=== PATIENT | female | born 1935 | race Caucasian/White ===

== ENCOUNTER 2017-11-24 12:51 | Inpatient (IN) | payer OTHER ==
[2017-11-24 13:08] VITALS: BMI 19.9
--- NOTE | 2017-11-24 13:13 | PDOC ---
History of Present Illness <Marita Villela - Last Filed: 11/24/17 15:45> <Madelin Baumann - Last Filed: 11/24/17 16:00> - General History Source: Patient Exam Limitations: No Limitations <Ana Johnson - Last Filed: 11/24/17 16:14> - General Chief Complaint: Chest Pain Stated Complaint: CHEST PAIN Time Seen by Provider: 11/24/17 13:12 - History of Present Illness Initial Comments: Ms Rodrigez 82-year-old female, with a past medical history of HTN, HLD, and hypothyroidism, arthritis, who presents to the ED with left-sided chest tightness and heaviness that began last night. The patient denies any fevers, chills, cough, nausea, vomiting, diarrhea, or abdominal pain. Denies any shortness of breath or palpitations. Denies any dizziness, syncope, or weakness. Social History: Former smoker. Surgical History: Cholecystectomy. Teletypesetter Monitor: Dr. Barrett PMD: Dr Aparicio (Ana Johnson) Past History <Richard Villelaina - Last Filed: 11/24/17 15:45> <Madelin Baumann - Last Filed: 11/24/17 16:00> - Past Medical History Anemia: No Asthma: No Cancer: No Cardiac Disorders: No CVA: No COPD: No CHF: No DVT: No Dementia: No Diabetes: No GI Disorders: No Disorders: No HTN: Yes Hypercholesterolemia: Yes Liver Disease: No Seizures: No Thyroid Disease: Yes - Surgical History Abdominal Surgery: No Appendectomy: No Cardiac Surgery: No Cholecystectomy: Yes Lung Surgery: No Neurologic Surgery: No Orthopedic Surgery: No - Immunization History Immunization Up to Date: Yes - Suicide/Smoking/Psychosocial Hx Smoking Status: No Smoking History: Former smoker Have you smoked in the past 12 months: No Number of Cigarettes Smoked Daily: 2 If you are a former smoker, when did you quit?: 2017 Information on smoking cessation initiated: No 'Breaking Loose' booklet given: 06/13/13 Hx Alcohol Use: No Drug/Substance Use Hx: No Substance Use Type: None Hx Substance Use Treatment: No <Ana Johnson - Last Filed: 11/24/17 16:14> - Past Medical History Allergies/Adverse Reactions: Allergies Allergy/AdvReac Type Severity Reaction Status Date / Time No Allergy Information Allergy Verified 11/24/17 12:59 Available Home Medications: Ambulatory Orders Levothyroxine [Synthroid -] 100 mcg PO DAILY 08/18/11 Amlodipine Besylate [Norvasc -] 5 mg PO DAILY #0 06/15/13 Aspirin Coated [Ecotrin -] 81 mg PO DAILY #0 NS 06/15/13 Atorvastatin Ca [Lipitor] 20 mg PO HS 11/24/17 Losartan Potassium 50 mg PO DAILY 11/24/17 Cardiac Specific PMH - Complaint Specific PMHX Pacemaker: No <Ana Johnson - Last Filed: 11/24/17 16:14> Review of Systems <Marita Villela - Last Filed: 11/24/17 15:45> <Madelin Baumann - Last Filed: 11/24/17 16:00> - Review of Systems Able to Perform ROS?: Yes <Ana Johnson - Last Filed: 11/24/17 16:14> - Review of Systems Comments:: 11/24/17 14:37 GENERAL/CONSTITUTIONAL: No fever or chills. No weakness. no sweats. HEAD, EYES, EARS, NOSE AND THROAT: No congestion. CARDIOVASCULAR: (+)Left-sided chest tightness/heaviness. No palpitations, syncope or edema. RESPIRATORY: +SOB, no cough, wheezing, or hemoptysis. GASTROINTESTINAL No nausea/vomiting. No diarrhea or constipation. No bloody stools. GENITOURINARY: No hematuria, dysuria, frequency, urgency or other changes. MUSCULOSKELETAL: No joint or muscle swelling or pain. No neck or back pain. SKIN: No rash or changes in skin color or lesions. NEUROLOGIC: No headache, vertigo, loss of consciousness, or change in strength/ sensation. HEMATOLOGIC/LYMPHATIC: No anemia, easy bruising/bleeding, or history of blood clots. ALLERGIC/IMMUNOLOGIC: No allergies All other systems reviewed and negative, or as documented in HPI. (Ana Johnson) *Physical Exam <Marita Villela - Last Filed: 11/24/17 15:45> <Madelin Baumann - Last Filed: 11/24/17 16:00> <Ana Johnson - Last Filed: 11/24/17 16:14> - Vital Signs Last Vital Signs Temp Pulse Resp BP Pulse Ox 98.1 F 68 99 H 119/64 99 11/24/17 13:18 11/24/17 16:10 11/24/17 16:10 11/24/17 16:10 11/24/17 16:10 - Physical Exam Comments: 11/24/17 13:56 General: Well appearing, awake and alert, NAD. HEENT: NCAT, PERRL, EOMI, clear conjunctiva, anicteric, moist mucus membranes, clear oropharynx, no oral lesions.. Neck: neck supple, FROM, no JVD. Resp: CTAB, normal and even respirations, no respiratory distress CVS: irregular rhythm, no murmurs, 2+ peripheral pulses throughout, no peripheral edema Abdomen: soft, NTND, no peritoneal signs. Back: nontender, normal inspection and ROM MSK: no edema, VINCENT x4, ROM intact. No clubbing or cyanosis. normal bulk and tone. Neuro: alert, oriented appropriately; no focal neurologic deficits. Skin: warm and well perfused, cap refill <2 sec, normal color 11/24/17 13:56 (Ana Johnson) ED Treatment Course - LABORATORY CBC & Chemistry Diagram: 11/24/17 13:40 11/24/17 13:40 - Additional Consults Time Called: 15:46 Consult/PCP: Byron (Daniela) - Paged overhead (as per service is in house) <Marita Villela - Last Filed: 11/24/17 15:45> - LABORATORY CBC & Chemistry Diagram: 11/24/17 13:40 11/24/17 13:40 <Madelin Baumann - Last Filed: 11/24/17 16:00> - LABORATORY CBC & Chemistry Diagram: 11/24/17 13:40 11/24/17 13:40 <Ana Johnson - Last Filed: 11/24/17 16:14> - ADDITIONAL ORDERS Additional order review: Laboratory Results 11/24/17 11/24/17 11/24/17 13:40 13:40 13:40 PT with INR 10.50 INR 0.93 Sodium 136 Potassium 4.2 Chloride 103 Carbon Dioxide 27 Anion Gap 6 L BUN 14 Creatinine 0.7 Creat Clearance w eGFR > 60 Random Glucose 80 Calcium 10.0 Magnesium 2.1 Total Bilirubin 1.4 H AST 27 ALT 21 Alkaline Phosphatase 98 Troponin I 0.04 Total Protein 7.1 Albumin 4.0 TSH 1.83 11/24/17 13:40 RBC 4.75 MCV 86.3 MCHC 33.7 RDW 14.6 D MPV 7.3 L D Neutrophils % 81.7 Lymphocytes % 11.7 D Monocytes % 5.8 Eosinophils % 0.2 Basophils % 0.6 - RADIOLOGY Radiology Studies Ordered: Category Date Time Status CHEST X-RAY PORTABLE* [RAD] Stat Radiology 11/24/17 13:51 Taken Medical Decision Making <Marita Villela - Last Filed: 11/24/17 15:45> <Madelin Baumann - Last Filed: 11/24/17 16:00> <Ana Johnson - Last Filed: 11/24/17 16:14> - Medical Decision Making 11/24/17 14:41 Dr. Lamont Agarwal is covering for Dr. Aparicio. Message left on cell phone. 11/24/17 14:45 Dr. Matthews who is covering for the patient's Teletypesetter Monitor (Dr. Barrett) was paged overhead. Dr. Matthews agreed to come to the ED to see the patient. 11/24/17 16:00 Dr. Matthews was paged over-head for update. (Madelin Baumann) 11/24/17 13:53 Rosa Rodrigez is an 82 YO F w/ history of HTN, HLD, and hypothyroidism, arthritis , who presents to the ED with chest tightness and heaviness since last night. No prodromal sx. No syncope, flores, dizziness, cough, congestion, n/v/d, AP or weakness/paresthesias. denies exertional component, trauma, infection. DDx. arrhythmia, ACS, metabolic/electrolyte derangements, lyme carditis Vital signs reviewed, wnl. Medical Plan: CBC, CMP, TSH, ECG, trops/card panel, CXR, Lyme test Prior notes reviewed, including admissions, discharges. laboratory results and imaging reviewed, basic labs and lytes wnl, notable for neg trop, normal TSH. Stress Lexiscan MIBI 09/2016 ([facility]); small zone of mild ischemia of the mid-distal anterior wall; normal LVEF. CXR with interstitial markings, no edema or infiltrate. EKG with 2nd degree heart block, Mobitz Type 2. changed from prior EKG which had sinus rhythm and diffuse TWI in inferolateral distribution. cards consult with primary event marketing manager Dr Aragon, with new EKG and heart block, warrants pacemaker evaluation given high degree and risk of compensation. Admit to tele for 2nd degree heart block, r/o ACS and chest pain eval.. Discussed results and management plan with pt and family member at bedside, agree with impression and plan . Admit to Dr. Aparicio/Stefano, spoke and s/o to Dr. Agarwal.. 11/24/17 16:13 11/24/17 16:14 (Ana Johnson) *DC/Admit/Observation/Transfer <Marita Villela - Last Filed: 11/24/17 15:45> <Madelin Baumann - Last Filed: 11/24/17 16:00> - Discharge Dispostion Decision to Admit order: Yes <Ana Johnson - Last Filed: 11/24/17 16:14> Diagnosis at time of Disposition: 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, Chest pain - Discharge Dispostion Condition at time of disposition: Fair Decision to Admit order Date/Time: (Ana Johnson) - Attestations Scribe Attestion: 11/24/17 14:31 Documentation prepared by Madelin Baumann, acting as medical care manager for Ana Johnson MD. (Madelin Baumann) Physician Attestion: 11/24/17 13:53 I, Ana Johnson MD, attest that this document has been prepared under my direction and personally reviewed by me in its entirety. I further attest, that it accurately reflects all work, treatment, procedures and medical decision -making performed by me. (Ana Johnson)
[2017-11-24 14:01] LABS: BASO % 0.6 % (0-2.0); EOS % 0.2 % (0-4.5); HEMOGLOBIN 13.8 GM/dL (10.7-15.3); LYMPH % 11.7 % (8-40); MCH 29.1 pg (25.7-33.7); MCHC 33.7 g/dl (32.0-36.0); MEAN CELL VOLUME 86.3 fl (80-96); MEAN PLT VOLUME 7.3 fl (7.5-11.1); MONO % 5.8 % (3.8-10.2); NEUT % 81.7 % (42.8-82.8); PLATELET COUNT 238 K/MM3 (134-434); RBC 4.75 M/mm3 (3.60-5.2); RDW 14.6 % (11.6-15.6); WHITE BLOOD COUNT 7.9 K/mm3 (4.0-10.0)
[2017-11-24 14:14] LABS: INR 0.93 (0.83-1.09); PROTHROMBIN TIME (PATIENT) 10.5 SEC (9.7-13.0)
[2017-11-24 14:25] LABS: ALK PHOS 98 U/L (45-117); ANION GAP 6 MMOL/L (8-16); BILIRUBIN,TOTAL 1.4 mg/dL (0.2-1); BLOOD UREA NITROGEN 14 mg/dL (7-18); CHLORIDE 103 mmol/L (98-107); CO2 27 mmol/L (21-32); CREATININE 0.7 mg/dL (0.55-1.3); GLUCOSE,RANDOM 80 mg/dL (74-106); MAGNESIUM 2.1 mg/dL (1.8-2.4); POTASSIUM 4.2 mmol/L (3.5-5.1); SGOT/AST 27 U/L (15-37); SGPT/ALT 21 U/L (13-61); SODIUM 136 mmol/L (136-145); TOT PROT 7.1 g/dl (6.4-8.2)
--- NOTE | 2017-11-24 14:56 | CON.CARD ---
Consult Consult Specialty:: Cardiology Reason for Consultation:: chest pain - History of Present Illness Chief Complaint: chest pain History of Present Illness: Ms Rodrigez 82-year-old female, with a past medical history of HTN, HLD, and hypothyroidism, arthritis, who presents to the ED with left-sided chest tightness and heaviness that began last night. The patient denies any fevers, chills, cough, nausea, vomiting, diarrhea, or abdominal pain. Denies any shortness of breath or palpitations. Denies any dizziness, syncope, or weakness. Social History: Former smoker. Surgical History: Cholecystectomy. Mixing Pan Tender: Dr. Barrett PMD: Dr Aparicio PM Stress Lexiscan MIBI 09/2016 ([facility]); small zone of mild ischemia of the mid-distal anterior wall; normal LVEF Ongoing medical problems CAD HTN hyperlipidemia hypothyroidism COPD weight loss - Past Medical History Cardio/Vascular: Yes: CAD, HTN, Hyperlipdemia - Alcohol/Substance Use Hx Alcohol Use: No - Smoking History Smoking history: Former smoker Have you smoked in the past 12 months: No Aproximately how many cigarettes per day: 2 If you are a former smoker, when did you quit?: 2017 Home Medications - Allergies Allergies/Adverse Reactions: Allergies Allergy/AdvReac Type Severity Reaction Status Date / Time No Allergy Information Allergy Verified 11/24/17 12:59 Available - Home Medications Home Medications: Ambulatory Orders Levothyroxine [Synthroid -] 100 mcg PO DAILY 08/18/11 Amlodipine Besylate [Norvasc -] 5 mg PO DAILY #0 06/15/13 Aspirin Coated [Ecotrin -] 81 mg PO DAILY #0 NS 06/15/13 Atorvastatin Ca [Lipitor] 20 mg PO HS 11/24/17 Losartan Potassium 50 mg PO DAILY 11/24/17 Review of Systems - Review of Systems Constitutional: reports: No Symptoms Eyes: reports: No Symptoms HENT: reports: No Symptoms Neck: reports: No Symptoms Cardiovascular: reports: Chest Pain Gastrointestinal: reports: No Symptoms Genitourinary: reports: No Symptoms Breasts: reports: No Symptoms Reported Musculoskeletal: reports: No Symptoms Integumentary: reports: No Symptoms Neurological: reports: No Symptoms Endocrine: reports: No Symptoms Hematology/Lymphatic: reports: No Symptoms Psychiatric: reports: No Symptoms Vital Signs: Vital Signs Temperature 98.1 F 11/24/17 13:18 Pulse Rate 60 11/24/17 13:18 Respiratory Rate 18 11/24/17 13:40 Blood Pressure 143/97 11/24/17 13:40 O2 Sat by Pulse Oximetry (%) 99 11/24/17 13:40 Constitutional: Yes: Well Nourished, No Distress, Calm Eyes: Yes: WNL, Conjunctiva Clear, EOM Intact HENT: Yes: WNL, Atraumatic, Normocephalic Neck: Yes: WNL, Supple, Trachea Midline Respiratory: Yes: WNL, Regular, CTA Bilaterally Gastrointestinal: Yes: WNL, Normal Bowel Sounds Renal/: Yes: WNL Cardiovascular: Yes: WNL, Regular Rate and Rhythm Musculoskeletal: Yes: WNL Extremities: Yes: WNL Integumentary: Yes: WNL Neurological: Yes: WNL, Alert, Oriented ...Motor Strength: WNL Psychiatric: Yes: WNL, Alert, Oriented - Other Data Labs, Other Data: CBC, BMP 11/24/17 13:40 11/24/17 13:40 INR, PTT INR 0.93 (0.83-1.09) 11/24/17 13:40 Troponin, BNP 11/24/17 13:40 Troponin I 0.04 Troponin, BNP 11/24/17 13:40 Troponin I 0.04 Laboratory Tests 11/24/17 11/24/17 11/24/17 13:40 13:40 13:40 WBC 7.9 RBC 4.75 Hgb 13.8 Hct 41.0 MCV 86.3 MCH 29.1 MCHC 33.7 RDW 14.6 D Plt Count 238 D MPV 7.3 L D Absolute Neuts (auto) 6.4 Neutrophils % 81.7 Lymphocytes % 11.7 D Monocytes % 5.8 Eosinophils % 0.2 Basophils % 0.6 Nucleated RBC % 0 PT with INR 10.50 INR 0.93 Sodium 136 Potassium 4.2 Chloride 103 Carbon Dioxide 27 Anion Gap 6 L BUN 14 Creatinine 0.7 Creat Clearance w eGFR > 60 Random Glucose 80 Calcium 10.0 Magnesium 2.1 Total Bilirubin 1.4 H AST 27 ALT 21 Alkaline Phosphatase 98 Troponin I 0.04 Total Protein 7.1 Albumin 4.0 TSH 11/24/17 13:40 WBC RBC Hgb Hct MCV MCH MCHC RDW Plt Count MPV Absolute Neuts (auto) Neutrophils % Lymphocytes % Monocytes % Eosinophils % Basophils % Nucleated RBC % PT with INR INR Sodium Potassium Chloride Carbon Dioxide Anion Gap BUN Creatinine Creat Clearance w eGFR Random Glucose Calcium Magnesium Total Bilirubin AST ALT Alkaline Phosphatase Troponin I Total Protein Albumin TSH 1.83 Imaging - Results Chest X-ray: Image Reviewed (no i/e) EKG: Image Reviewed (sr rep abn 2;1 avb) Assessment/Plan Imp angina Stress Lexiscan MIBI 09/2016 ([facility]); small zone of mild ischemia of the mid-distal anterior wall; normal LVEF CAD HTN hyperlipidemia hypothyroidism COPD weight loss 2;1 block on the ekg Plan r/o mi telemetry as echo may need c. cath vs mibi stress test depending on patient course.
--- NOTE | 2017-11-24 16:07 | ECHO ---
Name: VERENICE VYAS Exam:Adult Echocardiogram Study Date: 11/24/2017 02:59 PM Age: 82 yrs Height: 60 in Weight: 102 lb BSA: 1.4 m2 MMode/2D Measurements & Calculations IVSd: 1.1 cm Ao root diam: 3.4 cm LVIDd: 4.5 cm LA dimension: 2.8 cm LVIDs: 2.9 cm ACS: 1.9 cm LVPWd: 0.97 cm IVSs: 1.3 cm LVPWs: 1.1 cm EDV(Teich): 91.5 ml ESV(Teich): 33.4 ml Doppler Measurements & Calculations MV E max gerber: 37.0 cm/sec Ao V2 max: 137.1 cm/sec MV A max gerber: 73.8 cm/sec Ao max P.5 mmHg MV E/A: 0.50 Ao V2 mean: 98.2 cm/sec Ao mean P.2 mmHg Ao V2 VTI: 27.7 cm TR max gerber: 206.6 cm/sec PI end-d gerber: 73.3 cm/sec TR max P.2 mmHg Med Peak E' Gerber: 5.2 cm/sec Med E/e': 7.2 Lat Peak E' Gerber: 4.3 cm/sec Lat E/e': 8.7 Procedure A two-dimensional transthoracic echocardiogram with color flow and Doppler was performed. Left Ventricle The left ventricular size, thickness and function are normal. The left ventricular ejection fraction is normal. E/A reversal consistent with but not diagnostic of poor LV compliance. The left ventricular w all motion is normal. Right Ventricle The right ventricle is normal in size and function. Atria Normal left and right atrial size and function. Mitral Valve There is mild mitral valve thickening. There is no mitral valve stenosis. There is trace mitral regur gitation. Tricuspid Valve There is trivial tricuspid valve thickening. There is no tricuspid stenosis. There is Trace to mild t ricuspid regurgitation. Right ventricular systolic pressure is normal. Aortic Valve The aortic valve is trileaflet. There is trivial aortic valve thickening. There is mild aortic sclero sis.;. No hemodynamically significant valvular aortic stenosis. No aortic regurgitation is present. Pulmonic Valve The pulmonic valve is not well visualized. There is no pulmonic valvular stenosis. Mild pulmonic valv ular regurgitation. Great Vessels The aortic root is normal size. Pericardium/Pleura There is no pericardial effusion. Interpretation Summary The left ventricular size, thickness and function are normal The left ventricular ejection fraction is normal. The left ventricular wall motion is normal. Mild pulmonic valvular regurgitation. E/A reversal consistent with but not diagnostic of poor LV compliance There is trace mitral regurgitation. There is Trace to mild tricuspid regurgitation. Right ventricular systolic pressure is normal. MD Fabian Matthews 11/24/2017 04:06 PM
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
[2017-11-24] MEDS: ATORVASTATIN CA 20 MG TABLET (FP) PO SCH (21:49)
[2017-11-25] MEDS ORDERED: LEVOTHYROXINE NA 100 MCG TABLET (FP) PO SCH (07:00)
--- NOTE | 2017-11-25 07:39 | PN ---
Progress Note, Physician Chief Complaint: Pt A&Ox3; had chest tightness and SOB again this morning while washing in the bathroom. History of Present Illness: Ms Rodrigez 82-year-old female, with a past medical history of HTN, HLD (on statin) , and hypothyroidism, arthritis (principally of the left knee), who presents to the ED with left-sided chest tightness and heaviness, along with difficulty catching her breath, that began last night after she had been cleaning the house all day. The patient denies any fevers, chills, cough, nausea, vomiting, diarrhea, or abdominal pain. Denies palpitations. Denies any dizziness, syncope , or weakness. Social History: Former smoker. Surgical History: Cholecystectomy. 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 No hx [place] Stress Lexiscan MIBI 09/2016 ([facility]); small zone of mild ischemia of the mid-distal anterior wall; normal LVEF - Current Medication List Current Medications: Active Medications Amlodipine Besylate (Norvasc -) 5 mg PO DAILY [facility] Aspirin (Ecotrin -) 81 mg PO DAILY [facility] Atorvastatin Calcium (Lipitor -) 20 mg PO HS [facility] Last Admin: 11/24/17 21:49 Dose: 20 mg Levothyroxine Sodium (Synthroid -) 100 mcg PO AM [facility] Last Admin: 11/25/17 06:04 Dose: 100 mcg Losartan Potassium (Cozaar -) 50 mg PO DAILY [facility] - Objective Vital Signs: Vital Signs Temperature 97.7 F 11/25/17 05:30 Pulse Rate 55 L 11/25/17 05:30 Respiratory Rate 16 11/25/17 05:30 Blood Pressure 118/71 11/25/17 05:30 O2 Sat by Pulse Oximetry (%) 98 11/24/17 20:59 Constitutional: Yes: Calm Eyes: Yes: WNL HENT: Yes: WNL Neck: Yes: WNL Cardiovascular: Yes: S1, S2, S4 Respiratory: Yes: Regular Labs: CBC, BMP 11/24/17 13:40 INR, PTT INR 0.93 (0.83-1.09) 11/24/17 13:40 Problem List - Problems (1) Hypothyroid Assessment/Plan: normal TSH yesterday; ?elevated today; lab informed, and will run them again. Code(s): E03.9 - HYPOTHYROIDISM, UNSPECIFIED (2) HTN (hypertension) Assessment/Plan: on amlodipine and losartan. Code(s): I10 - ESSENTIAL (PRIMARY) HYPERTENSION (3) Hyperlipemia Assessment/Plan: on statin; f/u lipid panell. Code(s): E78.5 - HYPERLIPIDEMIA, UNSPECIFIED (4) Chronic diastolic (congestive) heart failure Code(s): I50.32 - CHRONIC DIASTOLIC (CONGESTIVE) HEART FAILURE (5) Chest tightness or pressure Assessment/Plan: Pt had mild chest tightness and SOB again this morning when washing up. TNI 0.04 x 2. EKG: NSR; sinus arrhythmia; occasional PVCs; LAD; RBBB; LVH; ? old septal infarct (Marked T wave inversons noted on 2013 EKG no longer present). Telemetry: NSR; rare sinus pause, <2 seconds Stress MIBI Lexiscan 2017: small zone of mild anterior ischemia. Pt agrees to be transferred to [facility] for coronary angiogram. Code(s): R07.89 - OTHER CHEST PAIN (6) Has smoked cigarettes within prior year Code(s): Z87.891 - PERSONAL HISTORY OF NICOTINE DEPENDENCE
[2017-11-25 08:22] LABS: ALBUMIN 3.7 g/dl (3.4-5.0); ALK PHOS 95 U/L (45-117); ANION GAP 11 MMOL/L (8-16); BILIRUBIN,TOTAL 1.2 mg/dL (0.2-1); BLOOD UREA NITROGEN 12 mg/dL (7-18); CALCIUM 10.3 mg/dL (8.5-10.1); CHLORIDE 105 mmol/L (98-107); CO2 26 mmol/L (21-32); CREATININE 0.7 mg/dL (0.55-1.3); GLUCOSE,RANDOM 79 mg/dL (74-106); POTASSIUM 4.3 mmol/L (3.5-5.1); SGOT/AST 23 U/L (15-37); SGPT/ALT 21 U/L (13-61); SODIUM 141 mmol/L (136-145); TOT PROT 6.9 g/dl (6.4-8.2)
--- NOTE | 2017-11-25 09:04 | PN ---
Progress Note, Physician Chief Complaint: had an episodes of chest pressure this am , monitor NSR now no 2:1 block - Current Medication List Current Medications: Active Medications Amlodipine Besylate (Norvasc -) 5 mg PO DAILY [facility] Aspirin (Ecotrin -) 81 mg PO DAILY [facility] Atorvastatin Calcium (Lipitor -) 20 mg PO HS [facility] Last Admin: 11/24/17 21:49 Dose: 20 mg Levothyroxine Sodium (Synthroid -) 100 mcg PO AM [facility] Last Admin: 11/25/17 06:04 Dose: 100 mcg Losartan Potassium (Cozaar -) 50 mg PO DAILY [facility] - Objective Vital Signs: Vital Signs Temperature 97.7 F 11/25/17 05:30 Pulse Rate 55 L 11/25/17 05:30 Respiratory Rate 16 11/25/17 05:30 Blood Pressure 118/71 11/25/17 05:30 O2 Sat by Pulse Oximetry (%) 98 11/24/17 20:59 Constitutional: Well Nourished, No Distress, Calm HEENT: Yes: Atraumatic Yes: Trachea Midline. No: Decreased ROM, Lymphadenopathy,Conjunctiva Clear, EOM Intact Cardiovascular: Yes: Regular Rate and Rhythm, S1, S2. No: Murmur, Rub Respiratory: Yes: Regular, CTA Bilaterally Gastrointestinal: Yes: Normal Bowel Sounds, Soft Musculoskeletal: Yes: Joint Stiffness (Left Knee). No: Back Pain Extremities: No: Calf Tenderness, no Edema:Peripheral Pulses: Right Dorsalis Pedis: 1+, Left Femoral: 1+ Neurological: Yes: Alert, Oriente, Motor Strength: WNL, LUE, LLE, RUE, RLE Labs: CBC, BMP 11/24/17 13:40 11/25/17 05:30 INR, PTT INR 0.93 (0.83-1.09) 11/24/17 13:40 Problem List - Problems (1) Chest pain Assessment/Plan: R/O ACS Multiple CAd risk factors , telemonitor , ECHO performed in ED ASA, Statin no B blockers serial CE and NST/Cath as per cardiology input. Code(s): R07.9 - CHEST PAIN, UNSPECIFIED (2) 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 Assessment/Plan: 2:1 HB with Narrow QRS now resolved on Monitor F/U EKG R/O AC no hemodynamic instability Code(s): I44.1 - ATRIOVENTRICULAR BLOCK, SECOND DEGREE (3) HTN (hypertension) Assessment/Plan: Well controlled cont home meds Code(s): I10 - ESSENTIAL (PRIMARY) HYPERTENSION (4) Hypothyroid Assessment/Plan: TSH at target cont current dose of Levothyroxne Code(s): E03.9 - HYPOTHYROIDISM, UNSPECIFIED (5) Hyperlipemia Assessment/Plan: Cont Statin F/U HBA!C and Lipid Panel Code(s): E78.5 - HYPERLIPIDEMIA, UNSPECIFIED
--- NOTE | 2017-11-25 09:35 | EKG ---
Test Reason : Blood Pressure : / mmHG Vent. Rate : 068 BPM Atrial Rate : 068 BPM P-R Int : 182 ms QRS Dur : 132 ms QT Int : 430 ms P-R-T Axes : 068 -41 087 degrees QTc Int : 457 ms NORMAL SINUS RHYTHM BIATRIAL ENLARGEMENT LEFT AXIS DEVIATION RIGHT BUNDLE BRANCH BLOCK LEFT VENTRICULAR HYPERTROPHY WITH REPOLARIZATION ABNORMALITY CANNOT RULE OUT SEPTAL INFARCT (CITED ON OR BEFORE 18-AUG-2011) ABNORMAL ECG WHEN COMPARED WITH ECG OF 24-NOV-2017 12:57, PREMATURE VENTRICULAR COMPLEXES ARE NO LONGER PRESENT QUESTIONABLE CHANGE IN INITIAL FORCES OF SEPTAL LEADS Confirmed by CHRIS MUHAMMAD MD ([id number]) on 11/25/2017 9:35:24 AM Referred By: Confirmed By:CHRIS MUHAMMAD MD
[2017-11-25] MEDS ORDERED: amLODIPine BESYLATE 5 MG TABLET (FP) PO SCH (10:00)
[2017-11-25] MEDS ORDERED: LOSARTAN POTASSIUM 50 MG TABLET (FP) PO SCH (10:00)
[2017-11-25] MEDS ORDERED: ASPIRIN COATED 81 MG TABLET.EC PO SCH (10:00)
[2017-11-25 10:32] LABS: CHOLESTEROL 182 mg/dL (50-200); HDL CHOLESTEROL 70 mg/dL (40-60); N-TERMINAL BNP 678.3 pg/ml (5-450); TRIGLYCERIDES 113 mg/dL (0-150)
[2017-11-25] MEDS ORDERED: CLOPIDOGREL BISULFATE 300 MG TABLET PO ONE (10:43)
[2017-11-25 19:43] VITALS: BP 130/55; PULSE 68; TEMP 98.4
[2017-11-25] MEDS: ATORVASTATIN CA 20 MG TABLET (FP) PO SCH (21:00)
--- NOTE | 2017-11-26 11:27 | EKG ---
Test Reason : Blood Pressure : / mmHG Vent. Rate : 062 BPM Atrial Rate : 062 BPM P-R Int : 174 ms QRS Dur : 132 ms QT Int : 476 ms P-R-T Axes : 069 -38 036 degrees QTc Int : 483 ms POOR DATA QUALITY, INTERPRETATION MAY BE ADVERSELY AFFECTED SINUS RHYTHM WITH MARKED SINUS ARRHYTHMIA WITH OCCASIONAL PREMATURE VENTRICULAR COMPLEXES BIATRIAL ENLARGEMENT LEFT AXIS DEVIATION RIGHT BUNDLE BRANCH BLOCK LEFT VENTRICULAR HYPERTROPHY CANNOT RULE OUT SEPTAL INFARCT (CITED ON OR BEFORE 18-AUG-2011) ABNORMAL ECG WHEN COMPARED WITH ECG OF 13-JUN-2013 08:47, PREMATURE VENTRICULAR COMPLEXES ARE NOW PRESENT RIGHT BUNDLE BRANCH BLOCK IS NOW PRESENT QUESTIONABLE CHANGE IN INITIAL FORCES OF SEPTAL LEADS Confirmed by GAETANO CASEY, MARRY ([id number]) on 11/26/2017 11:27:08 AM Referred By: Confirmed By:MARRY SALTER MD
== END 2017-11-25 21:00 | disposition short-term general hospital (02) | DRG 303 ==
LOC: JER 12:51 → JERBED 14:35 → J4W 20:50
PROVIDERS: ADMIT Internal Medicine; ATTEND Internal Medicine
DX: I25.10 Atherosclerotic heart disease of native coronary artery without angina pectoris (principal); I50.32 Chronic diastolic (congestive) heart failure; Z68.1 Body mass index [BMI] 19.9 or less, adult; I44.1 Atrioventricular block, second degree; R07.9 Chest pain, unspecified; E03.9 Hypothyroidism, unspecified; E78.5 Hyperlipidemia, unspecified; I11.0 Hypertensive heart disease with heart failure; Z87.891 Personal history of nicotine dependence; J44.9 Chronic obstructive pulmonary disease, unspecified; R63.4 Abnormal weight loss
CPT/HCPCS: 36415; 71045-TC-FY; 80053; 80061; 83036; 83721; 83735; 83880; 84443; 84484; 85025; 85610; 86618; 93005; 93010; 93306-TC; 99285-25

== ENCOUNTER 2019-01-21 16:40 | Inpatient (IN) | payer OTHER ==
--- NOTE | 2019-01-21 17:34 | PDOC ---
History of Present Illness - General Chief Complaint: Lightheaded Stated Complaint: DIZZY Time Seen by Provider: 01/21/19 17:33 History Source: Patient Exam Limitations: No Limitations - History of Present Illness Initial Comments: Pt is an 84 yo F, with PMH of HTN, HLD, and hypothyroidism, who is presenting from home via car for complaints of difficulty walking over the past 3-4 days. Pt states when she walks, she feels "like she is about to fall over". This is not associated with position changes or vertigo, and it does not localize to either side. Pt denies falling or hitting her head. Pt states she has never felt this way before. She endorses poor appetite, and her sister notes "she eats only crackers". Pt denies any fevers/chills, headache, vision changes, cough, congestion, syncope, chest pain, palpitations, SOB, nausea/vomiting, abdominal pain, urinary symptoms, diarrhea/constipation, or leg swelling. Allergies: NKDA PCP: Dr. Chris Aparicio Cards: Dr. Barrett Social: Pt denies any cigarette, alcohol, or drug use. Pt denies any recent travel or sick contacts. Surgical: previous cardiac cath, no stents placed Family: no relevant history. 01/21/19 19:21 Past History - Travel Traveled outside of the country in the last 30 days: No Close contact w/someone who was outside of country & ill: No - Past Medical History Allergies/Adverse Reactions: Allergies Allergy/AdvReac Type Severity Reaction Status Date / Time No Allergy Information Allergy Verified 01/21/19 16:51 Available Home Medications: Ambulatory Orders Levothyroxine [Synthroid -] 100 mcg PO DAILY 08/18/11 Amlodipine Besylate [Norvasc -] 5 mg PO DAILY #0 06/15/13 Aspirin Coated [Ecotrin -] 81 mg PO DAILY #0 NS 06/15/13 Atorvastatin Ca [Lipitor] 20 mg PO HS 11/24/17 Losartan Potassium 50 mg PO DAILY 11/24/17 Anemia: No Asthma: No Cancer: No Cardiac Disorders: Yes CVA: No COPD: No CHF: No DVT: No Dementia: No Diabetes: No GI Disorders: No Disorders: No HTN: Yes Hypercholesterolemia: Yes Liver Disease: No Seizures: No Thyroid Disease: Yes - Surgical History Abdominal Surgery: No Appendectomy: No Cardiac Surgery: Yes Cholecystectomy: Yes Lung Surgery: No Neurologic Surgery: No Orthopedic Surgery: No - Immunization History Immunization Up to Date: Yes - Psycho Social/Smoking Cessation Hx Smoking Status: No Smoking History: Never smoked Have you smoked in the past 12 months: No Number of Cigarettes Smoked Daily: 2 If you are a former smoker, when did you quit?: 2017 'Breaking Loose' booklet given: 06/13/13 Hx Alcohol Use: No Drug/Substance Use Hx: No Substance Use Type: None Hx Substance Use Treatment: No Cardiac Specific PMH - Complaint Specific PMHX Abdominal Aortic Aneurysm: No Angina: No Cardiac Arrhythmia: No Cardiac Stent: No GERD: No Myocardial Infarction: No Pacemaker: No Pulmonary Embolus: No Valvular Heart Disease: No Peripheral Vascular Disease: No Review of Systems - Review of Systems Able to Perform ROS?: Yes Is the patient limited Romanian proficient: No Constitutional: Yes: Loss of Appetite, Weight Stable. No: Chills, Diaphoresis, Fever, Malaise, Weakness HEENTM: No: Blurred Vision, Recent change in vision, Nose Congestion, Throat Pain, Throat Swelling, Difficulty Swallowing Respiratory: No: Cough, Orthopnea, Shortness of Breath Cardiac (ROS): No: Chest Pain, Edema, Irregular Heart Rate, Lightheadedness, Palpitations, Syncope, Chest Tightness ABD/GI: No: Constipated, Diarrhea, Nausea, Poor Appetite, Poor Fluid Intake, Vomiting, Abdominal cramping : No: Burning, Dysuria, Frequency, Flank Pain, Hematuria, Pain, Urgency Musculoskeletal: No: Back Pain, Joint Pain, Muscle Pain, Muscle Weakness Integumentary: No: Rash Neurological: Yes: Unsteady Gait, Ataxia. No: Headache, Numbness, Pre-Existing Deficit, Weakness, Dizziness Psychiatric: Yes: Stressors. No: Sleep Pattern Change, Change in Appetite Endocrine: No: Increased Urine, Change in Weight Hematologic/Lymphatic: No: Anemia, Blood Clots, Easy Bleeding, Easy Bruising All Other Systems: Reviewed and Negative *Physical Exam - Vital Signs Last Vital Signs Temp Pulse Resp BP Pulse Ox 97.7 F 74 18 146/71 99 01/21/19 16:49 01/21/19 16:49 01/21/19 16:49 01/21/19 16:49 01/21/19 16:49 - Physical Exam Comments: Vitals stable, pt afebrile. Pt in NAD, thin body habitus. Pt alert and oriented x3. adjuster generally intact, muscular strength and sensation intact. Difficulty with eye tracking to horizontal on the R; Difficulty with [id number] on the R. Heel-waterman and dysdiadochokinesia intact Unsteady shuffling gait, Romberg does not localize, but pt unsteady with closing her eyes No midline spinal tenderness, step-offs, or crepitus. Head normocephalic, atraumatic. Eyes PERRLA, EOMI. Oropharynx without erythema or exudates, no LAD b/l. No nasal congestion. Hearing intact. Clear heart sounds, S1/S2, no JVD, b/l pedal edema, or heart murmur. Clear lung sounds, no respiratory distress, wheezes, crackles, or accessory muscle use. No abdominal or CVA tenderness to palpation, no rebound, no guarding. Abdomen soft, non-distended, and with normoactive bowel sounds. Skin without jaundice or rash. 01/21/19 19:24 ED Treatment Course - LABORATORY CBC & Chemistry Diagram: 01/21/19 18:24 01/21/19 18:24 - ADDITIONAL ORDERS Additional order review: Laboratory Results 01/21/19 01/21/19 18:50 18:24 Creatine Kinase 120 Troponin I 0.03 Urine Color Yellow Urine Appearance Clear Urine pH 7.0 D Ur Specific [place] 1.004 L Urine Protein Negative Urine Glucose (UA) Negative Urine Ketones Negative Urine Blood Negative Urine Nitrite Negative Urine Bilirubin Negative Urine Urobilinogen 0.2 Ur Leukocyte Esterase Negative 01/21/19 18:24 RBC 4.16 MCV 87.3 MCHC 34.4 RDW 14.4 MPV 7.4 L Neutrophils % 79.8 Lymphocytes % 11.5 Monocytes % 7.1 Eosinophils % 0.2 Basophils % 1.4 - RADIOLOGY Radiology Studies Ordered: Category Date Time Status HEAD CT WITHOUT CONTRAST [CT] Stat CT Scan 01/21/19 17:43 Taken CHEST X-RAY PORTABLE* [RAD] Stat Radiology 01/21/19 17:44 Taken - Medications Given in the ED: ED Medications Discontinued Medications Generic Name Dose Route Start Last Admin Trade Name Freq PRN Reason Stop Dose Admin Sodium Chloride 500 mls @ 1,000 mls/hr 01/21/19 18:33 01/21/19 18:41 Normal Saline - IV 01/21/19 19:02 1,000 mls/hr ASDIR STA Administration Medical Decision Making - Medical Decision Making Pt was seen at bedside, also will be seen by attending Dr. Hurst. Pt presenting with difficulty walking due to problems with balance. Will evaluate for electrolyte abnormalities, vitamin deficiencies (B12/folate), ACS, CVA ( posterior stroke), infection. Provided 500 mL IV NS for improvement of hydration. Will continue to reassess pt and monitor for symptomatic improvement. ECG: NSR, LVH with QRS widening (HR 71, Pr 196, QRS 118, QTc 495). TWIs in I, AVL, V4-V6; biphasic T waves V3. New TWIs from prior ECG. Labs pending, signed out to night team (Dr. Gabriel) 01/21/19 19:26 Discharge - Discharge Information Problems reviewed: Yes Clinical Impression/Diagnosis: Ataxia Condition: Stable - Follow up/Referral Referrals: Owen eBtancur MD [Primary Care Provider] - - Patient Discharge Instructions - Post Discharge Activity
--- NOTE | 2019-01-21 18:04 | PDOC ---
Attending Attestation - Resident Resident Name: Shani Nickerson - ED Attending Attestation I have performed the following: I have examined & evaluated the patient, The case was reviewed & discussed with the resident, I agree w/resident's findings & plan, Exceptions are as noted - HPI HPI: 01/21/19 18:36 Ms. Rodrigez is an 84-year-old female with a history of hypothyroidism, hypertension, hyperlipidemia, coronary artery disease. Patient presents emergency department with a complaint of having an unbalanced feeling. She has had the symptoms for the past 2 to 3 days. No headache, no head trauma. No focal weakness or numbness. No changes in his speech. No facial asymmetry that she is noticed. This is atypical for this patient because typically according to her patient and her sister, she is very fast and agile on her feet. PMH: Hypothyroidism, hypertension, hyperlipidemia, CAD PSH: Medication: Levothyroxine, Amlodipine, Aspirin, Atorvastatin, Losartan Allergies: NKDA - Physicial Exam PE: 01/21/19 18:04 GENERAL: The patient is in no acute distress, very thin. ENT: Ears normal, nares patent, oropharynx clear without exudates. Moist mucous membranes. NECK: Normal range of motion, supple LUNGS: Breath sounds equal, clear to auscultation bilaterally. No wheezes, and no crackles. HEART:Regular rate and rhythm, normal S1 and S2 without murmur ABDOMEN: Soft, nontender, normoactive bowel sounds. EXTREMITIES: Normal range of motion, no edema. NEUROLOGICAL: Cranial nerves II through XII grossly intact. Normal speech. No focal neurological deficits. Patient ambulatory with a very ataxic wide-based gait SKIN: Warm, Dry, normal turgor, no rashes or lesions noted. 01/21/19 18:43 - Medical Decision Making 01/21/19 18:44 84-year-old female presents emergency department with 3 days approximately of ataxia difficulty ambulation No headache No focal weakness or Differential diagnosis is broad and include ACS, posterior stroke/TIA, intracranial mass, intracranial bleed We will do: Labs, EKG, CT head This patient will need to be admitted Signed out to Dr. Shultz EKG: Normal sinus rhythm, rate of 71 bpm, normal axis, LVH, no ST elevations or depression Patient has a biphasic T wave in V3, T wave inversion V4 V5 V6, 1 and aVL. EKG done previously reveals right bundle branch block, left axis deviation, no T wave inversions in the lateral precordial leads
[2019-01-21] MEDS ORDERED: SODIUM CHLORIDE 500 ML IV STA (18:33)
[2019-01-21 18:42] LABS: BASO % 1.4 % (0-2.0); EOS % 0.2 % (0-4.5); HEMATOCRIT 36.4 % (32.4-45.2); HEMOGLOBIN 12.5 GM/dL (10.7-15.3); LYMPH % 11.5 % (8-40); MCHC 34.4 g/dl (32.0-36.0); MEAN CELL VOLUME 87.3 fl (80-96); MEAN PLT VOLUME 7.4 fl (7.5-11.1); MONO % 7.1 % (3.8-10.2); NEUT % 79.8 % (42.8-82.8); PLATELET COUNT 211 K/MM3 (134-434); RBC 4.16 M/mm3 (3.60-5.2); RDW 14.4 % (11.6-15.6); WHITE BLOOD COUNT 10.3 K/mm3 (4.0-10.0)
[2019-01-21 18:56] LABS: URINE APPEARANCE CLEAR; URINE BILIRUBIN NEGATIVE (NEGATIVE); URINE COLOR YELLOW; URINE GLUCOSE (UA) NEGATIVE (NEGATIVE); URINE KETONE NEGATIVE (NEGATIVE); URINE LEUK ESTERASE NEGATIVE (NEGATIVE); URINE NITRITE NEGATIVE (NEGATIVE); URINE PROTEIN NEGATIVE (NEGATIVE); URINE UROBILINOGEN 0.2 mg/dL (0.2-1.0)
[2019-01-21] MEDS ORDERED: FOLIC ACID INJECTION - 1 MG, THIAMINE HCL 100 MG, MULTIVIT INJECTION ADULT 10 ML in SOD... IVPB ONE (19:33)
[2019-01-21 20:24] LABS: ALBUMIN 3.3 g/dl (3.4-5.0); BILIRUBIN,TOTAL 0.9 mg/dL (0.2-1); BLOOD UREA NITROGEN 12.5 mg/dL (7-18); CALCIUM 9.6 mg/dL (8.5-10.1); CREATININE 0.8 mg/dL (0.55-1.3); MAGNESIUM 1.8 mg/dL (1.8-2.4); POTASSIUM 3.4 mmol/L (3.5-5.1)
[2019-01-21] MEDS ORDERED: POTASSIUM CHLORIDE TABS 20 MEQ TABLET.ER (FP) PO ONE ×2 (20:50→23:04)
--- NOTE | 2019-01-21 20:55 | PDOC ---
*Physical Exam - Vital Signs Last Vital Signs Temp Pulse Resp BP Pulse Ox 97.7 F 74 18 146/71 99 01/21/19 16:49 01/21/19 16:49 01/21/19 16:49 01/21/19 16:49 01/21/19 16:49 ED Treatment Course - LABORATORY CBC & Chemistry Diagram: 01/21/19 18:24 01/21/19 18:24 - ADDITIONAL ORDERS Additional order review: Laboratory Results 01/21/19 01/21/19 01/21/19 18:50 18:24 18:24 Sodium 137 Potassium 3.4 L Chloride 103 Carbon Dioxide 27 Anion Gap 7 L BUN 12.5 Creatinine 0.8 Est GFR (CKD-EPI)AfAm 77.92 Est GFR (CKD-EPI)NonAf 67.23 Random Glucose 80 Calcium 9.6 Magnesium 1.8 Total Bilirubin 0.9 AST 22 ALT 14 Alkaline Phosphatase 86 Creatine Kinase 120 Troponin I 0.03 Total Protein 6.0 L Albumin 3.3 L Triglycerides 99 Cholesterol 158 Total LDL Cholesterol 71 HDL Cholesterol 65 H Vitamin B12 908 Serum Folate 20 H TSH 0.24 L Urine Color Yellow Urine Appearance Clear Urine pH 7.0 D Ur Specific [place] 1.004 L Urine Protein Negative Urine Glucose (UA) Negative Urine Ketones Negative Urine Blood Negative Urine Nitrite Negative Urine Bilirubin Negative Urine Urobilinogen 0.2 Ur Leukocyte Esterase Negative 01/21/19 18:24 RBC 4.16 MCV 87.3 MCHC 34.4 RDW 14.4 MPV 7.4 L Neutrophils % 79.8 Lymphocytes % 11.5 Monocytes % 7.1 Eosinophils % 0.2 Basophils % 1.4 - Medications Given in the ED: ED Medications Discontinued Medications Generic Name Dose Route Start Last Admin Trade Name Freq PRN Reason Stop Dose Admin Sodium Chloride 500 mls @ 1,000 mls/hr 01/21/19 18:33 01/21/19 18:41 Normal Saline - IV 01/21/19 19:02 1,000 mls/hr ASDIR STA Administration Medical Decision Making - Medical Decision Making Patient signed out to me from day team pending Head CT, chemistry labs, and admission to hospital for rule out stroke vs posterior circulation pathology, new ECG changes, and persistent ataxia. EXAM: HEAD CT WITHOUT CONTRAST HISTORY: Patient being evaluated for possible infarction. Procedure: Contiguous axial tomographic sections were obtained from the base of the skull to the vertex without the use of intravenous contrast. Sagittal and coronal reformatted images are provided. COMPARISON: None. Preliminary findings/impression: 1. No evidence of acute intracranial hemorrhage on this study. 2. Diffuse cerebral atrophy, likely age related. 3. Hypodense white matter foci, consistent with small vessel ischemic disease. 4. Atherosclerotic calcifications. 5. Nasal septal deviation. 6. 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 CMP Sodium 137 mmol/L (136-145) 01/21/19 18:24 Potassium 3.4 mmol/L (3.5-5.1) L 01/21/19 18:24 Chloride 103 mmol/L (98-107) 01/21/19 18:24 Carbon Dioxide 27 mmol/L (21-32) 01/21/19 18:24 Anion Gap 7 MMOL/L (8-16) L 01/21/19 18:24 BUN 12.5 mg/dL (7-18) 01/21/19 18:24 Creatinine 0.8 mg/dL (0.55-1.3) 01/21/19 18:24 Est GFR (CKD-EPI)AfAm 77.92 01/21/19 18:24 Est GFR (CKD-EPI)NonAf 67.23 01/21/19 18:24 Random Glucose 80 mg/dL (74-106) 01/21/19 18:24 Calcium 9.6 mg/dL (8.5-10.1) 01/21/19 18:24 Magnesium 1.8 mg/dL (1.8-2.4) 01/21/19 18:24 Total Bilirubin 0.9 mg/dL (0.2-1) 01/21/19 18:24 AST 22 U/L (15-37) 01/21/19 18:24 ALT 14 U/L (13-61) 01/21/19 18:24 Alkaline Phosphatase 86 U/L (45-117) 01/21/19 18:24 Creatine Kinase 120 U/L (26-192) 01/21/19 18:24 Troponin I 0.03 ng/ml (0.00-0.05) 01/21/19 18:24 Total Protein 6.0 g/dl (6.4-8.2) L 01/21/19 18:24 Albumin 3.3 g/dl (3.4-5.0) L 01/21/19 18:24 Triglycerides 99 mg/dL (0-150) 01/21/19 18:24 Cholesterol 158 mg/dL (50-200) 01/21/19 18:24 Total LDL Cholesterol 71 mg/dL (5-100) 01/21/19 18:24 HDL Cholesterol 65 mg/dL (40-60) H 01/21/19 18:24 Vitamin B12 908 pg/ml (193-986) 01/21/19 18:24 Serum Folate 20 ng/mL (3.1-17.5) H 01/21/19 18:24 TSH 0.24 uIU/ml (0.358-3.74) L 01/21/19 18:24 - Potassium slightly decreased - repleting orally. - Dr. Chris Aparicio paged for admission at 9 pm - Dr. Stefano Miguel paged at 9:15 - We waited an hour for call backs from either doctor but have not heard from them - will admit patient to hospitalist. - EMR says Dr. Betancur is the patient's PCP - Will microblog symphony Discharge - Discharge Information Problems reviewed: Yes Clinical Impression/Diagnosis: Ataxia, Acute electrocardiogram changes, CVA, old, ataxia Condition: Stable - Admission Yes - Follow up/Referral Referrals: Owen Betancur MD [Primary Care Provider] - - Patient Discharge Instructions - Post Discharge Activity
--- NOTE | 2019-01-21 22:13 | PN ---
Teaching Attending Note Name of Resident: Eduardo Salomon ATTENDING PHYSICIAN STATEMENT I saw and evaluated the patient. I reviewed the resident's note and discussed the case with the resident. I agree with the resident's findings and plan as documented. SUBJECTIVE: Patient is an 84 year old woman with a PMH of HTN, HLD, Cardiac cath (no stents placed), Cholecystectomy, Bilateral cataract surgery and Hypothyroidism, who presents with complaints of difficulty walking over the past 3-4 days. Patient states that when she walks, she feels "like she is about to fall over". This is not associated with position changes or vertigo, and it does not localize to either side. Patient denies falling or hitting her head and has never felt this way before. She has poor appetite, and her sister notes "she eats only crackers ". Patient denies any fevers, chills, headache, vision changes, cough, congestion, syncope, chest pain, palpitations, SOB, nausea, vomiting, abdominal pain, urinary symptoms, constipation, or leg swelling. Denies cigarette, alcohol , or illicit drug use. Had two loose bowel movements 5 days ago. Denies any recent travel or sick contacts. FH of CAD and DM. OBJECTIVE: Alertand not orthostatic Vital Signs Period Temp Pulse Resp BP Sys/[place] Pulse Ox Last 24 Hr 97.7 F 74 18 146/71 99 HEENT: No Jaundice, eye redness or discharge, PERRLA, EOMI. Normocephalic, atraumatic. External ears are normal and hearing is grossly intact. No nasal discharge. Neck: Supple, nontender. No palpable adenopathy or thyromegaly. No JVD Chest: Good effort. Clear to auscultation and percussion. Heart: Regular. No S3, rub or murmur Abdomen: Not distended, soft, nontender and no HSM. No rebound or guarding. Normal bowel sounds. Ext: Peripheral pulses intact. No leg edema. Skin: Warm and dry. No petechiae, rash or ecchymosis. Neuro: Alert. Oriented x3. CN 2-12 grossly intact. Sensation grossly intact in all four extremities and DTR are symmetric. Normal gait. Psych: Appropriate mood and affect. Good insight. Current Medications Generic Name Dose Route Start Last Admin Trade Name Freq PRN Reason Stop Dose Admin Folic Acid 1 mg/ Thiamine HCl 1,000 mls @ 125 mls/hr 01/21/19 19:33 100 mg/ Multivitamins/Minerals IVPB 01/22/19 03:32 10 ml/ Sodium Chloride ONCE ONE Home Medications Medication Instructions Recorded Levothyroxine [Synthroid -] 100 mcg PO DAILY 08/18/11 Amlodipine Besylate [Norvasc -] 5 mg PO DAILY #0 06/15/13 Aspirin Coated [Ecotrin -] 81 mg PO DAILY #0 NS 06/15/13 Atorvastatin Ca [Lipitor] 20 mg PO HS 11/24/17 Losartan Potassium 50 mg PO DAILY 11/24/17 Abnormal Lab Results 01/21/19 01/21/19 01/21/19 18:24 18:24 18:50 WBC 10.3 H MPV 7.4 L Absolute Neuts (auto) 8.2 H Potassium 3.4 L Anion Gap 7 L Total Protein 6.0 L Albumin 3.3 L HDL Cholesterol 65 H Serum Folate 20 H TSH 0.24 L Ur Specific [place] 1.004 L ASSESSMENT AND PLAN: 1. Ataxia - Cause unclear. Hypokalemia may be partly responsible. No acute abnormality on head CT. EKG shows NSR, LAE, LVH, prolonged QTc and t wave inversion in I,II,aVl,V3-6. Initial troponin is negative. Will repeat EKG and troponin. Get brain MRI, CT abdomen/pelvis, urine toxicology, ECHO, consult PT and neurology and implement fall precautions. Get free T4 and T3RU. CXR shows cardiomegaly, unfolded aorta, wide mediastinum and pulmonary vascular congestion. Mild leukocytosis may be due to stress - no other evidence of infection. Hypokalemia is unexplained - will check serum Mg+ and give KCL. Consult associate relations specialist for low BMI. Will continue comprehensive care for all of patients comorbid conditions. 2. Hypoalbuminemia - Possibly due to combined effects of malnutrition and inflammation associated with comorbid chronic conditions. Will ensure adequate dietary protein intake and also consult associate relations specialist. 3. Hypertension - Restart suitable outpatient antihypertensive drugs when clinically appropriate. Revise regimen to ensure [id number] excellent BP control and director of group counseling program patient on the injurious effects of uncontrolled hypertension. Nonpharmacologic measures to control hypertension like weight loss , salt restriction and exercise discussed. Importance of adherence to treatment regimen and attainment of normotension emphasized. 4. DVT prophylaxis - Lovenox 40 mg SQ q 24 hours. 5. Advance directives - Full code
--- NOTE | 2019-01-21 22:15 | HP ---
CHIEF COMPLAINT: unsteady gait PCP: Dr. Miguel HISTORY OF PRESENT ILLNESS: 84 F with PMH of HTN, HLD, hypothyroidism who presents today with 3 days of unsteady gait. Patient notes that she 2 episodes of diarrhea approximately 5-6 days ago, and after that point she switched her diet to crackers and tea. 3 days ago she started to feel a loss of balance. She denies any sensation of dizziness, lightheadedness, palpitations, or dyspnea when she tries to walk. She denies any falls or trauma. She believes her gait is unsteady and has never had this occur before. Denies any changes to her vision. She came to the emergency department today because she was going shopping with her sister and did not feel like she could walk outside of the house. ER course was notable for: (1)Head CT was done which showed: no hemorrhage, diffuse atrophy, hypodense white matter foci which are data entry representative of small vessel ischemic disease, atherosclerotic calcifications, nasal septal deviation, and calcified meningioma. (2)EKG was completed which showed new twave inversions in V3, V4 V5, V6, Lead I, Lead II and aVL Recent Travel: none PAST MEDICAL HISTORY: HTN, HLD, hypothyroidism PAST SURGICAL HISTORY: cholecystectomy, angiogram, cataract surgery b/l (unable to identify years) Social History: Smokin-2 packs a week for 10 years. Quit 2 years ago. 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 Allergies No Allergy Information Available Allergy (Verified 01/21/19 16:51) HOME MEDICATIONS: Home Medications Medication Instructions Recorded Levothyroxine [Synthroid -] 100 mcg PO DAILY 08/18/11 Amlodipine Besylate [Norvasc -] 5 mg PO DAILY #0 06/15/13 Aspirin Coated [Ecotrin -] 81 mg PO DAILY #0 NS 06/15/13 Atorvastatin Ca [Lipitor] 20 mg PO HS 11/24/17 Losartan Potassium 50 mg PO DAILY 11/24/17 REVIEW OF SYSTEMS CONSTITUTIONAL: loss of appetite, generalized weakness Absent: fever, chills, diaphoresis, malaise, weight change HEENT: Absent: rhinorrhea, nasal congestion, throat pain, throat swelling, difficulty swallowing, mouth swelling, ear pain, eye pain, visual changes CARDIOVASCULAR: Absent: chest pain, syncope, palpitations, irregular heart rate, lightheadedness , peripheral edema RESPIRATORY: Absent: cough, shortness of breath, dyspnea with exertion, GASTROINTESTINAL:abdominal distension Absent: abdominal pain, nausea, vomiting, diarrhea, constipation, hematochezia GENITOURINARY: Absent: dysuria, frequency, urgency, hesitancy, hematuria, MUSCULOSKELETAL: Absent: myalgia, arthralgia, joint swelling, back pain, neck pain SKIN: Absent: rash, itching, pallor HEMATOLOGIC/IMMUNOLOGIC: Absent: easy bleeding, easy bruising ENDOCRINE: Absent: unexplained weight gain, unexplained weight loss, NEUROLOGIC: unsteady gait Absent: headache, focal weakness or paresthesias, dizziness,, seizure, mental status changes, bladder or bowel incontinence PHYSICAL EXAMINATION Vital Signs - 24 hr 01/21/19 16:49 Temperature 97.7 F Pulse Rate 74 Respiratory 18 Rate Blood Pressure 146/71 O2 Sat by Pulse 99 Oximetry (%) GENERAL: Awake, alert, and fully oriented, in no acute distress. HEAD: Normal with no signs of trauma. EYES: Pupils equal, round and reactive to light, extraocular movements intact, sclera anicteric, conjunctiva clear. No lid lag. EARS, NOSE, THROAT: Ears normal, nares patent, oropharynx clear without exudates. Moist mucous membranes. NECK: Normal range of motion, supple without lymphadenopathy, JVD, or masses. LUNGS: Breath sounds equal, clear to auscultation bilaterally. No wheezes, and no crackles. No accessory muscle use. HEART: Regular rate and rhythm, normal S1 and S2 without murmur, rub or gallop. ABDOMEN: Distended, soft , nontender, normoactive bowel sounds MUSCULOSKELETAL: Normal range of motion at all joints. UPPER EXTREMITIES: 2+ pulses, warm, well-perfused. No cyanosis. No clubbing. No peripheral edema. LOWER EXTREMITIES: 2+ pulses, warm, well-perfused. No calf tenderness. No peripheral edema. NEUROLOGICAL: Cranial nerves II-XII intact. Normal speech. Normal gait. SKIN: Warm, dry, normal turgor, no rashes or lesions noted, normal capillary refill. Laboratory Results - last 24 hr 01/21/19 01/21/19 01/21/19 18:24 18:24 18:24 WBC 10.3 H RBC 4.16 Hgb 12.5 Hct 36.4 MCV 87.3 MCH 30.0 MCHC 34.4 RDW 14.4 Plt Count 211 MPV 7.4 L Absolute Neuts (auto) 8.2 H Neutrophils % 79.8 Lymphocytes % 11.5 Monocytes % 7.1 Eosinophils % 0.2 Basophils % 1.4 Nucleated RBC % 0 Sodium 137 Potassium 3.4 L Chloride 103 Carbon Dioxide 27 Anion Gap 7 L BUN 12.5 Creatinine 0.8 Est GFR (CKD-EPI)AfAm 77.92 Est GFR (CKD-EPI)NonAf 67.23 Random Glucose 80 Calcium 9.6 Magnesium 1.8 Total Bilirubin 0.9 AST 22 ALT 14 Alkaline Phosphatase 86 Creatine Kinase 120 Troponin I 0.03 Total Protein 6.0 L Albumin 3.3 L Triglycerides 99 Cholesterol 158 Total LDL Cholesterol 71 HDL Cholesterol 65 H Vitamin B12 908 Serum Folate 20 H TSH 0.24 L Urine Color Urine Appearance Urine pH Ur Specific [place] Urine Protein Urine Glucose (UA) Urine Ketones Urine Blood Urine Nitrite Urine Bilirubin Urine Urobilinogen Ur Leukocyte Esterase 01/21/19 18:50 WBC RBC Hgb Hct MCV MCH MCHC RDW Plt Count MPV Absolute Neuts (auto) Neutrophils % Lymphocytes % Monocytes % Eosinophils % Basophils % Nucleated RBC % Sodium Potassium Chloride Carbon Dioxide Anion Gap BUN Creatinine Est GFR (CKD-EPI)AfAm Est GFR (CKD-EPI)NonAf Random Glucose Calcium Magnesium Total Bilirubin AST ALT Alkaline Phosphatase Creatine Kinase Troponin I Total Protein Albumin Triglycerides Cholesterol Total LDL Cholesterol HDL Cholesterol Vitamin B12 Serum Folate TSH Urine Color Yellow Urine Appearance Clear Urine pH 7.0 D Ur Specific [place] 1.004 L Urine Protein Negative Urine Glucose (UA) Negative Urine Ketones Negative Urine Blood Negative Urine Nitrite Negative Urine Bilirubin Negative Urine Urobilinogen 0.2 Ur Leukocyte Esterase Negative ASSESSMENT/PLAN: 84 F with PMH of HTN, HLD, hypothyroidism who presents today with 3 days of unsteady gait. 1) Gait disturbance -Head CT did not show any abnormalities. -EKG did show new t-wave inversion in I,II, avl, V3, V4, V5, V6. -Repeat EKG ordered -Initial trop negative. F/U repeat trop -F/U Brain MRI 2)CT abdomen pelvis shows diffuse air and liquid stool distention of the colon -could be due to a large bowel obstruction although a sigmoid colonic spasm with severe ileus or toxic megacolon also considered. -At risk for bowel perforation -General Surgery, Dr. Huff consulted. Will see patient in the morning. -GI consulted. 3) Hypokalemia -Potassium of 3.4 on admission -40 KDur given in the ED -Monitor CMP -KCL 30 mEq given 3)Hypoalbuminemia -Patient BMI is 18.7 plus poor PO intake 4)HTN -Losartan 50 mg PO Daily 5)Low BMI -Commissioner Of Officials consult after resolution of possible large bowel obstruction F: Oral Hydration E: monitor K levels and replete N: NPO for now Dispo: admitted to tele floors. Visit type - Emergency Visit Emergency Visit: Yes ED Registration Date: 01/21/19 Care time: The patient presented to the Emergency Department on the above date and was hospitalized for further evaluation of their emergent condition. - New Patient This patient is new to me today: Yes Date on this admission: 01/21/19 - Critical Care Critical Care patient: No ATTENDING PHYSICIAN STATEMENT I saw and evaluated the patient. I reviewed the resident's note and discussed the case with the resident. I agree with the resident's findings and plan as documented. SUBJECTIVE: OBJECTIVE: ASSESSMENT AND PLAN:
[2019-01-21] MEDS ORDERED: SODIUM CHLORIDE 1,000 ML IV SCH (23:30)
[2019-01-22] MEDS: KCL 10 MEQ IVPB 10 MEQ/100 ML INFUS.BAG IVPB SCH ×7 (00:34→10:30)
[2019-01-22 01:50] LABS: BASO % 0.8 % (0-2.0); EOS % 0.4 % (0-4.5); HEMATOCRIT 35.9 % (32.4-45.2); HEMOGLOBIN 12.3 GM/dL (10.7-15.3); LYMPH % 9.5 % (8-40); MCH 29.9 pg (25.7-33.7); MCHC 34.3 g/dl (32.0-36.0); MONO % 8.4 % (3.8-10.2); NEUT % 80.9 % (42.8-82.8); PLATELET COUNT 196 K/MM3 (134-434); RBC 4.13 M/mm3 (3.60-5.2); RDW 14.5 % (11.6-15.6); WHITE BLOOD COUNT 11.6 K/mm3 (4.0-10.0)
[2019-01-22] MEDS ORDERED: KCL 10 MEQ IVPB 30 MEQ/300 ML INFUS.BAG IVPB ONE (05:50)
[2019-01-22] MEDS ORDERED: PROCHLORPERAZINE MALEATE 5 MG TABLET PO ONE (06:04)
[2019-01-22] MEDS ORDERED: PROCHLORPERAZINE MALEATE 5 MG TABLET ONE (06:11)
[2019-01-22] MEDS ORDERED: LEVOTHYROXINE NA 88 MCG TABLET (FP) PO SCH (07:00)
[2019-01-22] MEDS ORDERED: LEVOTHYROXINE NA 25 MCG TABLET (FP) ONE (07:42)
[2019-01-22 07:49] LABS: BASO % 0.7 % (0-2.0); EOS % 0.1 % (0-4.5); HEMATOCRIT 37.6 % (32.4-45.2); HEMOGLOBIN 12.6 GM/dL (10.7-15.3); LYMPH % 5.7 % (8-40); MCH 29.4 pg (25.7-33.7); MCHC 33.4 g/dl (32.0-36.0); MEAN PLT VOLUME 7.2 fl (7.5-11.1); MONO % 4.6 % (3.8-10.2); NEUT % 88.9 % (42.8-82.8); PLATELET COUNT 207 K/MM3 (134-434); RBC 4.27 M/mm3 (3.60-5.2); RDW 14.8 % (11.6-15.6); WHITE BLOOD COUNT 14.3 K/mm3 (4.0-10.0)
[2019-01-22] MEDS ORDERED: LEVOTHYROXINE NA 100 MCG TABLET (FP) PO SCH (08:03)
[2019-01-22 08:22] LABS: ALBUMIN 3.2 g/dl (3.4-5.0); BILIRUBIN,TOTAL 1.1 mg/dL (0.2-1); BLOOD UREA NITROGEN 9.7 mg/dL (7-18); CREATININE 0.6 mg/dL (0.55-1.3); POTASSIUM 4.1 mmol/L (3.5-5.1); TOT PROT 5.7 g/dl (6.4-8.2)
[2019-01-22] MEDS ORDERED: MORPHINE SULFATE 2 MG/ML VIAL IVPUSH PRN (08:57)
[2019-01-22] MEDS ORDERED: ONDANSETRON 4 MG/2 ML VIAL IVPUSH PRN (08:57)
[2019-01-22] MEDS ORDERED: hydrALAZINE HCL 20 MG/ML VIAL IVPUSH PRN (08:58)
[2019-01-22] MEDS ORDERED: ONDANSETRON 4 MG/2 ML VIAL ONE (09:45)
[2019-01-22] MEDS ORDERED: ASPIRIN COATED 81 MG TABLET.EC PO SCH (10:00)
[2019-01-22] MEDS ORDERED: amLODIPine BESYLATE 5 MG TABLET (FP) PO SCH (10:00)
[2019-01-22] MEDS ORDERED: LOSARTAN POTASSIUM 50 MG TABLET (FP) PO SCH (10:00)
[2019-01-22] MEDS ORDERED: ENOXAPARIN NA (PORCINE) 40 MG/0.4 ML DISP.SYRIN SQ SCH (10:00)
[2019-01-22] MEDS ORDERED: PATIENT'S OWN MEDICATION (NON-FORMULARY) (Losartan Potassium [Losartan Potassium] 50 MG) PO SCH (10:00)
--- NOTE | 2019-01-22 11:33 | CONSULT ---
- Consultation REQUESTING PROVIDER: ED CONSULT REQUEST: We have been asked to surgically evaluate this patient for nausea/vomiting/abdominal pain PCP:Chris Aparicio HISTORY OF PRESENT ILLNESS:KATERINE who is an 84 y/o female who presented with 3 days of unsteady gait. Patient notes that she 2 episodes of diarrhea approximately 5-6 days ago, and after that point she switched her diet to crackers and tea. 3 days ago she started to feel a loss of balance. She denies any sensation of dizziness, lightheadedness, palpitations, or dyspnea when she tries to walk. She denies any falls or trauma. She believes her gait is unsteady and has never had this occur before. She came to the emergency department today because of weakness and not passing any gas or having bowel movements. She has never had a colonoscopy. PMHx: HLD/HTN/hypothyroid PSHx: lap roz Home Medications Medication Instructions Recorded Levothyroxine [Synthroid -] 100 mcg PO DAILY 08/18/11 Amlodipine Besylate [Norvasc -] 5 mg PO DAILY #0 06/15/13 Aspirin Coated [Ecotrin -] 81 mg PO DAILY #0 NS 06/15/13 Atorvastatin Ca [Lipitor] 20 mg PO HS 11/24/17 Losartan Potassium 50 mg PO DAILY 11/24/17 Allergies Allergy/AdvReac Type Severity Reaction Status Date / Time No Known Allergies Allergy Verified 01/21/19 23:38 REVIEW OF SYSTEMS: CONSTITUTIONAL: Present: generalized weakness, malaise, loss of appetite, CARDIOVASCULAR: Absent: chest pain, syncope, palpitations, irregular heart rate, lightheadedness , peripheral edema RESPIRATORY: Absent: cough, shortness of breath, dyspnea with exertion, wheezing, stridor, hemoptysis GASTROINTESTINAL: Present: abdominal pain, abdominal distension, nausea, vomiting, diarrhea, constipation, obstipation GENITOURINARY: Absent: dysuria, frequency, urgency, hesitancy, hematuria, flank pain, genital pain MUSCULOSKELETAL: Absent: myalgia, arthralgia, joint swelling, back pain, neck pain SKIN: Absent: rash, itching, pallor HEMATOLOGIC/IMMUNOLOGIC: Absent: easy bleeding, easy bruising, lymphadenopathy NEUROLOGIC: Absent: headache, focal weakness, paresthesias, dizziness, unsteady gait, seizure, mental status changes, bladder or bowel incontinence PSYCHIATRIC: Absent: anxiety, depression, suicidal or homicidal ideation, hallucinations. PHYSICAL EXAM: GENERAL: Awake, alert, and fully oriented, in no acute distress. HEAD: Normal with no signs of trauma. EYES: Pclera anicteric, conjunctiva clear. NECK: Normal ROM, supple without lymphadenopathy, JVD, or masses. ABDOMEN: Soft, nontender, distended, hyperactive bowel sounds, no guarding, no rebound, no masses. No organomegaly. No hernias MUSCULOSKELETAL: Normal ROM at all joints. No bony deformities or tenderness. No CVA tenderness. UPPER EXTREMITIES: 2+ pulses, warm, well-perfused. No cyanosis. Cap refill <2 seconds. No peripheral edema. LOWER EXTREMITIES: 2+ pulses, warm, well-perfused. No calf tenderness. No peripheral edema. NEUROLOGICAL: Normal speech, gait not observed. PSYCH: Cooperative. Good eye contact. Appropriate mood and affect. SKIN: Warm, dry, normal turgor, no rashes or lesions noted. Vital Signs Temperature 98.6 F 01/22/19 07:36 Pulse Rate 71 01/22/19 07:36 Respiratory Rate 16 01/22/19 07:36 Blood Pressure 157/64 01/22/19 07:36 O2 Sat by Pulse Oximetry (%) 96 01/22/19 07:36 Lab Results WBC 14.3 K/mm3 (4.0-10.0) H 01/22/19 07:35 RBC 4.27 M/mm3 (3.60-5.2) 01/22/19 07:35 Hgb 12.6 GM/dL (10.7-15.3) 01/22/19 07:35 Hct 37.6 % (32.4-45.2) 01/22/19 07:35 MCV 88.0 fl (80-96) 01/22/19 07:35 MCHC 33.4 g/dl (32.0-36.0) 01/22/19 07:35 RDW 14.8 % (11.6-15.6) 01/22/19 07:35 Plt Count 207 K/MM3 (134-434) 01/22/19 07:35 Sodium 140 mmol/L (136-145) 01/22/19 07:35 Potassium 4.1 mmol/L (3.5-5.1) 01/22/19 07:35 Chloride 110 mmol/L (98-107) H 01/22/19 07:35 Carbon Dioxide 24 mmol/L (21-32) 01/22/19 07:35 Anion Gap 6 MMOL/L (8-16) L 01/22/19 07:35 BUN 9.7 mg/dL (7-18) 01/22/19 07:35 Creatinine 0.6 mg/dL (0.55-1.3) 01/22/19 07:35 Random Glucose 73 mg/dL (74-106) L 01/22/19 07:35 Calcium 9.0 mg/dL (8.5-10.1) 01/22/19 07:35 CT scan a/p report reviewed; unable to review images. IMP: r/o LBO PLAN: Advise NPO/IVF/NGT/strict I/O; case d/w Dr. Guillermo Walker; patient refuses attempt at colonoscopy/flex sigmoidoscopy and will have a contrast enema ; will f/u. Davion Huff MD FACS
--- NOTE | 2019-01-22 11:39 | CON.GI ---
Consult Consult Specialty:: Gastroenterology Referred by:: Dr Lamont Agarwal Reason for Consultation:: Abnormal CT of colon - History of Present Illness Chief Complaint: Vomiting, unable to eat, diarrhea and weight loss History of Present Illness: 84F presents with gait instability. She has reports recent abdominal distension , vomiting and inability to eat for the past 5 days. She has not had a formed BM in over a week but is passing diarrheal stools. No melena or bleeding. She has been losing weight for several months. She has never had a colonoscopy and tells me she will continue to refuse. I took care of her in 2011 when she presented with CBD stones. I removed them at [facility] on 08/21/11 and placed a pancreatic stent. Dr Sullivan did an EGD a week later and found that the stent has passed on it's own and found the UGI tract to be otherwise normal. She had a cholecystectomy then. No other surgeries. 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 (left frontal meningioma on current head CT) Cardio/Vascular: Yes: CAD (cardiac cath at [facility] wasnormal), HTN, Hyperlipdemia Hepatobiliary: Yes: Cholelithiasis, Choledocholithiasis ([facility] with sphincterotomy 08/21/11 to extract stones), Other (fatty liver) Reproductive: Yes: Fibroids (on [address] CT) Endocrine: Yes: Hypothyroidism - Past Surgical History Past Surgical History: Yes: Cholecystectomy (laparoscopic) Additional Surgical History: [facility] with sphincterotomy, stone extractions and pancreatic stenting 2011 - Alcohol/Substance Use Hx Alcohol Use: Yes (rare) History of Substance Use: reports: None - Smoking History Smoking history: Former smoker Have you smoked in the past 12 months: No Aproximately how many cigarettes per day: 2 If you are a former smoker, when did you quit?: 2017 - Social History Usual Living Arrangement: Alone (never ) ADL: Independent 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 Place of : Other ([facility] but born in [place]) Home Medications - Allergies Allergies/Adverse Reactions: Allergies Allergy/AdvReac Type Severity Reaction Status Date / Time No Known Allergies Allergy Verified 01/21/19 23:38 - Home Medications Home Medications: Ambulatory Orders Levothyroxine [Synthroid -] 100 mcg PO DAILY 08/18/11 Amlodipine Besylate [Norvasc -] 5 mg PO DAILY #0 06/15/13 Aspirin Coated [Ecotrin -] 81 mg PO DAILY #0 NS 06/15/13 Atorvastatin Ca [Lipitor] 20 mg PO HS 11/24/17 Losartan Potassium 50 mg PO DAILY 11/24/17 Family Medical History Family Hx Congestive Heart Failure: Father ( 89 of CHF) Other Family History: Mother lived into her 80s Review of Systems - Review of Systems Constitutional: reports: Loss of Appetite, Malaise, Unintentional Wgt. Loss, Weakness Eyes: reports: No Symptoms HENT: reports: No Symptoms Neck: reports: No Symptoms Cardiovascular: reports: No Symptoms Respiratory: reports: No Symptoms Gastrointestinal: reports: Diarrhea Genitourinary: reports: No Symptoms Musculoskeletal: reports: No Symptoms Physical Exam-GI Vital Signs: Vital Signs Temperature 98.6 F 01/22/19 07:36 Pulse Rate 71 01/22/19 07:36 Respiratory Rate 16 01/22/19 07:36 Blood Pressure 157/64 01/22/19 07:36 O2 Sat by Pulse Oximetry (%) 96 01/22/19 07:36 CBC,CMP WBC 14.3 K/mm3 (4.0-10.0) H 01/22/19 07:35 RBC 4.27 M/mm3 (3.60-5.2) 01/22/19 07:35 Hgb 12.6 GM/dL (10.7-15.3) 01/22/19 07:35 Hct 37.6 % (32.4-45.2) 01/22/19 07:35 MCV 88.0 fl (80-96) 01/22/19 07:35 MCH 29.4 pg (25.7-33.7) 01/22/19 07:35 MCHC 33.4 g/dl (32.0-36.0) 01/22/19 07:35 RDW 14.8 % (11.6-15.6) 01/22/19 07:35 Plt Count 207 K/MM3 (134-434) 01/22/19 07:35 MPV 7.2 fl (7.5-11.1) L 01/22/19 07:35 Absolute Neuts (auto) 12.7 K/mm3 (1.5-8.0) H 01/22/19 07:35 Neutrophils % 88.9 % (42.8-82.8) H 01/22/19 07:35 Lymphocytes % 5.7 % (8-40) L D 01/22/19 07:35 Monocytes % 4.6 % (3.8-10.2) 01/22/19 07:35 Eosinophils % 0.1 % (0-4.5) 01/22/19 07:35 Basophils % 0.7 % (0-2.0) 01/22/19 07:35 Nucleated RBC % 0 % (0-0) 01/22/19 07:35 Sodium 140 mmol/L (136-145) 01/22/19 07:35 Potassium 4.1 mmol/L (3.5-5.1) 01/22/19 07:35 Chloride 110 mmol/L (98-107) H 01/22/19 07:35 Carbon Dioxide 24 mmol/L (21-32) 01/22/19 07:35 Anion Gap 6 MMOL/L (8-16) L 01/22/19 07:35 BUN 9.7 mg/dL (7-18) 01/22/19 07:35 Creatinine 0.6 mg/dL (0.55-1.3) 01/22/19 07:35 Est GFR (CKD-EPI)AfAm 96.33 01/22/19 07:35 Est GFR (CKD-EPI)NonAf 83.11 01/22/19 07:35 Random Glucose 73 mg/dL (74-106) L 01/22/19 07:35 Calcium 9.0 mg/dL (8.5-10.1) 01/22/19 07:35 Magnesium 1.8 mg/dL (1.8-2.4) 01/22/19 01:39 Total Bilirubin 1.1 mg/dL (0.2-1) H 01/22/19 07:35 AST 22 U/L (15-37) 01/22/19 07:35 ALT 13 U/L (13-61) 01/22/19 07:35 Alkaline Phosphatase 81 U/L (45-117) 01/22/19 07:35 Creatine Kinase 50 U/L (26-192) 01/22/19 03:43 Troponin I 0.03 ng/ml (0.00-0.05) 01/22/19 03:43 Total Protein 5.7 g/dl (6.4-8.2) L 01/22/19 07:35 Albumin 3.2 g/dl (3.4-5.0) L 01/22/19 07:35 Triglycerides 99 mg/dL (0-150) 01/21/19 18:24 Cholesterol 158 mg/dL (50-200) 01/21/19 18:24 Total LDL Cholesterol 71 mg/dL (5-100) 01/21/19 18:24 HDL Cholesterol 65 mg/dL (40-60) H 01/21/19 18:24 Vitamin B12 908 pg/ml (193-986) 01/21/19 18:24 Serum Folate 20 ng/mL (3.1-17.5) H 01/21/19 18:24 TSH 0.24 uIU/ml (0.358-3.74) L 01/21/19 18:24 Current Medications Generic Name Dose Route Start Last Admin Trade Name Freq PRN Reason Stop Dose Admin Enalaprilat 1.25 mg 01/22/19 09:00 Vasotec Injection - IVPB Q6H-IV [facility] Enoxaparin Sodium 40 mg 01/22/19 10:00 Lovenox - SQ DAILY [facility] Hydralazine HCl 10 mg 01/22/19 08:58 Apresoline Injection - IVPUSH Q8H PRN HYPERTENSION Sodium Chloride 1,000 mls @ 50 mls/hr 01/21/19 23:30 01/22/19 01:18 Normal Saline - IV 01/22/19 23:33 50 mls/hr ASDIR [facility] Administration Morphine Sulfate 2 mg 01/22/19 08:57 Morphine Sulfate IVPUSH Q6H PRN PAIN LEVEL 6-10 Ondansetron HCl 4 mg 01/22/19 08:57 Zofran Injection IVPUSH Q6H PRN NAUSEA Pantoprazole Sodium 40 mg 01/22/19 10:00 Protonix Iv IVPUSH DAILY [facility] Constitutional: Yes: Calm, Thin Eyes: Yes: Conjunctiva Clear HENT: Yes: Atraumatic Neck: Yes: Trachea Midline Cardiovascular: Yes: Regular Rate and Rhythm Respiratory: Yes: CTA Bilaterally Gastrointestinal Inspection: Yes: Distention, Scars (healed lap choly incisions) ...Auscultate: Yes: Hyperactive Bowel Sounds (with gushes) ...Palpate: Yes: Other (nonetender) ...Rectal Exam: Yes: Guaiac Negative (palpable rectal polyp, upper rectal mass appears extrinsic ? sagging sigmoid neoplasm or extrinsic fibroids.) Edema: No Neurological: Yes: Alert, Oriented Labs: CBC, BMP 01/22/19 07:35 01/22/19 07:35 Imaging - Results Cat Scan: Other (discussed with Dr Brandt who read me the preliminary [facility] reading: distended colon suggesting obstruction at the level of the sigmoid colon) Problem List - Problems (1) Colon obstruction Code(s): K56.609 - UNSP INTESTNL OBST, UNSP TO PARTIAL VERSUS COMPLETE OBST (2) History of cholecystectomy Code(s): Z90.49 - ACQUIRED ABSENCE OF OTHER SPECIFIED PARTS OF DIGESTIVE TRACT (3) History of endoscopic retrograde cholangiopancreatography Code(s): Z98.890 - OTHER SPECIFIED POSTPROCEDURAL STATES (4) Weight loss Code(s): R63.4 - ABNORMAL WEIGHT LOSS (5) Vomiting Code(s): R11.10 - VOMITING, UNSPECIFIED (6) Altered bowel habits Code(s): R19.4 - CHANGE IN BOWEL HABIT (7) Gait instability Code(s): R26.81 - UNSTEADINESS ON FEET (8) HTN (hypertension) Code(s): I10 - ESSENTIAL (PRIMARY) HYPERTENSION (9) Hyperlipemia Code(s): E78.5 - HYPERLIPIDEMIA, UNSPECIFIED (10) Hypothyroid Code(s): E03.9 - HYPOTHYROIDISM, UNSPECIFIED Assessment/Plan Assessment: - I suspect that Rosa has colon obstruction at the level of the sigmoid colon due to cancer and that she is at risk of cecal perforation. I discussed a diagnostic role for colonoscopy once she is decompressed but she declines. She will allow a gastrograffin enema. CT discussed with Dr Brandt. In the event that she will allow a colonoscopy or flexible sigmoidoscopy or colonoscopy in the coming days I have informed her of the potential for such complication as perforation and hemorrhage. She is in a position to make an informed consent. I have also informed her that she will most likely need a diverting colostomy. - Altered bowel habits to diarrhea, weight loss and vomiting are all explained by the obstruction Plan: -- NG suctioning -- Gastrograffin enema after some decompression -- Will most likely need a diverting colostomy soon. Discussed with Dr Huff -- IV fluids -- CEA -- FUA in AM
[2019-01-22] MEDS ORDERED: DEXTROSE 5%-0.45% SALINE 1,000 ML IV SCH (12:15)
[2019-01-22] MEDS: PANTOPRAZOLE SODIUM 40 MG VIAL IVPUSH SCH (13:14)
[2019-01-22] MEDS: ENALAPRILAT DIHYDRATE 1.25 MG/1 ML VIAL IVPB SCH ×2 (13:15→22:06)
--- NOTE | 2019-01-22 13:40 | EKG ---
Test Reason : Blood Pressure : / mmHG Vent. Rate : 071 BPM Atrial Rate : 071 BPM P-R Int : 196 ms QRS Dur : 118 ms QT Int : 456 ms P-R-T Axes : 060 -26 132 degrees QTc Int : 495 ms NORMAL SINUS RHYTHM POSSIBLE LEFT ATRIAL ENLARGEMENT LEFT VENTRICULAR HYPERTROPHY WITH QRS WIDENING AND REPOLARIZATION ABNORMALITY PROLONGED QT ABNORMAL ECG WHEN COMPARED WITH ECG OF 25-NOV-2017 09:26, RIGHT BUNDLE BRANCH BLOCK IS NO LONGER PRESENT MINIMAL CRITERIA FOR SEPTAL INFARCT ARE NO LONGER PRESENT Confirmed by MD Herbert, Cole ([id number]) on 01/22/2019 1:39:32 PM Referred By: Confirmed By:Cole Godinez MD
--- NOTE | 2019-01-22 14:08 | PN ---
Progress Note, Physician Chief Complaint: C/O abd pain and distention History of Present Illness: 84 yrs old F knwn since previous hospitalization H/O HTN, Hypercholestrerolemia , cholycystectomy in 2018 admitted with chest pain with 2nd degree HB patient was transferred and evaluted at [facility] including Cath that was reported normal, yesterday presented with c/o feeling weak like she will fall but no swaying or any focal motor sensorysigns, patient has H/O wt loss , poor appetite and 5 days H/O constipation and abdominal distention, never had colonoscopy denies any hematochezia, hemetmesis , in the ED evaluated [place] [facility] [place] CT abd and pelvis shows sigmoid colon sever diffuse air and liquid stool distention due to probably large bowel obstruction, from sigmoid lesion with sigmoid spasm with sever ileus or toxic megacolon , patient has high risk of bowel perforation. today am moved bowel c/o nausea and vomiting, evaluated by GI and Surgery. - Current Medication List Current Medications: Active Medications Enalaprilat (Vasotec Injection -) 1.25 mg IVPB Q6H-IV [facility] Last Admin: 01/22/19 13:15 Dose: Not Given Enoxaparin Sodium (Lovenox -) 40 mg SQ DAILY [facility] Last Admin: 01/22/19 13:14 Dose: Not Given Hydralazine HCl (Apresoline Injection -) 10 mg IVPUSH Q8H PRN PRN Reason: HYPERTENSION Dextrose/Sodium Chloride (D5-1/2ns -) 1,000 mls @ 125 mls/hr IV ASDIR [facility] Last Admin: 01/22/19 13:15 Dose: 125 mls/hr Morphine Sulfate (Morphine Sulfate) 2 mg IVPUSH Q6H PRN PRN Reason: PAIN LEVEL 6-10 Last Admin: 01/22/19 12:55 Dose: 2 mg Ondansetron HCl (Zofran Injection) 4 mg IVPUSH Q6H PRN PRN Reason: NAUSEA Pantoprazole Sodium (Protonix Iv) 40 mg IVPUSH DAILY [facility] Last Admin: 01/22/19 13:14 Dose: 40 mg - Objective Vital Signs: Vital Signs Temperature 98.6 F 01/22/19 07:36 Pulse Rate 71 01/22/19 07:36 Respiratory Rate 16 01/22/19 07:36 Blood Pressure 157/64 01/22/19 07:36 O2 Sat by Pulse Oximetry (%) 96 01/22/19 07:36 Elderly F c/o abd pain and distention HEENT:Mm moist, no anemia, PERRLA EOMI NECK: No JVd No Bruit CHEST: CYA B/L CVS: s1S2 R ABD: Distention, but soft and non tender Bs + EXT; No edema feet, 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 Labs: CBC, BMP 01/22/19 07:35 01/22/19 07:35 - ....Imaging Cat Scan: Report Reviewed (AbD and Pelvis: CT abd and pelvis shows sigmoid colon sever diffuse air and liquid stool distention due to probably large bowel obstruction, from sigmoid lesion with sigmoid spasm with sever ileus or toxic megacolon , patient has high risk of bowel perforation.) EKG: Report Reviewed ([facility] nSR no acute Chnages) Problem List - Problems (1) Colon obstruction Assessment/Plan: considering CT finding and GI and Surgery input most likely at Sigmoid colon level t+refused colonoscopy, NPO , NG tube for decompression, Gastrograffin enema, cont PPI, Zofran and pain meds. will F/U GO consult F/U CBC, BMP, Lactic acid add abx if develops worsening pain or signs of peritonitis. 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
[2019-01-22] MEDS: D5-NS + 20 MEQ KCL - 20 MEQ/1,000 ML INFUS.BAG IV SCH (17:03)
[2019-01-22] MEDS ORDERED: PT OWN MED DRAWER 7, Y5N ONE (21:56)
[2019-01-22] MEDS ORDERED: ATORVASTATIN CA 20 MG TABLET (FP) PO SCH (22:00)
[2019-01-23] MEDS: ENALAPRILAT DIHYDRATE 1.25 MG/1 ML VIAL IVPB SCH (04:00)
[2019-01-23] MEDS ORDERED: PT OWN MED DRAWER 7, Y5N ONE (06:34)
[2019-01-23 07:19] LABS: BASO % 0.2 % (0-2.0); HEMATOCRIT 35.5 % (32.4-45.2); HEMOGLOBIN 12.3 GM/dL (10.7-15.3); MCH 29.8 pg (25.7-33.7); MCHC 34.6 g/dl (32.0-36.0); MEAN CELL VOLUME 86.2 fl (80-96); MEAN PLT VOLUME 7.4 fl (7.5-11.1); MONO % 9.4 % (3.8-10.2); NEUT % 85.4 % (42.8-82.8); PLATELET COUNT 237 K/MM3 (134-434); RBC 4.12 M/mm3 (3.60-5.2); RDW 14.6 % (11.6-15.6); WHITE BLOOD COUNT 15.2 K/mm3 (4.0-10.0)
[2019-01-23 07:46] LABS: ALBUMIN 3.1 g/dl (3.4-5.0); BILIRUBIN,TOTAL 0.8 mg/dL (0.2-1); BLOOD UREA NITROGEN 8.3 mg/dL (7-18); CALCIUM 9.3 mg/dL (8.5-10.1); CREATININE 0.6 mg/dL (0.55-1.3); POTASSIUM 4.1 mmol/L (3.5-5.1); TOT PROT 5.6 g/dl (6.4-8.2)
[2019-01-23 08:18] LABS: INR 0.95 (0.83-1.09); PROTHROMBIN TIME (PATIENT) 11.2 SEC (9.7-13.0)
[2019-01-23] MEDS ORDERED: HYDROmorphone HCL CARPU-JECT 2 MG/1 ML DISP.SYRIN IVPUSH SCH (10:00)
--- NOTE | 2019-01-23 10:04 | PN ---
Progress Note, Physician Chief Complaint: C/O abd pain and distention History of Present Illness: 84 yrs old F knwn since previous hospitalization H/O HTN, Hypercholestrerolemia , cholycystectomy in 2018 admitted with chest pain with 2nd degree HB patient was transferred and evaluated at [facility] including Cath that was reported normal, yesterday presented with c/o feeling weak like she will fall but no swaying or any focal motor/ sensory signs, CT abd shows colonic obstruction possible sigmoid colon mass probably large bowel obstruction, from sigmoid lesion with sigmoid spasm with sever ileus or toxic megacolon , patient has high risk of bowel perforation. , evaluated by GI and Surgery. NG tube inserted monitor shows PVCs and 2nd degree HB - Current Medication List Current Medications: Active Medications Enalaprilat (Vasotec Injection -) 1.25 mg IVPB Q6H-IV [facility] Last Admin: 01/23/19 04:00 Dose: 1.25 mg Enoxaparin Sodium (Lovenox -) 40 mg SQ DAILY [facility] Last Admin: 01/22/19 13:14 Dose: Not Given Hydralazine HCl (Apresoline Injection -) 10 mg IVPUSH Q8H PRN PRN Reason: HYPERTENSION Hydromorphone HCl (Dilaudid Injection -) 1 mg IVPUSH Q8H [facility] Dextrose/Sodium Chloride (Dextrose 5%-Normal Saline+20 Meq Kcl -) 20 meq in 1, 000 mls @ 100 mls/hr IV ASDIR [facility] Last Admin: 01/22/19 17:03 Dose: 100 mls/hr Ondansetron HCl (Zofran Injection) 4 mg IVPUSH Q6H PRN PRN Reason: NAUSEA Last Admin: 01/22/19 17:03 Dose: 4 mg Pantoprazole Sodium (Protonix Iv) 40 mg IVPUSH DAILY [facility] Last Admin: 01/22/19 13:14 Dose: 40 mg - Objective Vital Signs: Vital Signs Temperature 98.3 F 01/23/19 09:43 Pulse Rate 61 01/23/19 09:43 Respiratory Rate 20 01/23/19 09:43 Blood Pressure 135/57 L 01/23/19 09:43 O2 Sat by Pulse Oximetry (%) 93 L 01/22/19 21:00 Elderly F c/o abd pain and distention HEENT:NG at place Mm moist, no anemia, PERRLA EOMI NECK: No JVd No Bruit CHEST: CTA B/L CVS: s1S2 R ABD: Distention, but soft and non tender Bs + EXT; No edema feet, 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 Surgery planned to do diversion colostomy Code(s): K56.609 - UNSP INTESTNL OBST, UNSP TO PARTIAL VERSUS COMPLETE OBST (2) Gait instability Assessment/Plan: Can be due to metabolic changes will F/U MRI if needed will call Neurology consult Code(s): R26.81 - UNSTEADINESS ON FEET (3) Hyperlipemia Assessment/Plan: On Statin Problems reviewed: Yes Code(s): E78.5 - HYPERLIPIDEMIA, UNSPECIFIED (4) Hypothyroid Assessment/Plan: TSH suppressed hold Levothyroxine Problems reviewed: Yes Code(s): E03.9 - HYPOTHYROIDISM, UNSPECIFIED Qualifiers: Qualified Code(s): E03.4 - Atrophy of thyroid (acquired) (5) HTN (hypertension) Assessment/Plan: Switch to IV Moeds H/O 2nd degree HB will defer B blockers Cath and ECHO were reported normal 1 yr ago Problems reviewed: Yes Code(s): I10 - ESSENTIAL (PRIMARY) HYPERTENSION (6) 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 Problems reviewed: Yes Code(s): I44.1 - ATRIOVENTRICULAR BLOCK, SECOND DEGREE
--- NOTE | 2019-01-23 10:12 | CON.CARD ---
Consult Consult Specialty:: Cardiology - History of Present Illness History of Present Illness: Patient is an 84 year old woman with a PMH of HTN, HLD, Cardiac cath (no stents placed), Cholecystectomy, Bilateral cataract surgery and Hypothyroidism, who presents with complaints of difficulty walking over the past 3-4 days. Patient states that when she walks, she feels "like she is about to fall over". This is not associated with position changes or vertigo, and it does not localize to either side. Patient denies falling or hitting her head and has never felt this way before. She has poor appetite, and her sister notes "she eats only crackers ". Patient denies any fevers, chills, headache, vision changes, cough, congestion, syncope, chest pain, palpitations, SOB, nausea, vomiting, abdominal pain, urinary symptoms, constipation, or leg swelling. Denies cigarette, alcohol , or illicit drug use. Had two loose bowel movements 5 days ago. Denies any recent travel or sick contacts. FH of CAD and DM. 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: Yes: Other (left frontal meningioma on current head CT) Cardio/Vascular: Yes: [place] [facility] [place] HTN, Hyperlipdemia Hepatobiliary: Yes: Cholelithiasis, Choledocholithiasis (ERCP with sphincterotomy 08/21/11 to extract stones), Other (fatty liver) ...: No Endocrine: Yes: Hypothyroidism - Past Surgical History Past Surgical History: Yes: Cholecystectomy (laparoscopic) Additional Surgical History: ERCP with sphincterotomy, stone extractions and pancreatic stenting 2011 - Alcohol/Substance Use Hx Alcohol Use: Yes (rare) History of Substance Use: reports: None - Smoking History Smoking history: Former smoker Have you smoked in the past 12 months: No Aproximately how many cigarettes per day: 2 If you are a former smoker, when did you quit?: 2017 - Social History Usual Living Arrangement: Alone (never ) ADL: Independent 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 Home Medications - Allergies Allergies/Adverse Reactions: Allergies Allergy/AdvReac Type Severity Reaction Status Date / Time No Known Allergies Allergy Verified 01/21/19 23:38 - Home Medications Home Medications: Ambulatory Orders Levothyroxine [Synthroid -] 100 mcg PO DAILY 08/18/11 Amlodipine Besylate [Norvasc -] 5 mg PO DAILY #0 06/15/13 Aspirin Coated [Ecotrin -] 81 mg PO DAILY #0 NS 06/15/13 Atorvastatin Ca [Lipitor] 20 mg PO HS 11/24/17 Losartan Potassium 50 mg PO DAILY 11/24/17 Review of Systems - Review of Systems Constitutional: reports: No Symptoms Eyes: reports: No Symptoms HENT: reports: No Symptoms Neck: reports: No Symptoms Cardiovascular: reports: No Symptoms Gastrointestinal: reports: No Symptoms Genitourinary: reports: No Symptoms Breasts: reports: No Symptoms Reported Musculoskeletal: reports: No Symptoms Integumentary: reports: No Symptoms Neurological: reports: No Symptoms Endocrine: reports: No Symptoms Hematology/Lymphatic: reports: No Symptoms Psychiatric: reports: No Symptoms Vital Signs: Vital Signs Temperature 98.3 F 01/23/19 09:43 Pulse Rate 61 01/23/19 09:43 Respiratory Rate 20 01/23/19 09:43 Blood Pressure 135/57 L 01/23/19 09:43 O2 Sat by Pulse Oximetry (%) 93 L 01/22/19 21:00 Constitutional: Yes: Well Nourished, No Distress, Calm Eyes: Yes: WNL, Conjunctiva Clear, EOM Intact HENT: Yes: WNL, Atraumatic, Normocephalic Neck: Yes: WNL, Supple, Trachea Midline Respiratory: Yes: WNL, Regular, CTA Bilaterally Gastrointestinal: Yes: WNL, Normal Bowel Sounds Renal/: Yes: WNL Cardiovascular: Yes: WNL, Regular Rate and Rhythm Heart Sounds: Yes: S1, S2 Musculoskeletal: Yes: WNL Extremities: Yes: WNL Integumentary: Yes: WNL Neurological: Yes: WNL, Alert, Oriented ...Motor Strength: WNL Psychiatric: Yes: WNL, Alert, Oriented - Other Data Labs, Other Data: CBC, BMP 01/23/19 06:24 01/23/19 06:24 INR, PTT INR 0.95 (0.83-1.09) 01/23/19 06:24 Laboratory Tests 01/21/19 01/21/19 01/21/19 18:24 18:24 18:24 WBC 10.3 H RBC 4.16 Hgb 12.5 Hct 36.4 MCV 87.3 MCH 30.0 MCHC 34.4 RDW 14.4 Plt Count 211 MPV 7.4 L Absolute Neuts (auto) 8.2 H Neutrophils % 79.8 Lymphocytes % 11.5 Monocytes % 7.1 Eosinophils % 0.2 Basophils % 1.4 Nucleated RBC % 0 PT with INR INR Sodium 137 Potassium 3.4 L Chloride 103 Carbon Dioxide 27 Anion Gap 7 L BUN 12.5 Creatinine 0.8 Est GFR (CKD-EPI)AfAm 77.92 Est GFR (CKD-EPI)NonAf 67.23 Random Glucose 80 Calcium 9.6 Magnesium 1.8 Total Bilirubin 0.9 AST 22 ALT 14 Alkaline Phosphatase 86 Creatine Kinase 120 Troponin I 0.03 C-Reactive Protein Total Protein 6.0 L Albumin 3.3 L Triglycerides 99 Cholesterol 158 Total LDL Cholesterol 71 HDL Cholesterol 65 H Vitamin B12 908 Serum Folate 20 H TSH 0.24 L Urine Color Urine Appearance Urine pH Ur Specific [place] Urine Protein Urine Glucose (UA) Urine Ketones Urine Blood Urine Nitrite Urine Bilirubin Urine Urobilinogen Ur Leukocyte Esterase Blood Type Antibody Screen 01/21/19 01/22/19 01/22/19 18:50 01:39 01:39 WBC 11.6 H RBC 4.13 Hgb 12.3 Hct 35.9 MCV 87.0 MCH 29.9 MCHC 34.3 RDW 14.5 Plt Count 196 MPV 7.0 L Absolute Neuts (auto) 9.4 H Neutrophils % 80.9 Lymphocytes % 9.5 Monocytes % 8.4 Eosinophils % 0.4 D Basophils % 0.8 Nucleated RBC % 0 PT with INR INR Sodium Potassium Chloride Carbon Dioxide Anion Gap BUN Creatinine Est GFR (CKD-EPI)AfAm Est GFR (CKD-EPI)NonAf Random Glucose Calcium Magnesium 1.8 Total Bilirubin AST ALT Alkaline Phosphatase Creatine Kinase Troponin I C-Reactive Protein Total Protein Albumin Triglycerides Cholesterol Total LDL Cholesterol HDL Cholesterol Vitamin B12 Serum Folate TSH Urine Color Yellow Urine Appearance Clear Urine pH 7.0 D Ur Specific [place] 1.004 L Urine Protein Negative Urine Glucose (UA) Negative Urine Ketones Negative Urine Blood Negative Urine Nitrite Negative Urine Bilirubin Negative Urine Urobilinogen 0.2 Ur Leukocyte Esterase Negative Blood Type Antibody Screen 01/22/19 01/22/19 01/22/19 03:43 07:35 07:35 WBC 14.3 H RBC 4.27 Hgb 12.6 Hct 37.6 MCV 88.0 MCH 29.4 MCHC 33.4 RDW 14.8 Plt Count 207 MPV 7.2 L Absolute Neuts (auto) 12.7 H Neutrophils % 88.9 H Lymphocytes % 5.7 L D Monocytes % 4.6 Eosinophils % 0.1 Basophils % 0.7 Nucleated RBC % 0 PT with INR INR Sodium 140 Potassium 4.1 Chloride 110 H Carbon Dioxide 24 Anion Gap 6 L BUN 9.7 Creatinine 0.6 Est GFR (CKD-EPI)AfAm 96.33 Est GFR (CKD-EPI)NonAf 83.11 Random Glucose 73 L Calcium 9.0 Magnesium Total Bilirubin 1.1 H AST 22 ALT 13 Alkaline Phosphatase 81 Creatine Kinase 50 Troponin I 0.03 C-Reactive Protein Total Protein 5.7 L Albumin 3.2 L Triglycerides Cholesterol Total LDL Cholesterol HDL Cholesterol Vitamin B12 Serum Folate TSH Urine Color Urine Appearance Urine pH Ur Specific [place] Urine Protein Urine Glucose (UA) Urine Ketones Urine Blood Urine Nitrite Urine Bilirubin Urine Urobilinogen Ur Leukocyte Esterase Blood Type Antibody Screen 01/23/19 01/23/19 01/23/19 06:24 06:24 06:24 WBC 15.2 H RBC 4.12 Hgb 12.3 Hct 35.5 MCV 86.2 MCH 29.8 MCHC 34.6 RDW 14.6 Plt Count 237 MPV 7.4 L Absolute Neuts (auto) 12.9 H Neutrophils % 85.4 H Lymphocytes % 5.0 L Monocytes % 9.4 D Eosinophils % 0.0 D Basophils % 0.2 Nucleated RBC % 0 PT with INR 11.20 INR 0.95 Sodium 136 Potassium 4.1 Chloride 105 Carbon Dioxide 26 Anion Gap 5 L BUN 8.3 Creatinine 0.6 Est GFR (CKD-EPI)AfAm 96.33 Est GFR (CKD-EPI)NonAf 83.11 Random Glucose 160 H Calcium 9.3 Magnesium Total Bilirubin 0.8 AST 21 ALT 13 Alkaline Phosphatase 77 Creatine Kinase Troponin I C-Reactive Protein 0.8 H Total Protein 5.6 L Albumin 3.1 L Triglycerides Cholesterol Total LDL Cholesterol HDL Cholesterol Vitamin B12 Serum Folate TSH Urine Color Urine Appearance Urine pH Ur Specific [place] Urine Protein Urine Glucose (UA) Urine Ketones Urine Blood Urine Nitrite Urine Bilirubin Urine Urobilinogen Ur Leukocyte Esterase Blood Type Antibody Screen 01/23/19 06:24 WBC RBC Hgb Hct MCV MCH MCHC RDW Plt Count MPV Absolute Neuts (auto) Neutrophils % Lymphocytes % Monocytes % Eosinophils % Basophils % Nucleated RBC % PT with INR INR Sodium Potassium Chloride Carbon Dioxide Anion Gap BUN Creatinine Est GFR (CKD-EPI)AfAm Est GFR (CKD-EPI)NonAf Random Glucose Calcium Magnesium Total Bilirubin AST ALT Alkaline Phosphatase Creatine Kinase Troponin I C-Reactive Protein Total Protein Albumin Triglycerides Cholesterol Total LDL Cholesterol HDL Cholesterol Vitamin B12 Serum Folate TSH Urine Color Urine Appearance Urine pH Ur Specific [place] Urine Protein Urine Glucose (UA) Urine Ketones Urine Blood Urine Nitrite Urine Bilirubin Urine Urobilinogen Ur Leukocyte Esterase Blood Type A POSITIVE Antibody Screen Negative Imaging - Results Chest X-ray: Image Reviewed (no i/e) EKG: Image Reviewed (sr lvh prolonged qt) Problem List - Problems (1) Acute electrocardiogram changes Code(s): R94.31 - ABNORMAL ELECTROCARDIOGRAM [ECG] [EKG] (2) Altered bowel habits Code(s): R19.4 - CHANGE IN BOWEL HABIT (3) Ataxia Code(s): R27.0 - ATAXIA, UNSPECIFIED (4) CVA, old, ataxia Code(s): I69.993 - ATAXIA FOLLOWING UNSPECIFIED CEREBROVASCULAR DISEASE (5) Colon obstruction Code(s): K56.609 - UNSP INTESTNL OBST, UNSP TO PARTIAL VERSUS COMPLETE OBST (6) Gait instability Code(s): R26.81 - UNSTEADINESS ON FEET (7) History of cholecystectomy Code(s): Z90.49 - ACQUIRED ABSENCE OF OTHER SPECIFIED PARTS OF DIGESTIVE TRACT (8) History of endoscopic retrograde cholangiopancreatography Code(s): Z98.890 - OTHER SPECIFIED POSTPROCEDURAL STATES (9) Vomiting Code(s): R11.10 - VOMITING, UNSPECIFIED (10) Weight loss Code(s): R63.4 - ABNORMAL WEIGHT LOSS (11) 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 Code(s): I44.1 - ATRIOVENTRICULAR BLOCK, SECOND DEGREE (12) Chest pain Code(s): R07.9 - CHEST PAIN, UNSPECIFIED (13) Chest tightness or pressure Code(s): R07.89 - OTHER CHEST PAIN (14) Chronic diastolic (congestive) heart failure Code(s): I50.32 - CHRONIC DIASTOLIC (CONGESTIVE) HEART FAILURE (15) HTN (hypertension) Code(s): I10 - ESSENTIAL (PRIMARY) HYPERTENSION (16) Has smoked cigarettes within prior year Code(s): Z87.891 - PERSONAL HISTORY OF NICOTINE DEPENDENCE (17) Hyperlipemia Code(s): E78.5 - HYPERLIPIDEMIA, UNSPECIFIED (18) Hypothyroid Code(s): E03.9 - HYPOTHYROIDISM, UNSPECIFIED Qualifiers: Qualified Code(s): E03.4 - Atrophy of thyroid (acquired) Assessment/Plan htn hlp hypothyroidism abn ekg abd pain Plan GI w/u telemetry f/u ekg will obtain the records of prior c. cath will f/u
[2019-01-23] MEDS: PANTOPRAZOLE SODIUM 40 MG VIAL IVPUSH SCH (11:18)
[2019-01-23] MEDS ORDERED: PROPOFOL 20 ML ONE ×2 (12:37)
[2019-01-23] MEDS ORDERED: EPHEDRINE SULFATE/0.9% NACL/PF 50 MG/10 ML SYRINGE NR ONE (12:37)
[2019-01-23] MEDS ORDERED: ROCURONIUM BROMIDE 50 MG/5 ML SYRINGE ONE ×2 (12:38→15:27)
[2019-01-23] MEDS ORDERED: DEXAMETHASONE SOD PHOSPHATE 4 MG/1 ML VIAL ONE (13:33)
[2019-01-23] MEDS ORDERED: ERTAPENEM SODIUM 1 GM VIAL IVPB ONE (13:40)
[2019-01-23] MEDS ORDERED: NEOSTIGMINE METHYLSULFATE 0.5 MG/ML - 10 ML MDV ONE (16:02)
[2019-01-23] MEDS ORDERED: GLYCOPYRROLATE 0.2 MG/1 ML VIAL ONE (16:02)
[2019-01-23] MEDS ORDERED: DESFLURANE GAS 240 ML BOTTLE IH ONE (16:22)
[2019-01-23] MEDS ORDERED: BENZOIN TINCTURE SWABSTICK TP ONE (16:26)
--- NOTE | 2019-01-23 17:00 | OP ---
Operative Note - Note: Operative Date: 01/23/19 Pre-Operative Diagnosis: large bowel obstruction Operation: segmental sigmoid colon resection w/colostomy (Hartmans procedure) Findings: obstructing sigmoid lesion Post-Operative Diagnosis: Same as Pre-op Surgeon: Davion Huff Ship Officer: Angella Spear Anesthesiologist/[employer]AT OPERATOR: Broderick Pike Anesthesia: General Specimens Removed: portion of sigmoid colon Estimated Blood Loss (mls): 200 Drains & Tubes with Location: 10 mm MARCE in pelvis
[2019-01-23] MEDS ORDERED: ONDANSETRON 4 MG/2 ML VIAL IVPUSH PRN (17:32)
[2019-01-23] MEDS ORDERED: SODIUM CHLORIDE 0.9% 500 ML INFUS.BAG IV SCH (17:32)
[2019-01-23] MEDS ORDERED: hydrALAZINE HCL 20 MG/ML VIAL IVPUSH PRN (17:32)
--- NOTE | 2019-01-23 17:40 | SURG ---
Surgery Field Associate Note Field Associate: Angella Spear PA-C Date of Service: 01/23/19 Diagnosis: large bowel obstruction Procedure: segmental sigmoid colon resection w/colostomy (Hartmans procedure) I was present for the entirety of the operative procedure. For further detail, please refer to operative report. Visit type - Case Type Case Type: Scheduled - Emergency Emergency Visit: No - New patient This patient is new to me today: Yes Date on this admission: 01/23/19
[2019-01-23] MEDS: ACETAMINOPHEN 1000 MG/100 ML VIAL (NON FORMULARY) IVPB SCH (18:25)
[2019-01-23] MEDS ORDERED: ACETAMINOPHEN INJECTION 100 ML IVPB ONE (18:27)
[2019-01-23 20:39] LABS: HEMATOCRIT 44.4 % (32.4-45.2); HEMOGLOBIN 14.9 GM/dL (10.7-15.3); MCH 29.6 pg (25.7-33.7); MCHC 33.5 g/dl (32.0-36.0); MEAN CELL VOLUME 88.4 fl (80-96); MEAN PLT VOLUME 7.4 fl (7.5-11.1); PLATELET COUNT 274 K/MM3 (134-434); RBC 5.02 M/mm3 (3.60-5.2); RDW 14.5 % (11.6-15.6); WHITE BLOOD COUNT 10.1 K/mm3 (4.0-10.0)
[2019-01-23 21:11] LABS: ALBUMIN 2.4 g/dl (3.4-5.0); BILIRUBIN,TOTAL 0.7 mg/dL (0.2-1); BLOOD UREA NITROGEN 9.6 mg/dL (7-18); CALCIUM 8.6 mg/dL (8.5-10.1); CREATININE 0.8 mg/dL (0.55-1.3); MAGNESIUM 1.6 mg/dL (1.8-2.4); TOT PROT 4.6 g/dl (6.4-8.2)
--- NOTE | 2019-01-23 21:25 | PN ---
Progress Note (short form) - Note Progress Note: 84 yo F s/p bowel resection now in PACU. pt had dysrhythmia intraop that normalized toward end of operation without intervention. in PACU, pt had addt' l runs of vent dysrhythmia. cardiac contacted as well as ICU staff. pt for ICU admission. full labs and ekg obtained. will f/u with ICU staff on results and await cardiac input on further management. pt is stable now in nsr. she is awake and alert.
[2019-01-23] MEDS ORDERED: HYDROmorphone HCl 2 MG/ML VIAL ONE (21:49)
[2019-01-23] MEDS: HYDROmorphone HCl 2 MG/ML VIAL IVPB PRN (21:50)
--- NOTE | 2019-01-24 01:01 | CONSULT ---
Consultation: REQUESTING PROVIDER: CONSULT REQUEST: We have been asked to medically evaluate this patient for ICU admission post operatively due to abnormal heart rhythms. HISTORY OF PRESENT ILLNESS: 84 y/o/f with PMHx of HTN, HLD, Cardiac cath (no stents placed), Cholecystectomy , Bilateral cataract surgery and Hypothyroidism s/p segmental sigmoid colon resection w/colostomy (Hartmans procedure) POD#0. who presented to the ED with complaints of not being able to walk for the last few days. Patient had a CT abd &pelvis done which showed diffuse air and liquid stool distension of the colon. GI and surgery were consulted. GI suspected obstruction at the level of the sigmoid colon due to cancer and that she was at risk of cecal perforation. Patient refused colonoscopy. Surgery was done for a diversion colostomy. During surgery patient was noted to have some abnormal rhythms which normalized by the end of the operation without intervention. Patient continued to have episodes of abnormal rhythm consistent with Vtach/Vfib which resolved within less than a minute. Patient stable otherwise. Seen in PACU, repeatedly stating that her lips were very dry. Patient seemed confused after receiving pain medication but after wetting her lips she was able to confirm her location, name, and other aspects of her history. Patient noted to have leakage of stool around her colostomy site, unclear if the drainage was coming from her colostomy or from her wound. Dr. Huff contacted and stated the drainage could not be coming from her surgical incision. Patient complaining of dry mouth and pain at the surgical incision site. Otherwise denies chest pain, SOB, dizziness, N/V/D. REVIEW OF SYSTEMS: As per HPI PHYSICAL EXAMINATION Vital Signs - 24 hr 01/23/19 01/23/19 01/23/19 02:00 05:30 09:00 Temperature 98.4 F Pulse Rate 46 L 42 L Respiratory 20 18 Rate Blood Pressure 121/74 149/58 L O2 Sat by Pulse 93 L Oximetry (%) 01/23/19 01/23/19 01/23/19 09:43 16:49 17:05 Temperature 98.3 F 97.6 F Pulse Rate 61 95 H 93 H Respiratory 20 18 14 Rate Blood Pressure 135/57 L 154/82 134/82 O2 Sat by Pulse 98 100 Oximetry (%) 01/23/19 01/23/19 01/23/19 17:20 17:35 17:50 Temperature Pulse Rate 94 H 92 H 95 H Respiratory 14 16 16 Rate Blood Pressure 155/75 134/82 130/76 O2 Sat by Pulse 99 99 100 Oximetry (%) 01/23/19 01/23/19 01/23/19 18:05 18:20 18:35 Temperature Pulse Rate 96 H 92 H 91 H Respiratory 14 14 14 Rate Blood Pressure 133/67 130/76 106/91 O2 Sat by Pulse 100 100 100 Oximetry (%) 01/23/19 01/23/19 01/23/19 18:50 19:05 19:20 Temperature Pulse Rate 88 77 80 Respiratory 14 14 18 Rate Blood Pressure 131/78 125/53 L 142/68 O2 Sat by Pulse 100 100 98 Oximetry (%) 01/23/19 01/23/19 01/23/19 19:35 19:50 20:05 Temperature Pulse Rate 82 78 87 Respiratory 18 18 17 Rate Blood Pressure 150/60 152/72 136/56 L O2 Sat by Pulse 98 99 99 Oximetry (%) 01/23/19 01/23/19 01/23/19 20:20 20:35 20:50 Temperature Pulse Rate 94 H 86 96 H Respiratory 17 17 17 Rate Blood Pressure 134/64 122/61 147/94 O2 Sat by Pulse 100 100 98 Oximetry (%) 01/23/19 01/23/19 01/23/19 21:05 21:20 21:35 Temperature Pulse Rate 92 H 96 H 93 H Respiratory 18 18 18 Rate Blood Pressure 144/70 149/75 152/74 O2 Sat by Pulse 98 98 99 Oximetry (%) 01/23/19 01/23/19 01/23/19 21:50 22:05 22:20 Temperature Pulse Rate 97 H 76 89 Respiratory 16 16 18 Rate Blood Pressure 155/70 124/72 97/52 L O2 Sat by Pulse 98 100 100 Oximetry (%) 01/23/19 01/23/19 01/23/19 22:50 23:20 23:50 Temperature Pulse Rate 86 96 H 84 Respiratory 18 16 14 Rate Blood Pressure 93/49 L 93/50 L 99/49 L O2 Sat by Pulse 100 100 100 Oximetry (%) 01/24/19 00:20 Temperature Pulse Rate 78 Respiratory 16 Rate Blood Pressure 102/50 L O2 Sat by Pulse 100 Oximetry (%) GENERAL: Awake, alert, and fully oriented, in mild distress HEAD: Normal with no signs of trauma. EYES: PERRL, EOMI, no scleral icterus EARS, NOSE, THROAT: dry mucous membranes. NECK: supple, trachea midline LUNGS: Breath sounds equal, clear to auscultation bilaterally. No wheezes, and no crackles. No accessory muscle use. HEART: Regular rate and rhythm, normal S1 and S2 without murmur, rub or gallop. ABDOMEN: surgical incision site covered by dry dressing. Colostomy bag on left side of abd with stool in bag EXTREMITIES: 2+ pulses, warm, well-perfused. No calf tenderness. No peripheral edema. NEUROLOGICAL: Normal speech, gait not observed SKIN: Warm, dry, decreased turgor Laboratory Results - last 24 hr 01/23/19 01/23/19 01/23/19 06:24 06:24 06:24 WBC 15.2 H RBC 4.12 Hgb 12.3 Hct 35.5 MCV 86.2 MCH 29.8 MCHC 34.6 RDW 14.6 Plt Count 237 MPV 7.4 L Absolute Neuts (auto) 12.9 H Neutrophils % 85.4 H Lymphocytes % 5.0 L Monocytes % 9.4 D Eosinophils % 0.0 D Basophils % 0.2 Nucleated RBC % 0 PT with INR 11.20 INR 0.95 Sodium 136 Potassium 4.1 Chloride 105 Carbon Dioxide 26 Anion Gap 5 L BUN 8.3 Creatinine 0.6 Est GFR (CKD-EPI)AfAm 96.33 Est GFR (CKD-EPI)NonAf 83.11 Random Glucose 160 H Calcium 9.3 Magnesium Total Bilirubin 0.8 AST 21 ALT 13 Alkaline Phosphatase 77 Creatine Kinase Troponin I C-Reactive Protein 0.8 H Total Protein 5.6 L Albumin 3.1 L Blood Type Antibody Screen 01/23/19 01/23/19 01/23/19 06:24 11:40 20:20 WBC 10.1 H RBC 5.02 Hgb 14.9 Hct 44.4 D MCV 88.4 MCH 29.6 MCHC 33.5 RDW 14.5 Plt Count 274 MPV 7.4 L Absolute Neuts (auto) Neutrophils % Lymphocytes % Monocytes % Eosinophils % Basophils % Nucleated RBC % PT with INR INR Sodium Potassium Chloride Carbon Dioxide Anion Gap BUN Creatinine Est GFR (CKD-EPI)AfAm Est GFR (CKD-EPI)NonAf Random Glucose Calcium Magnesium Total Bilirubin AST ALT Alkaline Phosphatase Creatine Kinase Troponin I C-Reactive Protein Total Protein Albumin Blood Type A POSITIVE A POSITIVE Antibody Screen Negative 01/23/19 20:20 WBC RBC Hgb Hct MCV MCH MCHC RDW Plt Count MPV Absolute Neuts (auto) Neutrophils % Lymphocytes % Monocytes % Eosinophils % Basophils % Nucleated RBC % PT with INR INR Sodium 137 Potassium 5.0 Chloride 106 Carbon Dioxide 26 Anion Gap 5 L BUN 9.6 Creatinine 0.8 Est GFR (CKD-EPI)AfAm 77.92 Est GFR (CKD-EPI)NonAf 67.23 Random Glucose 119 H Calcium 8.6 Magnesium 1.6 L Total Bilirubin 0.7 AST 24 ALT 16 Alkaline Phosphatase 63 Creatine Kinase 146 Troponin I 0.06 H C-Reactive Protein Total Protein 4.6 L Albumin 2.4 L Blood Type Antibody Screen Active Medications Generic Name Dose Route Start Last Admin Trade Name Freq PRN Reason Stop Dose Admin Acetaminophen 700 mg 01/23/19 17:32 01/23/19 18:25 Ofirmev Injection - IVPB 01/24/19 17:33 700 mg Q8H FOREST Administration Enalaprilat 1.25 mg 01/23/19 21:00 Vasotec Injection - IVPB Q6H-IV FOREST Enoxaparin Sodium 40 mg 01/24/19 10:00 Lovenox - SQ DAILY FOREST Hydralazine HCl 10 mg 01/23/19 17:32 Apresoline Injection - IVPUSH Q8H PRN HYPERTENSION Hydromorphone HCl 1 mg 01/23/19 17:32 01/23/19 21:50 Dilaudid Vial - IVPB 1 mg Q6H PRN Administration PAIN LEVEL 6-10 Ertapenem 1 gm/ Sodium 50 mls @ 100 mls/hr 01/24/19 14:15 Chloride IVPB 01/24/19 14:44 ONCE ONE Ondansetron HCl 4 mg 01/23/19 17:32 Zofran Injection IVPUSH Q6H PRN NAUSEA Pantoprazole Sodium 40 mg 01/24/19 10:00 Protonix Iv IVPUSH DAILY FOREST Sodium Chloride 75 ml 01/23/19 17:32 01/23/19 18:40 Normal Saline - IV 75 ml ASDIR FOREST Administration ASSESSMENT/PLAN: 84 y/o/f with PMHx of HTN, HLD, Cardiac cath (no stents placed), Cholecystectomy , Bilateral cataract surgery and Hypothyroidism s/p segmental sigmoid colon resection w/colostomy (Hartmans procedure) POD#0. Admitted to ICU s/p surgery for abnormal heart rhythms. #Neuro - AAOx3, continue to monitor #Cardio - trend trop - hx HTN - On Hydralazine for BP control - Lopressor 5mg IV PRN for sustained tachycardia #Pulm - maintain SpO2 >90 - CXR without acute pathology #GI - Segmental sigmoid colon resection w/colostomy (Hartmans procedure) POD#0. - Monitor surgical incision for signs of infection - Surgery recs appreciated - CEA level pending - Barium enema 01/23 prior to surgery showing markedly distended colon secondary to the partially obstructive sigmoid colon lesion measuring approximately 6cm in length #ID - leukocytosis, now downtrending - afebrile - Ertapenem x1 given after surgery - consider continuing abx in the morning #FEN - NPO - NS 75mls/hr - hypomag, repleted - monitor and replete lytes as needed #Prophylaxis - SCDs - holding chemical anticoagulation #Disposition - ICU monitoring Visit type - Emergency Visit Emergency Visit: Yes ED Registration Date: 01/21/19 Care time: The patient presented to the Emergency Department on the above date and was hospitalized for further evaluation of their emergent condition. - New Patient This patient is new to me today: Yes Date on this admission: 01/24/19 - Critical Care Critical Care patient: Yes Total Critical Care Time (in minutes): 36 Critical Care Statement: The care of this patient involved high complexity decision making to prevent further life threatening deterioration of the patient 's condition and/or to evaluate & treat vital organ system(s) failure or risk of failure. ATTENDING PHYSICIAN STATEMENT I saw and evaluated the patient. I reviewed the resident's note and discussed the case with the resident. I agree with the resident's findings and plan as documented. SUBJECTIVE: OBJECTIVE: ASSESSMENT AND PLAN:
[2019-01-24] MEDS ORDERED: MAGNESIUM SULF 50% (8.12 MEQ/2 ML-1 GM VIAL) IVPB ONE (01:56)
[2019-01-24] MEDS: ACETAMINOPHEN 1000 MG/100 ML VIAL (NON FORMULARY) IVPB SCH ×3 (02:30→17:26)
[2019-01-24] MEDS ORDERED: METOPROLOL TARTRATE 5 MG/5 ML VIAL IVPUSH PRN ×2 (02:33→20:39)
[2019-01-24 03:10] LABS: MAGNESIUM 1.4 mg/dL (1.8-2.4)
[2019-01-24] MEDS: ENALAPRILAT DIHYDRATE 1.25 MG/1 ML VIAL IVPB SCH ×6 (05:08→21:16)
[2019-01-24] MEDS ORDERED: SODIUM CHLORIDE 0.9% 500 ML INFUS.BAG IV ONE (06:10)
[2019-01-24] MEDS ORDERED: SODIUM CHLORIDE 1,000 ML IV SCH (06:30)
[2019-01-24 07:02] LABS: BASO % 0.2 % (0-2.0); HEMATOCRIT 35.2 % (32.4-45.2); LYMPH % 4.6 % (8-40); MCH 29.7 pg (25.7-33.7); MCHC 34.1 g/dl (32.0-36.0); MEAN CELL VOLUME 87.2 fl (80-96); MEAN PLT VOLUME 7.4 fl (7.5-11.1); MONO % 4.8 % (3.8-10.2); NEUT % 90.4 % (42.8-82.8); PLATELET COUNT 195 K/MM3 (134-434); RBC 4.03 M/mm3 (3.60-5.2); RDW 14.6 % (11.6-15.6); WHITE BLOOD COUNT 11.9 K/mm3 (4.0-10.0)
[2019-01-24 07:57] LABS: ALBUMIN 1.8 g/dl (3.4-5.0); BILIRUBIN,TOTAL 0.6 mg/dL (0.2-1); BLOOD UREA NITROGEN 12.1 mg/dL (7-18); CALCIUM 8.3 mg/dL (8.5-10.1); CREATININE 0.6 mg/dL (0.55-1.3); POTASSIUM 4.9 mmol/L (3.5-5.1); TOT PROT 3.6 g/dl (6.4-8.2)
[2019-01-24] MEDS ORDERED: MORPHINE SULFATE 2 MG/ML VIAL IVPUSH ONE (08:12)
--- NOTE | 2019-01-24 08:18 | PN ---
Physical Exam: SUBJECTIVE: Patient seen and examined by [facility]. She is lying comfortably, complaining of abdominal pain only on palpation. She had some discharge from her wound yesterday, dressing was changed. OBJECTIVE: Vital Signs Period Temp Pulse Resp BP Sys/Portillo Pulse Ox Last 24 Hr 97.4 F-98.5 F 61-97 10-20 88-155/48-94 93-100 GENERAL: AOx3 HEAD: Normal with no signs of trauma. EYES: PERRL, EOMI, no scleral icterus EARS, NOSE, THROAT: dry mucous membranes. NECK: supple, trachea midline LUNGS: Breath sounds equal, clear to auscultation bilaterally. No wheezes, and no crackles. No accessory muscle use. HEART: Regular rate and rhythm, normal S1 and S2 without murmur, rub or gallop. ABDOMEN: Surgical incision site covered by dry dressing, diffuse tenderness on palpation. Colostomy bag on left side of abd with stool in bag EXTREMITIES: 2+ pulses, warm, well-perfused. No calf tenderness. No peripheral edema. NEUROLOGICAL: Motor 5/5, sensations intact SKIN: Warm, dry, decreased turgor CBC, BMP 01/24/19 06:20 01/24/19 06:20 Current Medications Acetaminophen (Ofirmev Injection -) 700 mg IVPB Q8H [facility] Stop: 01/24/19 17:33 Last Admin: 01/24/19 09:14 Dose: 700 mg Enalaprilat (Vasotec Injection -) 1.25 mg IVPB Q6H-IV [facility] Last Admin: 01/24/19 14:18 Dose: Not Given Enoxaparin Sodium (Lovenox -) 40 mg SQ DAILY [facility] Hydralazine HCl (Apresoline Injection -) 10 mg IVPUSH Q8H PRN PRN Reason: HYPERTENSION Hydromorphone HCl (Dilaudid Vial -) 1 mg IVPB Q6H PRN PRN Reason: PAIN LEVEL 6-10 Last Admin: 01/23/19 21:50 Dose: 1 mg Sodium Chloride (Normal Saline -) 1,000 mls @ 100 mls/hr IV ASDIR [facility] Last Admin: 01/24/19 09:02 Dose: 100 mls/hr Metoprolol Tartrate (Lopressor Injection -) 5 mg IVPUSH Q4H PRN PRN Reason: TACHYCARDIA Ondansetron HCl (Zofran Injection) 4 mg IVPUSH Q6H PRN PRN Reason: NAUSEA Pantoprazole Sodium (Protonix Iv) 40 mg IVPUSH DAILY [facility] Last Admin: 01/24/19 09:14 Dose: 40 mg ASSESSMENT/PLAN: 84F with PMH of HTN, HLD, Cardiac cath (no stents placed), Cholecystectomy, Bilateral cataract surgery and Hypothyroidism. She presented to the ER with complaints of diarrhea and loss of balance. She was found to have colonic distension, and diversion colostomy was performed. During surgery, she was found to have intermittent Vtach/Vfib which resolved in a few minutes, and was transfered to the ICU for monitoring. POD#1 Reg's procedure #Neuro - AAOx3, continue to monitor - Morphine 2mg for analgesia #Cardio - Cardio recs: Will obtain previous cath results, continue ICU monitoring - Trops 0.06 -> 005 - Hx HTN, Hydralazine for BP control, Lopressor 5mg IV PRN for sustained tachycardia #Pulm - CXR without acute pathology #GI - Segmental sigmoid colon resection w/colostomy (Hartmans procedure) POD#1. - Noted to have leakage around colostomy site, bandage changed, surgery team examined and observed serous discharge with no stool - CEA level pending - Barium enema 01/23 prior to surgery showing markedly distended colon secondary to the partially obstructive sigmoid colon lesion measuring approximately 6cm in length #ID - WBC 11.9 - Afebrile - Ertapenem x1 given after surgery #FEN - NPO - Mg repleted - N/S @ 100 #Prophylaxis - SCDs - Holding AC #Disposition - Stable for transfer to Tele Visit type - Emergency Visit Emergency Visit: Yes ED Registration Date: 01/21/19 Care time: The patient presented to the Emergency Department on the above date and was hospitalized for further evaluation of their emergent condition. - New Patient This patient is new to me today: No - Critical Care Critical Care patient: Yes Total Critical Care Time (in minutes): 37 Critical Care Statement: The care of this patient involved high complexity decision making to prevent further life threatening deterioration of the patient 's condition and/or to evaluate & treat vital organ system(s) failure or risk of failure. ATTENDING PHYSICIAN STATEMENT I saw and evaluated the patient. I reviewed the resident's note and discussed the case with the resident. I agree with the resident's findings and plan as documented. SUBJECTIVE: OBJECTIVE: ASSESSMENT AND PLAN:
--- NOTE | 2019-01-24 08:58 | PN ---
Progress Note (short form) - Note Progress Note: Anesthesia Post Op Note Pt seen s/p GA for sigmoid resection Pt awake alert no complaints pain well controlled NG tube and hanna in situ VSS no apparent anesthesia complications, Joshua Mcelroy.
[2019-01-24] MEDS: D5-NS + 20 MEQ KCL - 20 MEQ/1,000 ML INFUS.BAG IV SCH (09:03)
[2019-01-24] MEDS ORDERED: LORazepam 2 MG/ML SDV VIAL IVPUSH ONE (09:35)
[2019-01-24 09:56] LABS: PLATELET ESTIMATE NORMAL
[2019-01-24] MEDS ORDERED: ENOXAPARIN NA (PORCINE) 40 MG/0.4 ML DISP.SYRIN SQ SCH (10:00)
[2019-01-24] MEDS ORDERED: PANTOPRAZOLE SODIUM 40 MG VIAL IVPUSH SCH (10:00)
--- NOTE | 2019-01-24 10:34 | EKG ---
Test Reason : Blood Pressure : / mmHG Vent. Rate : 083 BPM Atrial Rate : 083 BPM P-R Int : 150 ms QRS Dur : 106 ms QT Int : 398 ms P-R-T Axes : 056 -44 -44 degrees QTc Int : 467 ms SINUS RHYTHM WITH PREMATURE ATRIAL COMPLEXES LEFT AXIS DEVIATION INCOMPLETE RIGHT BUNDLE BRANCH BLOCK MINIMAL VOLTAGE CRITERIA FOR LVH, MAY BE NORMAL VARIANT ABNORMAL ECG WHEN COMPARED WITH ECG OF 21-JAN-2019 18:14, PREMATURE ATRIAL COMPLEXES ARE NOW PRESENT NON-SPECIFIC CHANGE IN ST SEGMENT IN INFERIOR LEADS Confirmed by Roel Johnson MD ([id number]) on 01/24/2019 10:33:48 AM Referred By: Confirmed By:Roel Johnson MD
--- NOTE | 2019-01-24 11:04 | PN ---
Teaching Attending Note Name of Resident: Hank Carranza ATTENDING PHYSICIAN STATEMENT I saw and evaluated the patient. I reviewed the resident's note and discussed the case with the resident. I agree with the resident's findings and plan as documented. SUBJECTIVE: Pt seen and examined in the ICU. Pain relatively controlled. Some leakage from incision site per nursing. OBJECTIVE: Vital Signs Period Temp Pulse Resp BP Sys/Portillo Pulse Ox Last 24 Hr 97.4 F-98.5 F 61-97 10-20 88-155/47-94 97-100 Intake & Output 01/21/19 01/22/19 01/23/19 01/24/19 23:59 23:59 23:59 23:59 Intake Total 300 5600 600 Output Total 3100 600 Balance 300 2500 0 Weight 43.545 kg 44.815 kg 44.452 kg 48.6 kg Gen: NAD at rest Heart: RRR Lung: decreased breath sounds at the bases Abd: soft, dressing clean, +ostomy pink Ext: no edema CBC, BMP 01/24/19 06:20 01/24/19 06:20 Active Medications Acetaminophen (Ofirmev Injection -) 700 mg IVPB Q8H [facility] Stop: 01/24/19 17:33 Last Admin: 01/24/19 09:14 Dose: 700 mg Enalaprilat (Vasotec Injection -) 1.25 mg IVPB Q6H-IV [facility] Last Admin: 01/24/19 09:16 Dose: Not Given Enoxaparin Sodium (Lovenox -) 40 mg SQ DAILY [facility] Hydralazine HCl (Apresoline Injection -) 10 mg IVPUSH Q8H PRN PRN Reason: HYPERTENSION Hydromorphone HCl (Dilaudid Vial -) 1 mg IVPB Q6H PRN PRN Reason: PAIN LEVEL 6-10 Last Admin: 01/23/19 21:50 Dose: 1 mg Ertapenem 1 gm/ Sodium (Chloride) 50 mls @ 100 mls/hr IVPB ONCE ONE Stop: 01/24/19 14:44 Sodium Chloride (Normal Saline -) 1,000 mls @ 100 mls/hr IV ASDIR [facility] Last Admin: 01/24/19 09:02 Dose: 100 mls/hr Metoprolol Tartrate (Lopressor Injection -) 5 mg IVPUSH Q4H PRN PRN Reason: TACHYCARDIA Ondansetron HCl (Zofran Injection) 4 mg IVPUSH Q6H PRN PRN Reason: NAUSEA Pantoprazole Sodium (Protonix Iv) 40 mg IVPUSH DAILY [facility] Last Admin: 01/24/19 09:14 Dose: 40 mg ASSESSMENT AND PLAN: Large Bowel Obstruction/Sigmoid Mass s/p Segmental Sigmoid Resection/Colostomy POD #1 CAD HTN Hyperlipidemia Hypothyrodism - pain control - incentive spirometry - on antibiotics - f/u pathology - IVF - monitor ostomy output - DVT prophylaxis - can monitor on floor when ok with surgery
--- NOTE | 2019-01-24 12:08 | PN ---
Progress Note, Physician Chief Complaint: Status post surgery for colonic obstruction Andrews POD1 overnight ? Vfib History of Present Illness: 84 yrs old F knwn since previous hospitalization H/O HTN, Hypercholestrerolemia , cholycystectomy in 2018 admitted with chest pain with 2nd degree HB patient was transferred and evaluated at [facility] including Cath that was reported normal, yesterday presented with c/o feeling weak like she will fall but no swaying or any focal motor/ sensory signs, CT abd shows colonic obstruction possible sigmoid colon mass probably large bowel obstruction, from sigmoid lesion with sigmoid spasm with sever ileus or toxic megacolon , patient has high risk of bowel perforation. , evaluated by GI and Surgery. NG tube inserted monitor shows PVCs and 2nd degree HB - Current Medication List Current Medications: Active Medications Acetaminophen (Ofirmev Injection -) 700 mg IVPB Q8H [facility] Stop: 01/24/19 17:33 Last Admin: 01/24/19 09:14 Dose: 700 mg Enalaprilat (Vasotec Injection -) 1.25 mg IVPB Q6H-IV [facility] Last Admin: 01/24/19 09:16 Dose: Not Given Enoxaparin Sodium (Lovenox -) 40 mg SQ DAILY [facility] Hydralazine HCl (Apresoline Injection -) 10 mg IVPUSH Q8H PRN PRN Reason: HYPERTENSION Hydromorphone HCl (Dilaudid Vial -) 1 mg IVPB Q6H PRN PRN Reason: PAIN LEVEL 6-10 Last Admin: 01/23/19 21:50 Dose: 1 mg Ertapenem 1 gm/ Sodium (Chloride) 50 mls @ 100 mls/hr IVPB ONCE ONE Stop: 01/24/19 14:44 Sodium Chloride (Normal Saline -) 1,000 mls @ 100 mls/hr IV ASDIR [facility] Last Admin: 01/24/19 09:02 Dose: 100 mls/hr Metoprolol Tartrate (Lopressor Injection -) 5 mg IVPUSH Q4H PRN PRN Reason: TACHYCARDIA Ondansetron HCl (Zofran Injection) 4 mg IVPUSH Q6H PRN PRN Reason: NAUSEA Pantoprazole Sodium (Protonix Iv) 40 mg IVPUSH DAILY [facility] Last Admin: 01/24/19 09:14 Dose: 40 mg - Objective Vital Signs: Vital Signs Temperature 97.4 F L 01/24/19 01:38 Pulse Rate 68 01/24/19 10:00 Respiratory Rate 16 01/24/19 10:00 Blood Pressure 100/47 L 01/24/19 10:00 O2 Sat by Pulse Oximetry (%) 97 01/24/19 09:00 Elderly F c/o abd pain and distention HEENT:NG at place Mm moist, no anemia, PERRLA EOMI NECK: No JVd No Bruit CHEST: CTA B/L CVS: s1S2 R ABD: colostomy bag at place EXT; No edema feet, Pulses + [employer]: AOX3 non focal Labs: CBC, BMP 01/24/19 06:20 01/24/19 06:20 INR, PTT INR 0.95 (0.83-1.09) 01/23/19 06:24 Problem List - Problems (1) Colon obstruction Assessment/Plan: S/P andrews procedure day 1 , NPO , NG tube for decompression, cont PPI, Zofran and pain meds. Code(s): K56.609 - UNSP INTESTNL OBST, UNSP TO PARTIAL VERSUS COMPLETE OBST (2) Gait instability Assessment/Plan: Can be due to metabolic , will evaluate once acute issues are resolved Code(s): R26.81 - UNSTEADINESS ON FEET (3) Hyperlipemia Assessment/Plan: On Statin Code(s): E78.5 - HYPERLIPIDEMIA, UNSPECIFIED (4) Hypothyroid Assessment/Plan: TSH suppressed hold Levothyroxine Code(s): E03.9 - HYPOTHYROIDISM, UNSPECIFIED Qualifiers: Qualified Code(s): E03.4 - Atrophy of thyroid (acquired) (5) HTN (hypertension) Assessment/Plan: Switch to IV Moeds H/O 2nd degree HB will defer B blockers Cath and ECHO were reported normal 1 yr ago Code(s): I10 - ESSENTIAL (PRIMARY) HYPERTENSION (6) 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 Code(s): I44.1 - ATRIOVENTRICULAR BLOCK, SECOND DEGREE
--- NOTE | 2019-01-24 13:35 | PN ---
Progress Note, Physician History of Present Illness: Patient is an 84 year old woman with a PMH of HTN, HLD, Cardiac cath (no stents placed), Cholecystectomy, Bilateral cataract surgery and Hypothyroidism, who presents with complaints of difficulty walking over the past 3-4 days. Patient states that when she walks, she feels "like she is about to fall over". This is not associated with position changes or vertigo, and it does not localize to either side. Patient denies falling or hitting her head and has never felt this way before. She has poor appetite, and her sister notes "she eats only crackers ". Patient denies any fevers, chills, headache, vision changes, cough, congestion, syncope, chest pain, palpitations, SOB, nausea, vomiting, abdominal pain, urinary symptoms, constipation, or leg swelling. Denies cigarette, alcohol , or illicit drug use. Had two loose bowel movements 5 days ago. Denies any recent travel or sick contacts. FH of CAD and DM. OBJECTIVE: Alertand not orthostatic - Current Medication List Current Medications: Active Medications Acetaminophen (Ofirmev Injection -) 700 mg IVPB Q8H [facility] Stop: 01/24/19 17:33 Last Admin: 01/24/19 09:14 Dose: 700 mg Enalaprilat (Vasotec Injection -) 1.25 mg IVPB Q6H-IV [facility] Last Admin: 01/24/19 09:16 Dose: Not Given Enoxaparin Sodium (Lovenox -) 40 mg SQ DAILY [facility] Hydralazine HCl (Apresoline Injection -) 10 mg IVPUSH Q8H PRN PRN Reason: HYPERTENSION Hydromorphone HCl (Dilaudid Vial -) 1 mg IVPB Q6H PRN PRN Reason: PAIN LEVEL 6-10 Last Admin: 01/23/19 21:50 Dose: 1 mg Ertapenem 1 gm/ Sodium (Chloride) 50 mls @ 100 mls/hr IVPB ONCE ONE Stop: 01/24/19 14:44 Sodium Chloride (Normal Saline -) 1,000 mls @ 100 mls/hr IV ASDIR [facility] Last Admin: 01/24/19 09:02 Dose: 100 mls/hr Metoprolol Tartrate (Lopressor Injection -) 5 mg IVPUSH Q4H PRN PRN Reason: TACHYCARDIA Ondansetron HCl (Zofran Injection) 4 mg IVPUSH Q6H PRN PRN Reason: NAUSEA Pantoprazole Sodium (Protonix Iv) 40 mg IVPUSH DAILY [facility] Last Admin: 01/24/19 09:14 Dose: 40 mg - Objective Vital Signs: Vital Signs Temperature 98.6 F 01/24/19 12:00 Pulse Rate 82 01/24/19 12:00 Respiratory Rate 21 H 01/24/19 12:00 Blood Pressure 106/47 L 01/24/19 12:00 O2 Sat by Pulse Oximetry (%) 97 01/24/19 09:00 Eyes: Yes: WNL, Conjunctiva Clear, EOM Intact HENT: Yes: WNL, Atraumatic, Normocephalic Neck: Yes: WNL, Supple, Trachea Midline Cardiovascular: Yes: WNL, Regular Rate and Rhythm Respiratory: Yes: WNL, Regular, CTA Bilaterally Gastrointestinal: Yes: WNL, Normal Bowel Sounds Genitourinary: Yes: WNL Musculoskeletal: Yes: WNL Extremities: Yes: WNL Edema: No Integumentary: Yes: WNL Neurological: Yes: WNL, Alert, Oriented ...Motor Strength: WNL Psychiatric: Yes: WNL Labs: CBC, BMP 01/24/19 06:20 01/24/19 06:20 INR, PTT INR 0.95 (0.83-1.09) 01/23/19 06:24 Problem List - Problems (1) Acute electrocardiogram changes Code(s): R94.31 - ABNORMAL ELECTROCARDIOGRAM [ECG] [EKG] (2) Altered bowel habits Code(s): R19.4 - CHANGE IN BOWEL HABIT (3) Ataxia Code(s): R27.0 - ATAXIA, UNSPECIFIED (4) CVA, old, ataxia Code(s): I69.993 - ATAXIA FOLLOWING UNSPECIFIED CEREBROVASCULAR DISEASE (5) Colon obstruction Code(s): K56.609 - UNSP INTESTNL OBST, UNSP TO PARTIAL VERSUS COMPLETE OBST (6) Gait instability Code(s): R26.81 - UNSTEADINESS ON FEET (7) History of cholecystectomy Code(s): Z90.49 - ACQUIRED ABSENCE OF OTHER SPECIFIED PARTS OF DIGESTIVE TRACT (8) History of endoscopic retrograde cholangiopancreatography Code(s): Z98.890 - OTHER SPECIFIED POSTPROCEDURAL STATES (9) Vomiting Code(s): R11.10 - VOMITING, UNSPECIFIED (10) Weight loss Code(s): R63.4 - ABNORMAL WEIGHT LOSS (11) 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 Code(s): I44.1 - ATRIOVENTRICULAR BLOCK, SECOND DEGREE (12) Chest pain Code(s): R07.9 - CHEST PAIN, UNSPECIFIED (13) Chest tightness or pressure Code(s): R07.89 - OTHER CHEST PAIN (14) Chronic diastolic (congestive) heart failure Code(s): I50.32 - CHRONIC DIASTOLIC (CONGESTIVE) HEART FAILURE (15) HTN (hypertension) Code(s): I10 - ESSENTIAL (PRIMARY) HYPERTENSION (16) Has smoked cigarettes within prior year Code(s): Z87.891 - PERSONAL HISTORY OF NICOTINE DEPENDENCE (17) Hyperlipemia Code(s): E78.5 - HYPERLIPIDEMIA, UNSPECIFIED (18) Hypothyroid Code(s): E03.9 - HYPOTHYROIDISM, UNSPECIFIED Qualifiers: Qualified Code(s): E03.4 - Atrophy of thyroid (acquired) Assessment/Plan Large Bowel Obstruction/Sigmoid Mass s/p Segmental Sigmoid Resection/Colostomy POD #1 Irregular HR? ?AF/VT?perioperatively - no tracings available htn hlp hypothyroidism abn ekg abd pain Plan cont ICU monitoring telemetry f/u ekg will obtain the records of prior c. cath will f/u CC time spent 37 min
[2019-01-24] MEDS ORDERED: ERTAPENEM SODIUM 1 GM in SODIUM CHLORIDE 50 ML IVPB ONE (14:15)
[2019-01-24] MEDS ORDERED: PT OWN MED DRAWER 7, Y5N ONE (14:19)
--- NOTE | 2019-01-24 15:38 | PN ---
Progress Note (short form) - Note Progress Note: SURGERY 84yo F s/p Hartmans procedure for large bowel obstruction POD 1. Pt seen and examined at bedside. Pt complaining of diffuse abd pain. Pt afebrile overnight. Denies n/v, fever, chills. NGT in place. Nursing was concerned about possible stool coming out of wound, dressing was changed and all drainage appears serous in nature, no signs of stool. Last Vital Signs Temp Pulse Resp BP Pulse Ox 98.6 F 96 H 16 133/50 L 97 01/24/19 12:00 01/24/19 14:00 01/24/19 14:00 01/24/19 14:00 01/24/19 09:00 CBC, BMP 01/24/19 06:20 01/24/19 06:20 PE: GEN: A&O X3 Resp: breathing comfortably Abd: moderately distended, diffusely tender, Incision is clean with serous drainage and good granulation tissue. Problem List - Problems (1) Colon obstruction Assessment/Plan: Plan -continue NPO and NGT to low continuous suction -daily dressing changes with packing -follow for flatus or BM -continue entereg Pt seen and examined by Dr. Huff who agrees with plan Code(s): K56.609 - UNSP INTESTNL OBST, UNSP TO PARTIAL VERSUS COMPLETE OBST
[2019-01-24] MEDS: HYDROmorphone HCl 2 MG/ML VIAL IVPB PRN (17:27)
[2019-01-24] MEDS ORDERED: hydrALAZINE HCL 20 MG/ML VIAL IVPUSH PRN (20:39)
--- NOTE | 2019-01-24 21:07 | PN.GI ---
GI Progress Note Subjective: GI NOte: Surgical efforts are appreciated. Now decompressed s/p Reg procedure. Appears to have adequate analgesia . CEA elevated at 4.8 - Objective Vital Signs: Vital Signs Temperature 98.5 F 01/24/19 15:00 Pulse Rate 81 01/24/19 15:00 Respiratory Rate 14 01/24/19 20:41 Blood Pressure 128/65 01/24/19 15:00 O2 Sat by Pulse Oximetry (%) 97 01/24/19 20:41 Laboratory Tests 01/23/19 01/23/19 01/24/19 06:24 06:24 06:20 WBC 15.2 H 11.9 H Hgb 12.0 Albumin Carcinoembryonic Ag 4.8 H 01/24/19 06:20 WBC Hgb Albumin 1.8 L Carcinoembryonic Ag Constitutional: Calm ...Auscultate: Yes: No Bowel Sounds, Other (colostomy present, did not remove bandages) Labs: CBC, BMP 01/24/19 06:20 01/24/19 06:20 INR, PTT INR 0.95 (0.83-1.09) 01/23/19 06:24 Assessment/Plan Assessment: - Colon decompressed following Reg procedure for sigmoid obstruction suspected to be malignant Plan: -- Postop management as per Dr Huff. His efforts are appreciated Problem List - Problems (1) Colon obstruction Code(s): K56.609 - UNSP INTESTNL OBST, UNSP TO PARTIAL VERSUS COMPLETE OBST (2) Elevated CEA Code(s): R97.0 - ELEVATED CARCINOEMBRYONIC ANTIGEN [CEA] (3) Status post Reg procedure Code(s): Z93.3 - COLOSTOMY STATUS (4) History of cholecystectomy Code(s): Z90.49 - ACQUIRED ABSENCE OF OTHER SPECIFIED PARTS OF DIGESTIVE TRACT (5) History of endoscopic retrograde cholangiopancreatography Code(s): Z98.890 - OTHER SPECIFIED POSTPROCEDURAL STATES (6) Weight loss Code(s): R63.4 - ABNORMAL WEIGHT LOSS (7) Vomiting Code(s): R11.10 - VOMITING, UNSPECIFIED (8) Altered bowel habits Code(s): R19.4 - CHANGE IN BOWEL HABIT (9) Gait instability Code(s): R26.81 - UNSTEADINESS ON FEET (10) HTN (hypertension) Code(s): I10 - ESSENTIAL (PRIMARY) HYPERTENSION (11) Hyperlipemia Code(s): E78.5 - HYPERLIPIDEMIA, UNSPECIFIED (12) Hypothyroid Code(s): E03.9 - HYPOTHYROIDISM, UNSPECIFIED Qualifiers: Qualified Code(s): E03.4 - Atrophy of thyroid (acquired)
[2019-01-24] MEDS: SODIUM CHLORIDE 1,000 ML IV SCH (21:16)
[2019-01-25] MEDS: ENALAPRILAT DIHYDRATE 1.25 MG/1 ML VIAL IVPB SCH ×4 (02:24→22:27)
[2019-01-25] MEDS: HYDROmorphone HCl 2 MG/ML VIAL IVPB PRN ×2 (06:42→18:26)
[2019-01-25 06:44] LABS: BASO % 0.1 % (0-2.0); EOS % 0.2 % (0-4.5); HEMATOCRIT 33.4 % (32.4-45.2); HEMOGLOBIN 11.3 GM/dL (10.7-15.3); LYMPH % 5.8 % (8-40); MCH 29.5 pg (25.7-33.7); MCHC 33.9 g/dl (32.0-36.0); MEAN PLT VOLUME 7.7 fl (7.5-11.1); MONO % 4.6 % (3.8-10.2); NEUT % 89.3 % (42.8-82.8); PLATELET COUNT 183 K/MM3 (134-434); RBC 3.84 M/mm3 (3.60-5.2); RDW 14.9 % (11.6-15.6); WHITE BLOOD COUNT 11.9 K/mm3 (4.0-10.0)
[2019-01-25 07:31] LABS: BILIRUBIN,TOTAL 0.7 mg/dL (0.2-1); CALCIUM 8.4 mg/dL (8.5-10.1); CREATININE 0.5 mg/dL (0.55-1.3); MAGNESIUM 1.9 mg/dL (1.8-2.4); PHOSPHOROUS 1.8 mg/dL (2.5-4.9); POTASSIUM 4.3 mmol/L (3.5-5.1); TOT PROT 4.1 g/dl (6.4-8.2)
[2019-01-25] MEDS ORDERED: DEXTROSE 50%-WATER 25 GM/50 ML DISP.SYRIN ONE (07:47)
[2019-01-25] MEDS ORDERED: DEXTROSE 50%-WATER - 25 GM/50 ML VIAL IVPUSH ONE (07:49)
[2019-01-25] MEDS: SODIUM CHLORIDE 1,000 ML IV SCH (09:36)
--- NOTE | 2019-01-25 09:36 | PN ---
Progress Note, Physician Chief Complaint: Status post surgery for colonic obstruction and decompression Andrews procedure POD2 - Current Medication List Current Medications: Active Medications Enalaprilat (Vasotec Injection -) 1.25 mg IVPB Q6H-IV [facility] Last Admin: 01/25/19 09:34 Dose: 1.25 mg Hydralazine HCl (Apresoline Injection -) 10 mg IVPUSH Q8H PRN PRN Reason: HYPERTENSION Hydromorphone HCl (Dilaudid Vial -) 1 mg IVPB Q6H PRN PRN Reason: PAIN LEVEL 6-10 Last Admin: 01/25/19 06:42 Dose: 1 mg Sodium Chloride (Normal Saline -) 1,000 mls @ 100 mls/hr IV ASDIR [facility] Last Admin: 01/24/19 21:16 Dose: 100 mls/hr Metoprolol Tartrate (Lopressor Injection -) 5 mg IVPUSH Q4H PRN PRN Reason: TACHYCARDIA Ondansetron HCl (Zofran Injection) 4 mg IVPUSH Q6H PRN PRN Reason: NAUSEA Pantoprazole Sodium (Protonix Iv) 40 mg IVPUSH DAILY [facility] - Objective Vital Signs: Vital Signs Temperature 98.6 F 01/25/19 06:00 Pulse Rate 90 01/25/19 06:00 Respiratory Rate 16 01/25/19 06:00 Blood Pressure 138/58 L 01/25/19 06:00 O2 Sat by Pulse Oximetry (%) 97 01/24/19 20:41 Elderly F c/o abd pain and distention HEENT:NG at place Mm moist, no anemia, PERRLA EOMI NECK: No JVd No Bruit CHEST: CTA B/L CVS: s1S2 R ABD: colostomy bag at place EXT; No edema feet, Pulses + [employer]: AOX3 non focal Labs: CBC, BMP 01/25/19 05:45 01/25/19 05:45 INR, PTT INR 0.95 (0.83-1.09) 01/23/19 06:24 Problem List - Problems (1) Colon obstruction Assessment/Plan: S/P andrews procedure day 2 , NPO , NG tube for decompression, cont PPI, Zofran and pain meds. ot clinimax 84 cc/HR Code(s): K56.609 - UNSP INTESTNL OBST, UNSP TO PARTIAL VERSUS COMPLETE OBST (2) Gait instability Assessment/Plan: Can be due to metabolic , will evaluate once acute issues are resolved Code(s): R26.81 - UNSTEADINESS ON FEET (3) Hyperlipemia Assessment/Plan: On Statin Code(s): E78.5 - HYPERLIPIDEMIA, UNSPECIFIED (4) Hypothyroid Assessment/Plan: TSH suppressed hold Levothyroxine Code(s): E03.9 - HYPOTHYROIDISM, UNSPECIFIED Qualifiers: Qualified Code(s): E03.4 - Atrophy of thyroid (acquired) (5) HTN (hypertension) Assessment/Plan: Switch to IV Meds H/O 2nd degree HB will defer B blockers Cath and ECHO were reported normal 1 yr ago Code(s): I10 - ESSENTIAL (PRIMARY) HYPERTENSION (6) 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 Code(s): I44.1 - ATRIOVENTRICULAR BLOCK, SECOND DEGREE (7) Elevated CEA Assessment/Plan: mostlikely due to Ca sigmoid colon will F/U Biopsy Problems reviewed: Yes Code(s): R97.0 - ELEVATED CARCINOEMBRYONIC ANTIGEN [CEA] (8) Hypoglycemia Assessment/Plan: Switch to IV Fluid to Clinimax D5% base accucheck q 6 hrly. Problems reviewed: Yes Code(s): E16.2 - HYPOGLYCEMIA, UNSPECIFIED
[2019-01-25] MEDS: PANTOPRAZOLE SODIUM 40 MG VIAL IVPUSH SCH (10:00)
--- NOTE | 2019-01-25 10:18 | PN ---
Progress Note (short form) - Note Progress Note: POD 2, segmental sigmoid colon resection w/colostomy (Hartmans procedure) for large bowel obstruction Pt seen and examined in ICU. Reports she continues to have abdo pain, improved from yesterday. No issues overnight. Has not been oob. Duffy in place. NPO. No flatus yet. denies cp/sob, n/v/d. Per EMR, pt became agitated/confused around 4AM, random glucose 48, pt given D50 by RN with resolution. Vital Signs Temp 98.6 F 01/25/19 06:00 Pulse 90 01/25/19 06:00 Resp 16 01/25/19 06:00 BP 138/58 L 01/25/19 06:00 Pulse Ox 97 01/24/19 20:41 Intake & Output 01/24/19 01/24/19 01/25/19 11:59 23:59 11:59 Intake Total 600 1200 1200 Output Total 841 665 4093 Balance 0 970 170 Weight 107 lb 2.314 oz 113 lb 15.664 oz Intake: IV 600 1200 NS 500 1200 IVPB 1200 Output: Gastric Drainage 20 30 200 Drainage 130 200 130 Right Abdomen 80 200 130 Urine 450 700 Void 100 700 Other: Voiding Method Indwelling Catheter Indwelling Catheter Bowel Movement No No CBC, BMP 01/25/19 05:45 01/25/19 05:45 Gen: awake, alert, nad Abdo: soft, minimally distended dressing with moderate serosanguinous drainage, no foul odor. Dressing changed, wound repacked with Iodoform packing, 4x4s and paper tape. MARCE in place with minimal serosanguinous drainage in reservoir, tubing stripped. A/P: 84 F with PMH of HTN, HLD, hypothyroidism who presents today with 3 days of unsteady gait, found to have large bowel obstruction secondary to sigmoid lesion now POD 2, segmental sigmoid colon resection w/colostomy (Hartmans procedure) for large bowel obstruction. Afebrile, VSS MARCE 130ml serosanguinous output NGT 200ml bilious output overnight. -Continue NPO and NGT to low continuous suction -Daily dressing changes with packing -Follow for flatus or BM -Pain control -Monitor VS -Monitor I&Os -Keep Marce in place and monitor output d/w attending Dr Huff
--- NOTE | 2019-01-25 10:23 | PN ---
Progress Note, Physician History of Present Illness: Patient is an 84 year old woman with a PMH of HTN, HLD, Cardiac cath (no stents placed), Cholecystectomy, Bilateral cataract surgery and Hypothyroidism, who presents with complaints of difficulty walking over the past 3-4 days. Patient states that when she walks, she feels "like she is about to fall over". This is not associated with position changes or vertigo, and it does not localize to either side. Patient denies falling or hitting her head and has never felt this way before. She has poor appetite, and her sister notes "she eats only crackers ". Patient denies any fevers, chills, headache, vision changes, cough, congestion, syncope, chest pain, palpitations, SOB, nausea, vomiting, abdominal pain, urinary symptoms, constipation, or leg swelling. Denies cigarette, alcohol , or illicit drug use. Had two loose bowel movements 5 days ago. Denies any recent travel or sick contacts. FH of CAD and DM. OBJECTIVE: Alertand not orthostatic - Current Medication List Current Medications: Active Medications Enalaprilat (Vasotec Injection -) 1.25 mg IVPB Q6H-IV [facility] Last Admin: 01/25/19 09:34 Dose: 1.25 mg Hydralazine HCl (Apresoline Injection -) 10 mg IVPUSH Q8H PRN PRN Reason: HYPERTENSION Hydromorphone HCl (Dilaudid Vial -) 1 mg IVPB Q6H PRN PRN Reason: PAIN LEVEL 6-10 Last Admin: 01/25/19 06:42 Dose: 1 mg Amino Acids (Clinimix -) 1,000 mls @ 84 mls/hr IV Q12H [facility] Metoprolol Tartrate (Lopressor Injection -) 5 mg IVPUSH Q4H PRN PRN Reason: TACHYCARDIA Ondansetron HCl (Zofran Injection) 4 mg IVPUSH Q6H PRN PRN Reason: NAUSEA Pantoprazole Sodium (Protonix Iv) 40 mg IVPUSH DAILY [facility] - Objective Vital Signs: Vital Signs Temperature 98.6 F 01/25/19 06:00 Pulse Rate 90 01/25/19 06:00 Respiratory Rate 16 01/25/19 06:00 Blood Pressure 138/58 L 01/25/19 06:00 O2 Sat by Pulse Oximetry (%) 97 01/24/19 20:41 Eyes: Yes: WNL, Conjunctiva Clear, EOM Intact HENT: Yes: WNL, Atraumatic, Normocephalic Neck: Yes: WNL, Supple, Trachea Midline Cardiovascular: Yes: WNL, Regular Rate and Rhythm Respiratory: Yes: WNL, Regular, CTA Bilaterally Genitourinary: Yes: WNL Musculoskeletal: Yes: WNL Extremities: Yes: WNL Edema: No Integumentary: Yes: WNL Neurological: Yes: WNL, Alert, Oriented ...Motor Strength: WNL Psychiatric: Yes: WNL Labs: CBC, BMP 01/25/19 05:45 01/25/19 05:45 INR, PTT INR 0.95 (0.83-1.09) 01/23/19 06:24 Problem List - Problems (1) Acute electrocardiogram changes Code(s): R94.31 - ABNORMAL ELECTROCARDIOGRAM [ECG] [EKG] (2) Altered bowel habits Code(s): R19.4 - CHANGE IN BOWEL HABIT (3) Ataxia Code(s): R27.0 - ATAXIA, UNSPECIFIED (4) CVA, old, ataxia Code(s): I69.993 - ATAXIA FOLLOWING UNSPECIFIED CEREBROVASCULAR DISEASE (5) Colon obstruction Code(s): K56.609 - UNSP INTESTNL OBST, UNSP TO PARTIAL VERSUS COMPLETE OBST (6) Gait instability Code(s): R26.81 - UNSTEADINESS ON FEET (7) History of cholecystectomy Code(s): Z90.49 - ACQUIRED ABSENCE OF OTHER SPECIFIED PARTS OF DIGESTIVE TRACT (8) History of endoscopic retrograde cholangiopancreatography Code(s): Z98.890 - OTHER SPECIFIED POSTPROCEDURAL STATES (9) Vomiting Code(s): R11.10 - VOMITING, UNSPECIFIED (10) Weight loss Code(s): R63.4 - ABNORMAL WEIGHT LOSS (11) 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 Code(s): I44.1 - ATRIOVENTRICULAR BLOCK, SECOND DEGREE (12) Chest pain Code(s): R07.9 - CHEST PAIN, UNSPECIFIED (13) Chest tightness or pressure Code(s): R07.89 - OTHER CHEST PAIN (14) Chronic diastolic (congestive) heart failure Code(s): I50.32 - CHRONIC DIASTOLIC (CONGESTIVE) HEART FAILURE (15) HTN (hypertension) Code(s): I10 - ESSENTIAL (PRIMARY) HYPERTENSION (16) Has smoked cigarettes within prior year Code(s): Z87.891 - PERSONAL HISTORY OF NICOTINE DEPENDENCE (17) Hyperlipemia Code(s): E78.5 - HYPERLIPIDEMIA, UNSPECIFIED (18) Hypothyroid Code(s): E03.9 - HYPOTHYROIDISM, UNSPECIFIED Qualifiers: Qualified Code(s): E03.4 - Atrophy of thyroid (acquired) Assessment/Plan Large Bowel Obstruction/Sigmoid Mass s/p Segmental Sigmoid Resection/Colostomy POD #2 Irregular HR? ?AF/VT?perioperatively - no tracings available htn hlp hypothyroidism abn ekg abd pain Plan cont ICU monitoring telemetry f/u ekg will obtain the records of prior c. cath will f/u CC time spent 36 min
--- NOTE | 2019-01-25 11:53 | PN.GI ---
GI Progress Note Subjective: GI NOte: Had confusion overnight and has complaints related to this. She denies nausea. Her colostomy appears to be functioning . 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 Path is pending Plan: -- Postop management as per Dr Huff. His efforts are appreciated Dr Malcolm will be covering over the Problem List - Problems (1) Colon obstruction Code(s): K56.609 - UNSP INTESTNL OBST, UNSP TO PARTIAL VERSUS COMPLETE OBST (2) Elevated CEA Code(s): R97.0 - ELEVATED CARCINOEMBRYONIC ANTIGEN [CEA] (3) Status post Reg procedure Code(s): Z93.3 - COLOSTOMY STATUS (4) History of cholecystectomy Code(s): Z90.49 - ACQUIRED ABSENCE OF OTHER SPECIFIED PARTS OF DIGESTIVE TRACT (5) History of endoscopic retrograde cholangiopancreatography Code(s): Z98.890 - OTHER SPECIFIED POSTPROCEDURAL STATES (6) Weight loss Code(s): R63.4 - ABNORMAL WEIGHT LOSS (7) Vomiting Code(s): R11.10 - VOMITING, UNSPECIFIED (8) Altered bowel habits Code(s): R19.4 - CHANGE IN BOWEL HABIT (9) Gait instability Code(s): R26.81 - UNSTEADINESS ON FEET (10) HTN (hypertension) Code(s): I10 - ESSENTIAL (PRIMARY) HYPERTENSION (11) Hyperlipemia Code(s): E78.5 - HYPERLIPIDEMIA, UNSPECIFIED (12) Hypothyroid Code(s): E03.9 - HYPOTHYROIDISM, UNSPECIFIED Qualifiers: Qualified Code(s): E03.4 - Atrophy of thyroid (acquired)
[2019-01-25] MEDS: AMINO ACIDS 4.25%/D5W 1,000 ML IV SCH ×2 (12:00→22:28)
--- NOTE | 2019-01-25 12:23 | PN ---
Progress Note (short form) - Note Progress Note: PULMONARY c/o incisional pain. No shortness of breath or chest pain. Vital Signs Period Temp Pulse Resp BP Sys/Portillo Pulse Ox Last 24 Hr 98.4 F-98.6 F 81-99 14-16 98-138/47-65 97 Gen: NAD at rest Heart: RRR Lung: decreased breath sounds at the bases Abd: soft, dressings dry, +ostomy pink Ext: no edema CBC, BMP 01/25/19 05:45 01/25/19 05:45 Active Medications Enalaprilat (Vasotec Injection -) 1.25 mg IVPB Q6H-IV [facility] Last Admin: 01/25/19 09:34 Dose: 1.25 mg Hydralazine HCl (Apresoline Injection -) 10 mg IVPUSH Q8H PRN PRN Reason: HYPERTENSION Hydromorphone HCl (Dilaudid Vial -) 1 mg IVPB Q6H PRN PRN Reason: PAIN LEVEL 6-10 Last Admin: 01/25/19 06:42 Dose: 1 mg Amino Acids (Clinimix -) 1,000 mls @ 84 mls/hr IV Q12H [facility] Last Admin: 01/25/19 12:00 Dose: 84 mls/hr Metoprolol Tartrate (Lopressor Injection -) 5 mg IVPUSH Q4H PRN PRN Reason: TACHYCARDIA Ondansetron HCl (Zofran Injection) 4 mg IVPUSH Q6H PRN PRN Reason: NAUSEA Pantoprazole Sodium (Protonix Iv) 40 mg IVPUSH DAILY [facility]/P Large Bowel Obstruction/Sigmoid Mass s/p Segmental Sigmoid Resection/Colostomy POD #2 CAD HTN Hyperlipidemia Hypothyrodism - pain control - incentive spirometry - on antibiotics - f/u pathology - IVF - monitor ostomy output - DVT prophylaxis
--- NOTE | 2019-01-25 14:42 | OP ---
DATE OF OPERATION: 01/23/2019 PREOPERATIVE DIAGNOSIS: Large-bowel obstruction, secondary to a sigmoid tumor. POSTOPERATIVE DIAGNOSIS: Large-bowel obstruction, secondary to a sigmoid tumor. PROCEDURE: Segmental sigmoid colon resection with end colostomy (Reg procedure). SURGEON: Davion Huff MD [employer]IPPING [employer] RECEIVING MATERIAL HANDLER: Angella Spear PA-C ANESTHESIA: General. OPERATIVE FINDINGS: An obstructing sigmoid colon lesion in the pelvis. The rest of the findings were unremarkable. PROCEDURE: The patient was placed on the operating room table in the supine position, and after the induction of general anesthesia, and placement of sequential compression devices on the patient's lower extremities, and a Duffy catheter, the abdomen was prepped with ChloraPrep and draped in sterile fashion. A timeout was taken. The peritoneal cavity entered through a midline incision from above the umbilicus to the symphysis pubis using a scalpel. The previously-noted findings were observed. It should be noted that there was marked colonic distention approximately to the sigmoid lesion, and the small bowel was collapsed, indicative of a competent ileocecal valve. The lesion was grasped and traction placed on the rectosigmoid and the peritoneum opened laterally on both sides. A point of division of the rectosigmoid below the lesion was identified and a TA stapling device placed across it and fired. Proximally, Ysabel clamps were placed and the colon divided using the scalpel. Next, the distal and midsigmoid were mobilized along the left lateral peritoneal reflection using a combination of cautery and blunt dissection. Medially, the mesentery was incised with the electrocautery. Using the LigaSure device, the mesentery was sequentially divided and a point proximal to the lesion was identified and the colon divided there using a RENEA stapling device. The colon with the lesion was then passed off the operative field and sent for pathological examination. Throughout the dissection, the left ureter was identified and preserved. Copious irrigated was then carried out and hemostasis was secured with electrocautery. Next, an opening in the abdominal wall for the ostomy was made by excising a disk of skin midway between the umbilicus and the left anterior-superior iliac spine. The subcutaneous fat was divided, as well as the abdominal wall fascia, muscle, and peritoneum. The proximal colon was then brought through this opening in the abdominal wall, and there was no evidence of tension, and the colon was adequately mobilized. Next, copious irrigation was carried out with normal saline and again hemostasis verified. A 10-mm Fernando-Parks drain was placed through a right lower quadrant stab wound into the pelvis and the drain secured to the skin with 2-0 silk suture. Next, the peritoneal cavity was closed in a single layer using continuous 0- looped Maxon suture. The subcutaneous tissue was irrigated, and the skin around the umbilicus reapproximated with surgical von, and the wound packed with 1/2- inch iodoform packing and covered with gauze and a sterile towel. Next, the colostomy was matured by excising the staple line and maturing the colostomy to the abdominal wall with interrupted 3-0 Vicryl sutures. A large amount of gas and stool emanated from the colostomy, once the suture line was excised. Next, an ostomy flange and bag were placed. The midline wound covered with more sterile dressing and tape. The patient transferred to the postanesthesia care unit, in stable condition, intubated. ESTIMATED BLOOD LOSS: 200 mL. REPLACEMENT: Crystalloid. DRAINS: One 10-mm Fernando-Parks in the pelvis. SPECIMEN: Portion of sigmoid and rectosigmoid colon to Pathology. I, Davion Huff, was physically present in the operating room from the time the patient was placed on the operating room table until she was transferred to the postanesthesia care unit in my accompaniment. MD ANDER Ledbetter/[id number] MTDD
--- NOTE | 2019-01-25 16:09 | ECHO ---
Name: VERENICE VYAS Exam:Adult Echocardiogram Study Date: 01/25/2019 12:46 PM Age: 84 yrs Height: 60 in Weight: 107 lb BSA: 1.4 m2 MMode/2D Measurements & Calculations IVSd: 1.0 cm Ao root diam: 3.7 cm LVIDd: 4.8 cm LA dimension: 3.3 cm LVIDs: 3.1 cm ACS: 2.0 cm LVPWd: 0.76 cm IVSs: 1.4 cm LVPWs: 1.1 cm EDV(Teich): 107.2 ml ESV(Teich): 36.8 ml Doppler Measurements & Calculations MV E max gerber: 63.5 cm/sec Ao V2 max: 146.6 cm/sec MV A max gerber: 106.6 cm/sec Ao max P.6 mmHg MV E/A: 0.60 Ao V2 mean: 109.0 cm/sec Ao mean P.1 mmHg Ao V2 VTI: 29.6 cm MR max gerber: 508.6 cm/sec TR max gerber: 296.2 cm/sec MR max P.5 mmHg TR max P.1 mmHg PI end-d gerber: 112.7 cm/sec Med Peak E' Gerber: 4.1 cm/sec Med E/e': 15.7 Lat Peak E' Gerber: 7.8 cm/sec Lat E/e': 8.2 Procedure A two-dimensional transthoracic echocardiogram with color flow and Doppler was performed. Left Ventricle The left ventricular size, thickness and function are normal. The left ventricular ejection fraction is normal. E/A reversal consistent with but not diagnostic of poor LV compliance. The left ventricular w all motion is normal. Right Ventricle The right ventricle is normal in size and function. Atria Normal left and right atrial size and function. Mitral Valve There is mild mitral valve thickening. There is no mitral valve stenosis. There is mild to moderate m itral regurgitation. Tricuspid Valve There is mild tricuspid valve thickening. There is no tricuspid stenosis. There is mild tricuspid regurgitation. Right ventricular systolic pressure is elevated at 40-50mmHg. Aortic Valve The aortic valve is not well visualized. No hemodynamically significant valvular aortic stenosis. No aortic regurgitation is present. Pulmonic Valve The pulmonic valve is not well visualized. There is no pulmonic valvular stenosis. Moderate pulmonic valvular regurgitation. Great Vessels The aortic root is normal size. Pericardium/Pleura There is no pericardial effusion. Interpretation Summary The left ventricular size, thickness and function are normal The left ventricular ejection fraction is normal. The left ventricular wall motion is normal. There is mild to moderate mitral regurgitation. There is mild tricuspid regurgitation. Right ventricular systolic pressure is elevated at 40-50mmHg. Moderate pulmonic valvular regurgitation. E/A reversal consistent with but not diagnostic of poor LV compliance MD Fabian Matthews 01/25/2019 04:08 PM
[2019-01-26] MEDS ORDERED: PT OWN MED DRAWER 7, Y5N ONE ×4 (00:16→14:53)
[2019-01-26] MEDS: ENALAPRILAT DIHYDRATE 1.25 MG/1 ML VIAL IVPB SCH ×4 (02:18→21:10)
--- NOTE | 2019-01-26 09:30 | PN ---
Progress Note (short form) - Note Progress Note: PULMONARY States pain is improving. No shortness of breath or chest pain. Vital Signs Period Temp Pulse Resp BP Sys/Portillo Pulse Ox Last 24 Hr 98.2 F-98.3 F 66-100 16-25 125-151/54-74 97 Gen: NAD at rest Heart: RRR Lung: decreased breath sounds at the bases Abd: soft, dressings dry, +ostomy pink Ext: no edema CBC, BMP 01/25/19 05:45 01/25/19 05:45 Active Medications Enalaprilat (Vasotec Injection -) 1.25 mg IVPB Q6H-IV [facility] Last Admin: 01/26/19 02:18 Dose: 1.25 mg Hydralazine HCl (Apresoline Injection -) 10 mg IVPUSH Q8H PRN PRN Reason: HYPERTENSION Hydromorphone HCl (Dilaudid Vial -) 1 mg IVPB Q6H PRN PRN Reason: PAIN LEVEL 6-10 Last Admin: 01/25/19 18:26 Dose: 1 mg Amino Acids (Clinimix -) 1,000 mls @ 84 mls/hr IV Q12H [facility] Last Admin: 01/25/19 22:28 Dose: 84 mls/hr Metoprolol Tartrate (Lopressor Injection -) 5 mg IVPUSH Q4H PRN PRN Reason: TACHYCARDIA Ondansetron HCl (Zofran Injection) 4 mg IVPUSH Q6H PRN PRN Reason: NAUSEA Pantoprazole Sodium (Protonix Iv) 40 mg IVPUSH DAILY [facility] Last Admin: 01/25/19 10:00 Dose: 40 mg A/P Large Bowel Obstruction/Sigmoid Mass s/p Segmental Sigmoid Resection/Colostomy POD #2 CAD HTN Hyperlipidemia Hypothyrodism - pain control - incentive spirometry - on antibiotics - f/u pathology - IVF - monitor ostomy output - DVT prophylaxis
[2019-01-26 10:58] LABS: BASO % 0.1 % (0-2.0); EOS % 0.6 % (0-4.5); HEMATOCRIT 30.6 % (32.4-45.2); HEMOGLOBIN 10.5 GM/dL (10.7-15.3); LYMPH % 4.6 % (8-40); MCH 29.6 pg (25.7-33.7); MCHC 34.3 g/dl (32.0-36.0); MEAN CELL VOLUME 86.3 fl (80-96); MEAN PLT VOLUME 6.9 fl (7.5-11.1); MONO % 4.3 % (3.8-10.2); NEUT % 90.4 % (42.8-82.8); PLATELET COUNT 180 K/MM3 (134-434); RBC 3.54 M/mm3 (3.60-5.2); RDW 14.3 % (11.6-15.6); WHITE BLOOD COUNT 13.5 K/mm3 (4.0-10.0)
[2019-01-26] MEDS: PANTOPRAZOLE SODIUM 40 MG VIAL IVPUSH SCH (11:02)
[2019-01-26 11:35] LABS: BLOOD UREA NITROGEN 16.6 mg/dL (7-18); CALCIUM 8.1 mg/dL (8.5-10.1); CREATININE 0.3 mg/dL (0.55-1.3); MAGNESIUM 1.8 mg/dL (1.8-2.4); POTASSIUM 3.7 mmol/L (3.5-5.1)
--- NOTE | 2019-01-26 11:45 | PN ---
Progress Note, Physician Chief Complaint: PD3 for colonic obstruction and decompression [place] procedure , feels comfortable except pain at surgical site History of Present Illness: 84 yrs old F knwn since previous hospitalization H/O HTN, Hypercholestrerolemia , cholycystectomy in 2018 admitted with chest pain with 2nd degree HB patient was transferred and evaluated at [facility] including Cath that was reported normal, admitted with colonic obstriction due to sigmoid mass s/p resection and diversion colostomy POD3 elevated CEA - Current Medication List Current Medications: Active Medications Enalaprilat (Vasotec Injection -) 1.25 mg IVPB Q6H-IV [facility] Last Admin: 01/26/19 11:02 Dose: 1.25 mg Hydralazine HCl (Apresoline Injection -) 10 mg IVPUSH Q8H PRN PRN Reason: HYPERTENSION Hydromorphone HCl (Dilaudid Vial -) 1 mg IVPB Q6H PRN PRN Reason: PAIN LEVEL 6-10 Last Admin: 01/25/19 18:26 Dose: 1 mg Amino Acids (Clinimix -) 1,000 mls @ 84 mls/hr IV Q12H [facility] Last Admin: 01/25/19 22:28 Dose: 84 mls/hr Metoprolol Tartrate (Lopressor Injection -) 5 mg IVPUSH Q4H PRN PRN Reason: TACHYCARDIA Ondansetron HCl (Zofran Injection) 4 mg IVPUSH Q6H PRN PRN Reason: NAUSEA Pantoprazole Sodium (Protonix Iv) 40 mg IVPUSH DAILY [facility] Last Admin: 01/26/19 11:02 Dose: 40 mg - Objective Vital Signs: Vital Signs Temperature 98.2 F 01/25/19 18:00 Pulse Rate 66 01/26/19 06:00 Respiratory Rate 16 01/26/19 06:00 Blood Pressure 141/71 01/26/19 06:00 O2 Sat by Pulse Oximetry (%) 97 01/25/19 21:00 Elderly F c/o abd pain and distention HEENT:NG at place Mm moist, no anemia, PERRLA EOMI NECK: No JVd No Bruit CHEST: CTA B/L CVS: S1S2 R ABD: colostomy bag at place, site is clean Bs + EXT; No edema feet, Pulses + TIMBER HAND: AOX3 non focal Labs: CBC, BMP 01/26/19 10:38 11/28/19 10:38 INR, PTT INR 0.95 (0.83-1.09) 01/23/19 06:24 Problem List - Problems (1) Colon obstruction Assessment/Plan: S/P wil procedure day 3, NPO , NG tube for decompression, cont PPI, Zofran and pain meds. on clinamx 84 cc/HR Code(s): K56.609 - UNSP INTESTNL OBST, UNSP TO PARTIAL VERSUS COMPLETE OBST (2) Gait instability Assessment/Plan: Can be due to metabolic , will evaluate once acute issues are resolved Code(s): R26.81 - UNSTEADINESS ON FEET (3) Hyperlipemia Assessment/Plan: On Statin Code(s): E78.5 - HYPERLIPIDEMIA, UNSPECIFIED (4) Hypothyroid Assessment/Plan: TSH suppressed hold Levothyroxine Code(s): E03.9 - HYPOTHYROIDISM, UNSPECIFIED Qualifiers: Qualified Code(s): E03.4 - Atrophy of thyroid (acquired) (5) HTN (hypertension) Assessment/Plan: Switch to IV Meds H/O 2nd degree HB will defer B blockers Cath and ECHO were reported normal 1 yr ago Code(s): I10 - ESSENTIAL (PRIMARY) HYPERTENSION (6) 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 Code(s): I44.1 - ATRIOVENTRICULAR BLOCK, SECOND DEGREE (7) Elevated CEA Assessment/Plan: mostlikely due to Ca sigmoid colon will F/U Biopsy Code(s): R97.0 - ELEVATED CARCINOEMBRYONIC ANTIGEN [CEA] (8) Hypoglycemia Assessment/Plan: Improved cont Clinimax D5% base accucheck q 6 hrly. Code(s): E16.2 - HYPOGLYCEMIA, UNSPECIFIED
--- NOTE | 2019-01-26 13:13 | CONSULT ---
Consultation: REQUESTING PROVIDER: Heme/Onc Service CONSULT REQUEST: We have been asked to medically evaluate this patient for Colon CA. HISTORY OF PRESENT ILLNESS: Pt is an 84 y/o F with PMH HTN, HLD, hypothyroidism, Cardiac cath (no stents placed), Cholecystectomy, Bilateral cataract surgery who presented to ED with unsteady gait, decreased appetite, and diarrhea. Pt was found to have obstructing sigmoid lesion, which was resected (Green procedure) on 2018. Heme/Onc was consulted to evaluate for colonic mass with elevated CEA. On my interview, pt states she feels well apart from expected tenderness at surgical site. She has stool collecting in the colostomy pouch. No other complaints at this time. No family history of hematologic issues or malignancy. Long history of smoking 2 ppd. Has quit. No drinking, no drugs. 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 No chemical exposures. REVIEW OF SYSTEMS: CONSTITUTIONAL: Absent: fever, chills, diaphoresis, generalized weakness, malaise, loss of appetite, weight change HEENT: Absent: rhinorrhea, nasal congestion, throat pain, throat swelling, difficulty swallowing, mouth swelling, ear pain, eye pain, visual changes CARDIOVASCULAR: Absent: chest pain, syncope, palpitations, irregular heart rate, lightheadedness , peripheral edema RESPIRATORY: Absent: cough, shortness of breath, dyspnea with exertion, orthopnea, wheezing, stridor, hemoptysis GASTROINTESTINAL: abdominal pain Absent: , abdominal distension, nausea, vomiting, diarrhea, constipation, melena , hematochezia GENITOURINARY: Absent: dysuria, frequency, urgency, hesitancy, hematuria, flank pain, genital pain MUSCULOSKELETAL: Absent: myalgia, arthralgia, joint swelling, back pain, neck pain SKIN: Absent: rash, itching, pallor HEMATOLOGIC/IMMUNOLOGIC: Absent: easy bleeding, easy bruising, lymphadenopathy, frequent infections ENDOCRINE: Absent: unexplained weight gain, unexplained weight loss, heat intolerance, cold intolerance NEUROLOGIC: Absent: headache, focal weakness or paresthesias, dizziness, unsteady gait, seizure, mental status changes, bladder or bowel incontinence PSYCHIATRIC: Absent: anxiety, depression, suicidal or homicidal ideation, hallucinations. PHYSICAL EXAMINATION Vital Signs - 24 hr 01/25/19 01/25/19 01/25/19 14:00 18:00 21:00 Temperature 98.3 F 98.2 F Pulse Rate 87 86 Respiratory 16 18 Rate Blood Pressure 131/54 L 125/70 O2 Sat by Pulse 97 Oximetry (%) 01/25/19 01/26/19 01/26/19 22:00 02:00 06:00 Temperature Pulse Rate 100 H 67 66 Respiratory 25 H 16 16 Rate Blood Pressure 147/70 151/74 141/71 O2 Sat by Pulse Oximetry (%) Gen: AAOx3, NAD HEENT: NCAT, EOMI Neck: supple, no jvd, no bruits, no thyromegally Cardio: rrr, normal s1s2, no mrg noted Pulm: limited exam, minimal rales at b/l bases Abd: surgical dressing clean and intact. MARCE drain with minimal serosang fluid. L sided ostomy with stool. Pos bowel sounds. Tender to palpation Breast: no nodules/masses noted Ext: no edema Laboratory Results - last 24 hr 01/25/19 01/25/19 01/26/19 15:07 17:16 10:38 WBC 13.5 H RBC 3.54 L Hgb 10.5 L Hct 30.6 L MCV 86.3 MCH 29.6 MCHC 34.3 RDW 14.3 Plt Count 180 MPV 6.9 L D Absolute Neuts (auto) 12.2 H Neutrophils % 90.4 H Lymphocytes % 4.6 L D Monocytes % 4.3 Eosinophils % 0.6 D Basophils % 0.1 Nucleated RBC % 0 Sodium Potassium Chloride Carbon Dioxide Anion Gap BUN Creatinine Est GFR (CKD-EPI)AfAm Est GFR (CKD-EPI)NonAf POC Glucometer 91 104 Random Glucose Calcium Magnesium 01/26/19 10:38 WBC RBC Hgb Hct MCV MCH MCHC RDW Plt Count MPV Absolute Neuts (auto) Neutrophils % Lymphocytes % Monocytes % Eosinophils % Basophils % Nucleated RBC % Sodium 139 Potassium 3.7 Chloride 107 Carbon Dioxide 27 Anion Gap 5 L BUN 16.6 Creatinine 0.3 L Est GFR (CKD-EPI)AfAm 121.00 Est GFR (CKD-EPI)NonAf 104.40 POC Glucometer Random Glucose 111 H Calcium 8.1 L Magnesium 1.8 Active Medications Generic Name Dose Route Start Last Admin Trade Name Freq PRN Reason Stop Dose Admin Enalaprilat 1.25 mg 01/24/19 21:00 01/26/19 11:02 Vasotec Injection - IVPB 1.25 mg Q6H-IV [facility] Administration Hydralazine HCl 10 mg 01/24/19 20:39 Apresoline Injection - IVPUSH Q8H PRN HYPERTENSION Hydromorphone HCl 1 mg 01/24/19 20:39 01/25/19 18:26 Dilaudid Vial - IVPB 1 mg Q6H PRN Administration PAIN LEVEL 6-10 Amino Acids 1,000 mls @ 84 mls/hr 01/25/19 09:45 01/25/19 22:28 Clinimix - IV 84 mls/hr Q12H [facility] Administration Metoprolol Tartrate 5 mg 01/24/19 20:39 Lopressor Injection - IVPUSH Q4H PRN TACHYCARDIA Ondansetron HCl 4 mg 01/24/19 20:39 Zofran Injection IVPUSH Q6H PRN NAUSEA Pantoprazole Sodium 40 mg 01/25/19 10:00 01/26/19 11:02 Protonix Iv IVPUSH 40 mg DAILY [facility] Administration ASSESSMENT/PLAN: Pt is an 84 y/o F with PMH HTN, HLD, hypothyroidism, Cardiac cath (no stents placed), Cholecystectomy, Bilateral cataract surgery who presented to ED with unsteady gait, decreased appetite, and diarrhea. Pt was found to have obstructing sigmoid lesion, which was resected (Green procedure) on 2018. Heme/Onc was consulted to evaluate for colonic mass with elevated CEA. Colonic mass -s/p Green on 01/23 -CEA elevated -will need CT chest once recovered from surgery -await pathology Dispo: We will continue to follow the patient. Thank you for this consultative opportunity. Visit type - Emergency Visit Emergency Visit: No - New Patient This patient is new to me today: Yes Date on this admission: 01/26/19 - Critical Care Critical Care patient: No ATTENDING PHYSICIAN STATEMENT I saw and evaluated the patient. I reviewed the resident's note and discussed the case with the resident. I agree with the resident's findings and plan as documented. SUBJECTIVE: OBJECTIVE: ASSESSMENT AND PLAN:
--- NOTE | 2019-01-26 14:40 | PN ---
Teaching Attending Note Name of Resident: Jeff Wong ATTENDING PHYSICIAN STATEMENT I saw and evaluated the patient. I reviewed the resident's note and discussed the case with the resident. I agree with the resident's findings and plan as documented. ASSESSMENT AND PLAN: Large Bowel Obstruction/Sigmoid Mass s/p Segmental Sigmoid Resection/Colostomy POD #3 CAD HTN Hyperlipidemia Hypothyrodism CT scan a/p --mid sigmoid obstruction CEA-4.8 await pathology recovering post op. no family h/o cancer will need CT chest to complete w/u
--- NOTE | 2019-01-26 14:41 | PN ---
Progress Note, Physician Chief Complaint: Cardiology for Dr. Matthews History of Present Illness: Abd pain improved, telemetry shows NSR PAC, hemodynamics stable. - Current Medication List Current Medications: Active Medications Enalaprilat (Vasotec Injection -) 1.25 mg IVPB Q6H-IV [facility] Last Admin: 01/26/19 11:02 Dose: 1.25 mg Hydralazine HCl (Apresoline Injection -) 10 mg IVPUSH Q8H PRN PRN Reason: HYPERTENSION Hydromorphone HCl (Dilaudid Vial -) 1 mg IVPB Q6H PRN PRN Reason: PAIN LEVEL 6-10 Last Admin: 01/25/19 18:26 Dose: 1 mg Amino Acids (Clinimix -) 1,000 mls @ 84 mls/hr IV Q12H [facility] Last Admin: 01/25/19 22:28 Dose: 84 mls/hr Metoprolol Tartrate (Lopressor Injection -) 5 mg IVPUSH Q4H PRN PRN Reason: TACHYCARDIA Ondansetron HCl (Zofran Injection) 4 mg IVPUSH Q6H PRN PRN Reason: NAUSEA Pantoprazole Sodium (Protonix Iv) 40 mg IVPUSH DAILY [facility] Last Admin: 01/26/19 11:02 Dose: 40 mg - Objective Vital Signs: Vital Signs Temperature 98.2 F 01/25/19 18:00 Pulse Rate 66 01/26/19 06:00 Respiratory Rate 16 01/26/19 06:00 Blood Pressure 141/71 01/26/19 06:00 O2 Sat by Pulse Oximetry (%) 97 01/25/19 21:00 Constitutional: Yes: No Distress, Calm, Thin Neck: Yes: Supple Cardiovascular: Yes: Regular Rate and Rhythm Respiratory: Yes: Regular, Diminished, On Nasal O2 Gastrointestinal: Yes: Soft, Hypoactive Bowel Sounds (colostomy intact) Edema: No Labs: CBC, BMP 01/26/19 10:38 01/26/19 10:38 INR, PTT INR 0.95 (0.83-1.09) 01/23/19 06:24 - ....Imaging EKG: Report Reviewed (Tele: SR PAC NSR LVH PAC) Assessment/Plan Problem List - Problems (1) Acute electrocardiogram changes Code(s): R94.31 - ABNORMAL ELECTROCARDIOGRAM [ECG] [EKG] (2) Altered bowel habits Code(s): R19.4 - CHANGE IN BOWEL HABIT (3) Ataxia Code(s): R27.0 - ATAXIA, UNSPECIFIED (4) CVA, old, ataxia Code(s): I69.993 - ATAXIA FOLLOWING UNSPECIFIED CEREBROVASCULAR DISEASE (5) Colon obstruction Code(s): K56.609 - UNSP INTESTNL OBST, UNSP TO PARTIAL VERSUS COMPLETE OBST (6) Gait instability Code(s): R26.81 - UNSTEADINESS ON FEET (7) History of cholecystectomy Code(s): Z90.49 - ACQUIRED ABSENCE OF OTHER SPECIFIED PARTS OF DIGESTIVE TRACT (8) History of endoscopic retrograde cholangiopancreatography Code(s): Z98.890 - OTHER SPECIFIED POSTPROCEDURAL STATES (9) Vomiting Code(s): R11.10 - VOMITING, UNSPECIFIED (10) Weight loss Code(s): R63.4 - ABNORMAL WEIGHT LOSS (11) 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 Code(s): I44.1 - ATRIOVENTRICULAR BLOCK, SECOND DEGREE (12) Chest pain Code(s): R07.9 - CHEST PAIN, UNSPECIFIED (13) Chest tightness or pressure Code(s): R07.89 - OTHER CHEST PAIN (14) Chronic diastolic (congestive) heart failure Code(s): I50.32 - CHRONIC DIASTOLIC (CONGESTIVE) HEART FAILURE (15) HTN (hypertension) Code(s): I10 - ESSENTIAL (PRIMARY) HYPERTENSION (16) Has smoked cigarettes within prior year Code(s): Z87.891 - PERSONAL HISTORY OF NICOTINE DEPENDENCE (17) Hyperlipemia Code(s): E78.5 - HYPERLIPIDEMIA, UNSPECIFIED (18) Hypothyroid Code(s): E03.9 - HYPOTHYROIDISM, UNSPECIFIED Qualifiers: Qualified Code(s): E03.4 - Atrophy of thyroid (acquired) Assessment/Plan Large Bowel Obstruction/Sigmoid Mass s/p Segmental Sigmoid Resection/Colostomy POD #3 Irregular HR? ?AF/VT?perioperatively - no tracings available htn heart disease hlp hypothyroidism abn ekg Plan cont ICU telemetry monitoring will obtain the records of prior c. cath pain control as needed incentive spirometry, OOB to chair, early ambulation IV Vasotec and Lopressor pending rastafarian of oral intake f/u pathology IVF monitor colostomy output DVT prophylaxis
[2019-01-26] MEDS: AMINO ACIDS 4.25%/D5W 1,000 ML IV SCH ×2 (14:59→21:10)
--- NOTE | 2019-01-26 21:40 | PN ---
Progress Note (short form) - Note Progress Note: Attending Surgeon POD#3 No c/o; states she feels much better today and pain is minima; remians in ICU VSS AF abdo-soft and non tender; wound ok and wound care in progress; ostomy viable and w/liquid stool output labs noted MARCE serous and minimal UO good IMP: improving PLAN: D/C NGT/IVF/OOB/wound care; awaiting path report. Davion Huff MD FACS
[2019-01-27] MEDS: ENALAPRILAT DIHYDRATE 1.25 MG/1 ML VIAL IVPB SCH ×2 (02:00→10:00)
[2019-01-27 07:14] LABS: BASO % 0.3 % (0-2.0); EOS % 1.4 % (0-4.5); HEMATOCRIT 30.8 % (32.4-45.2); HEMOGLOBIN 10.6 GM/dL (10.7-15.3); LYMPH % 5.6 % (8-40); MCH 29.6 pg (25.7-33.7); MCHC 34.4 g/dl (32.0-36.0); MEAN PLT VOLUME 7.4 fl (7.5-11.1); NEUT % 86.7 % (42.8-82.8); PLATELET COUNT 168 K/MM3 (134-434); RBC 3.58 M/mm3 (3.60-5.2); RDW 14.2 % (11.6-15.6); WHITE BLOOD COUNT 11.7 K/mm3 (4.0-10.0)
[2019-01-27 07:27] LABS: CALCIUM 8.4 mg/dL (8.5-10.1); CREATININE 0.3 mg/dL (0.55-1.3); POTASSIUM 3.3 mmol/L (3.5-5.1)
--- NOTE | 2019-01-27 08:33 | PN ---
Progress Note (short form) - Note Progress Note: GENERAL SURGERY POD #4 s/p Hartmanns Procedure No acute events over past 24 hours per RN notes. Patient is alert. C/o mild incisional tenderness. Adequate pain control via medications as ordered. Denies n/v/f/c, CP, palpitations, SOB or TURPIN. Afebrile. AVSS. PE GEN: nad ABD: softly. midline incision packed with iodoform. umbilical von for approximation intact. LLQ ostomy viable (pink, protruding, producing --> liquid stool). MARCE with minimal output (serous) : hanna to gravity LE: SCDs bilat. Compartments soft. No swelling/edema bilat. Problem List - Problems (1) Status post Reg procedure Assessment/Plan: POD #4 s/p Hartmanns Procedure DC hanna and begin trial of void MARCE removed while on rounds and dressing changed OOB to chair with assist Begin clear liquid diet Pain management as ordered Ostomy Care RN for education VNS for wound management at home DVT PPX Downgrade to floor at ICU discretion. Above plan discussed with Dr. Huff and agrees. Code(s): Z93.3 - COLOSTOMY STATUS (2) Colon obstruction Code(s): K56.609 - UNSP INTESTNL OBST, UNSP TO PARTIAL VERSUS COMPLETE OBST (3) Hyperlipemia Code(s): E78.5 - HYPERLIPIDEMIA, UNSPECIFIED (4) Hypothyroid Code(s): E03.9 - HYPOTHYROIDISM, UNSPECIFIED Qualifiers: Qualified Code(s): E03.4 - Atrophy of thyroid (acquired)
--- NOTE | 2019-01-27 09:26 | PN ---
Progress Note, Physician Chief Complaint: feels good History of Present Illness: S/P sigmoid colectomy and Hartmans procedure Doing well ,to start on clear liquids - Current Medication List Current Medications: Active Medications Enalaprilat (Vasotec Injection -) 1.25 mg IVPB Q6H-IV [facility] Last Admin: 01/27/19 02:00 Dose: 1.25 mg Hydralazine HCl (Apresoline Injection -) 10 mg IVPUSH Q8H PRN PRN Reason: HYPERTENSION Hydromorphone HCl (Dilaudid Vial -) 1 mg IVPB Q6H PRN PRN Reason: PAIN LEVEL 6-10 Last Admin: 01/25/19 18:26 Dose: 1 mg Amino Acids (Clinimix -) 1,000 mls @ 84 mls/hr IV Q12H [facility] Last Admin: 01/26/19 21:10 Dose: 84 mls/hr Metoprolol Tartrate (Lopressor Injection -) 5 mg IVPUSH Q4H PRN PRN Reason: TACHYCARDIA Ondansetron HCl (Zofran Injection) 4 mg IVPUSH Q6H PRN PRN Reason: NAUSEA Pantoprazole Sodium (Protonix Iv) 40 mg IVPUSH DAILY [facility] Last Admin: 01/26/19 11:02 Dose: 40 mg - Objective Vital Signs: Vital Signs Temperature 97.9 F 01/27/19 06:00 Pulse Rate 63 01/27/19 06:00 Respiratory Rate 19 01/27/19 06:00 Blood Pressure 147/68 01/27/19 06:00 O2 Sat by Pulse Oximetry (%) 99 01/27/19 08:01 Constitutional: Yes: No Distress Eyes: Yes: WNL HENT: Yes: WNL Neck: Yes: WNL Cardiovascular: Yes: Regular Rate and Rhythm Respiratory: Yes: Regular Gastrointestinal: Yes: Tenderness Genitourinary: Yes: Clive Present Musculoskeletal: Yes: Muscle Weakness Peripheral Pulses WNL: Yes Wound/Incision: Yes: Clean/Dry Neurological: Yes: Alert Labs: CBC, BMP 01/27/19 06:45 01/27/19 06:45 INR, PTT INR 0.95 (0.83-1.09) 01/23/19 06:24 Assessment/Plan Case discussed with Dr Ladonna Mckenzie add Kcl to clinimix [place] hanna
[2019-01-27] MEDS: AMINO ACIDS 4.25%/D5W 1,000 ML IV SCH (09:46)
[2019-01-27] MEDS: PANTOPRAZOLE SODIUM 40 MG VIAL IVPUSH SCH (10:15)
[2019-01-27 14:58] VITALS: BMI 21.4
[2019-01-27] MEDS: POTASSIUM CHLORIDE 20 MEQ in AMINO ACIDS 4.25%/D5W 1,000 ML IVPB SCH (15:05)
--- NOTE | 2019-01-27 15:22 | PN ---
Progress Note, Physician Chief Complaint: Cardiology for Dr. Matthews History of Present Illness: Abd pain improved, telemetry shows NSR PAC, hemodynamics stable. Started on clear liquid diet. - Current Medication List Current Medications: Active Medications Enalaprilat (Vasotec Injection -) 1.25 mg IVPB Q6H-IV [facility] Last Admin: 01/27/19 10:00 Dose: 1.25 mg Hydralazine HCl (Apresoline Injection -) 10 mg IVPUSH Q8H PRN PRN Reason: HYPERTENSION Hydromorphone HCl (Dilaudid Vial -) 1 mg IVPB Q6H PRN PRN Reason: PAIN LEVEL 6-10 Last Admin: 01/25/19 18:26 Dose: 1 mg Potassium Chloride 20 meq/ (Amino Acids) 1,010 mls @ 84 mls/hr IVPB Q12H [facility] Last Admin: 01/27/19 15:05 Dose: 84 mls/hr Metoprolol Tartrate (Lopressor Injection -) 5 mg IVPUSH Q4H PRN PRN Reason: TACHYCARDIA Ondansetron HCl (Zofran Injection) 4 mg IVPUSH Q6H PRN PRN Reason: NAUSEA Pantoprazole Sodium (Protonix Iv) 40 mg IVPUSH DAILY [facility] Last Admin: 01/27/19 10:15 Dose: 40 mg - Objective Vital Signs: Vital Signs Temperature 97.7 F 01/27/19 14:00 Pulse Rate 70 01/27/19 14:00 Respiratory Rate 20 01/27/19 14:00 Blood Pressure 171/63 H 01/27/19 14:00 O2 Sat by Pulse Oximetry (%) 99 01/27/19 08:01 Constitutional: Yes: No Distress, Calm, Thin Neck: Yes: Supple Cardiovascular: Yes: Regular Rate and Rhythm Respiratory: Yes: Regular, Diminished, On Nasal O2 Gastrointestinal: Yes: Normal Bowel Sounds, Soft, Other (Colostomy intact) Edema: No Labs: CBC, BMP 01/27/19 06:45 01/27/19 06:45 INR, PTT INR 0.95 (0.83-1.09) 01/23/19 06:24 - ....Imaging EKG: Report Reviewed (Tele: NSR with PAC) Assessment/Plan Problem List - Problems (1) Acute electrocardiogram changes Code(s): R94.31 - ABNORMAL ELECTROCARDIOGRAM [ECG] [EKG] (2) Altered bowel habits Code(s): R19.4 - CHANGE IN BOWEL HABIT (3) Ataxia Code(s): R27.0 - ATAXIA, UNSPECIFIED (4) CVA, old, ataxia Code(s): I69.993 - ATAXIA FOLLOWING UNSPECIFIED CEREBROVASCULAR DISEASE (5) Colon obstruction Code(s): K56.609 - UNSP INTESTNL OBST, UNSP TO PARTIAL VERSUS COMPLETE OBST (6) Gait instability Code(s): R26.81 - UNSTEADINESS ON FEET (7) History of cholecystectomy Code(s): Z90.49 - ACQUIRED ABSENCE OF OTHER SPECIFIED PARTS OF DIGESTIVE TRACT (8) History of endoscopic retrograde cholangiopancreatography Code(s): Z98.890 - OTHER SPECIFIED POSTPROCEDURAL STATES (9) Vomiting Code(s): R11.10 - VOMITING, UNSPECIFIED (10) Weight loss Code(s): R63.4 - ABNORMAL WEIGHT LOSS (11) 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 Code(s): I44.1 - ATRIOVENTRICULAR BLOCK, SECOND DEGREE (12) Chest pain Code(s): R07.9 - CHEST PAIN, UNSPECIFIED (13) Chest tightness or pressure Code(s): R07.89 - OTHER CHEST PAIN (14) Chronic diastolic (congestive) heart failure Code(s): I50.32 - CHRONIC DIASTOLIC (CONGESTIVE) HEART FAILURE (15) HTN (hypertension) Code(s): I10 - ESSENTIAL (PRIMARY) HYPERTENSION (16) Has smoked cigarettes within prior year Code(s): Z87.891 - PERSONAL HISTORY OF NICOTINE DEPENDENCE (17) Hyperlipemia Code(s): E78.5 - HYPERLIPIDEMIA, UNSPECIFIED (18) Hypothyroid Code(s): E03.9 - HYPOTHYROIDISM, UNSPECIFIED Qualifiers: Qualified Code(s): E03.4 - Atrophy of thyroid (acquired) Assessment/Plan Large Bowel Obstruction/Sigmoid Mass s/p Segmental Sigmoid Resection/Colostomy POD #4 Irregular HR? ?AF/VT?perioperatively - no tracings available htn heart disease hlp hypothyroidism abn ekg Plan Transfer to floor will obtain the records of prior c. cath pain control as needed incentive spirometry, OOB to chair, early ambulation Resume losartan 50 qd, Lipitor 20 qd, start carvedilol 3.125 bid with uptitration as tolerated f/u pathology monitor colostomy output, drain d/milo, repleted k DVT prophylaxis
[2019-01-27] MEDS: LOSARTAN POTASSIUM 50 MG TABLET (FP) PO SCH (16:47)
[2019-01-27] MEDS: CARVEDILOL 3.125 MG TABLET (FP) PO SCH (21:10)
[2019-01-28] MEDS: POTASSIUM CHLORIDE 20 MEQ in AMINO ACIDS 4.25%/D5W 1,000 ML IVPB SCH ×2 (03:30→10:53)
[2019-01-28] MEDS: CARVEDILOL 3.125 MG TABLET (FP) PO SCH (10:52)
[2019-01-28] MEDS: PANTOPRAZOLE SODIUM 40 MG VIAL IVPUSH SCH (10:55)
[2019-01-28] MEDS: LOSARTAN POTASSIUM 50 MG TABLET (FP) PO SCH (10:55)
[2019-01-28] MEDS: ONDANSETRON 4 MG/2 ML VIAL IVPUSH PRN (10:56)
[2019-01-28] MEDS: ACETAMINOPHEN 1000 MG/100 ML VIAL (NON FORMULARY) IVPB PRN (11:28)
--- NOTE | 2019-01-28 11:38 | PN ---
Progress Note, Physician Chief Complaint: Feels nauseous History of Present Illness: S/P Green procedure for sigmoid colon obstruction - Current Medication List Current Medications: Active Medications Acetaminophen (Ofirmev Injection -) 1,000 mg IVPB Q6H PRN PRN Reason: PAIN LEVEL 4 - 6 Last Admin: 01/28/19 11:28 Dose: 1,000 mg Carvedilol (Coreg -) 3.125 mg PO BID [facility] Last Admin: 01/28/19 10:52 Dose: Not Given Hydralazine HCl (Apresoline Injection -) 10 mg IVPUSH Q8H PRN PRN Reason: HYPERTENSION Potassium Chloride 20 meq/ (Amino Acids) 1,010 mls @ 84 mls/hr IVPB Q12H [facility] Last Admin: 01/28/19 10:53 Dose: 84 mls/hr Losartan Potassium (Cozaar -) 50 mg PO DAILY [facility] Last Admin: 01/28/19 10:55 Dose: 50 mg Ondansetron HCl (Zofran Injection) 4 mg IVPUSH Q6H PRN PRN Reason: NAUSEA Last Admin: 01/28/19 10:56 Dose: 4 mg Pantoprazole Sodium (Protonix Iv) 40 mg IVPUSH DAILY [facility] Last Admin: 01/28/19 10:55 Dose: 40 mg - Objective Vital Signs: Vital Signs Temperature 98.0 F 01/28/19 10:00 Pulse Rate 44 L 01/28/19 10:00 Respiratory Rate 22 H 01/28/19 10:00 Blood Pressure 175/67 H 01/28/19 10:00 O2 Sat by Pulse Oximetry (%) 99 01/28/19 08:52 Constitutional: Yes: Mild Distress Eyes: Yes: WNL HENT: Yes: WNL Neck: Yes: WNL Cardiovascular: Yes: Bradycardia Respiratory: Yes: Regular Gastrointestinal: Yes: Hypoactive Bowel Sounds, Vomiting ...Rectal Exam: Yes: Deferred Genitourinary: Yes: Duffy Present Breast(s): Yes: WNL Musculoskeletal: Yes: Muscle Weakness Edema: No Integumentary: Yes: WNL Neurological: Yes: Alert Labs: CBC, BMP 01/27/19 06:45 01/27/19 06:45 INR, PTT INR 0.95 (0.83-1.09) 01/23/19 06:24 Assessment/Plan Will discuss with surgeon
--- NOTE | 2019-01-28 15:12 | PN ---
Progress Note, Physician Chief Complaint: Cardiology for Dr. Matthews History of Present Illness: Abd pain improved, telemetry 2:1 AVB on carvedilol since d/milo, hemodynamics stable. Started on clear liquid diet, reports nausea w/o emesis. - Current Medication List Current Medications: Active Medications Acetaminophen (Ofirmev Injection -) 1,000 mg IVPB Q6H PRN PRN Reason: PAIN LEVEL 4 - 6 Last Admin: 01/28/19 11:28 Dose: 1,000 mg Hydralazine HCl (Apresoline Injection -) 10 mg IVPUSH Q8H PRN PRN Reason: HYPERTENSION Potassium Chloride 20 meq/ (Amino Acids) 1,010 mls @ 84 mls/hr IVPB Q12H [facility] Last Admin: 01/28/19 10:53 Dose: 84 mls/hr Losartan Potassium (Cozaar -) 50 mg PO DAILY [facility] Last Admin: 01/28/19 10:55 Dose: 50 mg Ondansetron HCl (Zofran Injection) 4 mg IVPUSH Q6H PRN PRN Reason: NAUSEA Last Admin: 01/28/19 10:56 Dose: 4 mg Pantoprazole Sodium (Protonix Iv) 40 mg IVPUSH DAILY [facility] Last Admin: 01/28/19 10:55 Dose: 40 mg - Objective Vital Signs: Vital Signs Temperature 98.0 F 01/28/19 10:00 Pulse Rate 44 L 01/28/19 14:00 Respiratory Rate 21 H 01/28/19 14:00 Blood Pressure 178/58 H 01/28/19 14:00 O2 Sat by Pulse Oximetry (%) 99 01/28/19 08:52 Constitutional: Yes: No Distress, Calm, Thin Neck: Yes: Supple Cardiovascular: Yes: Bradycardia Respiratory: Yes: Regular, CTA Bilaterally Gastrointestinal: Yes: Normal Bowel Sounds, Soft, Other (colostomy intact) Edema: No Labs: CBC, BMP 01/27/19 06:45 01/27/19 06:45 INR, PTT INR 0.95 (0.83-1.09) 01/23/19 06:24 - ....Imaging EKG: Report Reviewed (SB @ 45 2:1 AVB) Assessment/Plan Problem List - Problems (1) Acute electrocardiogram changes Code(s): R94.31 - ABNORMAL ELECTROCARDIOGRAM [ECG] [EKG] (2) Altered bowel habits Code(s): R19.4 - CHANGE IN BOWEL HABIT (3) Ataxia Code(s): R27.0 - ATAXIA, UNSPECIFIED (4) CVA, old, ataxia Code(s): I69.993 - ATAXIA FOLLOWING UNSPECIFIED CEREBROVASCULAR DISEASE (5) Colon obstruction Code(s): K56.609 - UNSP INTESTNL OBST, UNSP TO PARTIAL VERSUS COMPLETE OBST (6) Gait instability Code(s): R26.81 - UNSTEADINESS ON FEET (7) History of cholecystectomy Code(s): Z90.49 - ACQUIRED ABSENCE OF OTHER SPECIFIED PARTS OF DIGESTIVE TRACT (8) History of endoscopic retrograde cholangiopancreatography Code(s): Z98.890 - OTHER SPECIFIED POSTPROCEDURAL STATES (9) Vomiting Code(s): R11.10 - VOMITING, UNSPECIFIED (10) Weight loss Code(s): R63.4 - ABNORMAL WEIGHT LOSS (11) 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 Code(s): I44.1 - ATRIOVENTRICULAR BLOCK, SECOND DEGREE (12) Chest pain Code(s): R07.9 - CHEST PAIN, UNSPECIFIED (13) Chest tightness or pressure Code(s): R07.89 - OTHER CHEST PAIN (14) Chronic diastolic (congestive) heart failure Code(s): I50.32 - CHRONIC DIASTOLIC (CONGESTIVE) HEART FAILURE (15) HTN (hypertension) Code(s): I10 - ESSENTIAL (PRIMARY) HYPERTENSION (16) Has smoked cigarettes within prior year Code(s): Z87.891 - PERSONAL HISTORY OF NICOTINE DEPENDENCE (17) Hyperlipemia Code(s): E78.5 - HYPERLIPIDEMIA, UNSPECIFIED (18) Hypothyroid Code(s): E03.9 - HYPOTHYROIDISM, UNSPECIFIED Qualifiers: Qualified Code(s): E03.4 - Atrophy of thyroid (acquired) Assessment/Plan Large Bowel Obstruction/Sigmoid Mass s/p Segmental Sigmoid Resection/Colostomy POD #4 Irregular HR? 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 cath pain control as needed incentive spirometry, OOB to chair, early ambulation Continue losartan 50 qd, Lipitor 20 qd, change carvedilol 3.125 bid to Norvasc 5 qd with uptitration as tolerated f/u pathology monitor colostomy output, drain d/milo, repleted k DVT prophylaxis
--- NOTE | 2019-01-28 15:21 | PN ---
Progress Note (short form) - Note Progress Note: Attending Surgeon POD #5 had some n/v VSS AF abdo-ostomy viable and functioning; wound okay; abdomen soft; flat and non tender AXR reviewed and w/o obstruction IMP: stable post op PLAN: Continue clear liquids as tolerated; wound care; OOB; Zofran prn. Davion Huff MD FACS
[2019-01-28] MEDS: amLODIPine BESYLATE 5 MG TABLET (FP) PO SCH (16:45)
[2019-01-28] MEDS ORDERED: PT OWN MED DRAWER 7, Y5N ONE (23:44)
[2019-01-29] MEDS: ACETAMINOPHEN 1000 MG/100 ML VIAL (NON FORMULARY) IVPB PRN ×3 (00:50→16:41)
[2019-01-29] MEDS: POTASSIUM CHLORIDE 20 MEQ in AMINO ACIDS 4.25%/D5W 1,000 ML IVPB SCH ×4 (02:55→21:36)
[2019-01-29 07:02] LABS: HEMATOCRIT 33.7 % (32.4-45.2); HEMOGLOBIN 11.7 GM/dL (10.7-15.3); MCH 29.3 pg (25.7-33.7); MCHC 34.6 g/dl (32.0-36.0); MEAN CELL VOLUME 84.7 fl (80-96); MEAN PLT VOLUME 6.9 fl (7.5-11.1); PLATELET COUNT 292 K/MM3 (134-434); RBC 3.98 M/mm3 (3.60-5.2); RDW 14.2 % (11.6-15.6); WHITE BLOOD COUNT 10.8 K/mm3 (4.0-10.0)
[2019-01-29 07:36] LABS: BILIRUBIN,TOTAL 0.6 mg/dL (0.2-1); BLOOD UREA NITROGEN 17.1 mg/dL (7-18); CALCIUM 8.8 mg/dL (8.5-10.1); CREATININE 0.4 mg/dL (0.55-1.3); POTASSIUM 4.1 mmol/L (3.5-5.1); TOT PROT 4.7 g/dl (6.4-8.2)
[2019-01-29] MEDS: PANTOPRAZOLE SODIUM 40 MG VIAL IVPUSH SCH (09:59)
[2019-01-29] MEDS: LOSARTAN POTASSIUM 50 MG TABLET (FP) PO SCH (09:59)
[2019-01-29] MEDS: amLODIPine BESYLATE 5 MG TABLET (FP) PO SCH (09:59)
--- NOTE | 2019-01-29 13:12 | PN ---
Progress Note, Physician Chief Complaint: Feels better,no nausea and vomiting History of Present Illness: S/P sigmoid colectomy for obstruction - Current Medication List Current Medications: Active Medications Acetaminophen (Ofirmev Injection -) 1,000 mg IVPB Q6H PRN PRN Reason: PAIN LEVEL 4 - 6 Last Admin: 01/29/19 10:00 Dose: 1,000 mg Amlodipine Besylate (Norvasc -) 5 mg PO DAILY [facility] Last Admin: 01/29/19 09:59 Dose: 5 mg Hydralazine HCl (Apresoline Injection -) 10 mg IVPUSH Q8H PRN PRN Reason: HYPERTENSION Potassium Chloride 20 meq/ (Amino Acids) 1,010 mls @ 84 mls/hr IVPB Q12H [facility] Last Admin: 01/29/19 11:55 Dose: Not Given Losartan Potassium (Cozaar -) 50 mg PO DAILY [facility] Last Admin: 01/29/19 09:59 Dose: 50 mg Ondansetron HCl (Zofran Injection) 4 mg IVPUSH Q6H PRN PRN Reason: NAUSEA Last Admin: 01/28/19 10:56 Dose: 4 mg Pantoprazole Sodium (Protonix Iv) 40 mg IVPUSH DAILY [facility] Last Admin: 01/29/19 09:59 Dose: 40 mg - Objective Vital Signs: Vital Signs Temperature 97.9 F 01/29/19 08:31 Pulse Rate 40 L 01/29/19 10:00 Respiratory Rate 19 01/29/19 10:00 Blood Pressure 149/61 01/29/19 10:00 O2 Sat by Pulse Oximetry (%) 96 01/29/19 09:00 Constitutional: Yes: No Distress Eyes: Yes: WNL HENT: Yes: WNL Neck: Yes: WNL Cardiovascular: Yes: Bradycardia Respiratory: Yes: Regular Gastrointestinal: Yes: Hypoactive Bowel Sounds ...Rectal Exam: Yes: Deferred Genitourinary: Yes: WNL Edema: No Wound/Incision: Yes: Clean/Dry Neurological: Yes: Alert Labs: CBC, BMP 01/29/19 06:00 01/29/19 06:00 INR, PTT INR 0.95 (0.83-1.09) 01/23/19 06:24 - ....Imaging X-ray: Report Reviewed Assessment/Plan Stable ,continue same trt
[2019-01-29] MEDS ORDERED: PT OWN MED DRAWER 7, Y5N ONE (16:31)
--- NOTE | 2019-01-29 19:55 | PN ---
Progress Note, Physician Chief Complaint: Cardiology for Dr. Matthews History of Present Illness: Abd pain improved, telemetry 2:1 AVB on carvedilol since d/milo, hemodynamics stable. Started on clear liquid diet, reports nausea w/o emesis. - Current Medication List Current Medications: Active Medications Amlodipine Besylate (Norvasc -) 5 mg PO DAILY [facility] Last Admin: 01/29/19 09:59 Dose: 5 mg Hydralazine HCl (Apresoline Injection -) 10 mg IVPUSH Q8H PRN PRN Reason: HYPERTENSION Potassium Chloride 20 meq/ (Amino Acids) 1,010 mls @ 84 mls/hr IVPB Q12H [facility] Last Admin: 01/29/19 16:43 Dose: 84 mls/hr Losartan Potassium (Cozaar -) 50 mg PO DAILY [facility] Last Admin: 01/29/19 09:59 Dose: 50 mg Ondansetron HCl (Zofran Injection) 4 mg IVPUSH Q6H PRN PRN Reason: NAUSEA Last Admin: 01/28/19 10:56 Dose: 4 mg Pantoprazole Sodium (Protonix Iv) 40 mg IVPUSH DAILY [facility] Last Admin: 01/29/19 09:59 Dose: 40 mg - Objective Vital Signs: Vital Signs Temperature 98.1 F 01/29/19 18:28 Pulse Rate 42 L 01/29/19 16:00 Respiratory Rate 26 H 01/29/19 16:00 Blood Pressure 152/50 L 01/29/19 16:00 O2 Sat by Pulse Oximetry (%) 96 01/29/19 09:00 Constitutional: Yes: No Distress, Calm, Thin Cardiovascular: Yes: Bradycardia Respiratory: Yes: Regular, Diminished Gastrointestinal: Yes: Normal Bowel Sounds, Soft, Other (+colostomy) Edema: No Labs: CBC, BMP 01/29/19 06:00 01/29/19 06:00 INR, PTT INR 0.95 (0.83-1.09) 01/23/19 06:24 Assessment/Plan Problem List - Problems (1) Acute electrocardiogram changes Code(s): R94.31 - ABNORMAL ELECTROCARDIOGRAM [ECG] [EKG] (2) Altered bowel habits Code(s): R19.4 - CHANGE IN BOWEL HABIT (3) Ataxia Code(s): R27.0 - ATAXIA, UNSPECIFIED (4) CVA, old, ataxia Code(s): I69.993 - ATAXIA FOLLOWING UNSPECIFIED CEREBROVASCULAR DISEASE (5) Colon obstruction Code(s): K56.609 - UNSP INTESTNL OBST, UNSP TO PARTIAL VERSUS COMPLETE OBST (6) Gait instability Code(s): R26.81 - UNSTEADINESS ON FEET (7) History of cholecystectomy Code(s): Z90.49 - ACQUIRED ABSENCE OF OTHER SPECIFIED PARTS OF DIGESTIVE TRACT (8) History of endoscopic retrograde cholangiopancreatography Code(s): Z98.890 - OTHER SPECIFIED POSTPROCEDURAL STATES (9) Vomiting Code(s): R11.10 - VOMITING, UNSPECIFIED (10) Weight loss Code(s): R63.4 - ABNORMAL WEIGHT LOSS (11) 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 Code(s): I44.1 - ATRIOVENTRICULAR BLOCK, SECOND DEGREE (12) Chest pain Code(s): R07.9 - CHEST PAIN, UNSPECIFIED (13) Chest tightness or pressure Code(s): R07.89 - OTHER CHEST PAIN (14) Chronic diastolic (congestive) heart failure Code(s): I50.32 - CHRONIC DIASTOLIC (CONGESTIVE) HEART FAILURE (15) HTN (hypertension) Code(s): I10 - ESSENTIAL (PRIMARY) HYPERTENSION (16) Has smoked cigarettes within prior year Code(s): Z87.891 - PERSONAL HISTORY OF NICOTINE DEPENDENCE (17) Hyperlipemia Code(s): E78.5 - HYPERLIPIDEMIA, UNSPECIFIED (18) Hypothyroid Code(s): E03.9 - HYPOTHYROIDISM, UNSPECIFIED Qualifiers: Qualified Code(s): E03.4 - Atrophy of thyroid (acquired) Assessment/Plan Large Bowel Obstruction/Sigmoid Mass s/p Segmental Sigmoid Resection/Colostomy POD #5 Irregular HR? 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 cath pain control as needed incentive spirometry, OOB to chair, early ambulation Continue losartan 50 qd, Lipitor 20 qd, change carvedilol 3.125 bid to Norvasc 5 qd with uptitration as tolerated f/u pathology monitor colostomy output, drain d/milo, repleted k DVT prophylaxis
[2019-01-29] MEDS: ENALAPRILAT DIHYDRATE 1.25 MG/1 ML VIAL IVPB SCH (21:40)
[2019-01-30] MEDS: ONDANSETRON 4 MG/2 ML VIAL IVPUSH PRN (03:39)
[2019-01-30] MEDS ORDERED: MEPERIDINE HCL 25 MG/ML VIAL IM PRN (03:48)
--- NOTE | 2019-01-30 09:25 | PN ---
Progress Note (short form) - Note Progress Note: SURGERY 84yo F s/p Green's procedure for large bowel obstruction. Pt continues to complain of abd pain and states that she has no appetite. Pt colostomy is functioning well with stool in the bag. Pt denies fever, chills. Some nausea, but controlled with medication. Pt is really not ambulating much. Last Vital Signs Temp Pulse Resp BP Pulse Ox 97.9 F 46 L 18 160/51 L 96 01/30/19 02:00 01/30/19 06:00 01/30/19 06:00 01/30/19 06:00 01/29/19 20:39 CBC, BMP 01/29/19 06:00 01/29/19 06:00 PE: Gen: A&Ox3 Resp: breathing comfortably Abd: soft, mild distended, moderate diffuse tenderness (unchanged). Colostomy in place with stool in bag. Problem List - Problems (1) Colon obstruction Assessment/Plan: Plan -pain control, emphasize OOB with PT -will adv diet as she tolerates -DVT ppx -GI ppx Pt seen and examined with Dr. Huff who agrees with plan Code(s): K56.609 - UNSP INTESTNL OBST, UNSP TO PARTIAL VERSUS COMPLETE OBST
--- NOTE | 2019-01-30 09:46 | PN ---
Progress Note, Physician Chief Complaint: Feels better History of Present Illness: S/P Green procedure,progressing well - Current Medication List Current Medications: Active Medications Amlodipine Besylate (Norvasc -) 5 mg PO DAILY [facility] Last Admin: 01/29/19 09:59 Dose: 5 mg Hydralazine HCl (Apresoline Injection -) 10 mg IVPUSH Q8H PRN PRN Reason: HYPERTENSION Potassium Chloride 20 meq/ (Amino Acids) 1,010 mls @ 84 mls/hr IVPB Q12H [facility] Last Admin: 01/29/19 21:36 Dose: Not Given Losartan Potassium (Cozaar -) 50 mg PO DAILY [facility] Last Admin: 01/29/19 09:59 Dose: 50 mg Meperidine HCl (Meperidine 25 Mg/Ml Vial) 25 mg IM Q6H PRN PRN Reason: PAIN LEVEL 4 - 6 Last Admin: 01/30/19 03:59 Dose: 25 mg Ondansetron HCl (Zofran Injection) 4 mg IVPUSH Q6H PRN PRN Reason: NAUSEA Last Admin: 01/30/19 03:39 Dose: 4 mg Pantoprazole Sodium (Protonix Iv) 40 mg IVPUSH DAILY [facility] Last Admin: 01/29/19 09:59 Dose: 40 mg - Objective Vital Signs: Vital Signs Temperature 97.9 F 01/30/19 02:00 Pulse Rate 46 L 01/30/19 06:00 Respiratory Rate 18 01/30/19 06:00 Blood Pressure 160/51 L 01/30/19 06:00 O2 Sat by Pulse Oximetry (%) 96 01/29/19 20:39 Constitutional: Yes: Calm Eyes: Yes: WNL HENT: Yes: WNL Neck: Yes: WNL Cardiovascular: Yes: Bradycardia Respiratory: Yes: WNL Gastrointestinal: Yes: Hypoactive Bowel Sounds ...Rectal Exam: Yes: WNL Genitourinary: Yes: WNL Edema: No Neurological: Yes: Alert Labs: CBC, BMP 01/29/19 06:00 01/29/19 06:00 INR, PTT INR 0.95 (0.83-1.09) 01/23/19 06:24 Assessment/Plan plan continue same trt
[2019-01-30] MEDS: amLODIPine BESYLATE 5 MG TABLET (FP) PO SCH (10:36)
[2019-01-30] MEDS: PANTOPRAZOLE SODIUM 40 MG VIAL IVPUSH SCH (10:36)
[2019-01-30] MEDS: LOSARTAN POTASSIUM 50 MG TABLET (FP) PO SCH (10:37)
--- NOTE | 2019-01-30 11:04 | EKG ---
Test Reason : Blood Pressure : / mmHG Vent. Rate : 045 BPM Atrial Rate : 045 BPM P-R Int : 128 ms QRS Dur : 114 ms QT Int : 588 ms P-R-T Axes : 080 050 -59 degrees QTc Int : 508 ms SINUS BRADYCARDIA WITH OCCASIONAL PREMATURE VENTRICULAR COMPLEXES WITH VENTRICULAR ESCAPE COMPLEXES ? 2:1 AV BLOCK INCOMPLETE RIGHT BUNDLE BRANCH BLOCK PROLONGED QT ABNORMAL ECG WHEN COMPARED WITH ECG OF 23-JAN-2019 20:30, VENT. RATE HAS DECREASED T WAVE VARIATION VENTRICULAR ECTOPY IS SEEN Confirmed by CECI COONEY MD ([id number]) on 01/30/2019 11:04:21 AM Referred By: Lisa PAN Confirmed By:CECI COONEY MD
--- NOTE | 2019-01-30 12:20 | PN ---
Progress Note, Physician History of Present Illness: Patient is an 84 year old woman with a PMH of HTN, HLD, Cardiac cath (no stents placed), Cholecystectomy, Bilateral cataract surgery and Hypothyroidism, who presents with complaints of difficulty walking over the past 3-4 days. Patient states that when she walks, she feels "like she is about to fall over". This is not associated with position changes or vertigo, and it does not localize to either side. Patient denies falling or hitting her head and has never felt this way before. She has poor appetite, and her sister notes "she eats only crackers ". Patient denies any fevers, chills, headache, vision changes, cough, congestion, syncope, chest pain, palpitations, SOB, nausea, vomiting, abdominal pain, urinary symptoms, constipation, or leg swelling. Denies cigarette, alcohol , or illicit drug use. Had two loose bowel movements 5 days ago. Denies any recent travel or sick contacts. FH of CAD and DM. OBJECTIVE: Alertand not orthostatic - Current Medication List Current Medications: Active Medications Amlodipine Besylate (Norvasc -) 5 mg PO DAILY [facility] Last Admin: 01/30/19 10:36 Dose: 5 mg Hydralazine HCl (Apresoline Injection -) 10 mg IVPUSH Q8H PRN PRN Reason: HYPERTENSION Potassium Chloride 20 meq/ (Amino Acids) 1,010 mls @ 84 mls/hr IVPB Q12H [facility] Last Admin: 01/29/19 21:36 Dose: Not Given Losartan Potassium (Cozaar -) 50 mg PO DAILY [facility] Last Admin: 01/30/19 10:37 Dose: 50 mg Meperidine HCl (Meperidine 25 Mg/Ml Vial) 25 mg IM Q6H PRN PRN Reason: PAIN LEVEL 4 - 6 Last Admin: 01/30/19 03:59 Dose: 25 mg Ondansetron HCl (Zofran Injection) 4 mg IVPUSH Q6H PRN PRN Reason: NAUSEA Last Admin: 01/30/19 03:39 Dose: 4 mg Pantoprazole Sodium (Protonix Iv) 40 mg IVPUSH DAILY [facility] Last Admin: 01/30/19 10:36 Dose: 40 mg - Objective Vital Signs: Vital Signs Temperature 97.9 F 01/30/19 02:00 Pulse Rate 46 L 01/30/19 06:00 Respiratory Rate 18 12/02/19 06:00 Blood Pressure 160/51 L 01/30/19 06:00 O2 Sat by Pulse Oximetry (%) 96 01/29/19 20:39 Eyes: Yes: WNL, Conjunctiva Clear, EOM Intact HENT: Yes: WNL, Atraumatic, Normocephalic Neck: Yes: WNL, Supple, Trachea Midline Cardiovascular: Yes: WNL, Regular Rate and Rhythm Respiratory: Yes: WNL, Regular, CTA Bilaterally Gastrointestinal: Yes: WNL, Normal Bowel Sounds Genitourinary: Yes: WNL Musculoskeletal: Yes: WNL Extremities: Yes: WNL Edema: No Integumentary: Yes: WNL Neurological: Yes: WNL, Alert, Oriented ...Motor Strength: WNL Psychiatric: Yes: WNL Labs: CBC, BMP 01/29/19 06:00 01/29/19 06:00 INR, PTT INR 0.95 (0.83-1.09) 01/23/19 06:24 Problem List - Problems (1) Acute electrocardiogram changes Code(s): R94.31 - ABNORMAL ELECTROCARDIOGRAM [ECG] [EKG] (2) Altered bowel habits Code(s): R19.4 - CHANGE IN BOWEL HABIT (3) Ataxia Code(s): R27.0 - ATAXIA, UNSPECIFIED (4) CVA, old, ataxia Code(s): I69.993 - ATAXIA FOLLOWING UNSPECIFIED CEREBROVASCULAR DISEASE (5) Colon obstruction Code(s): K56.609 - UNSP INTESTNL OBST, UNSP TO PARTIAL VERSUS COMPLETE OBST (6) Gait instability Code(s): R26.81 - UNSTEADINESS ON FEET (7) History of cholecystectomy Code(s): Z90.49 - ACQUIRED ABSENCE OF OTHER SPECIFIED PARTS OF DIGESTIVE TRACT (8) History of endoscopic retrograde cholangiopancreatography Code(s): Z98.890 - OTHER SPECIFIED POSTPROCEDURAL STATES (9) Vomiting Code(s): R11.10 - VOMITING, UNSPECIFIED (10) Weight loss Code(s): R63.4 - ABNORMAL WEIGHT LOSS (11) 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 Code(s): I44.1 - ATRIOVENTRICULAR BLOCK, SECOND DEGREE (12) Chest pain Code(s): R07.9 - CHEST PAIN, UNSPECIFIED (13) Chest tightness or pressure Code(s): R07.89 - OTHER CHEST PAIN (14) Chronic diastolic (congestive) heart failure Code(s): I50.32 - CHRONIC DIASTOLIC (CONGESTIVE) HEART FAILURE (15) HTN (hypertension) Code(s): I10 - ESSENTIAL (PRIMARY) HYPERTENSION (16) Has smoked cigarettes within prior year Code(s): Z87.891 - PERSONAL HISTORY OF NICOTINE DEPENDENCE (17) Hyperlipemia Code(s): E78.5 - HYPERLIPIDEMIA, UNSPECIFIED (18) Hypothyroid Code(s): E03.9 - HYPOTHYROIDISM, UNSPECIFIED Qualifiers: Qualified Code(s): E03.4 - Atrophy of thyroid (acquired) Assessment/Plan Large Bowel Obstruction/Sigmoid Mass s/p Segmental Sigmoid Resection/Colostomy POD #6 Irregular HR? ?AF/VT?perioperatively - no tracings available htn heart disease hlp hypothyroidism 2;1 AV block on carvedilol since d/milo obtain 24 holter Plan Monitor HR recovery off carvedilol will obtain the records of prior c. cath pain control as needed incentive spirometry, OOB to chair, early ambulation Continue losartan 50 qd, Lipitor 20 qd, change carvedilol 3.125 bid to Norvasc 5 qd with uptitration as tolerated f/u pathology monitor colostomy output, drain d/milo, repleted k DVT prophylaxis CC time 37 mmin
--- NOTE | 2019-01-30 14:00 | PN ---
Progress Note (short form) - Note Progress Note: Resting in NAD. No shortness of breath or chest pain. No acute events overnight. Intake & Output 01/27/19 01/28/19 01/29/19 01/30/19 23:59 23:59 23:59 23:59 Intake Total 2109 2176 2736 588 Output Total 3120 1800 Balance -9752 643 8087 588 Weight 110 lb 9.6 oz 111 lb 8 oz Last Vital Signs Temp Pulse Resp BP Pulse Ox 98.2 F 34 L 18 148/46 L 96 01/30/19 08:00 01/30/19 12:00 01/30/19 12:00 01/30/19 12:00 01/30/19 09:00 Active Medications Amlodipine Besylate (Norvasc -) 5 mg PO DAILY [facility] Last Admin: 01/30/19 10:36 Dose: 5 mg Hydralazine HCl (Apresoline Injection -) 10 mg IVPUSH Q8H PRN PRN Reason: HYPERTENSION Potassium Chloride 20 meq/ (Amino Acids) 1,010 mls @ 84 mls/hr IVPB Q12H [facility] Last Admin: 01/29/19 21:36 Dose: Not Given Losartan Potassium (Cozaar -) 50 mg PO DAILY [facility] Last Admin: 01/30/19 10:37 Dose: 50 mg Meperidine HCl (Meperidine 25 Mg/Ml Vial) 25 mg IM Q6H PRN PRN Reason: PAIN LEVEL 4 - 6 Last Admin: 01/30/19 03:59 Dose: 25 mg Ondansetron HCl (Zofran Injection) 4 mg IVPUSH Q6H PRN PRN Reason: NAUSEA Last Admin: 01/30/19 03:39 Dose: 4 mg Pantoprazole Sodium (Protonix Iv) 40 mg IVPUSH DAILY [facility] Last Admin: 01/30/19 10:36 Dose: 40 mg Gen: NAD at rest Heart: RRR Lung: decreased breath sounds at the bases Abd: soft, dressings dry, +ostomy pink Ext: no edema A/P Large Bowel Obstruction/Sigmoid Mass POD # 7 Segmental Sigmoid Resection/Colostomy CAD HTN Hyperlipidemia Hypothyrodism - pain control - incentive spirometry - PO per Surgery - monitor ostomy output - DVT prophylaxis Dr Lane
--- NOTE | 2019-01-30 16:06 | PATH ---
Surgical Pathology Report Patient Name: VERENICE VYAS [facility]. Rec. 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 Specimen(s) Received PORTION OF SIGMOID COLON Clinical History Sigmoid colon obstruction Final Diagnosis SIGMOID COLON, PORTION, SEGMENTAL RESECTION WITH END COLOSTOMY: SEGMENT OF COLON WITH DIVERTICULOSIS, ACUTE DIVERTICULITIS WITH ASSOCIATED MARKED ACUTE INFLAMMATION, ULCERATION, AND GRANULATION TISSUE FORMATION. SEROSAL SURFACE WITH DENSE FIBROUS ADHESIONS ASSOCIATED WITH ADHESED PORTION OF FALLOPIAN TUBE. REMAINDER OF COLON WITH PATCHY AREAS OF MODERATE CHRONIC ACTIVE COLITIS, HEMORRHAGE, AND EDEMA. SURGICAL MARGINS ARE VIABLE. Electronically Signed Michelle Silva M.D. Gross Description Received in formalin labeled "portion of sigmoid colon," is an 18 cm in length portion of colon with 2 stapled mucosal margins and minimal attached pericolonic adipose tissue. The specimen is markedly dilated at one end. The serosa is alfonso-brown with focal dense fibrous adhesions. There is a 3 cm in length fimbriated portion of fallopian tube adhesed to the bowel serosa. The cut surface of the fallopian tube is unremarkable. The bowel mucosa displays a circumferential edematous area the dilated and nondilated segments. The dilated segment of bowel displays flattened folds. Volleyball Referee sections are submitted in cassettes as follows: 1-mucosal margin from dilated end of bowel; 2-mucosal margin from nondilated end of bowel; 4-6-hglkiwav from edematous area of mucosa; 1-3-krzoaisc from serosal adhesions; 9-1-ouvutuov of serosal adhesions with fallopian tube; 10-fallopian tube fimbria; 11-uninvolved section from nondilated segment of bowel; 27-88-nwrorxyxfy sections from dilated segment of bowel. 01/24/201901/24/2019
[2019-01-30] MEDS: POTASSIUM CHLORIDE 20 MEQ in AMINO ACIDS 4.25%/D5W 1,000 ML IVPB SCH (20:35)
--- NOTE | 2019-01-31 07:58 | PN ---
Progress Note (short form) - Note Progress Note: GENERAL SURGERY POD #8 s/p segmental sigmoid colon resection w/colostomy (Hartmans procedure) Per RN notes, patient on Clinimix with 20meq of KCL infusing @84cc/hr. On Tele due to Mobitz type 2 heart block with some intermittent SR-29-50's Patient is alert. States she feels much better this morning. C/o mild incisional tenderness. Adequate pain control via medications as ordered. Tolerating clear liquid diet. Diaper as she is incontinent. Denies n/v/f/c, CP, palpitations, SOB or TURPIN. Last Vital Signs Temp Pulse Resp BP Pulse Ox 98.3 F 33 L 17 107/36 L 96 12//19 06:00 01/31/ 06:00 01/31/19 06:00 01/31/19 06:00 01/30/ 21:00 PE GEN: nad ABD: soft. midline incision packed with iodoform. umbilical von for approximation intact. LLQ ostomy viable (pink, protruding, producing --> liquid stool) LE: SCDs bilat. Compartments soft. No swelling/edema bilat. Problem List - Problems (1) Status post Reg procedure Assessment/Plan: POD #8 s/p Hartmanns Procedure Tele monitoring --> Mobitz Type2 OOB to chair with assist Advance diet as tolerated Pain management as ordered Ostomy Care RN for education VNS for wound management at home DVT PPX Above plan discussed with Dr. Huff and agrees. Code(s): Z93.3 - COLOSTOMY STATUS (2) Colon obstruction Code(s): K56.609 - UNSP INTESTNL OBST, UNSP TO PARTIAL VERSUS COMPLETE OBST (3) Hyperlipemia Code(s): E78.5 - HYPERLIPIDEMIA, UNSPECIFIED (4) Hypothyroid Code(s): E03.9 - HYPOTHYROIDISM, UNSPECIFIED Qualifiers: Qualified Code(s): E03.4 - Atrophy of thyroid (acquired)
[2019-01-31] MEDS: POTASSIUM CHLORIDE 20 MEQ in AMINO ACIDS 4.25%/D5W 1,000 ML IVPB SCH ×3 (09:11→23:05)
--- NOTE | 2019-01-31 09:30 | PN ---
Progress Note, Physician Chief Complaint: Feels better,pain is less History of Present Illness: S/P hartmans procedure - Current Medication List Current Medications: Active Medications Amlodipine Besylate (Norvasc -) 5 mg PO DAILY [facility] Last Admin: 01/30/19 10:36 Dose: 5 mg Hydralazine HCl (Apresoline Injection -) 10 mg IVPUSH Q8H PRN PRN Reason: HYPERTENSION Potassium Chloride 20 meq/ (Amino Acids) 1,010 mls @ 84 mls/hr IVPB Q12H [facility] Last Admin: 01/31/19 09:11 Dose: Not Given Losartan Potassium (Cozaar -) 50 mg PO DAILY [facility] Last Admin: 01/30/19 10:37 Dose: 50 mg Meperidine HCl (Meperidine 25 Mg/Ml Vial) 25 mg IM Q6H PRN PRN Reason: PAIN LEVEL 4 - 6 Last Admin: 01/30/19 03:59 Dose: 25 mg Ondansetron HCl (Zofran Injection) 4 mg IVPUSH Q6H PRN PRN Reason: NAUSEA Last Admin: 01/30/19 03:39 Dose: 4 mg Pantoprazole Sodium (Protonix Iv) 40 mg IVPUSH DAILY [facility] Last Admin: 01/30/19 10:36 Dose: 40 mg - Objective Vital Signs: Vital Signs Temperature 98.3 F 01/31/19 06:00 Pulse Rate 33 L 01/31/19 06:00 Respiratory Rate 17 01/31/19 06:00 Blood Pressure 107/36 L 01/31/19 06:00 O2 Sat by Pulse Oximetry (%) 96 01/30/19 21:00 Constitutional: Yes: No Distress Eyes: Yes: WNL HENT: Yes: WNL Neck: Yes: WNL Cardiovascular: Yes: WNL Respiratory: Yes: WNL Gastrointestinal: Yes: Hypoactive Bowel Sounds ...Rectal Exam: Yes: WNL Genitourinary: Yes: WNL Musculoskeletal: Yes: Muscle Weakness Edema: No Wound/Incision: Yes: Well Approximated Neurological: Yes: Alert Psychiatric: Yes: Alert Labs: CBC, BMP 01/29/19 06:00 01/29/19 06:00 INR, PTT INR 0.95 (0.83-1.09) 01/23/19 06:24 Assessment[facility]
[2019-01-31] MEDS ORDERED: MEGESTROL ACETATE 400 MG/10 ML UNIT DOSE CUP PO ONE (10:00)
[2019-01-31] MEDS: PANTOPRAZOLE SODIUM 40 MG VIAL IVPUSH SCH (10:36)
[2019-01-31] MEDS: LOSARTAN POTASSIUM 50 MG TABLET (FP) PO SCH (10:36)
[2019-01-31] MEDS: amLODIPine BESYLATE 5 MG TABLET (FP) PO SCH (10:36)
--- NOTE | 2019-01-31 11:30 | PN ---
Physical Exam: SUBJECTIVE: Patient seen and examined OBJECTIVE: Vital Signs Period Temp Pulse Resp BP Sys/Portillo Pulse Ox Last 24 Hr 98.2 F-98.3 F 33-41 15-20 102-148/36-58 96 Gen: AAOx3, NAD HEENT: NCAT, EOMI Neck: supple, no jvd, no bruits, no thyromegally Cardio: rrr, normal s1s2, no mrg noted Pulm: limited exam, minimal rales at b/l bases Abd: surgical dressing clean and intact. MARCE drain with minimal serosang fluid. L sided ostomy with stool. Pos bowel sounds. Tender to palpation Ext: no edema Active Medications Generic Name Dose Route Start Last Admin Trade Name Freq PRN Reason Stop Dose Admin Amlodipine Besylate 5 mg 01/28/19 15:15 01/31/19 10:36 Norvasc - PO Not Given DAILY [facility] Hydralazine HCl 10 mg 01/24/19 20:39 Apresoline Injection - IVPUSH Q8H PRN HYPERTENSION Potassium Chloride 20 meq/ 1,010 mls @ 84 mls/hr 01/27/19 09:32 01/31/19 09: 45 Amino Acids IVPB 84 mls/hr Q12H [facility] Administration Losartan Potassium 50 mg 01/27/19 15:30 01/31/19 10:36 Cozaar - PO Not Given DAILY [facility] Meperidine HCl 25 mg 01/30/19 03:48 01/30/19 03:59 Meperidine 25 Mg/Ml Vial IM 25 mg Q6H PRN Administration PAIN LEVEL 4 - 6 Ondansetron HCl 4 mg 01/24/19 20:39 01/30/19 03:39 Zofran Injection IVPUSH 4 mg Q6H PRN Administration NAUSEA Pantoprazole Sodium 40 mg 01/25/19 10:00 01/31/19 10:36 Protonix Iv IVPUSH 40 mg DAILY [facility] Administration ASSESSMENT/PLAN: Pt is an 84 y/o F with PMH HTN, HLD, hypothyroidism, Cardiac cath (no stents placed), Cholecystectomy, Bilateral cataract surgery who presented to ED with unsteady gait, decreased appetite, and diarrhea. Pt was found to have obstructing sigmoid lesion, which was resected (Green procedure) on 2018. Heme/Onc was consulted to evaluate for colonic mass with elevated CEA. Colonic mass -s/p Green on 01/23 -CEA elevated -will need CT chest once recovered from surgery -await pathology report. Prelim (01/23/2019) suggestive of no malignancy. Adhesions and active colitis were present. Visit type - Emergency Visit Emergency Visit: No - New Patient This patient is new to me today: No - Critical Care Critical Care patient: No ATTENDING PHYSICIAN STATEMENT I saw and evaluated the patient. I reviewed the resident's note and discussed the case with the resident. I agree with the resident's findings and plan as documented. SUBJECTIVE: OBJECTIVE: ASSESSMENT AND PLAN:
--- NOTE | 2019-01-31 13:39 | PN ---
Progress Note (short form) - Note Progress Note: Resting in NAD. No shortness of breath or chest pain. No acute events overnight. Intake & Output 01/28/19 01/29/19 01/30/19 01/31/19 23:59 23:59 23:59 23:59 Intake Total 2176 2736 2132 588 Output Total 1800 0 5 Balance 376 2736 2132 583 Weight 111 lb 8 oz 110 lb 1.6 oz Last Vital Signs Temp Pulse Resp BP Pulse Ox 98.3 F 39 L 21 H 108/38 L 98 01/31/19 06:00 01/31/19 10:00 01/31/19 10:00 01/31/19 10:00 01/31/19 09:00 Active Medications Amlodipine Besylate (Norvasc -) 5 mg PO DAILY [facility] Last Admin: 01/31/19 10:36 Dose: Not Given Hydralazine HCl (Apresoline Injection -) 10 mg IVPUSH Q8H PRN PRN Reason: HYPERTENSION Potassium Chloride 20 meq/ (Amino Acids) 1,010 mls @ 84 mls/hr IVPB Q12H [facility] Last Admin: 01/31/19 09:45 Dose: 84 mls/hr Losartan Potassium (Cozaar -) 50 mg PO DAILY [facility] Last Admin: 01/31/19 10:36 Dose: Not Given Meperidine HCl (Meperidine 25 Mg/Ml Vial) 25 mg IM Q6H PRN PRN Reason: PAIN LEVEL 4 - 6 Last Admin: 01/30/19 03:59 Dose: 25 mg Ondansetron HCl (Zofran Injection) 4 mg IVPUSH Q6H PRN PRN Reason: NAUSEA Last Admin: 01/30/19 03:39 Dose: 4 mg Pantoprazole Sodium (Protonix Iv) 40 mg IVPUSH DAILY [facility] Last Admin: 01/31/19 10:36 Dose: 40 mg Gen: NAD at rest Heart: RRR Lung: decreased breath sounds at the bases Abd: soft, dressings dry, +ostomy pink Ext: no edema A/P Large Bowel Obstruction/Sigmoid Mass POD # 8 Segmental Sigmoid Resection/Colostomy CAD HTN Hyperlipidemia Hypothyrodism - pain control - incentive spirometry - PO per Surgery - monitor ostomy output - DVT prophylaxis Dr Lane
--- NOTE | 2019-01-31 14:46 | PN ---
Progress Note, Physician History of Present Illness: Patient is an 84 year old woman with a PMH of HTN, HLD, Cardiac cath (no stents placed), Cholecystectomy, Bilateral cataract surgery and Hypothyroidism, who presents with complaints of difficulty walking over the past 3-4 days. Patient states that when she walks, she feels "like she is about to fall over". This is not associated with position changes or vertigo, and it does not localize to either side. Patient denies falling or hitting her head and has never felt this way before. She has poor appetite, and her sister notes "she eats only crackers ". Patient denies any fevers, chills, headache, vision changes, cough, congestion, syncope, chest pain, palpitations, SOB, nausea, vomiting, abdominal pain, urinary symptoms, constipation, or leg swelling. Denies cigarette, alcohol , or illicit drug use. Had two loose bowel movements 5 days ago. Denies any recent travel or sick contacts. FH of CAD and DM. OBJECTIVE: Alertand not orthostatic - Current Medication List Current Medications: Active Medications Amlodipine Besylate (Norvasc -) 5 mg PO DAILY [facility] Last Admin: 01/31/19 10:36 Dose: Not Given Hydralazine HCl (Apresoline Injection -) 10 mg IVPUSH Q8H PRN PRN Reason: HYPERTENSION Potassium Chloride 20 meq/ (Amino Acids) 1,010 mls @ 84 mls/hr IVPB Q12H [facility] Last Admin: 01/31/19 09:45 Dose: 84 mls/hr Losartan Potassium (Cozaar -) 50 mg PO DAILY [facility] Last Admin: 01/31/19 10:36 Dose: Not Given Meperidine HCl (Meperidine 25 Mg/Ml Vial) 25 mg IM Q6H PRN PRN Reason: PAIN LEVEL 4 - 6 Last Admin: 01/30/19 03:59 Dose: 25 mg Ondansetron HCl (Zofran Injection) 4 mg IVPUSH Q6H PRN PRN Reason: NAUSEA Last Admin: 01/30/19 03:39 Dose: 4 mg Pantoprazole Sodium (Protonix Iv) 40 mg IVPUSH DAILY [facility] Last Admin: 01/31/19 10:36 Dose: 40 mg - Objective Vital Signs: Vital Signs Temperature 98.3 F 01/31/19 06:00 Pulse Rate 39 L 01/31/19 10:00 Respiratory Rate 21 H 01/31/19 10:00 Blood Pressure 108/38 L 01/31/19 10:00 O2 Sat by Pulse Oximetry (%) 98 01/31/19 09:00 Eyes: Yes: WNL, Conjunctiva Clear, EOM Intact HENT: Yes: WNL, Atraumatic, Normocephalic Neck: Yes: WNL, Supple, Trachea Midline Cardiovascular: Yes: WNL, Regular Rate and Rhythm Respiratory: Yes: WNL, Regular, CTA Bilaterally Gastrointestinal: Yes: WNL, Normal Bowel Sounds Genitourinary: Yes: WNL Musculoskeletal: Yes: WNL Extremities: Yes: WNL Edema: No Integumentary: Yes: WNL Neurological: Yes: WNL, Alert, Oriented ...Motor Strength: WNL Psychiatric: Yes: WNL Labs: CBC, BMP 01/29/19 06:00 01/29/19 06:00 INR, PTT INR 0.95 (0.83-1.09) 01/23/19 06:24 Problem List - Problems (1) Acute electrocardiogram changes Code(s): R94.31 - ABNORMAL ELECTROCARDIOGRAM [ECG] [EKG] (2) Altered bowel habits Code(s): R19.4 - CHANGE IN BOWEL HABIT (3) Ataxia Code(s): R27.0 - ATAXIA, UNSPECIFIED (4) CVA, old, ataxia Code(s): I69.993 - ATAXIA FOLLOWING UNSPECIFIED CEREBROVASCULAR DISEASE (5) Colon obstruction Code(s): K56.609 - UNSP INTESTNL OBST, UNSP TO PARTIAL VERSUS COMPLETE OBST (6) Gait instability Code(s): R26.81 - UNSTEADINESS ON FEET (7) History of cholecystectomy Code(s): Z90.49 - ACQUIRED ABSENCE OF OTHER SPECIFIED PARTS OF DIGESTIVE TRACT (8) History of endoscopic retrograde cholangiopancreatography Code(s): Z98.890 - OTHER SPECIFIED POSTPROCEDURAL STATES (9) Vomiting Code(s): R11.10 - VOMITING, UNSPECIFIED (10) Weight loss Code(s): R63.4 - ABNORMAL WEIGHT LOSS (11) 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 Code(s): I44.1 - ATRIOVENTRICULAR BLOCK, SECOND DEGREE (12) Chest pain Code(s): R07.9 - CHEST PAIN, UNSPECIFIED (13) Chest tightness or pressure Code(s): R07.89 - OTHER CHEST PAIN (14) Chronic diastolic (congestive) heart failure Code(s): I50.32 - CHRONIC DIASTOLIC (CONGESTIVE) HEART FAILURE (15) HTN (hypertension) Code(s): I10 - ESSENTIAL (PRIMARY) HYPERTENSION (16) Has smoked cigarettes within prior year Code(s): Z87.891 - PERSONAL HISTORY OF NICOTINE DEPENDENCE (17) Hyperlipemia Code(s): E78.5 - HYPERLIPIDEMIA, UNSPECIFIED (18) Hypothyroid Code(s): E03.9 - HYPOTHYROIDISM, UNSPECIFIED Qualifiers: Qualified Code(s): E03.4 - Atrophy of thyroid (acquired) Assessment/Plan Large Bowel Obstruction/Sigmoid Mass s/p Segmental Sigmoid Resection/Colostomy POD #6 Irregular HR? ?AF/VT?perioperatively - no tracings available htn heart disease hlp hypothyroidism 2;1 AV block on carvedilol since d/milo obtain 24 holter Plan Monitor HR recovery off carvedilol will obtain the records of prior c. cath pain control as needed incentive spirometry, OOB to chair, early ambulation Continue losartan 50 qd, Lipitor 20 qd, change carvedilol 3.125 bid to Norvasc 5 qd with uptitration as tolerated f/u pathology monitor colostomy output, drain d/milo, repleted k DVT prophylaxis CC time 36 mmin
[2019-01-31] MEDS ORDERED: PT OWN MED DRAWER 7, Y5N ONE (23:00)
[2019-02-01] MEDS ORDERED: ACETAMINOPHEN 325 MG TABLET (FP) PO PRN (02:50)
[2019-02-01 06:24] LABS: HEMATOCRIT 30.1 % (32.4-45.2); HEMOGLOBIN 10.2 GM/dL (10.7-15.3); MCH 29.4 pg (25.7-33.7); MEAN CELL VOLUME 86.6 fl (80-96); MEAN PLT VOLUME 7.2 fl (7.5-11.1); PLATELET COUNT 311 K/MM3 (134-434); RBC 3.48 M/mm3 (3.60-5.2); RDW 14.1 % (11.6-15.6); WHITE BLOOD COUNT 11.3 K/mm3 (4.0-10.0)
[2019-02-01 07:15] LABS: ALBUMIN 1.9 g/dl (3.4-5.0); BILIRUBIN,TOTAL 0.4 mg/dL (0.2-1); BLOOD UREA NITROGEN 29.7 mg/dL (7-18); CALCIUM 9.4 mg/dL (8.5-10.1); CREATININE 0.5 mg/dL (0.55-1.3); POTASSIUM 4.6 mmol/L (3.5-5.1); TOT PROT 4.4 g/dl (6.4-8.2)
--- NOTE | 2019-02-01 09:32 | PN ---
Progress Note, Physician Chief Complaint: feels better History of Present Illness: Case discussed with Dr Vu ,path report no Ca all inflammatory tissue - Current Medication List Current Medications: Active Medications Amlodipine Besylate (Norvasc -) 5 mg PO DAILY [facility] Last Admin: 01/31/19 10:36 Dose: Not Given Hydralazine HCl (Apresoline Injection -) 10 mg IVPUSH Q8H PRN PRN Reason: HYPERTENSION Potassium Chloride 20 meq/ (Amino Acids) 1,010 mls @ 84 mls/hr IVPB Q12H [facility] Last Admin: 01/31/19 23:05 Dose: 84 mls/hr Losartan Potassium (Cozaar -) 50 mg PO DAILY [facility] Last Admin: 01/31/19 10:36 Dose: Not Given Meperidine HCl (Meperidine 25 Mg/Ml Vial) 25 mg IM Q6H PRN PRN Reason: PAIN LEVEL 4 - 6 Last Admin: 01/30/19 03:59 Dose: 25 mg Ondansetron HCl (Zofran Injection) 4 mg IVPUSH Q6H PRN PRN Reason: NAUSEA Last Admin: 01/30/19 03:39 Dose: 4 mg Pantoprazole Sodium (Protonix Iv) 40 mg IVPUSH DAILY [facility] Last Admin: 01/31/19 10:36 Dose: 40 mg - Objective Vital Signs: Vital Signs Temperature 98.2 F 02/01/19 06:00 Pulse Rate 44 L 02/01/19 06:00 Respiratory Rate 17 02/01/19 06:00 Blood Pressure 125/34 L 02/01/19 06:00 O2 Sat by Pulse Oximetry (%) 98 01/31/19 21:00 Constitutional: Yes: Anxious Eyes: Yes: WNL HENT: Yes: WNL Neck: Yes: WNL Cardiovascular: Yes: Bradycardia Respiratory: Yes: Regular Gastrointestinal: Yes: Hypoactive Bowel Sounds ...Rectal Exam: Yes: Deferred Genitourinary: Yes: WNL Musculoskeletal: Yes: Muscle Weakness Edema: No Wound/Incision: Yes: Clean/Dry Psychiatric: Yes: Alert Labs: CBC, BMP 02/01/19 05:30 02/01/19 05:30 INR, PTT INR 0.95 (0.83-1.09) 01/23/19 06:24 Assessment/Plan PT to start Continue cardiac monitoring
[2019-02-01] MEDS: LOSARTAN POTASSIUM 50 MG TABLET (FP) PO SCH (09:36)
[2019-02-01] MEDS: PANTOPRAZOLE SODIUM 40 MG VIAL IVPUSH SCH (09:36)
[2019-02-01] MEDS: amLODIPine BESYLATE 5 MG TABLET (FP) PO SCH (09:36)
[2019-02-01] MEDS: POTASSIUM CHLORIDE 20 MEQ in AMINO ACIDS 4.25%/D5W 1,000 ML IVPB SCH ×2 (09:37→21:45)
--- NOTE | 2019-02-01 10:33 | PN ---
Progress Note (short form) - Note Progress Note: General Surgery: Pt with complaints of abd pain this am, with abd palpation. Tolerating a diet. Vital Signs Period Temp Pulse Resp BP Sys/Portillo Pulse Ox Last 24 Hr 98 F-98.6 F 35-63 16-25 103-132/29-67 98 GEN: A&0x3, NAD CV: RR, mynor cardic Lungs: CTA b/l ABD: mildine inc with intermittent von, fascia intact and no drainage noted. Ostomy with soft stool and flatus LE: no calf tenderness or swelling noted b/l CBC, BMP 02/01/19 05:30 02/01/19 05:30 A/P: 84 yo female s/p hartmans reversal Continue diet as tolerated Ostomy care PT/oob ambulate when feeling better, bradycardia and carvediol discontinued. Pt feels like falling when walking. Local wound care for midline inc and ostomy D/w Dr. Huff
--- NOTE | 2019-02-01 10:42 | EKG ---
Test Reason : Blood Pressure : / mmHG Vent. Rate : 041 BPM Atrial Rate : 041 BPM P-R Int : 200 ms QRS Dur : 124 ms QT Int : 536 ms P-R-T Axes : 057 -17 -66 degrees QTc Int : 442 ms MARKED SINUS BRADYCARDIA WITH OCCASIONAL PREMATURE VENTRICULAR COMPLEXES AND PREMATURE ATRIAL COMPLEXES 2;1 AV block POSSIBLE LEFT ATRIAL ENLARGEMENT LEFT BUNDLE BRANCH BLOCK ABNORMAL ECG WHEN COMPARED WITH ECG OF 28-JAN-2019 10:42, PREMATURE ATRIAL COMPLEXES ARE NOW PRESENT SINUS RHYTHM IS NO LONGER WITH VENTRICULAR ESCAPE COMPLEXES LEFT BUNDLE BRANCH BLOCK HAS REPLACED INCOMPLETE RIGHT BUNDLE BRANCH BLOCK Confirmed by MARRY SALTER MD ([id number]) on 02/01/2019 10:41:22 AM Referred By: GAETANO TUTTLE DR Confirmed By:MARRY SALTER MD
--- NOTE | 2019-02-01 12:15 | HOL ---
Hook-up date: 2019-01-30 14:10:00 Duration: 23:48:00 Test Indications: 2:1 AV BLOCK,R/O,HIGH DEGREE AVB Medications: 07585 QRS complexes 3433 Ventricular ectopics which represent 6 % of total QRS comp. 813 Supraventricular ectopics which represent 1 % of total QRS comp. * Paced QRS complexs which represent % of total QRS comp. * % of Time Classified as Noise VENTRICULAR ECTOPY 3260 Isolated 43 Bigeminal Cycles 85 Couplets 0 Runs 0 Beats in Runs * Beats LONGEST at * BPM at :: -- * Beats FASTEST at * BPM at :: -- SUPRAVENTRICULAR ECTOPY 513 Isolated 90 Couplets 30 Runs 119 Beats in Runs 13 Beats LONGEST at 65 BPM at 19:50:19 2019-01-30 3 Beats FASTEST at 127 BPM at 08:46:36 2019-01-31 HEART RATES 26 MIN at 04:34:52 2019-01-31 38 AVG 80 MAX at 08:44:30 2019-01-31 LONGEST RR 2.544 secs at 04:40:45 2019-01-31 Normal sinus rhythm 2;1 AVB periods of high degree AVBwith junctional escape. episodes of supraventricular runs and short non sustained VT runs Confirmed by GAETANO CASEY, MARRY ([id number]) on 02/01/2019 12:14:40 PM Referred By: Lisa KRUEGER Overread By: MARRY SALTER MD
--- NOTE | 2019-02-01 12:17 | PN ---
Progress Note, Physician History of Present Illness: Patient is an 84 year old woman with a PMH of HTN, HLD, Cardiac cath (no stents placed), Cholecystectomy, Bilateral cataract surgery and Hypothyroidism, who presents with complaints of difficulty walking over the past 3-4 days. Patient states that when she walks, she feels "like she is about to fall over". This is not associated with position changes or vertigo, and it does not localize to either side. Patient denies falling or hitting her head and has never felt this way before. She has poor appetite, and her sister notes "she eats only crackers ". Patient denies any fevers, chills, headache, vision changes, cough, congestion, syncope, chest pain, palpitations, SOB, nausea, vomiting, abdominal pain, urinary symptoms, constipation, or leg swelling. Denies cigarette, alcohol , or illicit drug use. Had two loose bowel movements 5 days ago. Denies any recent travel or sick contacts. FH of CAD and DM. OBJECTIVE: Alertand not orthostatic - Current Medication List Current Medications: Active Medications Amlodipine Besylate (Norvasc -) 5 mg PO DAILY [facility] Last Admin: 02/01/19 09:36 Dose: 5 mg Hydralazine HCl (Apresoline Injection -) 10 mg IVPUSH Q8H PRN PRN Reason: HYPERTENSION Potassium Chloride 20 meq/ (Amino Acids) 1,010 mls @ 84 mls/hr IVPB Q12H [facility] Last Admin: 02/01/19 09:37 Dose: Not Given Losartan Potassium (Cozaar -) 50 mg PO DAILY [facility] Last Admin: 02/01/19 09:36 Dose: 50 mg Pantoprazole Sodium (Protonix Iv) 40 mg IVPUSH DAILY [facility] Last Admin: 02/01/19 09:36 Dose: 40 mg - Objective Vital Signs: Vital Signs Temperature 98.2 F 02/01/19 06:00 Pulse Rate 43 L 02/01/19 09:00 Respiratory Rate 18 02/01/19 09:00 Blood Pressure 119/58 L 02/01/19 09:00 O2 Sat by Pulse Oximetry (%) 98 02/01/19 09:00 Eyes: Yes: WNL, Conjunctiva Clear, EOM Intact HENT: Yes: WNL, Atraumatic, Normocephalic Neck: Yes: WNL, Supple, Trachea Midline Cardiovascular: Yes: WNL, Regular Rate and Rhythm Respiratory: Yes: WNL, Regular, CTA Bilaterally Gastrointestinal: Yes: WNL, Normal Bowel Sounds Genitourinary: Yes: WNL Musculoskeletal: Yes: WNL Extremities: Yes: WNL Edema: No Integumentary: Yes: WNL Neurological: Yes: WNL, Alert, Oriented ...Motor Strength: WNL Psychiatric: Yes: WNL Labs: CBC, BMP 02/01/19 05:30 02/01/19 05:30 INR, PTT INR 0.95 (0.83-1.09) 01/23/19 06:24 Problem List - Problems (1) Acute electrocardiogram changes Code(s): R94.31 - ABNORMAL ELECTROCARDIOGRAM [ECG] [EKG] (2) Altered bowel habits Code(s): R19.4 - CHANGE IN BOWEL HABIT (3) Ataxia Code(s): R27.0 - ATAXIA, UNSPECIFIED (4) CVA, old, ataxia Code(s): I69.993 - ATAXIA FOLLOWING UNSPECIFIED CEREBROVASCULAR DISEASE (5) Colon obstruction Code(s): K56.609 - UNSP INTESTNL OBST, UNSP TO PARTIAL VERSUS COMPLETE OBST (6) Gait instability Code(s): R26.81 - UNSTEADINESS ON FEET (7) History of cholecystectomy Code(s): Z90.49 - ACQUIRED ABSENCE OF OTHER SPECIFIED PARTS OF DIGESTIVE TRACT (8) History of endoscopic retrograde cholangiopancreatography Code(s): Z98.890 - OTHER SPECIFIED POSTPROCEDURAL STATES (9) Vomiting Code(s): R11.10 - VOMITING, UNSPECIFIED (10) Weight loss Code(s): R63.4 - ABNORMAL WEIGHT LOSS (11) 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 Code(s): I44.1 - ATRIOVENTRICULAR BLOCK, SECOND DEGREE (12) Chest pain Code(s): R07.9 - CHEST PAIN, UNSPECIFIED (13) Chest tightness or pressure Code(s): R07.89 - OTHER CHEST PAIN (14) Chronic diastolic (congestive) heart failure Code(s): I50.32 - CHRONIC DIASTOLIC (CONGESTIVE) HEART FAILURE (15) HTN (hypertension) Code(s): I10 - ESSENTIAL (PRIMARY) HYPERTENSION (16) Has smoked cigarettes within prior year Code(s): Z87.891 - PERSONAL HISTORY OF NICOTINE DEPENDENCE (17) Hyperlipemia Code(s): E78.5 - HYPERLIPIDEMIA, UNSPECIFIED (18) Hypothyroid Code(s): E03.9 - HYPOTHYROIDISM, UNSPECIFIED Qualifiers: Qualified Code(s): E03.4 - Atrophy of thyroid (acquired) Assessment/Plan Large Bowel Obstruction/Sigmoid Mass s/p Segmental Sigmoid Resection/Colostomy POD #7 Irregular HR? ?AF/VT?perioperatively - no tracings available htn heart disease hlp hypothyroidism 2;1 AV block episodes of high degree AVB with junctional escape. Asymptomatic with good BP. 24 holter Plan Monitor HR recovery off carvedilol - if symptomatic or with unsufficient junctional escape will evaluate for PPM will obtain the records of prior c. cath pain control as needed incentive spirometry, OOB to chair, early ambulation Continue losartan 50 qd, Lipitor 20 qd, Norvasc 5 qd with uptitration as tolerated f/u pathology monitor colostomy output, drain d/milo, repleted k DVT prophylaxis CC time 36 mmin
--- NOTE | 2019-02-01 13:25 | PN ---
Progress Note (short form) - Note Progress Note: PULMONARY No shortness of breath or chest pain. Tolerating PO. Vital Signs Period Temp Pulse Resp BP Sys/Portillo Pulse Ox Last 24 Hr 98 F-98.6 F 35-63 16-25 103-132/29-67 98-98 Gen: NAD at rest Heart: RRR Lung: decreased breath sounds at the bases Abd: soft, dressings dry, +ostomy pink, stool output Ext: no edema CBC, BMP 02/01/19 05:30 02/01/19 05:30 Active Medications Amlodipine Besylate (Norvasc -) 5 mg PO DAILY [facility] Last Admin: 02/01/19 09:36 Dose: 5 mg Hydralazine HCl (Apresoline Injection -) 10 mg IVPUSH Q8H PRN PRN Reason: HYPERTENSION Potassium Chloride 20 meq/ (Amino Acids) 1,010 mls @ 84 mls/hr IVPB Q12H [facility] Last Admin: 02/01/19 09:37 Dose: Not Given Losartan Potassium (Cozaar -) 50 mg PO DAILY [facility] Last Admin: 02/01/19 09:36 Dose: 50 mg Pantoprazole Sodium (Protonix Iv) 40 mg IVPUSH DAILY [facility] Last Admin: 02/01/19 09:36 Dose: 40 mg A/P Large Bowel Obstruction/Sigmoid Mass s/p Segmental Sigmoid Resection/Colostomy POD #2 CAD HTN Hyperlipidemia Hypothyrodism - pain control - incentive spirometry - PO as tolerated - monitor ostomy output - DVT prophylaxis - rehab/PT
[2019-02-02] MEDS: POTASSIUM CHLORIDE 20 MEQ in AMINO ACIDS 4.25%/D5W 1,000 ML IVPB SCH ×2 (03:59→11:04)
--- NOTE | 2019-02-02 09:42 | PN ---
Progress Note, Physician Chief Complaint: Feels better History of Present Illness: S/P heartmans procedure On PO ,tolerating OK - Current Medication List Current Medications: Active Medications Amlodipine Besylate (Norvasc -) 5 mg PO DAILY [facility] Last Admin: 02/01/19 09:36 Dose: 5 mg Hydralazine HCl (Apresoline Injection -) 10 mg IVPUSH Q8H PRN PRN Reason: HYPERTENSION Potassium Chloride 20 meq/ (Amino Acids) 1,010 mls @ 84 mls/hr IVPB Q12H [facility] Last Admin: 02/02/19 03:59 Dose: 84 mls/hr Losartan Potassium (Cozaar -) 50 mg PO DAILY [facility] Last Admin: 02/01/19 09:36 Dose: 50 mg Pantoprazole Sodium (Protonix Iv) 40 mg IVPUSH DAILY [facility] Last Admin: 02/01/19 09:36 Dose: 40 mg - Objective Vital Signs: Vital Signs Temperature 98.0 F 02/02/19 07:59 Pulse Rate 41 L 02/02/19 07:59 Respiratory Rate 18 02/02/19 07:59 Blood Pressure 119/41 L 02/02/19 07:59 O2 Sat by Pulse Oximetry (%) 97 02/01/19 20:45 Constitutional: Yes: Anxious Eyes: Yes: WNL HENT: Yes: WNL Neck: Yes: WNL Cardiovascular: Yes: Bradycardia Respiratory: Yes: Regular Gastrointestinal: Yes: Normal Bowel Sounds Genitourinary: Yes: WNL Breast(s): Yes: WNL Extremities: Yes: WNL Peripheral Pulses WNL: Yes Wound/Incision: Yes: Clean/Dry Neurological: Yes: Alert Labs: CBC, BMP 02/01/19 05:30 02/01/19 05:30 INR, PTT INR 0.95 (0.83-1.09) 01/23/19 06:24 Assessment/Plan Heart rate still in 40,s AV block remains Continue monitering
--- NOTE | 2019-02-02 09:56 | PN ---
Progress Note, Physician Chief Complaint: Pt A&Ox3; denies dizziness, chest pain, palpitations; feels weak (says she "can walk to the bathroom, but they have not been getting me up". History of Present Illness: Ms. Rodrigez is an 84-year-old woman (b. Jamil) with a history of hypothyroidism, hypertension, hyperlipidemia, coronary artery disease. Patient presents emergency department with a complaint of having an unbalanced feeling. She has had the symptoms for the past 2 to 3 days. No headache, no head trauma. No focal weakness or numbness. No changes in his speech. No facial asymmetry that she is noticed. This is atypical for this patient because typically according to her patient and her sister, she is very fast and agile on her feet. PMH: Hypothyroidism, hypertension, hyperlipidemia, CAD PSH: Medication: Levothyroxine, Amlodipine, Aspirin, Atorvastatin, Losartan Allergies: NKDA - Current Medication List Current Medications: Active Medications Amlodipine Besylate (Norvasc -) 5 mg PO DAILY [facility] Last Admin: 02/01/19 09:36 Dose: 5 mg Hydralazine HCl (Apresoline Injection -) 10 mg IVPUSH Q8H PRN PRN Reason: HYPERTENSION Potassium Chloride 20 meq/ (Amino Acids) 1,010 mls @ 84 mls/hr IVPB Q12H [facility] Last Admin: 02/02/19 03:59 Dose: 84 mls/hr Losartan Potassium (Cozaar -) 50 mg PO DAILY [facility] Last Admin: 02/01/19 09:36 Dose: 50 mg Pantoprazole Sodium (Protonix Iv) 40 mg IVPUSH DAILY [facility] Last Admin: 02/01/19 09:36 Dose: 40 mg - Objective Vital Signs: Vital Signs Temperature 98.0 F 02/02/19 07:59 Pulse Rate 41 L 02/02/19 07:59 Respiratory Rate 18 02/02/19 07:59 Blood Pressure 119/41 L 02/02/19 07:59 O2 Sat by Pulse Oximetry (%) 97 02/01/19 20:45 Constitutional: Yes: Calm, Thin Eyes: Yes: WNL HENT: Yes: WNL Neck: Yes: WNL Cardiovascular: Yes: S1 (varies in intensity), S2 (split) Respiratory: Yes: WNL Gastrointestinal: Yes: Soft ...Rectal Exam: Yes: Deferred Genitourinary: No: Anuria Breast(s): Yes: WNL Musculoskeletal: Yes: Muscle Weakness Extremities: Yes: WNL Edema: No Peripheral Pulses WNL: Yes Integumentary: Yes: WNL Neurological: Yes: Alert, Oriented, Weakness Psychiatric: Yes: WNL Labs: CBC, BMP 02/01/19 05:30 02/01/19 05:30 INR, PTT INR 0.95 (0.83-1.09) 01/23/19 06:24 - ....Imaging EKG: Image Reviewed Other: Image Reviewed (telemetry: sinus rhythm; 2nd degree AVB with 2:1 block;) Problem List - Problems (1) Chronic diastolic (congestive) heart failure Code(s): I50.32 - CHRONIC DIASTOLIC (CONGESTIVE) HEART FAILURE (2) HTN (hypertension) Code(s): I10 - ESSENTIAL (PRIMARY) HYPERTENSION (3) Hypothyroid Assessment/Plan: Low TSh; f/u free T4. 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 Code(s): E03.9 - HYPOTHYROIDISM, UNSPECIFIED Qualifiers: Qualified Code(s): E03.4 - Atrophy of thyroid (acquired) (4) 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 Assessment/Plan: 2nd degree AVB with periods of high-degree AVB with junctional excape Plan: F/u magnesium level, and keep 2.0-2.4 Keep K 4.0-4.5 Keep PO4 2.5-4.9 F/u TFTs (low TSH; hx hypothyroidism0. Decrease amlodipine to 2.5 mg daily (periods of relatively low BP now). Case discussed with Dr. Blount, EP: if remains asymptomatic, will be able to be discharged home and f/u with EP at [place] as outpatient. For physical rehabilitation. Code(s): I44.1 - ATRIOVENTRICULAR BLOCK, SECOND DEGREE
[2019-02-02] MEDS: PANTOPRAZOLE SODIUM 40 MG VIAL IVPUSH SCH (11:04)
[2019-02-02 11:50] LABS: BASO % 0.5 % (0-2.0); EOS % 1.1 % (0-4.5); HEMATOCRIT 33.4 % (32.4-45.2); HEMOGLOBIN 11.3 GM/dL (10.7-15.3); LYMPH % 9.5 % (8-40); MCH 29.4 pg (25.7-33.7); MCHC 33.7 g/dl (32.0-36.0); MEAN CELL VOLUME 87.2 fl (80-96); MEAN PLT VOLUME 7.3 fl (7.5-11.1); MONO % 7.3 % (3.8-10.2); NEUT % 81.6 % (42.8-82.8); PLATELET COUNT 431 K/MM3 (134-434); RBC 3.83 M/mm3 (3.60-5.2); RDW 14.2 % (11.6-15.6); WHITE BLOOD COUNT 12.5 K/mm3 (4.0-10.0)
[2019-02-02 12:15] LABS: CREATININE 0.7 mg/dL (0.55-1.3); MAGNESIUM 1.8 mg/dL (1.8-2.4); POTASSIUM 4.9 mmol/L (3.5-5.1)
[2019-02-02] MEDS ORDERED: LEVOTHYROXINE NA 50 MCG TABLET (FP) PO ONE (12:31)
[2019-02-02] MEDS: amLODIPine BESYLATE 5 MG TABLET (FP) PO SCH (12:34)
[2019-02-02] MEDS ORDERED: MAGNESIUM SULF 50% (8.12 MEQ/2 ML-1 GM VIAL) IVPB ONE (12:45)
--- NOTE | 2019-02-02 12:58 | PN ---
Progress Note (short form) - Note Progress Note: Resting in NAD. No shortness of breath or chest pain. No acute events overnight. Intake & Output 01/30/19 01/31/19 02/01/19 02/02/19 23:59 23:59 23:59 23:59 Intake Total 2132 1164 2272 758 Output Total 0 235 500 Balance 2132 929 1772 758 Weight 110 lb 1.6 oz 106 lb 9.6 oz Last Vital Signs Temp Pulse Resp BP Pulse Ox 98.0 F 35 L 15 116/38 L 96 02/02/19 07:59 02/02/19 11:00 02/02/19 11:00 02/02/19 11:00 02/02/19 09:00 Active Medications Amlodipine Besylate (Norvasc -) 2.5 mg PO DAILY [facility] Hydralazine HCl (Apresoline Injection -) 10 mg IVPUSH Q8H PRN PRN Reason: HYPERTENSION Potassium Chloride 20 meq/ (Amino Acids) 1,010 mls @ 84 mls/hr IVPB Q12H [facility] Last Admin: 02/02/19 11:04 Dose: Not Given Levothyroxine Sodium (Synthroid -) 50 mcg PO DAILY@0700 [facility] Losartan Potassium (Cozaar -) 50 mg PO DAILY [facility] Last Admin: 02/01/19 09:36 Dose: 50 mg Pantoprazole Sodium (Protonix Iv) 40 mg IVPUSH DAILY [facility] Last Admin: 02/02/19 11:04 Dose: 40 mg Gen: NAD at rest Heart: RRR Lung: decreased breath sounds at the bases Abd: soft, dressings dry, +ostomy pink Ext: no edema A/P Large Bowel Obstruction/Sigmoid Mass POD # 8 Segmental Sigmoid Resection/Colostomy CAD HTN Hyperlipidemia Hypothyrodism Laboratory Results - last 24 hr 02/01/19 02/02/19 02/02/19 23:18 11:10 11:10 WBC RBC Hgb Hct MCV MCH MCHC RDW Plt Count MPV Absolute Neuts (auto) Neutrophils % Lymphocytes % Monocytes % Eosinophils % Basophils % Nucleated RBC % Sodium 134 L Potassium 4.9 Chloride 101 Carbon Dioxide 25 Anion Gap 8 BUN 32.0 H Creatinine 0.7 Est GFR (CKD-EPI)AfAm 91.57 Est GFR (CKD-EPI)NonAf 79.00 POC Glucometer 105 Random Glucose 97 Calcium 10.0 Phosphorus 3.0 Magnesium 1.8 Free T4 0.55 L 02/02/19 11:10 WBC 12.5 H RBC 3.83 Hgb 11.3 Hct 33.4 MCV 87.2 MCH 29.4 MCHC 33.7 RDW 14.2 Plt Count 431 D MPV 7.3 L Absolute Neuts (auto) 10.2 H Neutrophils % 81.6 Lymphocytes % 9.5 D Monocytes % 7.3 Eosinophils % 1.1 Basophils % 0.5 Nucleated RBC % 0 Sodium Potassium Chloride Carbon Dioxide Anion Gap BUN Creatinine Est GFR (CKD-EPI)AfAm Est GFR (CKD-EPI)NonAf POC Glucometer Random Glucose Calcium Phosphorus Magnesium Free T4 - pain control - incentive spirometry - PO per Surgery - monitor ostomy output - DVT prophylaxis Dr Lane
--- NOTE | 2019-02-02 13:10 | PN ---
Progress Note (short form) - Note Progress Note: Surgery: Pt without complaints of abd pain. Tolerating an oral diet.. Vital Signs Period Temp Pulse Resp BP Sys/Portillo Pulse Ox Last 24 Hr 97.9 F-98.8 F 34-41 15-22 100-126/29-50 96-97 GEN: A&0x3, NAD CV; Bradycardic Lungs: CTA b/l Left arm: mild swelling, no erythema ABD: midline inc c/d/i. Skin edges open with intermittent von. Fascia intact with pink granulation tissue. Ostomy with flatus/stool. LE: no calf tenderness or swelling b/l CBC, BMP 02/02/19 11:10 02/02/19 11:10 A/p: 84 yo female s/p hartmans procedure Continue diet as tolerated. Discontinue iv clinimax, pt toleraing regular diet OOB as tolerated as per cardiology, pt remains bradycardic D/w Dr. Huff
[2019-02-02] MEDS: LOSARTAN POTASSIUM 50 MG TABLET (FP) PO SCH (13:24)
[2019-02-03] MEDS: POTASSIUM CHLORIDE 20 MEQ in AMINO ACIDS 4.25%/D5W 1,000 ML IVPB SCH (00:41)
[2019-02-03] MEDS: LEVOTHYROXINE NA 50 MCG TABLET (FP) PO SCH (06:30)
--- NOTE | 2019-02-03 09:46 | PN ---
Progress Note, Physician Chief Complaint: Feels better History of Present Illness: heart rate still low 30-40 - Current Medication List Current Medications: Active Medications Amlodipine Besylate (Norvasc -) 2.5 mg PO DAILY [facility] Hydralazine HCl (Apresoline Injection -) 10 mg IVPUSH Q8H PRN PRN Reason: HYPERTENSION Levothyroxine Sodium (Synthroid -) 50 mcg PO DAILY@0700 [facility] Last Admin: 02/03/19 06:30 Dose: 50 mcg Losartan Potassium (Cozaar -) 50 mg PO DAILY [facility] Last Admin: 02/02/19 13:24 Dose: Not Given Pantoprazole Sodium (Protonix Iv) 40 mg IVPUSH DAILY [facility] Last Admin: 02/02/19 11:04 Dose: 40 mg - Objective Vital Signs: Vital Signs Temperature 98.2 F 02/03/19 08:14 Pulse Rate 33 L 02/03/19 08:14 Respiratory Rate 18 02/03/19 08:14 Blood Pressure 119/38 L 02/03/19 08:14 O2 Sat by Pulse Oximetry (%) 98 02/03/19 08:15 Constitutional: Yes: No Distress Eyes: Yes: WNL HENT: Yes: WNL Neck: Yes: WNL Cardiovascular: Yes: Bradycardia Respiratory: Yes: Regular Gastrointestinal: Yes: Normal Bowel Sounds Genitourinary: Yes: WNL Wound/Incision: Yes: Dressing Dry and Intact Psychiatric: Yes: Alert Labs: CBC, BMP 02/02/19 11:10 02/02/19 11:10 INR, PTT INR 0.95 (0.83-1.09) 01/23/19 06:24 Assessment/Plan Continue same trt
[2019-02-03] MEDS: amLODIPine BESYLATE 2.5 MG TABLET (FP) PO SCH ×2 (09:50→10:42)
[2019-02-03] MEDS: PANTOPRAZOLE SODIUM 40 MG VIAL IVPUSH SCH (09:51)
[2019-02-03] MEDS: LOSARTAN POTASSIUM 50 MG TABLET (FP) PO SCH (10:42)
--- NOTE | 2019-02-03 11:28 | PN ---
Progress Note (short form) - Note Progress Note: Resting in NAD. No shortness of breath or chest pain. No acute events overnight. Intake & Output 01/30/19 01/31/19 02/01/19 02/02/19 23:59 23:59 23:59 23:59 Intake Total 2132 1164 2272 758 Output Total 0 235 500 Balance 2132 929 1772 758 Weight 110 lb 1.6 oz 106 lb 9.6 oz Last Vital Signs Temp Pulse Resp BP Pulse Ox 98.0 F 35 L 15 116/38 L 96 02/02/19 07:59 02/02/19 11:00 02/02/19 11:00 02/02/19 11:00 02/02/19 09:00 Active Medications Amlodipine Besylate (Norvasc -) 2.5 mg PO DAILY [facility] Hydralazine HCl (Apresoline Injection -) 10 mg IVPUSH Q8H PRN PRN Reason: HYPERTENSION Potassium Chloride 20 meq/ (Amino Acids) 1,010 mls @ 84 mls/hr IVPB Q12H [facility] Last Admin: 02/02/19 11:04 Dose: Not Given Levothyroxine Sodium (Synthroid -) 50 mcg PO DAILY@0700 [facility] Losartan Potassium (Cozaar -) 50 mg PO DAILY [facility] Last Admin: 02/01/19 09:36 Dose: 50 mg Pantoprazole Sodium (Protonix Iv) 40 mg IVPUSH DAILY [facility] Last Admin: 02/02/19 11:04 Dose: 40 mg Gen: NAD at rest Heart: RRR Lung: decreased breath sounds at the bases Abd: soft, dressings dry, +ostomy pink Ext: no edema Laboratory Results - last 24 hr 02/02/19 02/02/19 02/02/19 11:10 11:10 11:10 WBC 12.5 H RBC 3.83 Hgb 11.3 Hct 33.4 MCV 87.2 MCH 29.4 MCHC 33.7 RDW 14.2 Plt Count 431 D MPV 7.3 L Absolute Neuts (auto) 10.2 H Neutrophils % 81.6 Lymphocytes % 9.5 D Monocytes % 7.3 Eosinophils % 1.1 Basophils % 0.5 Nucleated RBC % 0 Sodium 134 L Potassium 4.9 Chloride 101 Carbon Dioxide 25 Anion Gap 8 BUN 32.0 H Creatinine 0.7 Est GFR (CKD-EPI)AfAm 91.57 Est GFR (CKD-EPI)NonAf 79.00 Random Glucose 97 Calcium 10.0 Phosphorus 3.0 Magnesium 1.8 Free T4 0.55 L A/P Large Bowel Obstruction/Sigmoid Mass POD # 9 Segmental Sigmoid Resection/Colostomy CAD HTN Hyperlipidemia Hypothyrodism - pain control - incentive spirometry - PO per Surgery - monitor ostomy output - DVT prophylaxis Dr Lane
--- NOTE | 2019-02-03 14:12 | PN ---
Progress Note, Physician Chief Complaint: Pt A&Ox3 OOB in chair; eating breakfast. Asymptomatic. Had physical therapy yesterday; walked to bathroom. History of Present Illness: Ms. Rodrigez is an 84-year-old woman (b. Jamil) with a history of hypothyroidism, hypertension, hyperlipidemia, coronary artery disease. Patient presents emergency department with a complaint of having an unbalanced feeling. She has had the symptoms for the past 2 to 3 days. No headache, no head trauma. No focal weakness or numbness. No changes in his speech. No facial asymmetry that she is noticed. This is atypical for this patient because typically according to her patient and her sister, she is very fast and agile on her feet. PMH: Hypothyroidism, hypertension, hyperlipidemia, CAD PSH: Medication: Levothyroxine, Amlodipine, Aspirin, Atorvastatin, Losartan Allergies: NKDA Pt lives at home with her sister. - Current Medication List Current Medications: Active Medications Amlodipine Besylate (Norvasc -) 2.5 mg PO DAILY [facility] Last Admin: 02/03/19 10:42 Dose: Not Given Hydralazine HCl (Apresoline Injection -) 10 mg IVPUSH Q8H PRN PRN Reason: HYPERTENSION Levothyroxine Sodium (Synthroid -) 50 mcg PO DAILY@0700 [facility] Last Admin: 02/03/19 06:30 Dose: 50 mcg Losartan Potassium (Cozaar -) 50 mg PO DAILY [facility] Last Admin: 02/03/19 10:42 Dose: Not Given Pantoprazole Sodium (Protonix Iv) 40 mg IVPUSH DAILY [facility] Last Admin: 02/03/19 09:51 Dose: 40 mg - Objective Vital Signs: Vital Signs Temperature 98 F 02/03/19 11:40 Pulse Rate 34 L 02/03/19 11:40 Respiratory Rate 16 02/03/19 11:40 Blood Pressure 119/47 L 02/03/19 11:40 O2 Sat by Pulse Oximetry (%) 98 02/03/19 08:15 Constitutional: Yes: No Distress Eyes: Yes: WNL HENT: Yes: WNL Neck: Yes: WNL Cardiovascular: Yes: Bradycardia, S1, S2 (split) Respiratory: Yes: WNL Gastrointestinal: Yes: Soft ...Rectal Exam: Yes: Deferred Genitourinary: Yes: Anuria Breast(s): Yes: WNL Musculoskeletal: Yes: Muscle Weakness Extremities: Yes: Cool Edema: No Integumentary: Yes: WNL Neurological: Yes: Alert, Oriented, Weakness Psychiatric: Yes: WNL Labs: CBC, BMP 02/02/19 11:10 02/02/19 11:10 INR, PTT INR 0.95 (0.83-1.09) 01/23/19 06:24 Problem List - Problems (1) Chronic diastolic (congestive) heart failure Code(s): I50.32 - CHRONIC DIASTOLIC (CONGESTIVE) HEART FAILURE (2) HTN (hypertension) Assessment/Plan: On hydralazine, amlodipine, and losartan. Problems reviewed: Yes Code(s): I10 - ESSENTIAL (PRIMARY) HYPERTENSION (3) Hypothyroid Assessment/Plan: Low TSh; f/u free T4. 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 Plan: F/u magnesium level, and keep 2.0-2.4 Keep K 4.0-4.5 Keep PO4 2.5-4.9 F/u TFTs (low TSH and free T4; hx hypothyroidism; started on Synthroid, but needs review with PMD/journeyman glazier). Decreased amlodipine to 2.5 mg daily (periods of relatively low BP now). Case discussed with CARMELITA Hernandez, with all EKG/Holter/telemetry findings perused : if remains asymptomatic, will be able to be discharged home and f/u PMD, enlisted advisor, and CARMELITA Hernandez at [place], as outpatient. Continue physical rehabilitation. Code(s): I44.1 - ATRIOVENTRICULAR BLOCK, SECOND DEGREE
[2019-02-04] MEDS: LEVOTHYROXINE NA 50 MCG TABLET (FP) PO SCH (07:02)
--- NOTE | 2019-02-04 09:30 | PN ---
Progress Note, Physician Chief Complaint: Feels much better History of Present Illness: Case discussed with Dr Dougherty Can be transferred to SNF for short term rehab - Current Medication List Current Medications: Active Medications Amlodipine Besylate (Norvasc -) 2.5 mg PO DAILY [facility] Last Admin: 02/03/19 10:42 Dose: Not Given Hydralazine HCl (Apresoline Injection -) 10 mg IVPUSH Q8H PRN PRN Reason: HYPERTENSION Levothyroxine Sodium (Synthroid -) 50 mcg PO DAILY@0700 [facility] Last Admin: 02/04/19 07:02 Dose: 50 mcg Losartan Potassium (Cozaar -) 50 mg PO DAILY [facility] Last Admin: 02/03/19 10:42 Dose: Not Given Pantoprazole Sodium (Protonix Iv) 40 mg IVPUSH DAILY [facility] Last Admin: 02/03/19 09:51 Dose: 40 mg - Objective Vital Signs: Vital Signs Temperature 98.2 F 02/04/19 02:00 Pulse Rate 30 L 02/04/19 02:00 Respiratory Rate 17 02/04/19 02:00 Blood Pressure 136/46 L 02/03/19 17:15 O2 Sat by Pulse Oximetry (%) 98 02/03/19 21:00 Constitutional: Yes: Calm Eyes: Yes: WNL HENT: Yes: WNL Neck: Yes: WNL Cardiovascular: Yes: Bradycardia Respiratory: Yes: WNL Gastrointestinal: Yes: Normal Bowel Sounds Genitourinary: Yes: WNL Musculoskeletal: Yes: Muscle Weakness Wound/Incision: Yes: Open to air, Sutures Removed Neurological: Yes: Alert Labs: CBC, BMP 02/02/19 11:10 02/02/19 11:10 INR, PTT INR 0.95 (0.83-1.09) 01/23/19 06:24 Assessment/Plan Continue same trt
[2019-02-04] MEDS ORDERED: PT OWN MED DRAWER 7, Y5N ONE (09:55)
[2019-02-04] MEDS: LOSARTAN POTASSIUM 50 MG TABLET (FP) PO SCH (09:59)
[2019-02-04] MEDS: PANTOPRAZOLE SODIUM 40 MG VIAL IVPUSH SCH (09:59)
[2019-02-04] MEDS: amLODIPine BESYLATE 2.5 MG TABLET (FP) PO SCH (09:59)
--- NOTE | 2019-02-04 10:19 | PN ---
Progress Note (short form) - Note Progress Note: Resting in NAD. No shortness of breath or chest pain. No acute events overnight. Intake & Output 02/01/19 02/02/19 02/03/19 02/04/19 23:59 23:59 23:59 23:59 Intake Total 2272 1610 380 Output Total 500 30 Balance 1772 1580 380 Weight 106 lb 9.6 oz 106 lb 9.6 oz Last Vital Signs Temp Pulse Resp BP Pulse Ox 98.2 F 33 L 20 111/47 L 98 02/04/19 02:00 02/04/19 10:00 02/04/19 10:00 02/04/19 10:00 02/03/19 21:00 Active Medications Amlodipine Besylate (Norvasc -) 2.5 mg PO DAILY [facility] Last Admin: 02/04/19 09:59 Dose: Not Given Hydralazine HCl (Apresoline Injection -) 10 mg IVPUSH Q8H PRN PRN Reason: HYPERTENSION Levothyroxine Sodium (Synthroid -) 50 mcg PO DAILY@0700 [facility] Last Admin: 02/04/19 07:02 Dose: 50 mcg Losartan Potassium (Cozaar -) 50 mg PO DAILY [facility] Last Admin: 02/04/19 09:59 Dose: Not Given Pantoprazole Sodium (Protonix Iv) 40 mg IVPUSH DAILY [facility] Last Admin: 02/04/19 09:59 Dose: 40 mg Gen: NAD at rest Heart: RRR Lung: decreased breath sounds at the bases Abd: soft, dressings dry, +ostomy pink Ext: no edema A/P Large Bowel Obstruction/Sigmoid Mass POD # 12 Segmental Sigmoid Resection/Colostomy CAD HTN Hyperlipidemia Hypothyrodism Bradycardia - pain control - incentive spirometry - PO as tolerated - monitor ostomy output - DVT prophylaxis - DC planning Dr Lane
--- NOTE | 2019-02-04 12:33 | PN ---
Progress Note, Physician Chief Complaint: Events noted Coverage for Dr. Barrett Not in distress History of Present Illness: Patient was seen and examined. Awake. Chart was reviewed Denies chest pain, SOB or palpitations Episodes of 2:1 secondary AV block - Current Medication List Current Medications: Active Medications Amlodipine Besylate (Norvasc -) 2.5 mg PO DAILY [facility] Last Admin: 02/04/19 09:59 Dose: Not Given Hydralazine HCl (Apresoline Injection -) 10 mg IVPUSH Q8H PRN PRN Reason: HYPERTENSION Levothyroxine Sodium (Synthroid -) 50 mcg PO DAILY@0700 [facility] Last Admin: 02/04/19 07:02 Dose: 50 mcg Losartan Potassium (Cozaar -) 50 mg PO DAILY [facility] Last Admin: 02/04/19 09:59 Dose: Not Given Pantoprazole Sodium (Protonix Iv) 40 mg IVPUSH DAILY [facility] Last Admin: 02/04/19 09:59 Dose: 40 mg - Objective Vital Signs: Vital Signs Temperature 98.2 F 02/04/19 02:00 Pulse Rate 33 L 02/04/19 10:00 Respiratory Rate 20 02/04/19 10:00 Blood Pressure 111/47 L 02/04/19 10:00 O2 Sat by Pulse Oximetry (%) 98 02/03/19 21:00 Cardiovascular: Yes: Bradycardia, S1, S2 Respiratory: Yes: CTA Bilaterally Gastrointestinal: Yes: Normal Bowel Sounds, Soft. No: Tenderness Edema: No Additional Findings/Remarks: Review of Systems Constitutional: denies: Chills or Fever Cardiovascular: denies: chest pain, SOB Respiratory: denies: SOB, cough Gastrointestinal: denies: Nausea, Vomiting, Diarrhea, Constipation or Abdominal Pain Genitourinary: denies: Dysuria Musculoskeletal: denies: Joint Pain Neurological: denies: Dizziness or Headache Labs: CBC, BMP 02/02/19 11:10 02/02/19 11:10 Problem List - Problems (1) Acute electrocardiogram changes Code(s): R94.31 - ABNORMAL ELECTROCARDIOGRAM [ECG] [EKG] (2) CVA, old, ataxia Code(s): I69.993 - ATAXIA FOLLOWING UNSPECIFIED CEREBROVASCULAR DISEASE (3) 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 Secondary AV block 2:1 2. HTN 3. Acute on chronic diastolic failure currently compensated 4. Hypothyroidism PLAN: 1. As per recommendation of primary cardiology team (Dr. barrtet), patient is to be discharged and followed by Dr Rogelio Blount at [facility] or further work up and management including EP and possible PPM if patient is agreeable (so far patient has refused) 2. Avoid AV rona agent 3. Continue Losartan and Amlodipine as tolerated 4. Correct NA Further plans are to follow Esteban Morales MD
[2019-02-05] MEDS: LEVOTHYROXINE NA 50 MCG TABLET (FP) PO SCH (06:37)
[2019-02-05] MEDS ORDERED: PT OWN MED DRAWER 7, Y5N ONE (08:36)
[2019-02-05] MEDS: amLODIPine BESYLATE 2.5 MG TABLET (FP) PO SCH (09:21)
[2019-02-05] MEDS: PANTOPRAZOLE SODIUM 40 MG VIAL IVPUSH SCH (09:21)
[2019-02-05] MEDS: LOSARTAN POTASSIUM 50 MG TABLET (FP) PO SCH (09:23)
--- NOTE | 2019-02-05 10:06 | PN ---
Progress Note (short form) - Note Progress Note: Resting in NAD. Clinically unchanged. No shortness of breath or chest pain. No acute events overnight. Intake & Output 02/02/19 02/03/19 02/04/19 02/05/19 23:59 23:59 23:59 23:59 Intake Total 1610 380 100 50 Output Total 30 Balance 1580 380 100 50 Weight 106 lb 9.6 oz 106 lb 9.6 oz 110 lb Last Vital Signs Temp Pulse Resp BP Pulse Ox 98.5 F 33 L 17 136/49 L 98 02/05/19 09:23 02/05/19 09:23 02/05/19 09:23 02/05/19 09:23 02/04/19 19:54 Active Medications Amlodipine Besylate (Norvasc -) 2.5 mg PO DAILY [facility] Last Admin: 02/05/19 09:21 Dose: 2.5 mg Hydralazine HCl (Apresoline Injection -) 10 mg IVPUSH Q8H PRN PRN Reason: HYPERTENSION Levothyroxine Sodium (Synthroid -) 50 mcg PO DAILY@0700 [facility] Last Admin: 02/05/19 06:37 Dose: 50 mcg Losartan Potassium (Cozaar -) 50 mg PO DAILY [facility] Last Admin: 02/05/19 09:23 Dose: 50 mg Pantoprazole Sodium (Protonix Iv) 40 mg IVPUSH DAILY [facility] Last Admin: 02/05/19 09:21 Dose: 40 mg Gen: NAD at rest Heart: RRR Lung: decreased breath sounds at the bases Abd: soft, dressings dry, +ostomy pink Ext: no edema Laboratory Results - last 24 hr 02/04/19 02/05/19 21:03 06:16 POC Glucometer 101 93 A/P Large Bowel Obstruction/Sigmoid Mass POD # 12 Segmental Sigmoid Resection/Colostomy CAD HTN Hyperlipidemia Hypothyrodism Bradycardia - pain control - incentive spirometry - PO as tolerated - monitor ostomy output - DVT prophylaxis - DC planning Dr Lane
--- NOTE | 2019-02-05 10:22 | PN ---
Progress Note, Physician Chief Complaint: Events noted Coverage for Dr. Barrett Not in distress History of Present Illness: Patient was seen and examined. Awake. Chart was reviewed Denies chest pain, SOB or palpitations continues to be in 2:1 secondary AV block - Current Medication List Current Medications: Active Medications Amlodipine Besylate (Norvasc -) 2.5 mg PO DAILY [facility] Last Admin: 02/05/19 09:21 Dose: 2.5 mg Hydralazine HCl (Apresoline Injection -) 10 mg IVPUSH Q8H PRN PRN Reason: HYPERTENSION Levothyroxine Sodium (Synthroid -) 50 mcg PO DAILY@0700 [facility] Last Admin: 02/05/19 06:37 Dose: 50 mcg Losartan Potassium (Cozaar -) 50 mg PO DAILY [facility] Last Admin: 02/05/19 09:23 Dose: 50 mg Pantoprazole Sodium (Protonix Iv) 40 mg IVPUSH DAILY [facility] Last Admin: 02/05/19 09:21 Dose: 40 mg - Objective Vital Signs: Vital Signs Temperature 98.5 F 02/05/19 09:23 Pulse Rate 33 L 02/05/19 09:23 Respiratory Rate 17 02/05/19 09:23 Blood Pressure 136/49 L 02/05/19 09:23 O2 Sat by Pulse Oximetry (%) 98 02/04/19 19:54 Eyes: Yes: PERRL HENT: Yes: Atraumatic Neck: Yes: Supple Cardiovascular: Yes: Bradycardia, S1, S2 Respiratory: Yes: CTA Bilaterally Gastrointestinal: Yes: Normal Bowel Sounds, Soft. 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 Secondary AV block 2:1 2. HTN 3. Acute on chronic diastolic failure currently compensated 4. Hypothyroidism PLAN: 1. Ideally PPM recommended. As per recommendation of primary cardiology team ( Dr. barrett), patient is awaiting to be followed by Dr Rogelio Blount at [facility] or further work up and management including EP and possible PPM as outpatient if patient is agreeable 2. Avoid AV rona agent in the interim 3. Continue Losartan and Amlodipine as tolerated Further plans are to follow. Dr. Barrett to resume care on Wednesday Esteban Morales MD
--- NOTE | 2019-02-05 11:34 | PN ---
Progress Note, Physician Chief Complaint: Tolerating PO History of Present Illness: 84 yrs old F knwn since previous hospitalization H/O HTN, Hypercholestrerolemia , cholycystectomy in 2018 admitted with chest pain with 2nd degree HB patient was transferred and evaluated at [facility] including Cath that was reported normal, admitted with colonic obstriction due to sigmoid mass s/p resection and diversion colostomy - Current Medication List Current Medications: Active Medications Amlodipine Besylate (Norvasc -) 2.5 mg PO DAILY [facility] Last Admin: 02/05/19 09:21 Dose: 2.5 mg Hydralazine HCl (Apresoline Injection -) 10 mg IVPUSH Q8H PRN PRN Reason: HYPERTENSION Levothyroxine Sodium (Synthroid -) 50 mcg PO DAILY@0700 [facility] Last Admin: 02/05/19 06:37 Dose: 50 mcg Losartan Potassium (Cozaar -) 50 mg PO DAILY [facility] Last Admin: 02/05/19 09:23 Dose: 50 mg Pantoprazole Sodium (Protonix Iv) 40 mg IVPUSH DAILY [facility] Last Admin: 02/05/19 09:21 Dose: 40 mg - Objective Vital Signs: Vital Signs Temperature 98.5 F 02/05/19 09:23 Pulse Rate 33 L 02/05/19 09:23 Respiratory Rate 17 02/05/19 09:23 Blood Pressure 136/49 L 02/05/19 09:23 O2 Sat by Pulse Oximetry (%) 98 02/04/19 19:54 Elderly F Comfortabe HEENT:NG at place Mm moist, no anemia, PERRLA EOMI NECK: No JVd No Bruit CHEST: CTA B/L CVS: s1S2 R ABD: colostomy bag at place EXT; No edema feet, Pulses + ENVIRONMENTAL AIDE: AOX3 non focal Labs: CBC, BMP 02/02/19 11:10 02/02/19 11:10 INR, PTT INR 0.95 (0.83-1.09) 01/23/19 06:24 Problem List - Problems (1) Colon obstruction Assessment/Plan: S/P wil procedure tolerating PO possuible Dc in am Code(s): K56.609 - UNSP INTESTNL OBST, UNSP TO PARTIAL VERSUS COMPLETE OBST (2) Gait instability Assessment/Plan: Can be due to metabolic , will evaluate once acute issues are resolved Code(s): R26.81 - UNSTEADINESS ON FEET (3) Hyperlipemia Assessment/Plan: On Statin Code(s): E78.5 - HYPERLIPIDEMIA, UNSPECIFIED (4) Hypothyroid Assessment/Plan: TSH suppressed hold Levothyroxine Code(s): E03.9 - HYPOTHYROIDISM, UNSPECIFIED Qualifiers: Qualified Code(s): E03.4 - Atrophy of thyroid (acquired) (5) HTN (hypertension) Assessment/Plan: Cont current meds Code(s): I10 - ESSENTIAL (PRIMARY) HYPERTENSION (6) 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 Code(s): I44.1 - ATRIOVENTRICULAR BLOCK, SECOND DEGREE (7) Elevated CEA Code(s): R97.0 - ELEVATED CARCINOEMBRYONIC ANTIGEN [CEA] (8) Hypoglycemia Code(s): E16.2 - HYPOGLYCEMIA, UNSPECIFIED
[2019-02-06] MEDS: LEVOTHYROXINE NA 50 MCG TABLET (FP) PO SCH (06:00)
[2019-02-06 07:11] LABS: BASO % 1.5 % (0-2.0); EOS % 1.4 % (0-4.5); HEMATOCRIT 31.1 % (32.4-45.2); HEMOGLOBIN 10.7 GM/dL (10.7-15.3); LYMPH % 14.7 % (8-40); MCHC 34.6 g/dl (32.0-36.0); MEAN CELL VOLUME 86.8 fl (80-96); MEAN PLT VOLUME 7.5 fl (7.5-11.1); MONO % 8.7 % (3.8-10.2); NEUT % 73.7 % (42.8-82.8); PLATELET COUNT 524 K/MM3 (134-434); RBC 3.58 M/mm3 (3.60-5.2); RDW 14.9 % (11.6-15.6)
[2019-02-06 07:44] LABS: BLOOD UREA NITROGEN 15.3 mg/dL (7-18); CALCIUM 9.5 mg/dL (8.5-10.1); CREATININE 0.6 mg/dL (0.55-1.3); POTASSIUM 4.7 mmol/L (3.5-5.1)
--- NOTE | 2019-02-06 08:43 | PN ---
Progress Note (short form) - Note Progress Note: GENERAL SURGERY POD #14 s/p segmental sigmoid colon resection w/colostomy (Hartmans procedure) Per RN notes, no acute events over past 24 hours. Remains on Tele due to Mobitz type 2 heart block. Cardio note reviewed regarding Mobitz type 2 HB (2:1). Remains asymptomatic. Tolerating diet. Diaper as she is incontinent. Denies n/v/f/c, CP, palpitations, SOB or TURPIN. Last Vital Signs Temp Pulse Resp BP Pulse Ox 98 F 31 L 22 H 112/54 L 98 02/06/19 05:33 02/06/19 05:33 02/06/19 05:33 02/06/19 05:33 02/05/19 20:30 CBC, BMP 02/06/19 06:05 02/06/19 06:05 PE GEN: nad ABD: Soft. LLQ ostomy viable (pink, protruding, producing). Midline incision open. + granulation tissue. Periumbilical von removed on rounds. LE: SCDs bilat. Compartments soft. No swelling/edema bilat. Problem List - Problems (1) Status post Reg procedure Assessment/Plan: POD #14 1. [place] removed and steri strips placed. 2. Per recommendation of primary cardiology team (Dr. Barrett), patient is to be dc'd and followed by Dr. Rogelio Blount at [facility] or further work up and management including EP and possible PPM if patient is agreeable (so far patient has refused) 3. No further general surgery input needed. 4. Reconsult PRN On behalf of Dr. Huff, thank you for the opportunity to participate in your patient's care. Code(s): Z93.3 - COLOSTOMY STATUS (2) Colon obstruction Code(s): K56.609 - UNSP INTESTNL OBST, UNSP TO PARTIAL VERSUS COMPLETE OBST (3) Hyperlipemia Code(s): E78.5 - HYPERLIPIDEMIA, UNSPECIFIED (4) Hypothyroid Code(s): E03.9 - HYPOTHYROIDISM, UNSPECIFIED Qualifiers: Qualified Code(s): E03.4 - Atrophy of thyroid (acquired)
--- NOTE | 2019-02-06 09:13 | DS ---
Physical Examination Vital Signs: Vital Signs Temperature 98 F 02/06/19 05:33 Pulse Rate 31 L 02/06/19 05:33 Respiratory Rate 22 H 02/06/19 05:33 Blood Pressure 112/54 L 02/06/19 05:33 O2 Sat by Pulse Oximetry (%) 98 02/05/19 20:30 Findings/Remarks: S/P Hartmans procedure for sigmoid obstruction,no cancer Surgical wound not healed completely Heart rate low in 30s mobits 2 heart block, installation engineer advised further work as out patient Constitutional: Yes: No Distress Eyes: Yes: WNL HENT: Yes: WNL Neck: Yes: WNL Cardiovascular: Yes: Bradycardia Respiratory: Yes: WNL Gastrointestinal: Yes: Normal Bowel Sounds ...Rectal Exam: Yes: Other (has colostomy,working well) Renal/: Yes: WNL Breast(s): Yes: WNL Musculoskeletal: Yes: Muscle Weakness Edema: No Wound/Incision: Yes: Dressing Dry and Intact Neurological: Yes: Alert Labs: CBC, BMP 02/06/19 06:05 02/06/19 06:05 Discharge Summary Problems reviewed: Yes Reason For Visit: ATAXIA,LATE EFFECT OF CEREBROVASCULAR DISEASE Current Active Problems Acute electrocardiogram changes (Acute) Altered bowel habits (Acute) Ataxia (Acute) CVA, old, ataxia (Acute) Colon obstruction (Acute) Elevated CEA (Acute) Gait instability (Acute) History of cholecystectomy (Acute) History of endoscopic retrograde cholangiopancreatography (Acute) Hypoglycemia (Acute) Status post Reg procedure (Acute) Vomiting (Acute) Weight loss (Acute) Condition: Stable - Instructions Diet, Activity, Other Instructions: Dr. Huff Post Operative Instructions Physical activity Resume your normal everyday activity as tolerated no heavy lifting or exercise until seen by your surgeon. You may walk unlimited amounts of and climb stairs. You may resume driving the car when you feel safe and comfortable behind the wheel. Wound care If you have a bandage, leave it on, and keep dry for 48 - 72 hours. After that time discard the outer bandage. If there are tapes on the skin under the outer bandage, leave them in place. They will peel off in the next 7 to 10 days. Do Not peel them off. You may shower 2 days after surgery. If there are tapes present on the skin, they can get wet. Diet There are no dietary restrictions. Eat healthy, high-fiber foods. Drink 6 to 8 glasses of liquid each day. This will assist in keeping your bowels are regular. Pain management You may take Tylenol or acetaminophen or Ibuprofen (for example, Motrin, Advil etc.) Any pain prescription medication ordered should be taken as prescribed for moderate to severe pain. Call Dr. Huff for any of the following: Severe pain not relieved by medication Fever of 101 or higher Excessive bleeding or drainage on dressing Inability to urinate Call the office at [phone] for a post operative appointment in 7 - 10 days. Referrals: Owen Betancur MD [Primary Care Provider] - - Home Medications Comprehensive Discharge Medication List: Ambulatory Orders Levothyroxine [Synthroid -] 100 mcg PO DAILY 08/18/11 Amlodipine Besylate [Norvasc -] 5 mg PO DAILY #0 06/15/13 Aspirin Coated [Ecotrin -] 81 mg PO DAILY #0 NS 06/15/13 Atorvastatin Ca [Lipitor] 20 mg PO HS 11/24/17 Losartan Potassium 50 mg PO DAILY 11/24/17
[2019-02-06] MEDS: PANTOPRAZOLE SODIUM 40 MG VIAL IVPUSH SCH (09:33)
[2019-02-06] MEDS: amLODIPine BESYLATE 2.5 MG TABLET (FP) PO SCH (09:33)
--- NOTE | 2019-02-06 09:46 | PN ---
Progress Note, Physician History of Present Illness: Patient is an 84 year old woman with a PMH of HTN, HLD, Cardiac cath (no stents placed), Cholecystectomy, Bilateral cataract surgery and Hypothyroidism, who presents with complaints of difficulty walking over the past 3-4 days. Patient states that when she walks, she feels "like she is about to fall over". This is not associated with position changes or vertigo, and it does not localize to either side. Patient denies falling or hitting her head and has never felt this way before. She has poor appetite, and her sister notes "she eats only crackers ". Patient denies any fevers, chills, headache, vision changes, cough, congestion, syncope, chest pain, palpitations, SOB, nausea, vomiting, abdominal pain, urinary symptoms, constipation, or leg swelling. Denies cigarette, alcohol , or illicit drug use. Had two loose bowel movements 5 days ago. Denies any recent travel or sick contacts. FH of CAD and DM. OBJECTIVE: Alertand not orthostatic - Current Medication List Current Medications: Active Medications Amlodipine Besylate (Norvasc -) 2.5 mg PO DAILY [facility] Last Admin: 02/06/19 09:33 Dose: 2.5 mg Hydralazine HCl (Apresoline Injection -) 10 mg IVPUSH Q8H PRN PRN Reason: HYPERTENSION Levothyroxine Sodium (Synthroid -) 50 mcg PO DAILY@0700 [facility] Last Admin: 02/06/19 06:00 Dose: 50 mcg Losartan Potassium (Cozaar -) 50 mg PO DAILY [facility] Last Admin: 02/05/19 09:23 Dose: 50 mg Pantoprazole Sodium (Protonix Iv) 40 mg IVPUSH DAILY [facility] Last Admin: 02/06/19 09:33 Dose: 40 mg - Objective Vital Signs: Vital Signs Temperature 98 F 02/06/19 05:33 Pulse Rate 31 L 02/06/19 05:33 Respiratory Rate 22 H 02/06/19 05:33 Blood Pressure 112/54 L 02/06/19 05:33 O2 Sat by Pulse Oximetry (%) 98 02/05/19 20:30 Eyes: Yes: WNL, Conjunctiva Clear, EOM Intact HENT: Yes: WNL, Atraumatic, Normocephalic Neck: Yes: WNL, Supple, Trachea Midline Cardiovascular: Yes: WNL, Regular Rate and Rhythm Respiratory: Yes: WNL, Regular, CTA Bilaterally Gastrointestinal: Yes: WNL, Normal Bowel Sounds Genitourinary: Yes: WNL Musculoskeletal: Yes: WNL Extremities: Yes: WNL Edema: No Integumentary: Yes: WNL Neurological: Yes: WNL, Alert, Oriented ...Motor Strength: WNL Psychiatric: Yes: WNL Labs: CBC, BMP 02/06/19 06:05 02/06/19 06:05 INR, PTT INR 0.95 (0.83-1.09) 01/23/19 06:24 Problem List - Problems (1) Acute electrocardiogram changes Code(s): R94.31 - ABNORMAL ELECTROCARDIOGRAM [ECG] [EKG] (2) Altered bowel habits Code(s): R19.4 - CHANGE IN BOWEL HABIT (3) Ataxia Code(s): R27.0 - ATAXIA, UNSPECIFIED (4) CVA, old, ataxia Code(s): I69.993 - ATAXIA FOLLOWING UNSPECIFIED CEREBROVASCULAR DISEASE (5) Colon obstruction Code(s): K56.609 - UNSP INTESTNL OBST, UNSP TO PARTIAL VERSUS COMPLETE OBST (6) Gait instability Code(s): R26.81 - UNSTEADINESS ON FEET (7) History of cholecystectomy Code(s): Z90.49 - ACQUIRED ABSENCE OF OTHER SPECIFIED PARTS OF DIGESTIVE TRACT (8) History of endoscopic retrograde cholangiopancreatography Code(s): Z98.890 - OTHER SPECIFIED POSTPROCEDURAL STATES (9) Vomiting Code(s): R11.10 - VOMITING, UNSPECIFIED (10) Weight loss Code(s): R63.4 - ABNORMAL WEIGHT LOSS (11) 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 Code(s): I44.1 - ATRIOVENTRICULAR BLOCK, SECOND DEGREE (12) Chest pain Code(s): R07.9 - CHEST PAIN, UNSPECIFIED (13) Chest tightness or pressure Code(s): R07.89 - OTHER CHEST PAIN (14) Chronic diastolic (congestive) heart failure Code(s): I50.32 - CHRONIC DIASTOLIC (CONGESTIVE) HEART FAILURE (15) HTN (hypertension) Code(s): I10 - ESSENTIAL (PRIMARY) HYPERTENSION (16) Has smoked cigarettes within prior year Code(s): Z87.891 - PERSONAL HISTORY OF NICOTINE DEPENDENCE (17) Hyperlipemia Code(s): E78.5 - HYPERLIPIDEMIA, UNSPECIFIED (18) Hypothyroid Code(s): E03.9 - HYPOTHYROIDISM, UNSPECIFIED Qualifiers: Qualified Code(s): E03.4 - Atrophy of thyroid (acquired) Assessment/Plan 1. Secondary AV block 2:1 2. HTN 3. Acute on chronic diastolic failure currently compensated 4. Hypothyroidism PLAN: 1. Patient is awaiting to be followed by Dr Rogelio Blount at [facility] or further work up and management including EP and possible PPM as outpatient if patient is agreeable 2. Avoid AV rona agent in the interim 3. Continue Losartan and Amlodipine as tolerated DVT prophylaxis transfer to telemetry and mobilize, If symptomatic will consider PPM CC time 36 mmin
[2019-02-06] MEDS: LOSARTAN POTASSIUM 50 MG TABLET (FP) PO SCH (11:56)
--- NOTE | 2019-02-06 12:35 | PN ---
Progress Note (short form) - Note Progress Note: PULMONARY No shortness of breath or chest pain. Tolerating PO. Vital Signs Period Temp Pulse Resp BP Sys/Portillo Pulse Ox Last 24 Hr 98 F-98.5 F 28-54 16-26 97-136/38-54 98-98 Gen: NAD at rest Heart: RRR Lung: decreased breath sounds at the bases Abd: soft, dressings dry, +ostomy pink, stool output Ext: no edema CBC, BMP 02/06/19 06:05 02/06/19 06:05 Active Medications Amlodipine Besylate (Norvasc -) 2.5 mg PO DAILY [facility] Last Admin: 02/06/19 09:33 Dose: 2.5 mg Levothyroxine Sodium (Synthroid -) 50 mcg PO DAILY@0700 [facility] Last Admin: 02/06/19 06:00 Dose: 50 mcg Losartan Potassium (Cozaar -) 50 mg PO DAILY [facility] Last Admin: 02/06/19 11:56 Dose: 50 mg A/P Large Bowel Obstruction/Sigmoid Mass s/p Segmental Sigmoid Resection/Colostomy CAD HTN Hyperlipidemia Hypothyrodism - pain control - incentive spirometry - PO as tolerated - monitor ostomy output - DVT prophylaxis - rehab/PT
[2019-02-07] MEDS: LEVOTHYROXINE NA 50 MCG TABLET (FP) PO SCH (06:31)
--- NOTE | 2019-02-07 09:38 | PN ---
Progress Note, Physician Chief Complaint: Pt A&Ox3; no dizziness, palpitations, fatigue, chest pain. History of Present Illness: Ms. Rodrigez is an 84-year-old woman (b. Jamil) with a history of hypothyroidism, hypertension, hyperlipidemia, coronary artery disease. Patient presents emergency department with a complaint of having an unbalanced feeling. She has had the symptoms for the past 2 to 3 days. No headache, no head trauma. No focal weakness or numbness. No changes in his speech. No facial asymmetry that she is noticed. This is atypical for this patient because typically according to her patient and her sister, she is very fast and agile on her feet. PMH: Hypothyroidism, hypertension, hyperlipidemia, CAD PSH: Medication: Levothyroxine, Amlodipine, Aspirin, Atorvastatin, Losartan Allergies: NKDA Pt lives at home with her sister. - Current Medication List Current Medications: Active Medications Amlodipine Besylate (Norvasc -) 2.5 mg PO DAILY [facility] Last Admin: 02/06/19 09:33 Dose: 2.5 mg Levothyroxine Sodium (Synthroid -) 50 mcg PO DAILY@0700 [facility] Last Admin: 02/07/19 06:31 Dose: 50 mcg Losartan Potassium (Cozaar -) 50 mg PO DAILY [facility] Last Admin: 02/06/19 11:56 Dose: 50 mg - Objective Vital Signs: Vital Signs Temperature 98.1 F 02/07/19 00:00 Pulse Rate 36 L 02/07/19 08:29 Respiratory Rate 22 H 02/07/19 08:29 Blood Pressure 125/53 L 02/07/19 06:00 O2 Sat by Pulse Oximetry (%) 95 02/07/19 08:13 Constitutional: Yes: Calm Eyes: Yes: WNL HENT: Yes: WNL Neck: Yes: WNL Cardiovascular: Yes: S1 (split), S2 (split) Respiratory: Yes: Regular Gastrointestinal: Yes: Soft ...Rectal Exam: Yes: Deferred Genitourinary: Yes: Anuria Breast(s): Yes: WNL Musculoskeletal: Yes: Muscle Weakness Extremities: Yes: Cool Edema: No Peripheral Pulses WNL: Yes Integumentary: Yes: WNL Psychiatric: Yes: WNL Labs: CBC, BMP 02/06/19 06:05 02/06/19 06:05 INR, PTT INR 0.95 (0.83-1.09) 11/25/19 06:24 - ....Imaging Chest X-ray: Image Reviewed EKG: Image Reviewed Other: Image Reviewed (telemetry: 2nd degree AVB with 2:1 block) Problem List - Problems (1) Chronic diastolic (congestive) heart failure Code(s): I50.32 - CHRONIC DIASTOLIC (CONGESTIVE) HEART FAILURE (2) HTN (hypertension) Assessment/Plan: Continue hydralazine, amlodipine, and losartan. Code(s): I10 - ESSENTIAL (PRIMARY) HYPERTENSION (3) Hypothyroid Assessment/Plan: Low TSh; f/u free T4. Addendum: Free T4 low: given bradycardia, started 50 ucg daily; f/u with PMD, stave grader (values may be related to hospitalized setting). 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 Pt is frustrated at being bed-bound for the past weeks. Previously, she says she is always "on the go", working around the house and with her muslim group. She wants to return to an active lifestyle. Plan: Transfer to telemetry. Physical therapy while on monitor technician to study rate/rhythm and symptom response to increased exercise. If pt becomes symptomatic, or if monitoring discloses worsening block, will transfer for permanent pacemaker. F/u magnesium level, and keep 2.0-2.4 Keep K 4.0-4.5 Keep PO4 2.5-4.9 On Synthroid. Case discussed with Dr. Blount, EP, with all EKG/Holter/telemetry findings perused : if remains asymptomatic, will be able to be discharged home and f/u PMD, pageant director, and CARMELITA Hernandez at [place], as outpatient. Code(s): I44.1 - ATRIOVENTRICULAR BLOCK, SECOND DEGREE
[2019-02-07] MEDS: amLODIPine BESYLATE 2.5 MG TABLET (FP) PO SCH (09:43)
[2019-02-07] MEDS: LOSARTAN POTASSIUM 50 MG TABLET (FP) PO SCH (09:44)
--- NOTE | 2019-02-07 09:51 | PN ---
Progress Note, Physician Chief Complaint: Feels weak History of Present Illness: Advised race maker by Dr Reilly - Current Medication List Current Medications: Active Medications Amlodipine Besylate (Norvasc -) 2.5 mg PO DAILY [facility] Last Admin: 02/07/19 09:43 Dose: 2.5 mg Levothyroxine Sodium (Synthroid -) 50 mcg PO DAILY@0700 [facility] Last Admin: 02/07/19 06:31 Dose: 50 mcg Losartan Potassium (Cozaar -) 50 mg PO DAILY [facility] Last Admin: 02/07/19 09:44 Dose: 50 mg - Objective Vital Signs: Vital Signs Temperature 98.1 F 02/07/19 00:00 Pulse Rate 36 L 02/07/19 08:29 Respiratory Rate 22 H 02/07/19 08:29 Blood Pressure 125/53 L 02/07/19 06:00 O2 Sat by Pulse Oximetry (%) 95 02/07/19 08:13 Constitutional: Yes: Anxious Eyes: Yes: WNL HENT: Yes: WNL Neck: Yes: WNL Cardiovascular: Yes: Tachycardia Respiratory: Yes: WNL Gastrointestinal: Yes: Normal Bowel Sounds ...Rectal Exam: Yes: Deferred Musculoskeletal: Yes: Muscle Weakness Wound/Incision: Yes: Clean/Dry Neurological: Yes: Alert Labs: CBC, BMP 02/06/19 06:05 02/06/19 06:05 INR, PTT INR 0.95 (0.83-1.09) 01/23/19 06:24 Assessment/Plan Race maker insertion
--- NOTE | 2019-02-07 11:37 | PN ---
Progress Note (short form) - Note Progress Note: PULMONARY Remains bradycardic. No shortness of breath or chest pain. Tolerating PO. Vital Signs Period Temp Pulse Resp BP Sys/Portillo Pulse Ox Last 24 Hr 98.1 F-98.7 F 28-41 20-22 98-146/41-53 95-95 Gen: NAD at rest Heart: RRR Lung: decreased breath sounds at the bases Abd: soft, +ostomy pink, stool output Ext: no edema CBC, BMP 02/06/19 06:05 02/06/19 06:05 Active Medications Amlodipine Besylate (Norvasc -) 2.5 mg PO DAILY [facility] Last Admin: 02/07/19 09:43 Dose: 2.5 mg Levothyroxine Sodium (Synthroid -) 50 mcg PO DAILY@0700 [facility] Last Admin: 02/07/19 06:31 Dose: 50 mcg Losartan Potassium (Cozaar -) 50 mg PO DAILY [facility] Last Admin: 02/07/19 09:44 Dose: 50 mg A/P Bradycardia Large Bowel Obstruction/Sigmoid Mass s/p Segmental Sigmoid Resection/Colostomy CAD HTN Hyperlipidemia Hypothyrodism - cardiology work up in progress - pain control - incentive spirometry - PO as tolerated - monitor ostomy output - DVT prophylaxis - rehab/PT - telemetry monitoring
[2019-02-08] MEDS: LEVOTHYROXINE NA 50 MCG TABLET (FP) PO SCH (06:36)
[2019-02-08] MEDS: LOSARTAN POTASSIUM 50 MG TABLET (FP) PO SCH (09:46)
[2019-02-08] MEDS: amLODIPine BESYLATE 2.5 MG TABLET (FP) PO SCH (09:46)
--- NOTE | 2019-02-08 10:57 | PN ---
Progress Note, Physician History of Present Illness: Patient is an 84 year old woman with a PMH of HTN, HLD, Cardiac cath (no stents placed), Cholecystectomy, Bilateral cataract surgery and Hypothyroidism, who presents with complaints of difficulty walking over the past 3-4 days. Patient states that when she walks, she feels "like she is about to fall over". This is not associated with position changes or vertigo, and it does not localize to either side. Patient denies falling or hitting her head and has never felt this way before. She has poor appetite, and her sister notes "she eats only crackers ". Patient denies any fevers, chills, headache, vision changes, cough, congestion, syncope, chest pain, palpitations, SOB, nausea, vomiting, abdominal pain, urinary symptoms, constipation, or leg swelling. Denies cigarette, alcohol , or illicit drug use. Had two loose bowel movements 5 days ago. Denies any recent travel or sick contacts. FH of CAD and DM. OBJECTIVE: Alertand not orthostatic - Current Medication List Current Medications: Active Medications Amlodipine Besylate (Norvasc -) 2.5 mg PO DAILY [facility] Last Admin: 02/08/19 09:46 Dose: 2.5 mg Levothyroxine Sodium (Synthroid -) 50 mcg PO DAILY@0700 [facility] Last Admin: 02/08/19 06:36 Dose: 50 mcg Losartan Potassium (Cozaar -) 50 mg PO DAILY [facility] Last Admin: 02/08/19 09:46 Dose: 50 mg - Objective Vital Signs: Vital Signs Temperature 97.3 F L 02/08/19 10:00 Pulse Rate 34 L 02/08/19 10:00 Respiratory Rate 20 02/08/19 10:00 Blood Pressure 129/49 L 02/08/19 10:00 O2 Sat by Pulse Oximetry (%) 98 02/08/19 09:00 Eyes: Yes: WNL, Conjunctiva Clear, EOM Intact HENT: Yes: WNL, Atraumatic, Normocephalic Neck: Yes: WNL, Supple, Trachea Midline Cardiovascular: Yes: WNL, Regular Rate and Rhythm Respiratory: Yes: WNL, Regular, CTA Bilaterally Gastrointestinal: Yes: WNL, Normal Bowel Sounds Genitourinary: Yes: WNL Musculoskeletal: Yes: WNL Extremities: Yes: WNL Edema: No Integumentary: Yes: WNL Neurological: Yes: WNL, Alert, Oriented ...Motor Strength: WNL Psychiatric: Yes: WNL Labs: CBC, BMP 02/06/19 06:05 02/06/19 06:05 INR, PTT INR 0.95 (0.83-1.09) 01/23/19 06:24 Problem List - Problems (1) Acute electrocardiogram changes Code(s): R94.31 - ABNORMAL ELECTROCARDIOGRAM [ECG] [EKG] (2) Altered bowel habits Code(s): R19.4 - CHANGE IN BOWEL HABIT (3) Ataxia Code(s): R27.0 - ATAXIA, UNSPECIFIED (4) CVA, old, ataxia Code(s): I69.993 - ATAXIA FOLLOWING UNSPECIFIED CEREBROVASCULAR DISEASE (5) Colon obstruction Code(s): K56.609 - UNSP INTESTNL OBST, UNSP TO PARTIAL VERSUS COMPLETE OBST (6) Gait instability Code(s): R26.81 - UNSTEADINESS ON FEET (7) History of cholecystectomy Code(s): Z90.49 - ACQUIRED ABSENCE OF OTHER SPECIFIED PARTS OF DIGESTIVE TRACT (8) History of endoscopic retrograde cholangiopancreatography Code(s): Z98.890 - OTHER SPECIFIED POSTPROCEDURAL STATES (9) Vomiting Code(s): R11.10 - VOMITING, UNSPECIFIED (10) Weight loss Code(s): R63.4 - ABNORMAL WEIGHT LOSS (11) 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 Code(s): I44.1 - ATRIOVENTRICULAR BLOCK, SECOND DEGREE (12) Chest pain Code(s): R07.9 - CHEST PAIN, UNSPECIFIED (13) Chest tightness or pressure Code(s): R07.89 - OTHER CHEST PAIN (14) Chronic diastolic (congestive) heart failure Code(s): I50.32 - CHRONIC DIASTOLIC (CONGESTIVE) HEART FAILURE (15) HTN (hypertension) Code(s): I10 - ESSENTIAL (PRIMARY) HYPERTENSION (16) Has smoked cigarettes within prior year Code(s): Z87.891 - PERSONAL HISTORY OF NICOTINE DEPENDENCE (17) Hyperlipemia Code(s): E78.5 - HYPERLIPIDEMIA, UNSPECIFIED (18) Hypothyroid Code(s): E03.9 - HYPOTHYROIDISM, UNSPECIFIED Qualifiers: Qualified Code(s): E03.4 - Atrophy of thyroid (acquired) Assessment/Plan 1. Secondary AV block 2:1 2. HTN 3. Acute on chronic diastolic failure currently compensated 4. Hypothyroidism PLAN: 1. Patient is awaiting to be followed by Dr Rogelio Blount at [facility] or further work up and management including EP and possible PPM as outpatient if patient is agreeable 2. Avoid AV rona agent in the interim 3. Continue Losartan and Amlodipine as tolerated DVT prophylaxis transfer to telemetry and mobilize, If symptomatic will consider PPM
[2019-02-09] MEDS: LEVOTHYROXINE NA 50 MCG TABLET (FP) PO SCH (06:25)
[2019-02-09 06:36] VITALS: PULSE 32
--- NOTE | 2019-02-09 08:09 | PN ---
Progress Note, Physician Chief Complaint: Pt A&Ox3; sitting up in bed. She says she feels exertional fatigue and short of breath just walking the short distance to the bathroom. History of Present Illness: Ms. Rodrigez is an 84-year-old woman (b. Jamil) with a history of hypothyroidism, hypertension, hyperlipidemia, coronary artery disease. Patient presents emergency department with a complaint of having an unbalanced feeling. She has had the symptoms for the past 2 to 3 days. No headache, no head trauma. No focal weakness or numbness. No changes in his speech. No facial asymmetry that she is noticed. This is atypical for this patient because typically according to her patient and her sister, she is very fast and agile on her feet. PMH: Hypothyroidism, hypertension, hyperlipidemia, CAD PSH: Medication: Levothyroxine, Amlodipine, Aspirin, Atorvastatin, Losartan Allergies: NKDA Pt lives at home with her sister. - Current Medication List Current Medications: Active Medications Amlodipine Besylate (Norvasc -) 2.5 mg PO DAILY [facility] Last Admin: 02/08/19 09:46 Dose: 2.5 mg Levothyroxine Sodium (Synthroid -) 50 mcg PO DAILY@0700 [facility] Last Admin: 02/09/19 06:25 Dose: 50 mcg Losartan Potassium (Cozaar -) 50 mg PO DAILY [facility] Last Admin: 02/08/19 09:46 Dose: 50 mg - Objective Vital Signs: Vital Signs Temperature 97.5 F L 02/09/19 02:00 Pulse Rate 32 L 02/09/19 06:00 Respiratory Rate 20 02/09/19 06:00 Blood Pressure 136/43 L 02/09/19 06:00 O2 Sat by Pulse Oximetry (%) 97 02/08/19 21:00 Labs: CBC, BMP 02/06/19 06:05 02/06/19 06:05 INR, PTT INR 0.95 (0.83-1.09) 01/23/19 06:24 Problem List - Problems (1) Chronic diastolic (congestive) heart failure Code(s): I50.32 - CHRONIC DIASTOLIC (CONGESTIVE) HEART FAILURE (2) HTN (hypertension) Code(s): I10 - ESSENTIAL (PRIMARY) HYPERTENSION (3) Hypothyroid Code(s): E03.9 - HYPOTHYROIDISM, UNSPECIFIED Qualifiers: Qualified Code(s): E03.4 - Atrophy of thyroid (acquired) (4) 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 Code(s): I44.1 - ATRIOVENTRICULAR BLOCK, SECOND DEGREE
[2019-02-09] MEDS: LOSARTAN POTASSIUM 50 MG TABLET (FP) PO SCH (09:12)
[2019-02-09] MEDS: amLODIPine BESYLATE 2.5 MG TABLET (FP) PO SCH (09:12)
--- NOTE | 2019-02-09 10:14 | DS ---
Physical Examination Vital Signs: Vital Signs Temperature 97.5 F L 02/09/19 02:00 Pulse Rate 32 L 02/09/19 06:00 Respiratory Rate 18 02/09/19 08:31 Blood Pressure 136/43 L 02/09/19 06:00 O2 Sat by Pulse Oximetry (%) 98 02/09/19 08:31 Findings/Remarks: S/P Hartmans procedure for sigmoid obstruction No Ca ,wound healing Developed bradycardia,needs pacemaker Will get pacemaker inserted at [facility] and then go to [place] [facility] for short term rehab Constitutional: Yes: Anxious Eyes: Yes: WNL HENT: Yes: WNL Neck: Yes: WNL Cardiovascular: Yes: WNL, Bradycardia Respiratory: Yes: WNL Gastrointestinal: Yes: WNL ...Rectal Exam: Yes: Deferred Renal/: Yes: WNL Edema: No Wound/Incision: Yes: Dressing Dry and Intact Psychiatric: Yes: Alert Labs: CBC, BMP 02/06/19 06:05 02/06/19 06:05 Discharge Summary Problems reviewed: Yes Reason For Visit: ATAXIA,LATE EFFECT OF CEREBROVASCULAR DISEASE Current Active Problems Acute electrocardiogram changes (Acute) Altered bowel habits (Acute) Ataxia (Acute) CVA, old, ataxia (Acute) Colon obstruction (Acute) Elevated CEA (Acute) Gait instability (Acute) History of cholecystectomy (Acute) History of endoscopic retrograde cholangiopancreatography (Acute) Hypoglycemia (Acute) Status post Reg procedure (Acute) Vomiting (Acute) Weight loss (Acute) Condition: Stable - Instructions Diet, Activity, Other Instructions: Dr. Huff Post Operative Instructions Physical activity Resume your normal everyday activity as tolerated no heavy lifting or exercise until seen by your surgeon. You may walk unlimited amounts of and climb stairs. You may resume driving the car when you feel safe and comfortable behind the wheel. Wound care If you have a bandage, leave it on, and keep dry for 48 - 72 hours. After that time discard the outer bandage. If there are tapes on the skin under the outer bandage, leave them in place. They will peel off in the next 7 to 10 days. Do Not peel them off. You may shower 2 days after surgery. If there are tapes present on the skin, they can get wet. Diet There are no dietary restrictions. Eat healthy, high-fiber foods. Drink 6 to 8 glasses of liquid each day. This will assist in keeping your bowels are regular. Pain management You may take Tylenol or acetaminophen or Ibuprofen (for example, Motrin, Advil etc.) Any pain prescription medication ordered should be taken as prescribed for moderate to severe pain. Call Dr. Huff for any of the following: Severe pain not relieved by medication Fever of 101 or higher Excessive bleeding or drainage on dressing Inability to urinate Call the office at [phone] for a post operative appointment in 7 - 10 days. Referrals: Owen Betancur MD [Primary Care Provider] - - Home Medications Comprehensive Discharge Medication List: Ambulatory Orders Levothyroxine [Synthroid -] 100 mcg PO DAILY 08/18/11 Amlodipine Besylate [Norvasc -] 5 mg PO DAILY #0 06/15/13 Aspirin Coated [Ecotrin -] 81 mg PO DAILY #0 NS 06/15/13 Losartan Potassium 50 mg PO DAILY 11/24/17 Levothyroxine [Synthroid -] 50 mcg PO DAILY@0700 tablet 02/06/19 Losartan Potassium [Cozaar -] 50 mg PO DAILY tablet 02/06/19
[2019-02-09 10:24] VITALS: BP 144/42; TEMP 98.7
--- NOTE | 2019-02-09 11:13 | PN ---
Progress Note (short form) - Note Progress Note: Resting in NAD. No shortness of breath or chest pain. Noted being transferred to [facility] for PPM. Intake & Output 02/06/19 02/07/19 02/08/19 02/09/19 23:59 23:59 23:59 23:59 Intake Total 360 100 680 Balance 360 100 680 Last Vital Signs Temp Pulse Resp BP Pulse Ox 98.7 F 32 L 18 144/42 L 98 02/09/19 10:00 02/09/19 10:00 02/09/19 10:00 02/09/19 10:00 02/09/19 08:31 Active Medications Amlodipine Besylate (Norvasc -) 2.5 mg PO DAILY [facility] Last Admin: 02/09/19 09:12 Dose: 2.5 mg Levothyroxine Sodium (Synthroid -) 50 mcg PO DAILY@0700 [facility] Last Admin: 02/09/19 06:25 Dose: 50 mcg Losartan Potassium (Cozaar -) 50 mg PO DAILY [facility] Last Admin: 02/09/19 09:12 Dose: 50 mg Gen: NAD at rest Heart: RRR Lung: decreased breath sounds at the bases Abd: soft, dressings dry, +ostomy pink Ext: no edema A/P Large Bowel Obstruction/Sigmoid Mass S/P Segmental Sigmoid Resection/Colostomy CAD HTN Hyperlipidemia Hypothyrodism Bradycardia - pain control - incentive spirometry - DVT prophylaxis - For transfer to [facility] for PPM Dr Lane
== END 2019-02-09 13:44 | disposition short-term general hospital (02) | DRG 330 ==
LOC: JER 16:40 → JERBED 20:55 → J4W 01-22 09:56 → JICU 01-24 00:40 → J2W 01-24 20:50 → J4W 02-07 14:50
PROVIDERS: ADMIT Internal Medicine; ATTEND Internal Medicine
PROC: 0DBN0ZZ Excision of Sigmoid Colon, Open Approach (ICD-10-PCS; principal; 2019-01-23 14:00)
PROC: 0D1N0Z4 Bypass Sigmoid Colon to Cutaneous, Open Approach (ICD-10-PCS; 2019-01-23 14:00)
DX: K56.609 Unspecified intestinal obstruction, unspecified as to partial versus complete obstruction (principal); I44.2 Atrioventricular block, complete; E46 Unspecified protein-calorie malnutrition; I47.2 Ventricular tachycardia; I50.32 Chronic diastolic (congestive) heart failure; K56.7 Ileus, unspecified; E78.5 Hyperlipidemia, unspecified; E03.9 Hypothyroidism, unspecified; I44.1 Atrioventricular block, second degree; I11.0 Hypertensive heart disease with heart failure; R27.0 Ataxia, unspecified; E88.09 Other disorders of plasma-protein metabolism, not elsewhere classified; E87.6 Hypokalemia; R26.81 Unsteadiness on feet; I25.10 Atherosclerotic heart disease of native coronary artery without angina pectoris; I69.993 Ataxia following unspecified cerebrovascular disease; D21.9 Benign neoplasm of connective and other soft tissue, unspecified; F41.9 Anxiety disorder, unspecified; K76.0 Fatty (change of) liver, not elsewhere classified; E16.2 Hypoglycemia, unspecified; D32.9 Benign neoplasm of meninges, unspecified; R63.4 Abnormal weight loss; Z68.21 Body mass index [BMI] 21.0-21.9, adult; R97.0 Elevated carcinoembryonic antigen [CEA]; R19.4 Change in bowel habit; R94.31 Abnormal electrocardiogram [ECG] [EKG]; R00.1 Bradycardia, unspecified; D72.829 Elevated white blood cell count, unspecified; E83.42 Hypomagnesemia; Z98.890 Other specified postprocedural states; Z90.49 Acquired absence of other specified parts of digestive tract
CPT/HCPCS: 36415; 70450-TC; 71045-TC-FY; 74018-TC-FY; 74019-TC-FY; 74021-TC-FY; 74176-TC; 74270-TC-FY; 80048; 80053; 80061; 81003; 82378; 82550; 82607; 82746; 82962; 83721; 83735; 84100; 84439; 84443; 84484; 85025; 85027; 85610; 86140; 86850; 86900; 86901; 87086; 88307-TC; 93005; 93010; 93225; 93226; 93306-TC; 94010; 94760; 97116-GP; 97161-GP; 99285-25; J0131; J7030

== ENCOUNTER 2019-09-20 05:05 | Day surgery (SDC) | payer OTHER ==
[2019-09-13 15:59] VITALS: BMI 21.4
[2019-09-20] MEDS ORDERED: PROPOFOL 20 ML ONE ×2 (08:48)
[2019-09-20 10:44] VITALS: BP 141/69; PULSE 63; TEMP 97.9
--- NOTE | 2019-09-21 18:49 | PATH ---
Surgical Pathology Report Patient Name: VERENICE VYAS [facility]. Rec. #: [id number] /Age/Gender: 1935 (Age: 84) / F Account: [id number] Location: U-ENDOSCOPY Taken: 09/20/2019 Received: 09/20/2019 Reported: 09/21/2019 Physicians: Stephen Walker M.D. Specimen(s) Received A: TRANSVERSE COLON, POLYP B: CECAL POLYP Clinical History Colon cancer screening Postoperative diagnosis: Transverse colon and cecal polyps, diverticulosis, colostomy Final Diagnosis A. TRANSVERSE COLON, POLYP, POLYPECTOMY: HYPERPLASTIC POLYP. B. CECAL POLYP, POLYPECTOMY: POLYPOID COLONIC MUCOSA WITH PROMINENT LYMPHOID AGGREGATE. Electronically Signed Michelle Silva M.D. Gross Description A. Received in formalin, labeled "transverse colon polyp" is a alfonso, irregular portion of soft tissue measuring 0.2 cm. in greatest dimension. The specimen is submitted in toto in one cassette. B. Received in formalin, labeled "biopsy cecal polyp" are 3 alfonso, irregular portions of soft tissue ranging from 0.1-0.2 cm. in greatest dimension. The specimens are submitted in toto in one cassette. DL/09/20/2019 saudi09/20/2019
== END 2019-09-20 10:44 | disposition home or self-care (01) ==
LOC: JASU-ENDO 05:05
PROVIDERS: ATTEND Internal Medicine Gastroenterology
PROC: 0DBH8ZX Excision of Cecum, Via Natural or Artificial Opening Endoscopic, Diagnostic (ICD-10-PCS; 2019-09-20)
PROC: 0DBL8ZX Excision of Transverse Colon, Via Natural or Artificial Opening Endoscopic, Diagnostic (ICD-10-PCS; principal; 2019-09-20 08:00)
DX: Z12.11 Encounter for screening for malignant neoplasm of colon (principal); D12.0 Benign neoplasm of cecum; D12.3 Benign neoplasm of transverse colon
CPT/HCPCS: 88305-TC

== ENCOUNTER 2019-10-29 17:56 | Emergency (ER) | payer OTHER ==
[2019-10-29 18:07] VITALS: BMI 19.1
--- NOTE | 2019-10-29 18:20 | PDOC ---
History of Present Illness - General Chief Complaint: Pain Stated Complaint: ABDOMINAL PAIN Time Seen by Provider: 10/29/19 18:19 - History of Present Illness Initial Comments: 10/29/19 18:19 HPI: 84 y/o F with hx of HTN, hypothyroid, bradycardia s/p pacemaker, diverticulitis s/p Hartmans and recent reversal on 10/17/19 at [facility] presenting with abdominal pain x2days. Surgery went well and she was recovering at home however 2-3 days ago she noted discharge and mucus per rectum when she went for BM. She then felt periumbilical pain that was diffuse yesterday and today worsened. She now reports erythema and warmth from her belly over her previous exlap scar. Family member at the bedside reports she has been also being tired and fatigued and she appears pale. Denies chills, chest pain, SOB, palp, n/v, ZIMMERMAN, LH, sycnope, dysuria, hematuria, BPR, melena. She denies diarrhea or constipation and reports tolerating diet. PMHx: as noted above ROS: as noted SHx: Denies tobacco use; no alcohol use; no rec drugs Allergies: NKDA ROS: GENERAL/CONSTITUTIONAL: No fever or chills. +generalized weakness. HEAD, EYES, EARS, NOSE AND THROAT: No change in vision. No ear pain or discharge. No sore throat. CARDIOVASCULAR: No chest pain or shortness of breath RESPIRATORY: No cough, wheezing, or hemoptysis. GASTROINTESTINAL: No nausea, vomiting, diarrhea or constipation. GENITOURINARY: No dysuria, frequency, or change in urination. MUSCULOSKELETAL: No joint or muscle swelling or pain. No neck or back pain. SKIN: No rash NEUROLOGIC: No headache, vertigo, loss of consciousness, or change in strength/s ensation. ENDOCRINE: No increased thirst. No abnormal weight change HEMATOLOGIC/LYMPHATIC: No anemia, easy bleeding, or history of blood clots. ALLERGIC/IMMUNOLOGIC: No hives or skin allergy. PE: GENERAL: Awake, alert, and fully oriented, moderate acute distress and pallor HEAD: No signs of trauma, normocephalic, atraumatic EYES: EOMI, sclera anicteric, conjunctival pallor ENT: Auricles normal inspection, hearing grossly normal, nares patent, oropharynx clear without exudates. Moist mucosa NECK: Normal ROM, no lymphadenopathy LUNGS: No increased work of breathing, symmetrical chest rise, clear to auscultation bilaterally, no wheezes, crackles or rhonchi HEART: Regular rate, regular rhythm, normal S1 and S2, no murmur, peripheral pulses 2+ and equal bilaterally. ABDOMEN: well healed exlap incision with overlying erythema and warmth and induration, protuberant abdomen, significant ttp most notably along incision with guarding. No masses. No CVAT MUSCULOSKELETAL: FROM NEUROLOGICAL: Cranial nerves II through XII grossly intact. Normal speech, stable gait, no focal sensorimotor deficits SKIN: Warm, Dry, normal turgor, no rashes or lesions noted Past History - Medical History Allergies/Adverse Reactions: Allergies Allergy/AdvReac Type Severity Reaction Status Date / Time No Known Allergies Allergy Verified 10/29/19 18:07 Home Medications: Ambulatory Orders Levothyroxine [Synthroid -] 100 mcg PO DAILY 08/18/11 Amlodipine Besylate [Norvasc -] 5 mg PO DAILY #0 06/15/13 Losartan Potassium 100 mg PO DAILY 11/24/17 Cholecalciferol (Vitamin D3) [Vitamin D3 -] 1,000 unit PO DAILY 09/13/19 [place]-3 Fatty Acids/Fish Oil [Fish Oil 1,000 mg Capsule] 1 each PO DAILY 09/13/19 Gabapentin [Neurontin -] 100 mg PO BID 10/29/19 Anemia: No Asthma: No Cancer: No Cardiac Disorders: Yes (pacemaker,ASHD) CVA: No COPD: No CHF: No DVT: No Dementia: No Diabetes: No GI Disorders: Yes (DIVERTICULOSIS) Disorders: No HTN: Yes Hypercholesterolemia: Yes Liver Disease: Yes (FATTY) Seizures: No Thyroid Disease: Yes (HYPOTHYROIDISM) - Surgical History Abdominal Surgery: No Appendectomy: No Cardiac Surgery: Yes (cardiac cath) Cholecystectomy: Yes (LAPAROSCOPIC) Lung Surgery: No Neurologic Surgery: No Orthopedic Surgery: No - Immunization History Immunization Up to Date: Yes - Psycho-Social/Smoking History Smoking Status: No Smoking History: Never smoked Have you smoked in the past 12 months: No Number of Cigarettes Smoked Daily: 2 If you are a former smoker, when did you quit?: 2016 'Breaking Loose' booklet given: 06/13/13 - Substance Abuse Hx (Audit-C & DAST Scrn) How often the patient has a drink containing alcohol: Never Score: In Men: 4 or > Positive; In Women: 3 or > Positive: 0 Screen Result (Pos requires Nsg. Audit-10AR): Negative *Physical Exam - Vital Signs Last Vital Signs Temp Pulse Resp BP Pulse Ox 97 F L 65 18 87/45 L 99 10/29/19 18:01 10/29/19 18:01 10/29/19 18:01 10/29/19 18:01 10/29/19 18:01 Medical Decision Making - Medical Decision Making 10/29/19 18:52 84 y/o F with hx of HTN, hypothyroid, bradycardia s/p pacemaker, diverticulitis s/p Hartmans and recent reversal on 10/17/19 at [facility] presenting with abdominal pain x2days with incisional erythema and warmth overlying the incisional scar. BP. well healed exlap incision with overlying erythema and warmth and induration, protuberant abdomen, significant ttp with guarding -sepsis order set -vanc zosyn -ct abs/pel -ivf -signed out to night team to followup labs and imaging, consult surgery as needed and admit Discharge - Discharge Information Problems reviewed: Yes Clinical Impression/Diagnosis: Abdominal pain Condition: Guarded - Follow up/Referral - Patient Discharge Instructions - Post Discharge Activity
[2019-10-29] MEDS ORDERED: SODIUM CHLORIDE 1,000 ML IV STA (18:32)
--- NOTE | 2019-10-29 18:43 | PDOC ---
Documentation entered by Kimberly Cowan SCRIBE, acting as scribe for Angelica Monique MD. Angelica Monique MD: This documentation has been prepared by the eleazaribeChapo Sydney, SCRIBE, under my direction and personally reviewed by me in its entirety. I confirm that the documentation accurately reflects all work, treatment, procedures, and medical decision making performed by me. Attending Attestation - Resident Resident Name: MohitChon - ED Attending Attestation I have performed the following: I have examined & evaluated the patient, The case was reviewed & discussed with the resident, I agree w/resident's findings & plan, Exceptions are as noted - HPI HPI: 84 yo F history HTN, hypothyroid, bradycardia s/p PPM, diverticulitis s/p Hartmans, then subsequent reversal on 10/16 at [facility] presenting with 2 day history of abdominal pain. Noted rectal discharge and mucous at home. Now with diffuse abdominal pain, with redness and warmth to her surgical scar. - Physicial Exam PE: GENERAL: Awake, alert, and fully oriented. Appears uncomfortable, appears ill. +Pallor. HEAD: No signs of trauma EYES: PERRLA, EOMI, sclera anicteric, conjunctiva clear ENT: Auricles normal inspection, hearing grossly normal, nares patent, oropharynx clear without exudates. Dry mucosa NECK: Normal ROM, supple, no lymphadenopathy, JVD, or masses LUNGS: Breath sounds equal, clear to auscultation bilaterally. No wheezes, and no crackles HEART: Regular rate and rhythm, normal S1 and S2, no murmurs, rubs or gallops ABDOMEN: Soft, protuberant. +Well-healed midline incision, with erythema tracking along the incision and extending into the abdomen. +Laparoscopy incisions with dermabond in place. No drainage. Diffusely tender, however, no rebounc. EXTREMITIES: Normal range of motion, no edema. No clubbing or cyanosis. No cords, erythema, or tenderness NEUROLOGICAL: Cranial nerves II through XII grossly intact. Normal speech. Motor and sensation intact SKIN: Warm, dry, normal turgor. - Medical Decision Making Pt arrived shortly before 7am shift change with signs of sepsis, likely intra- abdominal infection due to recent colostomy reversal. Sepsis protocol initiated. Will plan for broad spectrum abx to cover both GI as well as skin jonna. Pt initially hypotensive, however, BP improved without intervention. Patient signed out to 7am team, awaiting lab results, and will likely require transfer back to [place] given the recent surgery. Discharge - Discharge Information Problems reviewed: Yes Clinical Impression/Diagnosis: Intestinal perforation Abdominal pain Qualifiers: Abdominal location: unspecified location Qualified Code(s): R10.9 - Unspecified abdominal pain Post op infection Qualifiers: Encounter type: initial encounter Postoperative infection type: sepsis Qualified Code(s): T81.44XA - Sepsis following a procedure, initial encounter Condition: Guarded Disposition: TRANSFER ACUTE CARE/OTHER HOSP - Follow up/Referral Referrals: Owen Betancur MD [Primary Care Provider] - - Patient Discharge Instructions - Post Discharge Activity
[2019-10-29 19:03] LABS: BASO % 0.5 % (0-2.0); EOS % 0.5 % (0-4.5); HEMATOCRIT 27.6 % (32.4-45.2); HEMOGLOBIN 9.2 GM/dL (10.7-15.3); INR 0.95 (0.83-1.09); LYMPH % 5.5 % (8-40); MCH 29.3 pg (25.7-33.7); MCHC 33.3 g/dl (32.0-36.0); MEAN PLT VOLUME 7.5 fl (7.5-11.1); MONO % 7.2 % (3.8-10.2); NEUT % 86.3 % (42.8-82.8); PLATELET COUNT 509 K/MM3 (134-434); PROTHROMBIN TIME (PATIENT) 11.2 SEC (9.7-13.0); RBC 3.14 M/mm3 (3.60-5.2); RDW 15.8 % (11.6-15.6); WHITE BLOOD COUNT 13.2 K/mm3 (4.0-10.0)
[2019-10-29] MEDS ORDERED: PIPERACILLIN/TAZOB 4.5 GM 4.5 GM in DEXTROSE 5%-WATER 100 ML IVPB ONE (19:04)
[2019-10-29] MEDS ORDERED: VANCOMYCIN 1 GM PREMIX - 1 GM/200 ML BAG IVPB ONE (19:04)
--- NOTE | 2019-10-29 19:18 | PDOC ---
*Physical Exam - Vital Signs Last Vital Signs Temp Pulse Resp BP Pulse Ox 99.4 F 65 18 117/47 L 99 10/29/19 18:39 10/29/19 18:01 10/29/19 18:01 10/29/19 18:40 10/29/19 18:01 - Physical Exam 10/29/19 19:[address] Rueda 10/29/19 22:08 Pt AAOx4 resting in bed. CT scan read as perforated anterior transverse colon w/ likely abscess. Pt needs transfer to [facility] for continuity of care. [facility] transfer center contacted, and we spoke with Dr. Ram (Surg Onc) who suggested ED-to-ED transfer. Pt accepted for ED-to-ED transfer (accepting EDMD: Dr. Baumann) 10/29/19 22:40 10/29/19 23:18 ED Treatment Course - LABORATORY CBC & Chemistry Diagram: 10/29/19 18:22 10/29/19 18:22 - ADDITIONAL ORDERS Additional order review: Laboratory Results 10/29/19 10/29/19 18:22 18:22 PT with INR 11.20 INR 0.95 PTT (Actin FS) 26.0 Stool Occult Blood Negative 10/29/19 18:22 RBC 3.14 L MCV 88.0 MCHC 33.3 RDW 15.8 H MPV 7.5 Neutrophils % 86.3 H Lymphocytes % 5.5 L D Monocytes % 7.2 Eosinophils % 0.5 Basophils % 0.5 - RADIOLOGY Radiograph Interpretation: THIS IS A PRELIMINARY REPORT FROM IMAGING ACCOUNT ADMINISTRATOR DATE OF SERVICE:2019-10-29 20:44:13 IMAGES: [id number] EXAM: CT abdomen and pelvis with contrast HISTORY:ABDOMINAL PAIN COMPARISON: None. FINDINGS: Atelectasis and scarring in lung bases with mild pulmonary edema. No pleural effusions. Moderate pneumobilia, not unusual after cholecystectomy. Trace perihepatic ascites. Pancreas, adrenal glands, and spleen are grossly unremarkable. Patient Information: : 1935 Order Type: Preliminary Name: LILLIAM CALDERA Sex: F Study Description: CT ABDOMEN AND PELVIS Modality: CT Location: [facility] Referring Physician: VANESSA LYONS RESIDENT Bilateral renal cysts. No renal or urinary calculi. No AAA. Mild retroperitoneal adenopathy. Moderate leiomyomatous uterus. 2.9 cm left ovarian cyst, unusual for patient's age. Prior distal colon and enteric surgeries. *Moderate mesenteric edema in the pelvis, likely due to a perforation of the anterior aspect of the mid transverse colon on axial images 65-69. Adjacent amorphous fluid collection in the anterior pelvic mesentery extending inferiorly containing gas bubbles, likely representing a developing abscess from the perforation. This collection is difficult to measure given its amorphous shape but is best seen on sagittal image 58 extending approximately 12.5 cm craniocaudally in the anterior pelvis. No evidence for appendicitis. No obvious bowel obstruction. Grade 1 spondylolisthesis at L5-S1. *Critical results discussed with Dr. Velazquez at 9:26 PM EDT. CONFIDENTIALITY NOTICE: This information is intended only for the use of the recipient(s) named above. If you are not the intended recipient, or a person responsible for delivering it to the intended recipient, you are hereby notified that any disclosure, copying, distribution or use of any of the information contained in or attached to this transmission is STRICTLY PROHIBITED. If you have received this transmission in error, please immediately notify Imaging Medical Record Administrator and destroy the original transmission and its attachments without saving them in any manner Please call 21/09 Support: [phone] ([phone]) with questions. Patient Information: : 1935 Order Type: Preliminary Name: LILLIAM CALDERA Sex: F Study Description: CT ABDOMEN AND PELVIS Modality: CT Location: [facility] Referring Physician: VANESSA PINEDA One or more of the following dose reduction techniques were used: automated exposure control, adjustment of the mA and/or kV according to patient size, use of iterative reconstructive technique. THIS DOCUMENT HAS BEEN ELECTRONICALLY SIGNED Stef Comer MD 10/29/2019 21:28 EST Medical Decision Making - Medical Decision Making 10/29/19 21:27 CT read: probable perf of transverse colon fluid collection 12cm extending inferiorly Discharge - Discharge Information Problems reviewed: Yes Clinical Impression/Diagnosis: Abdominal pain Qualifiers: Abdominal location: unspecified location Qualified Code(s): R10.9 - Unspecified abdominal pain Condition: Guarded Disposition: TRANSFER ACUTE CARE/OTHER HOSP - Follow up/Referral Referrals: Owen Betancur MD [Primary Care Provider] - - Patient Discharge Instructions - Post Discharge Activity - Transfer to Acute Care Facility Receiving Facility Name: [facility]) (Consulted Surgeon: Golas. DOBBINS accepting pt: Pastor)
[2019-10-29 19:48] LABS: ALBUMIN 2.7 g/dl (3.4-5.0); ALK PHOS 123 U/L (45-117); ANION GAP 8 MMOL/L (8-16); BLOOD UREA NITROGEN 17.5 mg/dL (7-18); CALCIUM 9.3 mg/dL (8.5-10.1); CHLORIDE 101 mmol/L (98-107); CO2 26 mmol/L (21-32); CREATININE 0.9 mg/dL (0.55-1.3); GLUCOSE,RANDOM 92 mg/dL (74-106); POTASSIUM 3.7 mmol/L (3.5-5.1); SGOT/AST 36 U/L (15-37); SGPT/ALT 24 U/L (13-61); SODIUM 135 mmol/L (136-145); TOT PROT 6.2 g/dl (6.4-8.2)
--- NOTE | 2019-10-29 20:42 | PDOC ---
*Physical Exam - Vital Signs Last Vital Signs Temp Pulse Resp BP Pulse Ox 99.4 F 65 18 117/47 L 99 10/29/19 18:39 10/29/19 18:01 10/29/19 18:01 10/29/19 18:40 10/29/19 18:01 - Physical Exam 10/29/19 20:37 awake alert lungs clear bilat heart rrr no mrg abd distended but soft. periumbilical, periincisional ttp. diffuse abd erythema, no palp fluctuance, no crepitus. ext wwp. no edema. no calf tenderness. alert oriented x 3. ED Treatment Course - LABORATORY CBC & Chemistry Diagram: 10/29/19 18:22 10/29/19 18:22 - ADDITIONAL ORDERS Additional order review: Laboratory Results 10/29/19 10/29/19 10/29/19 18:22 18:22 18:22 PT with INR INR PTT (Actin FS) Sodium Potassium Chloride Carbon Dioxide Anion Gap BUN Creatinine Est GFR (CKD-EPI)AfAm Est GFR (CKD-EPI)NonAf Random Glucose Lactic Acid 1.1 Calcium Total Bilirubin AST ALT Alkaline Phosphatase Troponin I Total Protein Albumin Stool Occult Blood Negative Blood Type A POSITIVE Antibody Screen Negative 10/29/19 10/29/19 18:22 18:22 PT with INR 11.20 INR 0.95 PTT (Actin FS) 26.0 Sodium 135 L Potassium 3.7 Chloride 101 Carbon Dioxide 26 Anion Gap 8 BUN 17.5 Creatinine 0.9 Est GFR (CKD-EPI)AfAm 67.57 Est GFR (CKD-EPI)NonAf 58.30 Random Glucose 92 Lactic Acid Calcium 9.3 Total Bilirubin 1.0 AST 36 ALT 24 Alkaline Phosphatase 123 H Troponin I < 0.02 Total Protein 6.2 L Albumin 2.7 L Stool Occult Blood Blood Type Antibody Screen 10/29/19 18:22 RBC 3.14 L MCV 88.0 MCHC 33.3 RDW 15.8 H MPV 7.5 Neutrophils % 86.3 H Lymphocytes % 5.5 L D Monocytes % 7.2 Eosinophils % 0.5 Basophils % 0.5 - Medications Given in the ED: ED Medications Discontinued Medications Generic Name Dose Route Start Last Admin Trade Name Freq PRN Reason Stop Dose Admin Sodium Chloride 1,000 mls @ 1,000 mls/hr 10/29/19 18:32 10/29/19 18:41 Normal Saline - IV 10/29/19 19:31 1,000 mls/hr ASDIR STA Administration Medical Decision Making - Medical Decision Making 10/29/19 20:39 84 yo F h/o hypothyroid, htn hld, pacemaker s/p colostomy reversal/ takedown 10/[address] Stef Hennessy at [facility], here today with c/o abd pain, erythema, concerns or abd wall cellulitis, post op cellulitis. pt was seen by day team. assumed care of pt at 7 pm. awaiting labs and ct a/p was given vancomycin. and zosyn. labs noted for elevated wbc 13. ua pending. 10/29/19 20:[address] noted for transverse colon perforation, large fluid collection developing abscess. [facility] transfer center, d/w surgeon DR Ram, who accepted pt to be transferred. requesting to ED for evaluation. d/w ED doctor Pastor. awaiting transport. 10/29/19 20:44 10/29/19 23:18 Discharge - Discharge Information Problems reviewed: Yes Clinical Impression/Diagnosis: Abdominal pain, Intestinal perforation, Post op infection Condition: Guarded Disposition: TRANSFER ACUTE CARE/OTHER HOSP - Follow up/Referral Referrals: Owen Betancur MD [Primary Care Provider] - - Patient Discharge Instructions - Post Discharge Activity
[2019-10-29 20:47] LABS: ANISOCYTOSIS 2+; OVALOCYTE 1+; PLATELET ESTIMATE INCREASED
[2019-10-29] MEDS ORDERED: VANCOMYCIN 1 GRAM (PRE-DOCKED) 1,000 MG/250 ML BAG IVPB ONE (21:25)
[2019-10-29] MEDS ORDERED: PIPERACILLIN/TAZOB 4.5 GM 4.5 GM/100 ML BAG IVPB ONE (21:25)
[2019-10-29 21:44] VITALS: TEMP 97.8
[2019-10-29 23:54] VITALS: BP 111/40; PULSE 67
--- NOTE | 2019-10-30 11:17 | EKG ---
Test Reason : Blood Pressure : / mmHG Vent. Rate : 069 BPM Atrial Rate : 069 BPM P-R Int : 194 ms QRS Dur : 158 ms QT Int : 426 ms P-R-T Axes : 068 -68 100 degrees QTc Int : 456 ms Atrial-sensed ventricular-paced rhythm ABNORMAL ECG WHEN COMPARED WITH ECG OF 01-FEB-2019 10:10, ELECTRONIC VENTRICULAR PACEMAKER HAS REPLACED SINUS RHYTHM VENT. RATE HAS INCREASED BY 28 BPM Confirmed by IVET CASEY, CECI ([id number]) on 10/30/2019 11:16:48 AM Referred By: Confirmed By:CECI COONEY MD
== END 2019-10-29 23:55 | disposition short-term general hospital (02) ==
LOC: JER 17:56
PROC: 3E03329 Introduction of Other Anti-infective into Peripheral Vein, Percutaneous Approach (ICD-10-PCS; principal; 2019-10-29)
PROC: 3E033GC Introduction of Other Therapeutic Substance into Peripheral Vein, Percutaneous Approach (ICD-10-PCS; 2019-10-29)
PROC: 3E0337Z Introduction of Electrolytic and Water Balance Substance into Peripheral Vein, Percutaneous Approach (ICD-10-PCS; 2019-10-29)
DX: R10.9 Unspecified abdominal pain (principal); T81.44XA Sepsis following a procedure, initial encounter
CPT/HCPCS: 36415; 71045-TC-FY; 74177-TC; 80053; 82272; 83605; 84484; 85025; 85610; 85730; 86850; 86900; 86901; 87040; 93005; 93010; 96361; 96374; 96375; 99285-25; Q9967; U0003

== ENCOUNTER 2020-07-13 12:00 | Emergency (ER) | payer OTHER ==
[2020-07-13 12:15] VITALS: BP 131/62; PULSE 65; TEMP 98.4; BMI 19.5
[2020-07-13 13:45] LABS: PH,URINE 5.5 (5.0-8.0); URINE APPEARANCE CLEAR; URINE BILIRUBIN NEGATIVE (NEGATIVE); URINE COLOR YELLOW; URINE GLUCOSE (UA) NEGATIVE (NEGATIVE); URINE KETONE NEGATIVE (NEGATIVE); URINE LEUK ESTERASE NEGATIVE (NEGATIVE); URINE NITRITE NEGATIVE (NEGATIVE); URINE PROTEIN NEGATIVE (NEGATIVE); URINE UROBILINOGEN 0.2 mg/dL (0.2-1.0)
[2020-07-13 14:16] LABS: EPI CELLS 1.4 /uL (0-25.1); HYALINE CASTS 0.1 /uL (0-3.1); URINE RBC 1.9 /uL (0-23.9); URINE WBC 0.8 /uL (0-25.8)
== END 2020-07-13 15:30 | disposition home or self-care (01) ==
LOC: JER 12:00
DX: R31.9 Hematuria, unspecified (principal)
CPT/HCPCS: 74176-TC; 81003; 87086; 99284-25

== ENCOUNTER 2020-12-26 13:56 | Emergency (ER) | payer OTHER ==
[2020-12-26 14:11] VITALS: BP 147/66; PULSE 79; TEMP 98; BMI 27.9
[2020-12-26 16:22] LABS: BASO % 0.5 % (0-2.0); EOS % 1.1 % (0-4.5); HEMATOCRIT 38.1 % (32.4-45.2); HEMOGLOBIN 13.1 GM/dL (10.7-15.3); LYMPH % 13.4 % (8-40); MCH 29.6 pg (25.7-33.7); MCHC 34.4 g/dl (32.0-36.0); MONO % 5.8 % (3.8-10.2); NEUT % 79.2 % (42.8-82.8); PLATELET COUNT 212 10^3/uL (134-434); RBC 4.42 M/mm3 (3.60-5.2); RDW 14.7 % (11.6-15.6); WHITE BLOOD COUNT 10.5 K/mm3 (4.0-10.0)
[2020-12-26 16:30] LABS: INR 0.94 (0.83-1.09)
[2020-12-26 16:33] LABS: ACTIVATED PTT 28.1 SECONDS (25.2-36.5)
[2020-12-26 16:53] LABS: CHLORIDE 105 mmol/L (98-107); SODIUM 139 mmol/L (136-145)
[2020-12-26 16:55] LABS: ALBUMIN 3.2 g/dl (3.4-5.0); CALCIUM 10.4 mg/dL (8.5-10.1); LIPASE 121 U/L (73-393)
[2020-12-26 16:56] LABS: ANION GAP 8 MMOL/L (8-16); BLOOD UREA NITROGEN 23.4 mg/dL (7-18); CO2 26 mmol/L (21-32); GLUCOSE,RANDOM 86 mg/dL (74-106)
[2020-12-26 16:58] LABS: CREATININE 0.8 mg/dL (0.55-1.3); SGOT/AST 24 U/L (15-37); SGPT/ALT 22 U/L (13-61)
[2020-12-26 17:00] LABS: BILIRUBIN,TOTAL 0.7 mg/dL (0.2-1); TOT PROT 6.5 g/dl (6.4-8.2)
[2020-12-26 17:01] LABS: ALK PHOS 123 U/L (45-117)
[2020-12-26 17:40] LABS: PH,URINE 5.5 (5.0-8.0); URINE APPEARANCE CLEAR; URINE BILIRUBIN NEGATIVE (NEGATIVE); URINE COLOR YELLOW; URINE GLUCOSE (UA) NEGATIVE (NEGATIVE); URINE KETONE NEGATIVE (NEGATIVE); URINE LEUK ESTERASE NEGATIVE (NEGATIVE); URINE NITRITE NEGATIVE (NEGATIVE); URINE PROTEIN NEGATIVE (NEGATIVE)
== END 2020-12-26 19:54 | disposition left against medical advice (07) ==
LOC: JER 13:56
DX: R14.0 Abdominal distension (gaseous) (principal); E83.52 Hypercalcemia; K43.9 Ventral hernia without obstruction or gangrene
CPT/HCPCS: 36415; 74177-TC; 80053; 81003; 82550; 83605; 83690; 84484; 85025; 85610; 85730; 86850; 86900; 86901; 87086; 93005; 93010; 99285-25; Q9967

== ENCOUNTER 2021-05-10 15:52 | Emergency (ER) | payer OTHER ==
[2021-05-10 16:02] VITALS: TEMP 97.5; BMI 19.3
[2021-05-10 17:31] LABS: HEMATOCRIT 37.8 % (32.4-45.2); HEMOGLOBIN 12.9 GM/dL (10.7-15.3); MCH 28.4 pg (25.7-33.7); MCHC 34.1 g/dl (32.0-36.0); MEAN CELL VOLUME 83.4 fl (80-96); MEAN PLT VOLUME 7.2 fl (7.5-11.1); PLATELET COUNT 214 10^3/uL (134-434); RBC 4.53 M/mm3 (3.60-5.2); RDW 14.7 % (11.6-15.6); WHITE BLOOD COUNT 8.3 K/mm3 (4.0-10.0)
[2021-05-10 17:33] LABS: PH,URINE 5.5 (5.0-8.0); URINE APPEARANCE CLEAR; URINE BILIRUBIN NEGATIVE (NEGATIVE); URINE COLOR YELLOW; URINE GLUCOSE (UA) NEGATIVE (NEGATIVE); URINE KETONE NEGATIVE (NEGATIVE); URINE LEUK ESTERASE NEGATIVE (NEGATIVE); URINE NITRITE NEGATIVE (NEGATIVE); URINE PROTEIN NEGATIVE (NEGATIVE)
[2021-05-10 17:56] LABS: CALCIUM 10.3 mg/dL (8.5-10.1)
[2021-05-10 17:57] LABS: ALBUMIN 3.3 g/dl (3.4-5.0); BLOOD UREA NITROGEN 18.4 mg/dL (7-18); MAGNESIUM 2.2 mg/dL (1.8-2.4)
[2021-05-10 17:59] LABS: PHOSPHOROUS 3.1 mg/dL (2.5-4.9)
[2021-05-10 18:00] LABS: CREATININE 0.8 mg/dL (0.55-1.3)
[2021-05-10 18:01] LABS: BILIRUBIN,TOTAL 0.8 mg/dL (0.2-1); TOT PROT 6.7 g/dl (6.4-8.2)
[2021-05-10 18:27] LABS: ANISOCYTOSIS 2+; MACROCYTOSIS 0; OVALOCYTE 2+
[2021-05-10 20:46] VITALS: BP 142/84; PULSE 70
== END 2021-05-10 20:46 | disposition home or self-care (01) ==
LOC: JER 15:52
DX: R53.1 Weakness (principal)
CPT/HCPCS: 36415; 71045-TC-FY; 80053; 81003; 83735; 84100; 84436; 84443; 84484; 85025; 86850; 86900; 86901; 93005; 93010; 99285-25

== ENCOUNTER 2021-11-07 10:57 | Observation (INO) | payer OTHER ==
[2021-11-07 14:37] LABS: EOS % 0.5 % (0-4.5); HEMATOCRIT 42.6 % (32.4-45.2); HEMOGLOBIN 13.6 GM/dL (10.7-15.3); LYMPH % 12.9 % (8-40); MCH 25.6 pg (25.7-33.7); MCHC 31.9 g/dl (32.0-36.0); MEAN CELL VOLUME 80.2 fl (80-96); MEAN PLT VOLUME 7.3 fl (7.5-11.1); MONO % 4.8 % (3.8-10.2); NEUT % 80.8 % (42.8-82.8); PLATELET COUNT 253 10^3/uL (134-434); RDW 16.4 % (11.6-15.6); WHITE BLOOD COUNT 7.5 K/mm3 (4.0-10.0)
[2021-11-07 14:48] LABS: ALBUMIN 3.4 g/dl (3.4-5.0); BLOOD UREA NITROGEN 16.3 mg/dL (7-18); CALCIUM 10.8 mg/dL (8.5-10.1)
[2021-11-07 14:52] LABS: CREATININE 0.7 mg/dL (0.55-1.3); TOT PROT 7.4 g/dl (6.4-8.2)
[2021-11-07 14:56] LABS: N-TERMINAL BNP 1003.2 pg/ml (5-450)
[2021-11-07] MEDS ORDERED: ACETAMINOPHEN 325 MG TABLET (FP) PO PRN (17:52)
[2021-11-07] MEDS ORDERED: HEPARIN NA (PORCINE) 5,000 UNITS/ML 1ML VIAL ONE (21:36)
[2021-11-07] MEDS: HEPARIN NA (PORCINE) 5,000 UNITS/ML 1ML VIAL SQ SCH (21:41)
[2021-11-08 00:40] VITALS: BMI 21.0
[2021-11-08] MEDS: HEPARIN NA (PORCINE) 5,000 UNITS/ML 1ML VIAL SQ SCH ×2 (06:12→14:00)
[2021-11-08] MEDS ORDERED: LEVOTHYROXINE NA 100 MCG TABLET (FP) PO SCH (07:00)
[2021-11-08] MEDS: ESCITALOPRAM OXALATE 10 MG TABLET PO SCH ×2 (09:39→09:46)
[2021-11-08] MEDS ORDERED: LOSARTAN POTASSIUM 50 MG TABLET PO SCH (10:00)
[2021-11-08 15:59] VITALS: BP 137/62; PULSE 61; RESP 18; TEMP 98.3
== END 2021-11-08 16:02 | disposition home or self-care (01) ==
LOC: JER 10:57 → JERBED 14:36 → J4W 23:26
PROVIDERS: ADMIT Internal Medicine; ATTEND Internal Medicine
PROC: 3E013GC Introduction of Other Therapeutic Substance into Subcutaneous Tissue, Percutaneous Approach (ICD-10-PCS; principal; 2021-11-07)
DX: R06.09 Other forms of dyspnea (principal); R07.89 Other chest pain; I10 Essential (primary) hypertension; E03.9 Hypothyroidism, unspecified; E78.5 Hyperlipidemia, unspecified; K76.0 Fatty (change of) liver, not elsewhere classified; F41.9 Anxiety disorder, unspecified; Z87.891 Personal history of nicotine dependence; Z95.810 Presence of automatic (implantable) cardiac defibrillator
CPT/HCPCS: 0241U-QW; 36415; 71046-TC-FY; 80053; 83880; 84443; 84484; 85025; 93005; 93010; 96372; 99285-25; G0378; J1644

== ENCOUNTER 2022-03-21 15:25 | Observation (INO) | payer OTHER ==
[2022-03-21 17:08] LABS: INR 0.91 (0.83-1.09); PROTHROMBIN TIME (PATIENT) 10.4 SEC (9.7-13.0)
[2022-03-21 17:09] LABS: ALBUMIN 4.4 g/dl (3.4-5.0); BILIRUBIN,TOTAL 1.6 mg/dl (0.2-1); CALCIUM 11.1 mg/dl (8.5-10); CREATININE 0.8 mg/dl (0.55-1.3); TOT PROT 7.7 g/dl (6.4-8.2)
[2022-03-21 17:10] LABS: HEMATOCRIT 43.2 % (32.4-45.2); HEMOGLOBIN 15.1 G/dL (10.7-15.3); MCH 29.2 pg (25.7-33.7); MEAN CELL VOLUME 83.6 fl (80-96); MEAN PLT VOLUME 7.8 fl (7.5-11.1); PLATELET COUNT 167.5 10^3/uL (134-434); RBC 5.17 10^6/uL (3.60-5.2); RDW 16.1 % (11.6-15.6); WHITE BLOOD COUNT 8.3 10^3/uL (4.0-10.8)
[2022-03-21 17:11] LABS: ACTIVATED PTT 32.2 SECONDS (25.2-36.5)
[2022-03-21 17:56] LABS: N-TERMINAL BNP 900.4 pg/ml (5-450)
[2022-03-21 18:13] LABS: PLATELET ESTIMATE ADEQUATE
[2022-03-21 22:53] VITALS: BMI 19.8
[2022-03-22] MEDS: LEVOTHYROXINE NA 100 MCG TABLET (FP) PO SCH (06:52)
[2022-03-22 09:14] LABS: CALCIUM 10.4 mg/dl (8.5-10); CREATININE 0.7 mg/dl (0.55-1.3)
[2022-03-22] MEDS: HEPARIN NA (PORCINE) 5,000 UNITS/ML 1ML VIAL SQ SCH ×3 (10:00→21:47)
[2022-03-22 10:55] LABS: BASO % 0.7 % (0-2.0); EOS % 2.1 % (0-4.5); HEMATOCRIT 41.9 % (32.4-45.2); HEMOGLOBIN 13.9 GM/dL (10.7-15.3); LYMPH % 24.5 % (8-40); MCH 28.3 pg (25.7-33.7); MCHC 33.2 g/dl (32.0-36.0); MEAN CELL VOLUME 85.4 fl (80-96); MEAN PLT VOLUME 7.1 fl (7.5-11.1); NEUT % 64.7 % (42.8-82.8); PLATELET COUNT 197 10^3/uL (134-434); RDW 15.5 % (11.6-15.6); WHITE BLOOD COUNT 7.2 K/mm3 (4.0-10.0)
[2022-03-22] MEDS: FUROSEMIDE 20 MG TABLET (FP) PO SCH (10:58)
[2022-03-22] MEDS: LOSARTAN POTASSIUM 50 MG TABLET PO SCH (10:58)
[2022-03-22] MEDS: ESCITALOPRAM OXALATE 10 MG TABLET PO SCH (10:58)
[2022-03-22 17:30] LABS: MAGNESIUM 1.9 mg/dL (1.8-2.4); PHOSPHOROUS 3.5 mg/dl (2.5-4.9)
[2022-03-23 06:09] VITALS: RESP 18
[2022-03-23] MEDS: LEVOTHYROXINE NA 100 MCG TABLET (FP) PO SCH (06:39)
[2022-03-23 08:59] LABS: ALBUMIN 3.5 g/dl (3.4-5.0); BILIRUBIN,TOTAL 1.3 mg/dl (0.2-1); CALCIUM 10.3 mg/dl (8.5-10); CREATININE 0.8 mg/dl (0.55-1.3); TOT PROT 6.4 g/dl (6.4-8.2)
[2022-03-23] MEDS: LOSARTAN POTASSIUM 50 MG TABLET PO SCH (09:16)
[2022-03-23] MEDS: HEPARIN NA (PORCINE) 5,000 UNITS/ML 1ML VIAL SQ SCH (09:16)
[2022-03-23] MEDS: FUROSEMIDE 20 MG TABLET (FP) PO SCH (09:17)
[2022-03-23] MEDS: ESCITALOPRAM OXALATE 10 MG TABLET PO SCH (09:17)
[2022-03-23 09:47] LABS: BASO % 0.8 % (0-2.0); EOS % 1.4 % (0-4.5); HEMATOCRIT 37.3 % (32.4-45.2); HEMOGLOBIN 12.7 GM/dL (10.7-15.3); LYMPH % 17.9 % (8-40); MCH 28.8 pg (25.7-33.7); MEAN CELL VOLUME 84.6 fl (80-96); MEAN PLT VOLUME 7.5 fl (7.5-11.1); MONO % 7.4 % (3.8-10.2); NEUT % 72.5 % (42.8-82.8); PLATELET COUNT 188 10^3/uL (134-434); RDW 14.8 % (11.6-15.6); WHITE BLOOD COUNT 7.1 K/mm3 (4.0-10.0)
[2022-03-23] MEDS ORDERED: ENOXAPARIN NA (PORCINE) 40 MG/0.4 ML DISP.SYRIN SQ SCH (10:00)
[2022-03-23 13:45] VITALS: BP 140/74; PULSE 56; TEMP 98.4
== END 2022-03-23 17:32 | disposition home or self-care (01) ==
LOC: FER 15:25 → FM/S 18:44
PROVIDERS: ADMIT Internal Medicine
PROC: 3E023GC Introduction of Other Therapeutic Substance into Muscle, Percutaneous Approach (ICD-10-PCS; principal; 2022-03-21)
DX: I11.0 Hypertensive heart disease with heart failure (principal); I50.9 Heart failure, unspecified; I25.10 Atherosclerotic heart disease of native coronary artery without angina pectoris; I11.9 Hypertensive heart disease without heart failure; K76.0 Fatty (change of) liver, not elsewhere classified; K57.92 Diverticulitis of intestine, part unspecified, without perforation or abscess without bleeding; R07.9 Chest pain, unspecified; D32.9 Benign neoplasm of meninges, unspecified; I49.5 Sick sinus syndrome
CPT/HCPCS: 0241U-QW; 36415; 71046-TC-FY; 80048; 80053; 81003; 82306; 82310; 82330; 82436; 83615; 83735; 83880; 83970; 84100; 84133; 84300; 84439; 84443; 84479; 84484; 85025; 85027; 85610; 85730; 87086; 93005; 93306-TC; 96372; 99285-25; G0378; J1644

== ENCOUNTER 2022-05-25 15:35 | Emergency (ER) | payer OTHER ==
[2022-05-25 16:51] LABS: HEMATOCRIT 41.1 % (32.4-45.2); HEMOGLOBIN 13.9 G/dL (10.7-15.3); MCH 29.1 pg (25.7-33.7); MCHC 33.9 g/dl (32.0-36.0); MEAN CELL VOLUME 85.7 fl (80-96); MEAN PLT VOLUME 7.4 fl (7.5-11.1); PLATELET COUNT 174.3 10^3/uL (134-434); RBC 4.79 10^6/uL (3.60-5.2); RDW 15.2 % (11.6-15.6); WHITE BLOOD COUNT 9.6 10^3/uL (4.0-10.8)
[2022-05-25 16:58] LABS: INR 0.92 (0.83-1.09); PROTHROMBIN TIME (PATIENT) 10.6 SEC (9.7-13.0)
[2022-05-25 17:01] LABS: ACTIVATED PTT 35.7 SECONDS (25.2-36.5)
[2022-05-25 17:05] LABS: ALBUMIN 4.1 g/dl (3.4-5.0); BILIRUBIN,TOTAL 1.4 mg/dl (0.2-1); CALCIUM 10.4 mg/dl (8.5-10); CREATININE 0.9 mg/dl (0.55-1.3); MAGNESIUM 1.8 mg/dL (1.8-2.4); TOT PROT 7.1 g/dl (6.4-8.2)
[2022-05-25 18:00] LABS: PLATELET ESTIMATE ADEQUATE
[2022-05-25] MEDS ORDERED: ASPIRIN 81 MG CHEWABLE TABLETS PO ONE (18:18)
[2022-05-25] MEDS ORDERED: ASPIRIN 81 MG CHEWABLE TABLETS ONE (18:43)
[2022-05-25 20:09] LABS: N-TERMINAL BNP 827.8 pg/ml (5-450)
[2022-05-26 00:29] VITALS: BMI 19.8
[2022-05-26] MEDS: LEVOTHYROXINE NA 100 MCG TABLET (FP) PO SCH (06:59)
[2022-05-26 08:58] LABS: CALCIUM 10.3 mg/dl (8.5-10); CREATININE 0.8 mg/dl (0.55-1.3)
[2022-05-26 09:52] LABS: BASO % 0.7 % (0-2.0); HEMATOCRIT 36.7 % (32.4-45.2); HEMOGLOBIN 12.7 GM/dL (10.7-15.3); MCH 28.9 pg (25.7-33.7); MCHC 34.6 g/dl (32.0-36.0); MEAN CELL VOLUME 83.4 fl (80-96); MEAN PLT VOLUME 7.4 fl (7.5-11.1); NEUT % 65.3 % (42.8-82.8); PLATELET COUNT 204 10^3/uL (134-434); RDW 14.9 % (11.6-15.6); WHITE BLOOD COUNT 6.9 K/mm3 (4.0-10.0)
[2022-05-26] MEDS: ASPIRIN 81 MG CHEWABLE TABLETS PO SCH (10:01)
[2022-05-26] MEDS ORDERED: ATORVASTATIN CA 10 MG TABLET (FP) PO SCH (22:00)
[2022-05-27] MEDS: LEVOTHYROXINE NA 100 MCG TABLET (FP) PO SCH (06:33)
[2022-05-27 08:28] LABS: ALBUMIN 3.4 g/dl (3.4-5.0); BILIRUBIN,TOTAL 0.8 mg/dl (0.2-1); CALCIUM 10.2 mg/dl (8.5-10); CREATININE 0.7 mg/dl (0.55-1.3); TOT PROT 6.2 g/dl (6.4-8.2)
[2022-05-27] MEDS: ASPIRIN 81 MG CHEWABLE TABLETS PO SCH (09:38)
[2022-05-27 10:06] LABS: BASO % 0.4 % (0-2.0); HEMATOCRIT 37.3 % (32.4-45.2); LYMPH % 19.3 % (8-40); MCH 29.1 pg (25.7-33.7); MCHC 34.8 g/dl (32.0-36.0); MEAN CELL VOLUME 83.5 fl (80-96); MEAN PLT VOLUME 7.4 fl (7.5-11.1); MONO % 8.4 % (3.8-10.2); NEUT % 69.9 % (42.8-82.8); PLATELET COUNT 178 10^3/uL (134-434); RBC 4.47 M/mm3 (3.60-5.2)
[2022-05-27 13:30] VITALS: BP 113/51; PULSE 78; RESP 17; TEMP 98.4
== END 2022-05-27 14:12 | disposition home or self-care (01) ==
LOC: FER 15:35 → FM/S 20:58
PROVIDERS: ADMIT Internal Medicine
DX: R06.02 Shortness of breath (principal)
CPT/HCPCS: 0241U-QW; 36415; 71046-TC-FY; 71275-TC; 74177-TC; 80048; 80053; 80061; 83735; 83880; 84436; 84439; 84443; 84484; 85025; 85027; 85379; 85610; 85730; 93005; 97116-GP; 97162-GP; 99285-25; G0378; Q9967

== ENCOUNTER 2022-10-31 12:32 | Emergency (ER) | payer OTHER ==
[2022-10-31 12:48] VITALS: BMI 19.6
[2022-10-31 13:33] LABS: HEMATOCRIT 39.2 % (32.4-45.2); MCH 29.2 pg (25.7-33.7); MCHC 33.2 g/dl (32.0-36.0); MEAN PLT VOLUME 8.4 fl (7.5-11.1); PLATELET COUNT 161.8 10^3/uL (134-434); RBC 4.45 10^6/uL (3.60-5.2); RDW 15.4 % (11.6-15.6); WHITE BLOOD COUNT 7.7 10^3/uL (4.0-10.8)
[2022-10-31 13:35] LABS: ALBUMIN 3.8 g/dl (3.4-5.0); BLOOD UREA NITROGEN 10.6 mg/dl (7-18); CALCIUM 10.4 mg/dl (8.5-10.1); CREATININE 0.7 mg/dl (0.6-1.3); POTASSIUM 4.2 mmol/L (3.5-5.1); SGOT/AST 22.5 U/L (15-37); SGPT/ALT 13.2 U/L (7-52); TOT PROT 6.2 g/dl (6.4-8.2)
[2022-10-31 13:39] LABS: PLATELET ESTIMATE ADEQUATE
[2022-10-31 15:00] LABS: BILIRUBIN,TOTAL 0.9 mg/dL (0.2-1)
[2022-10-31 16:48] VITALS: BP 141/78; PULSE 63; RESP 16; TEMP 98.6
== END 2022-10-31 17:15 | disposition home or self-care (01) ==
LOC: FER 12:32
DX: R06.02 Shortness of breath (principal); R53.1 Weakness; I11.0 Hypertensive heart disease with heart failure; I50.32 Chronic diastolic (congestive) heart failure
CPT/HCPCS: 0241U-QW; 36415; 71045-TC-FY; 80053; 81003; 83880; 84484; 85027; 87086; 93005; 99285-25

== ENCOUNTER 2022-12-01 00:28 | Inpatient (IN) | payer OTHER ==
[2022-12-01] MEDS ORDERED: METOCLOPRAMIDE HCL INJECTION 10 MG/2 ML VIAL IVPB ONE (01:38)
[2022-12-01] MEDS ORDERED: SODIUM CHLORIDE 250 ML IV STA (01:38)
[2022-12-01] MEDS ORDERED: METOCLOPRAMIDE HCL INJECTION 10 MG/2 ML VIAL ONE (01:40)
[2022-12-01 02:38] LABS: BASO % 0.5 % (0-2.0); EOS % 1.5 % (0-4.5); HEMATOCRIT 34.8 % (32.4-45.2); HEMOGLOBIN 12.4 GM/dL (10.7-15.3); LYMPH % 14.8 % (8-40); MCH 29.1 pg (25.7-33.7); MCHC 35.5 g/dl (32.0-36.0); MEAN CELL VOLUME 82.1 fl (80-96); MEAN PLT VOLUME 7.7 fl (7.5-11.1); MONO % 7.9 % (3.8-10.2); NEUT % 75.3 % (42.8-82.8); PLATELET COUNT 235 10^3/uL (134-434); RBC 4.24 M/mm3 (3.60-5.2); RDW 14.7 % (11.6-15.6); WHITE BLOOD COUNT 12.3 K/mm3 (4.0-10.0)
[2022-12-01 02:40] LABS: PH,URINE 5.5 (5.0-8.0); URINE APPEARANCE CLEAR; URINE BILIRUBIN NEGATIVE (NEGATIVE); URINE COLOR YELLOW; URINE GLUCOSE (UA) TRACE (NEGATIVE); URINE KETONE TRACE (NEGATIVE); URINE LEUK ESTERASE NEGATIVE (NEGATIVE); URINE NITRITE NEGATIVE (NEGATIVE); URINE PROTEIN NEGATIVE (NEGATIVE)
[2022-12-01 02:59] LABS: CHLORIDE 84 mmol/L (98-107); POTASSIUM 3.8 mmol/L (3.5-5.1)
[2022-12-01 03:01] LABS: ALBUMIN 3.5 g/dl (3.4-5.0); BLOOD UREA NITROGEN 11.6 mg/dL (7-18); CALCIUM 9.2 mg/dL (8.5-10.1); CO2 23 mmol/L (21-32); GLUCOSE,RANDOM 137 mg/dL (74-106); MAGNESIUM 1.4 mg/dL (1.8-2.4)
[2022-12-01 03:04] LABS: CREATININE 0.8 mg/dL (0.55-1.3)
[2022-12-01 03:05] LABS: BILIRUBIN,TOTAL 1.2 mg/dL (0.2-1); SGOT/AST 36 U/L (15-37); SGPT/ALT 24 U/L (13-61); TOT PROT 6.3 g/dl (6.4-8.2)
[2022-12-01] MEDS ORDERED: MAGNESIUM 1GM/D5W - 1 GM/100 ML IVPB IVPB ONE ×3 (03:05→11:00)
[2022-12-01 03:08] LABS: ALK PHOS 108 U/L (45-117)
[2022-12-01 03:10] LABS: N-TERMINAL BNP 1693.4 pg/ml (5-450)
[2022-12-01 03:20] LABS: ANION GAP 12 MMOL/L (8-16); SODIUM 119 mmol/L (136-145)
[2022-12-01] MEDS ORDERED: SODIUM CHLORIDE 3% 500 ML/500 ML INFUS.BAG IV ONE ×4 (03:36→13:10)
[2022-12-01] MEDS ORDERED: INFUS IV ONE (04:04)
[2022-12-01] MEDS ORDERED: SODIUM CHLORIDE 3% IV ONE (04:04)
[2022-12-01] MEDS ORDERED: ACETAMINOPHEN 325 MG TABLET (FP) PO PRN (05:27)
[2022-12-01] MEDS ORDERED: LEVOTHYROXINE NA 50 MCG TABLET (FP) PO SCH (07:00)
[2022-12-01] MEDS ORDERED: TRIMETHOBENZAMIDE HCL 200MG/2ML INJ IM ONE ×2 (07:05→07:06)
[2022-12-01 07:45] LABS: PHOSPHOROUS 2.6 mg/dL (2.5-4.9)
[2022-12-01 09:16] LABS: HEMATOCRIT 38.3 % (32.4-45.2); HEMOGLOBIN 12.9 G/dL (10.7-15.3); MCH 28.4 pg (25.7-33.7); MCHC 33.6 g/dl (32.0-36.0); MEAN CELL VOLUME 84.6 fl (80-96); MEAN PLT VOLUME 7.8 fl (7.5-11.1); PLATELET COUNT 203.2 10^3/uL (134-434); RBC 4.53 10^6/uL (3.60-5.2); RDW 15.4 % (11.6-15.6); WHITE BLOOD COUNT 16.7 10^3/uL (4.0-10.8)
[2022-12-01 09:23] LABS: ANION GAP 12 MMOL/L (8-16); BLOOD UREA NITROGEN 10.3 mg/dl (7-18); CALCIUM 9.3 mg/dl (8.5-10.1); CHLORIDE 84 mmol/L (98-107); CO2 22 mmol/L (21-32); CREATININE 0.7 mg/dl (0.6-1.3); GLUCOSE,RANDOM 155 mg/dl (74-106); MAGNESIUM 1.7 mg/dL (1.8-2.4); PHOSPHOROUS 2.37 (2.5-4.9); POTASSIUM 3.4 mmol/L (3.5-5.1)
[2022-12-01 09:36] LABS: SODIUM 118 mmol/L (136-145)
[2022-12-01] MEDS ORDERED: MAGNESIUM SULF 50% (8.12 MEQ/2 ML-1 GM VIAL) IVPB ONE (10:38)
[2022-12-01] MEDS ORDERED: SODIUM CHLORIDE 1,000 ML IV SCH (10:45)
[2022-12-01] MEDS ORDERED: POTASSIUM PHOSPHATE 15 MM in SODIUM CHLORIDE 250 ML IVPB ONE (12:00)
[2022-12-01 12:39] LABS: CREATININE, URINE RANDOM < 13.0 mg/dL (30-150)
[2022-12-01] MEDS: PANTOPRAZOLE SODIUM 40 MG VIAL IVPUSH SCH (14:06)
[2022-12-01 15:57] LABS: CHLORIDE 86 mmol/L (98-107); POTASSIUM 4.1 mmol/L (3.5-5.1)
[2022-12-01 15:59] LABS: BLOOD UREA NITROGEN 8.8 mg/dL (7-18); CALCIUM 8.8 mg/dL (8.5-10.1); CO2 25 mmol/L (21-32); GLUCOSE,RANDOM 107 mg/dL (74-106)
[2022-12-01 16:03] LABS: CREATININE 0.6 mg/dL (0.55-1.3)
[2022-12-01 16:04] LABS: ANION GAP 9 MMOL/L (8-16); SODIUM 119 mmol/L (136-145)
[2022-12-01 18:25] LABS: POTASSIUM 4.6 mmol/L (3.5-5.1)
[2022-12-01 18:27] LABS: BLOOD UREA NITROGEN 9.7 mg/dL (7-18); CALCIUM 9.2 mg/dL (8.5-10.1)
[2022-12-01 18:30] LABS: CREATININE 0.6 mg/dL (0.55-1.3)
[2022-12-01] MEDS: ATORVASTATIN CA 20 MG TABLET (FP) PO SCH (21:15)
[2022-12-01 21:26] LABS: POTASSIUM 4.1 mmol/L (3.5-5.1)
[2022-12-01 21:27] LABS: CALCIUM 8.8 mg/dL (8.5-10.1)
[2022-12-01 21:31] LABS: CREATININE 0.6 mg/dL (0.55-1.3)
[2022-12-01] MEDS: MUPIROCIN 2% TOPICAL OINTMENT FOR DECOLONIZATION NS SCH (21:56)
[2022-12-01] MEDS: CHLORHEXIDINE GLUCONATE 4% CLEANSER FOR DECOLONIZATION TP SCH (21:57)
[2022-12-02 03:01] LABS: POTASSIUM 4.3 mmol/L (3.5-5.1)
[2022-12-02 03:02] LABS: BLOOD UREA NITROGEN 10.2 mg/dL (7-18)
[2022-12-02 03:06] LABS: CREATININE 0.6 mg/dL (0.55-1.3)
[2022-12-02] MEDS ORDERED: SODIUM CHLORIDE 3% 500 ML/500 ML INFUS.BAG IV ONE (06:33)
[2022-12-02] MEDS ORDERED: LEVOTHYROXINE NA 100 MCG TABLET (FP) PO SCH (07:00)
[2022-12-02 07:03] LABS: BASO % 0.1 % (0-2.0); MCH 28.6 pg (25.7-33.7); MCHC 34.4 g/dl (32.0-36.0); MEAN CELL VOLUME 83.3 fl (80-96); MEAN PLT VOLUME 7.6 fl (7.5-11.1); MONO % 6.8 % (3.8-10.2); NEUT % 90.1 % (42.8-82.8); PLATELET COUNT 193 10^3/uL (134-434); RBC 4.21 M/mm3 (3.60-5.2); RDW 15.3 % (11.6-15.6); WHITE BLOOD COUNT 17.1 K/mm3 (4.0-10.0)
[2022-12-02 07:24] LABS: CALCIUM 9.2 mg/dL (8.5-10.1)
[2022-12-02 07:25] LABS: BLOOD UREA NITROGEN 10.7 mg/dL (7-18); MAGNESIUM 1.9 mg/dL (1.8-2.4)
[2022-12-02 07:29] LABS: CREATININE 0.6 mg/dL (0.55-1.3); PHOSPHOROUS 2.4 mg/dL (2.5-4.9)
[2022-12-02] MEDS: PANTOPRAZOLE SODIUM 40 MG VIAL IVPUSH SCH (09:04)
[2022-12-02] MEDS: ENOXAPARIN NA (PORCINE) 40 MG/0.4 ML DISP.SYRIN SQ SCH (09:05)
[2022-12-02] MEDS: MUPIROCIN 2% TOPICAL OINTMENT FOR DECOLONIZATION NS SCH ×2 (09:05→21:33)
[2022-12-02] MEDS ORDERED: DEXTROSE 5%-WATER 500 ML PVC-FREE INFUS.BAG IV ONE (09:17)
[2022-12-02] MEDS ORDERED: DEXTROSE 5%-WATER - 500 ML IV SCH ×3 (09:45→14:45)
[2022-12-02 09:48] LABS: URIC ACID 2.3 mg/dL (2.6-7.2)
[2022-12-02] MEDS ORDERED: DESMOPRESSIN ACETATE 4 MCG/ML AMP IVPB ONE ×2 (10:00→14:45)
[2022-12-02] MEDS ORDERED: AZITHROMYCIN IVPB 500 MG/250 ML BAG IVPB ONE (12:29)
[2022-12-02 13:11] LABS: POTASSIUM 3.8 mmol/L (3.5-5.1)
[2022-12-02 13:12] LABS: CALCIUM 9.3 mg/dL (8.5-10.1)
[2022-12-02 13:13] LABS: BLOOD UREA NITROGEN 9.7 mg/dL (7-18)
[2022-12-02] MEDS: CEFTRIAXONE 1 GM in DEXTROSE 5%-WATER - 50 ML IVPB SCH (13:15)
[2022-12-02 13:17] LABS: CREATININE 0.7 mg/dL (0.55-1.3)
[2022-12-02] MEDS ORDERED: DEXTROSE 5%-WATER 100 ML MINI BAG IVPB ONE (13:48)
[2022-12-02 16:07] LABS: BLOOD UREA NITROGEN 11.3 mg/dL (7-18); CALCIUM 9.1 mg/dL (8.5-10.1); POTASSIUM 4.1 mmol/L (3.5-5.1)
[2022-12-02 16:11] LABS: CREATININE 0.7 mg/dL (0.55-1.3)
[2022-12-02 18:00] LABS: POTASSIUM 4.1 mmol/L (3.5-5.1)
[2022-12-02 18:03] LABS: CALCIUM 9.2 mg/dL (8.5-10.1)
[2022-12-02 18:04] LABS: BLOOD UREA NITROGEN 11.8 mg/dL (7-18)
[2022-12-02 18:07] LABS: CREATININE 0.6 mg/dL (0.55-1.3)
[2022-12-02 21:26] LABS: POTASSIUM 3.8 mmol/L (3.5-5.1)
[2022-12-02 21:30] LABS: BLOOD UREA NITROGEN 11.6 mg/dL (7-18); CALCIUM 8.9 mg/dL (8.5-10.1)
[2022-12-02 21:33] LABS: CREATININE 0.6 mg/dL (0.55-1.3)
[2022-12-02] MEDS: ATORVASTATIN CA 20 MG TABLET (FP) PO SCH (21:33)
[2022-12-02] MEDS: CHLORHEXIDINE GLUCONATE 4% CLEANSER FOR DECOLONIZATION TP SCH (21:33)
[2022-12-02] MEDS ORDERED: DEXTROSE 5%-WATER - 1,000 ML IV SCH (22:15)
[2022-12-02 23:10] LABS: POTASSIUM 3.9 mmol/L (3.5-5.1)
[2022-12-02 23:12] LABS: BLOOD UREA NITROGEN 10.6 mg/dL (7-18); CALCIUM 8.7 mg/dL (8.5-10.1)
[2022-12-02 23:15] LABS: CREATININE 0.5 mg/dL (0.55-1.3)
[2022-12-03 02:47] LABS: POTASSIUM 3.9 mmol/L (3.5-5.1)
[2022-12-03 02:49] LABS: BLOOD UREA NITROGEN 10.4 mg/dL (7-18)
[2022-12-03 02:52] LABS: CREATININE 0.5 mg/dL (0.55-1.3)
[2022-12-03] MEDS: LEVOTHYROXINE NA 100 MCG TABLET (FP) PO SCH (06:09)
[2022-12-03 06:25] LABS: BASO % 0.1 % (0-2.0); EOS % 0.1 % (0-4.5); HEMATOCRIT 32.1 % (32.4-45.2); LYMPH % 5.5 % (8-40); MCH 28.9 pg (25.7-33.7); MCHC 34.2 g/dl (32.0-36.0); MEAN CELL VOLUME 84.3 fl (80-96); MEAN PLT VOLUME 7.4 fl (7.5-11.1); NEUT % 81.3 % (42.8-82.8); PLATELET COUNT 169 10^3/uL (134-434); RBC 3.81 M/mm3 (3.60-5.2); RDW 15.4 % (11.6-15.6)
[2022-12-03 06:52] LABS: POTASSIUM 3.9 mmol/L (3.5-5.1)
[2022-12-03 06:56] LABS: BLOOD UREA NITROGEN 10.5 mg/dL (7-18); CALCIUM 8.8 mg/dL (8.5-10.1); MAGNESIUM 1.8 mg/dL (1.8-2.4)
[2022-12-03 07:00] LABS: CREATININE 0.5 mg/dL (0.55-1.3); PHOSPHOROUS 1.4 mg/dL (2.5-4.9)
[2022-12-03] MEDS: ENOXAPARIN NA (PORCINE) 40 MG/0.4 ML DISP.SYRIN SQ SCH (09:01)
[2022-12-03] MEDS: CEFTRIAXONE 1 GM in DEXTROSE 5%-WATER - 50 ML IVPB SCH (09:01)
[2022-12-03] MEDS: AZITHROMYCIN IVPB 250 MG in DEXTROSE 5%-WATER - 250 ML IVPB SCH (09:25)
[2022-12-03] MEDS: SODIUM CHLORIDE 1 GM TABLET PO SCH (21:05)
[2022-12-03] MEDS: ATORVASTATIN CA 20 MG TABLET (FP) PO SCH (21:05)
[2022-12-04] MEDS: LEVOTHYROXINE NA 100 MCG TABLET (FP) PO SCH (06:01)
[2022-12-04 07:30] LABS: BASO % 0.2 % (0-2.0); EOS % 0.4 % (0-4.5); HEMATOCRIT 34.7 % (32.4-45.2); LYMPH % 6.7 % (8-40); MCH 29.2 pg (25.7-33.7); MCHC 34.5 g/dl (32.0-36.0); MEAN CELL VOLUME 84.4 fl (80-96); MONO % 10.5 % (3.8-10.2); NEUT % 82.2 % (42.8-82.8); PLATELET COUNT 180 10^3/uL (134-434); RBC 4.11 M/mm3 (3.60-5.2); RDW 15.3 % (11.6-15.6); WHITE BLOOD COUNT 12.1 K/mm3 (4.0-10.0)
[2022-12-04 07:47] LABS: POTASSIUM 4.6 mmol/L (3.5-5.1)
[2022-12-04 07:51] LABS: CALCIUM 9.1 mg/dL (8.5-10.1)
[2022-12-04 07:52] LABS: BLOOD UREA NITROGEN 9.3 mg/dL (7-18)
[2022-12-04 07:55] LABS: CREATININE 0.4 mg/dL (0.55-1.3); PHOSPHOROUS 1.7 mg/dL (2.5-4.9)
[2022-12-04] MEDS: ENOXAPARIN NA (PORCINE) 40 MG/0.4 ML DISP.SYRIN SQ SCH (10:15)
[2022-12-04] MEDS: CEFTRIAXONE 1 GM in DEXTROSE 5%-WATER - 50 ML IVPB SCH (10:15)
[2022-12-04] MEDS: AZITHROMYCIN IVPB 250 MG in DEXTROSE 5%-WATER - 250 ML IVPB SCH (10:15)
[2022-12-04] MEDS: SODIUM CHLORIDE 1 GM TABLET PO SCH ×2 (10:45→21:25)
[2022-12-04] MEDS ORDERED: SODIUM CHLORIDE 500 ML IV STA (14:39)
[2022-12-04] MEDS: ATORVASTATIN CA 20 MG TABLET (FP) PO SCH (21:25)
[2022-12-05] MEDS: LEVOTHYROXINE NA 100 MCG TABLET (FP) PO SCH (06:02)
[2022-12-05 07:02] LABS: BASO % 0.3 % (0-2.0); HEMATOCRIT 33.8 % (32.4-45.2); HEMOGLOBIN 11.5 GM/dL (10.7-15.3); LYMPH % 10.1 % (8-40); MCH 28.9 pg (25.7-33.7); MEAN CELL VOLUME 84.8 fl (80-96); MEAN PLT VOLUME 8.1 fl (7.5-11.1); MONO % 12.6 % (3.8-10.2); PLATELET COUNT 223 10^3/uL (134-434); RBC 3.99 M/mm3 (3.60-5.2); RDW 15.6 % (11.6-15.6); WHITE BLOOD COUNT 9.1 K/mm3 (4.0-10.0)
[2022-12-05 07:21] LABS: POTASSIUM 4.4 mmol/L (3.5-5.1)
[2022-12-05 07:25] LABS: ALBUMIN 2.6 g/dl (3.4-5.0); BLOOD UREA NITROGEN 13.1 mg/dL (7-18)
[2022-12-05 07:28] LABS: CREATININE 0.5 mg/dL (0.55-1.3)
[2022-12-05 07:30] LABS: BILIRUBIN,TOTAL 0.8 mg/dL (0.2-1); TOT PROT 5.4 g/dl (6.4-8.2)
[2022-12-05] MEDS: CEFTRIAXONE 1 GM in DEXTROSE 5%-WATER - 50 ML IVPB SCH (10:13)
[2022-12-05] MEDS: ENOXAPARIN NA (PORCINE) 40 MG/0.4 ML DISP.SYRIN SQ SCH (10:13)
[2022-12-05] MEDS: AZITHROMYCIN IVPB 250 MG in DEXTROSE 5%-WATER - 250 ML IVPB SCH (10:13)
[2022-12-05] MEDS: SODIUM CHLORIDE 1 GM TABLET PO SCH (10:14)
[2022-12-05] MEDS: LOSARTAN POTASSIUM 50 MG TABLET PO SCH (20:30)
[2022-12-05] MEDS: ATORVASTATIN CA 20 MG TABLET (FP) PO SCH (21:06)
[2022-12-06] MEDS: LEVOTHYROXINE NA 100 MCG TABLET (FP) PO SCH (06:03)
[2022-12-06 09:03] LABS: BASO % 0.4 % (0-2.0); EOS % 2.6 % (0-4.5); HEMATOCRIT 33.2 % (32.4-45.2); HEMOGLOBIN 11.3 GM/dL (10.7-15.3); LYMPH % 12.9 % (8-40); MCH 28.8 pg (25.7-33.7); MEAN CELL VOLUME 84.6 fl (80-96); MEAN PLT VOLUME 6.6 fl (7.5-11.1); MONO % 11.8 % (3.8-10.2); NEUT % 72.3 % (42.8-82.8); PLATELET COUNT 280 10^3/uL (134-434); RBC 3.92 M/mm3 (3.60-5.2); RDW 15.2 % (11.6-15.6); WHITE BLOOD COUNT 8.8 K/mm3 (4.0-10.0)
[2022-12-06] MEDS ORDERED: CEFTRIAXONE 1 GM in DEXTROSE 5%-WATER - 50 ML IVPB SCH (10:00)
[2022-12-06] MEDS ORDERED: AZITHROMYCIN IVPB 250 MG in DEXTROSE 5%-WATER - 250 ML IVPB SCH (10:00)
[2022-12-06] MEDS: ENOXAPARIN NA (PORCINE) 40 MG/0.4 ML DISP.SYRIN SQ SCH (11:31)
[2022-12-06] MEDS: LOSARTAN POTASSIUM 50 MG TABLET PO SCH (11:31)
[2022-12-06 11:44] LABS: BLOOD UREA NITROGEN 13.2 mg/dL (7-18); CALCIUM 9.3 mg/dL (8.5-10.1); CREATININE 0.6 mg/dL (0.55-1.3); MAGNESIUM 1.8 mg/dL (1.8-2.4); PHOSPHOROUS 2.4 mg/dL (2.5-4.9); POTASSIUM 4.3 mmol/L (3.5-5.1)
[2022-12-06] MEDS: ATORVASTATIN CA 20 MG TABLET (FP) PO SCH (21:52)
[2022-12-07] MEDS: LEVOTHYROXINE NA 100 MCG TABLET (FP) PO SCH (06:11)
[2022-12-07] MEDS ORDERED: LACTOBACILLUS ACIDOPHILUS 1 TABLET PO SCH (10:00)
[2022-12-07 10:37] LABS: HEMATOCRIT 34.2 % (32.4-45.2); HEMOGLOBIN 12.4 GM/dL (10.7-15.3); MCH 30.1 pg (25.7-33.7); MCHC 36.1 g/dl (32.0-36.0); MEAN CELL VOLUME 83.3 fl (80-96); MEAN PLT VOLUME 6.5 fl (7.5-11.1); PLATELET COUNT 295 10^3/uL (134-434); RBC 4.11 M/mm3 (3.60-5.2); RDW 15.2 % (11.6-15.6)
[2022-12-07 10:53] LABS: POTASSIUM 4.1 mmol/L (3.5-5.1)
[2022-12-07 10:58] LABS: CALCIUM 9.4 mg/dL (8.5-10.1)
[2022-12-07 10:59] LABS: MAGNESIUM 1.8 mg/dL (1.8-2.4)
[2022-12-07 11:00] LABS: CREATININE 0.7 mg/dL (0.55-1.3); PHOSPHOROUS 2.9 mg/dL (2.5-4.9)
[2022-12-07] MEDS: ENOXAPARIN NA (PORCINE) 40 MG/0.4 ML DISP.SYRIN SQ SCH (11:02)
[2022-12-07] MEDS: LOSARTAN POTASSIUM 50 MG TABLET PO SCH (11:02)
[2022-12-07 11:42] VITALS: BMI 20.2
[2022-12-07 14:02] VITALS: PULSE 65
[2022-12-07 15:47] VITALS: BP 132/43; RESP 16; TEMP 99.2
[2022-12-07] MEDS ORDERED: AMOX TR/POT CLAV 875MG/125MG TABLETS (FP) PO SCH (17:30)
== END 2022-12-07 18:10 | disposition home or self-care (01) | DRG 640 ==
LOC: FER 00:28 → UNDOADMIN 12:21 → JICU 12:21 → J5S 12-05 18:35
PROVIDERS: ADMIT Internal Medicine; ATTEND Internal Medicine
DX: E87.1 Hypo-osmolality and hyponatremia (principal); G93.41 Metabolic encephalopathy; J18.9 Pneumonia, unspecified organism; E03.9 Hypothyroidism, unspecified; I25.10 Atherosclerotic heart disease of native coronary artery without angina pectoris; I10 Essential (primary) hypertension; J44.9 Chronic obstructive pulmonary disease, unspecified; I49.5 Sick sinus syndrome; K83.8 Other specified diseases of biliary tract; K76.0 Fatty (change of) liver, not elsewhere classified; K57.90 Diverticulosis of intestine, part unspecified, without perforation or abscess without bleeding; D72.829 Elevated white blood cell count, unspecified; R41.82 Altered mental status, unspecified; E86.0 Dehydration; F41.9 Anxiety disorder, unspecified; K43.2 Incisional hernia without obstruction or gangrene; E87.6 Hypokalemia; D32.0 Benign neoplasm of cerebral meninges; Z95.0 Presence of cardiac pacemaker
CPT/HCPCS: 36415; 70450-TC; 71045-TC-FY; 71250-TC; 74176-TC; 80048; 80053; 81003; 82533; 82570; 83735; 83880; 83930; 83935; 84100; 84300; 84439; 84443; 84484; 84550; 85025; 85027; 87040; 87086; 87635; 87899; 93005; 94761; 97116-GP; 97162-GP; 99285-25; J2597

== ENCOUNTER 2022-12-19 19:18 | Observation (INO) | payer OTHER ==
[2022-12-19] MEDS ORDERED: ALBUTEROL SO4 2.5/IPRATROPIUM 0.5 INH SOL 3 ML VIAL.NEB. NEB ONE ×2 (20:08→20:36)
[2022-12-19 21:17] LABS: BASO % 1.4 % (0-2.0); EOS % 0.8 % (0-4.5); HEMATOCRIT 35.4 % (32.4-45.2); HEMOGLOBIN 12.5 GM/dL (10.7-15.3); LYMPH % 16.3 % (8-40); MCH 29.4 pg (25.7-33.7); MCHC 35.3 g/dl (32.0-36.0); MEAN CELL VOLUME 83.4 fl (80-96); MEAN PLT VOLUME 6.6 fl (7.5-11.1); MONO % 8.3 % (3.8-10.2); NEUT % 73.2 % (42.8-82.8); PLATELET COUNT 266 10^3/uL (134-434); RBC 4.25 M/mm3 (3.60-5.2); RDW 15.5 % (11.6-15.6); WHITE BLOOD COUNT 8.9 K/mm3 (4.0-10.0)
[2022-12-19 21:59] LABS: N-TERMINAL BNP 1750.3 pg/ml (5-450)
[2022-12-19] MEDS ORDERED: FUROSEMIDE 40 MG/4 ML INJECTABLE VIAL IVPUSH ONE (22:40)
[2022-12-19] MEDS ORDERED: FUROSEMIDE 40 MG/4 ML INJECTABLE VIAL ONE (22:47)
[2022-12-20 00:28] LABS: POTASSIUM 3.4 mmol/L (3.5-5.1)
[2022-12-20 00:31] LABS: ALBUMIN 3.5 g/dl (3.4-5.0); BLOOD UREA NITROGEN 11.8 mg/dL (7-18)
[2022-12-20 00:34] LABS: CREATININE 0.8 mg/dL (0.55-1.3)
[2022-12-20 00:35] LABS: BILIRUBIN,TOTAL 0.8 mg/dL (0.2-1)
[2022-12-20 00:37] LABS: TOT PROT 6.7 g/dl (6.4-8.2)
[2022-12-20] MEDS ORDERED: FUROSEMIDE 40 MG/4 ML INJECTABLE VIAL IVPUSH ONE (04:21)
[2022-12-20] MEDS ORDERED: FUROSEMIDE 40 MG/4 ML INJECTABLE VIAL ONE (04:44)
[2022-12-20 05:29] LABS: PH,URINE 6.5 (5.0-8.0); URINE APPEARANCE CLEAR; URINE BILIRUBIN NEGATIVE (NEGATIVE); URINE COLOR YELLOW; URINE GLUCOSE (UA) NEGATIVE (NEGATIVE); URINE KETONE NEGATIVE (NEGATIVE); URINE LEUK ESTERASE NEGATIVE (NEGATIVE); URINE NITRITE NEGATIVE (NEGATIVE); URINE PROTEIN NEGATIVE (NEGATIVE); URINE UROBILINOGEN 0.2 mg/dL (0.2-1.0)
[2022-12-20] MEDS ORDERED: LEVALBUTEROL HCL 0.31 MG/3 ML VIAL.NEB IH ONE ×2 (07:36→20:09)
[2022-12-20] MEDS: LEVALBUTEROL HCL 0.31 MG/3 ML VIAL.NEB IH SCH ×3 (07:38→20:11)
[2022-12-20 08:59] LABS: BASO % 0.7 % (0-2.0); EOS % 1.3 % (0-4.5); HEMATOCRIT 37.9 % (32.4-45.2); HEMOGLOBIN 13.6 GM/dL (10.7-15.3); LYMPH % 13.6 % (8-40); MCH 29.6 pg (25.7-33.7); MCHC 35.8 g/dl (32.0-36.0); MEAN CELL VOLUME 82.5 fl (80-96); MEAN PLT VOLUME 6.7 fl (7.5-11.1); MONO % 8.1 % (3.8-10.2); NEUT % 76.3 % (42.8-82.8); PLATELET COUNT 290 10^3/uL (134-434); RDW 15.6 % (11.6-15.6); WHITE BLOOD COUNT 8.8 K/mm3 (4.0-10.0)
[2022-12-20 09:03] LABS: POTASSIUM 3.2 mmol/L (3.5-5.1)
[2022-12-20 09:11] LABS: ALBUMIN 3.6 g/dl (3.4-5.0); BLOOD UREA NITROGEN 11.3 mg/dL (7-18); MAGNESIUM 1.8 mg/dL (1.8-2.4); PHOSPHOROUS 2.6 mg/dL (2.5-4.9)
[2022-12-20 09:13] LABS: BILIRUBIN,TOTAL 1.1 mg/dL (0.2-1)
[2022-12-20 09:14] LABS: CREATININE 0.7 mg/dL (0.55-1.3)
[2022-12-20] MEDS ORDERED: LOSARTAN POTASSIUM 50 MG TABLET ONE (10:52)
[2022-12-20] MEDS: LOSARTAN POTASSIUM 50 MG TABLET PO SCH (11:17)
[2022-12-20] MEDS: ENOXAPARIN NA (PORCINE) 40 MG/0.4 ML DISP.SYRIN SQ SCH (11:17)
[2022-12-20 23:07] VITALS: BMI 18.9
[2022-12-21] MEDS: LEVOTHYROXINE NA 100 MCG TABLET (FP) PO SCH (06:13)
[2022-12-21] MEDS: LEVALBUTEROL HCL 0.31 MG/3 ML VIAL.NEB IH SCH ×3 (09:14→20:38)
[2022-12-21] MEDS ORDERED: PIPERACILLIN/TAZOB 3.375 GM 3.375 GM in DEXTROSE 5%-WATER - 50 ML IVPB SCH (10:00)
[2022-12-21] MEDS: ENOXAPARIN NA (PORCINE) 40 MG/0.4 ML DISP.SYRIN SQ SCH (10:14)
[2022-12-21] MEDS: LOSARTAN POTASSIUM 50 MG TABLET PO SCH (10:14)
[2022-12-21] MEDS: CEFTRIAXONE 1 GM in DEXTROSE 5%-WATER - 50 ML IVPB SCH (18:34)
[2022-12-22] MEDS: LEVOTHYROXINE NA 100 MCG TABLET (FP) PO SCH (06:40)
[2022-12-22] MEDS: LEVALBUTEROL HCL 0.31 MG/3 ML VIAL.NEB IH SCH (08:28)
[2022-12-22 09:42] LABS: ALBUMIN 3.5 g/dl (3.4-5.0); BILIRUBIN,TOTAL 0.9 mg/dl (0.2-1); CALCIUM 9.9 mg/dl (8.5-10.1); CREATININE 0.8 mg/dl (0.6-1.3); POTASSIUM 3.8 mmol/L (3.5-5.1); TOT PROT 5.5 g/dl (6.4-8.2)
[2022-12-22 09:52] VITALS: BP 104/49; PULSE 105; RESP 18; TEMP 98.1
[2022-12-22] MEDS ORDERED: PIPERACILLIN/TAZOB 3.375 GM 3.375 GM in DEXTROSE 5%-WATER - 50 ML IVPB SCH (10:00)
[2022-12-22] MEDS: CEFTRIAXONE 1 GM in DEXTROSE 5%-WATER - 50 ML IVPB SCH (10:26)
[2022-12-22] MEDS: ENOXAPARIN NA (PORCINE) 40 MG/0.4 ML DISP.SYRIN SQ SCH (10:27)
[2022-12-22] MEDS: LOSARTAN POTASSIUM 50 MG TABLET PO SCH (10:27)
[2022-12-22] MEDS ORDERED: SODIUM CHLORIDE 500 ML IV STA (11:02)
[2022-12-22 14:27] LABS: BASO % 0.9 % (0-2.0); EOS % 3.4 % (0-4.5); HEMATOCRIT 37.4 % (32.4-45.2); HEMOGLOBIN 12.2 GM/dL (10.7-15.3); LYMPH % 18.2 % (8-40); MCH 28.2 pg (25.7-33.7); MCHC 32.6 g/dl (32.0-36.0); MEAN CELL VOLUME 86.7 fl (80-96); MEAN PLT VOLUME 7.4 fl (7.5-11.1); MONO % 7.5 % (3.8-10.2); PLATELET COUNT 241 10^3/uL (134-434); RBC 4.32 M/mm3 (3.60-5.2); RDW 15.7 % (11.6-15.6)
[2022-12-22 14:31] LABS: WHITE BLOOD COUNT 7.6 K/mm3 (4.0-10.0)
[2022-12-23] MEDS ORDERED: LEVOTHYROXINE NA 50 MCG TABLET (FP) PO SCH (07:00)
== END 2022-12-22 13:55 | disposition home or self-care (01) ==
LOC: JER 19:18 → JERBED 23:53 → FM/S 12-20 21:50
PROVIDERS: ADMIT Internal Medicine
PROC: 3E0F7GC Introduction of Other Therapeutic Substance into Respiratory Tract, Via Natural or Artificial Opening (ICD-10-PCS; principal; 2022-12-19)
PROC: 3E03329 Introduction of Other Anti-infective into Peripheral Vein, Percutaneous Approach (ICD-10-PCS; 2022-12-19)
PROC: 3E023GC Introduction of Other Therapeutic Substance into Muscle, Percutaneous Approach (ICD-10-PCS; 2022-12-19)
PROC: 3E033GC Introduction of Other Therapeutic Substance into Peripheral Vein, Percutaneous Approach (ICD-10-PCS; 2022-12-19)
DX: J18.9 Pneumonia, unspecified organism (principal); I50.9 Heart failure, unspecified; I25.10 Atherosclerotic heart disease of native coronary artery without angina pectoris; E03.9 Hypothyroidism, unspecified; K57.90 Diverticulosis of intestine, part unspecified, without perforation or abscess without bleeding; R00.1 Bradycardia, unspecified; K76.0 Fatty (change of) liver, not elsewhere classified; K80.50 Calculus of bile duct without cholangitis or cholecystitis without obstruction; Z95.0 Presence of cardiac pacemaker; K82.8 Other specified diseases of gallbladder; Z87.891 Personal history of nicotine dependence
CPT/HCPCS: 0241U-QW; 36415; 70450-TC; 71046-TC-FY; 71250-TC; 80053; 81003; 82550; 82607; 83735; 83880; 84100; 84443; 84484; 85025; 86780; 86850; 86900; 86901; 87086; 87186; 93005; 93010; 93306-TC; 94640; 96365; 96367; 96372; 96375; 97116-GP; 97162-GP; 99285-25; G0378

== ENCOUNTER 2023-03-01 18:27 | Emergency (ER) | payer OTHER ==
[2023-03-01 18:39] VITALS: TEMP 97.5; BMI 18.9
[2023-03-01 21:21] LABS: BASO % 0.9 % (0-2.0); EOS % 0.9 % (0-4.5); HEMATOCRIT 41.1 % (32.4-45.2); HEMOGLOBIN 13.5 GM/dL (10.7-15.3); LYMPH % 13.9 % (8-40); MCH 28.2 pg (25.7-33.7); MCHC 32.9 g/dl (32.0-36.0); MEAN CELL VOLUME 85.6 fl (80-96); MEAN PLT VOLUME 6.9 fl (7.5-11.1); MONO % 5.9 % (3.8-10.2); NEUT % 78.4 % (42.8-82.8); PLATELET COUNT 251 10^3/uL (134-434); RDW 13.9 % (11.6-15.6); WHITE BLOOD COUNT 8.4 K/mm3 (4.0-10.0)
[2023-03-01 21:28] LABS: INR 0.89 (0.83-1.09); PROTHROMBIN TIME (PATIENT) 10.3 SEC (9.7-13.0)
[2023-03-01 21:31] LABS: ACTIVATED PTT 28.8 SECONDS (25.2-36.5)
[2023-03-01 21:46] LABS: POTASSIUM 4.5 mmol/L (3.5-5.1)
[2023-03-01 21:49] LABS: ALBUMIN 3.4 g/dl (3.4-5.0); CALCIUM 11.3 mg/dL (8.5-10.1)
[2023-03-01 21:53] LABS: CREATININE 0.8 mg/dL (0.55-1.3)
[2023-03-01 21:54] LABS: BILIRUBIN,TOTAL 0.8 mg/dL (0.2-1); TOT PROT 6.6 g/dl (6.4-8.2)
[2023-03-01 21:55] LABS: PH,URINE 5.5 (5.0-8.0); URINE APPEARANCE CLEAR; URINE BILIRUBIN NEGATIVE (NEGATIVE); URINE COLOR YELLOW; URINE GLUCOSE (UA) NEGATIVE (NEGATIVE); URINE KETONE NEGATIVE (NEGATIVE); URINE LEUK ESTERASE NEGATIVE (NEGATIVE); URINE NITRITE NEGATIVE (NEGATIVE); URINE PROTEIN NEGATIVE (NEGATIVE); URINE UROBILINOGEN 0.2 mg/dL (0.2-1.0)
[2023-03-01 23:37] VITALS: BP 132/76; PULSE 67; RESP 15
== END 2023-03-02 00:25 | disposition home or self-care (01) ==
LOC: JER 18:27
DX: R06.02 Shortness of breath (principal); R68.2 Dry mouth, unspecified; R35.0 Frequency of micturition; R53.1 Weakness; J18.9 Pneumonia, unspecified organism; R25.1 Tremor, unspecified; Z20.822 Contact with and (suspected) exposure to COVID-19
CPT/HCPCS: 0241U-QW; 36415; 71045-TC-FY; 80053; 81003; 82962; 84484; 85025; 85610; 85730; 87086; 93005; 93010; 99285-25

== ENCOUNTER 2023-03-26 04:26 | Inpatient (IN) | payer OTHER ==
[2023-03-26] MEDS ORDERED: SODIUM CHLORIDE 0.9% 500 ML INFUS.BAG IV ONE (04:51)
[2023-03-26] MEDS ORDERED: ONDANSETRON 4 MG/2 ML VIAL IVPUSH ONE (04:51)
[2023-03-26] MEDS ORDERED: ACETAMINOPHEN 1000 MG/100 ML BAG IVPB ONE (04:51)
[2023-03-26] MEDS ORDERED: ONDANSETRON 4 MG/2 ML VIAL ONE (04:52)
[2023-03-26] MEDS ORDERED: ACETAMINOPHEN INJECTION 100 ML IVPB ONE (04:52)
[2023-03-26] MEDS ORDERED: METOCLOPRAMIDE HCL INJECTION 10 MG/2 ML VIAL IVPB ONE (05:41)
[2023-03-26] MEDS ORDERED: METOCLOPRAMIDE HCL INJECTION 10 MG/2 ML VIAL ONE (05:45)
[2023-03-26 06:05] LABS: INR 0.91 (0.83-1.09); PROTHROMBIN TIME (PATIENT) 10.6 SEC (9.7-13.0)
[2023-03-26 06:08] LABS: ACTIVATED PTT 26.9 SECONDS (25.2-36.5)
[2023-03-26 06:15] LABS: POTASSIUM 3.5 mmol/L (3.5-5.1)
[2023-03-26 06:17] LABS: BLOOD UREA NITROGEN 11.3 mg/dL (7-18); CALCIUM 9.6 mg/dL (8.5-10.1); MAGNESIUM 1.4 mg/dL (1.8-2.4)
[2023-03-26 06:18] LABS: ALBUMIN 3.4 g/dl (3.4-5.0)
[2023-03-26 06:20] LABS: CREATININE 0.9 mg/dL (0.55-1.3)
[2023-03-26 06:22] LABS: BILIRUBIN,TOTAL 0.7 mg/dL (0.2-1); TOT PROT 6.4 g/dl (6.4-8.2)
[2023-03-26 06:52] LABS: BASO % 0.5 % (0-2.0); EOS % 0.6 % (0-4.5); HEMATOCRIT 35.4 % (32.4-45.2); HEMOGLOBIN 12.2 GM/dL (10.7-15.3); LYMPH % 14.3 % (8-40); MCH 28.5 pg (25.7-33.7); MCHC 34.5 g/dl (32.0-36.0); MEAN CELL VOLUME 82.7 fl (80-96); MEAN PLT VOLUME 7.1 fl (7.5-11.1); MONO % 8.2 % (3.8-10.2); NEUT % 76.4 % (42.8-82.8); PLATELET COUNT 235 10^3/uL (134-434); RBC 4.28 M/mm3 (3.60-5.2); RDW 14.2 % (11.6-15.6); WHITE BLOOD COUNT 11.3 K/mm3 (4.0-10.0)
[2023-03-26] MEDS ORDERED: AZITHROMYCIN IVPB 500 MG in DEXTROSE 5%-WATER - 250 ML IVPB ONE (06:56)
[2023-03-26 07:04] LABS: LACTIC ACID 2.3 mmol/L (0.4-2.0)
[2023-03-26] MEDS ORDERED: AZITHROMYCIN IVPB 500 MG/250 ML BAG IVPB ONE (07:26)
[2023-03-26] MEDS ORDERED: CEFTRIAXONE 1 GM/50 ML BAG ONE (07:26)
[2023-03-26] MEDS ORDERED: LOSARTAN POTASSIUM 50 MG TABLET ONE (10:47)
[2023-03-26] MEDS: LOSARTAN POTASSIUM 50 MG TABLET PO SCH (10:48)
[2023-03-26] MEDS ORDERED: PIPERACILLIN/TAZOB 3.375 GM 3.375 GM in DEXTROSE 5%-WATER - 50 ML IVPB SCH ×2 (11:00→14:00)
[2023-03-26] MEDS ORDERED: MAGNESIUM OXIDE 400 MG TABLET (FP) PO ONE ×2 (11:53→14:15)
[2023-03-26 12:33] LABS: POTASSIUM 3.8 mmol/L (3.5-5.1)
[2023-03-26 12:35] LABS: BLOOD UREA NITROGEN 8.6 mg/dL (7-18); CALCIUM 9.3 mg/dL (8.5-10.1)
[2023-03-26 12:39] LABS: CREATININE 0.8 mg/dL (0.55-1.3)
[2023-03-26] MEDS: PIPERACILLIN/TAZOB 3.375 GM 3.375 GM in DEXTROSE 5%-WATER - 50 ML IVPB SCH ×2 (14:34→18:03)
[2023-03-26 15:47] VITALS: BMI 21.3
[2023-03-26] MEDS: ATORVASTATIN CA 20 MG TABLET (FP) PO SCH (21:53)
[2023-03-27] MEDS: PIPERACILLIN/TAZOB 3.375 GM 3.375 GM in DEXTROSE 5%-WATER - 50 ML IVPB SCH ×3 (01:10→18:07)
[2023-03-27] MEDS: LEVOTHYROXINE NA 100 MCG TABLET (FP) PO SCH (06:18)
[2023-03-27 07:31] LABS: BASO % 0.5 % (0-2.0); EOS % 1.5 % (0-4.5); HEMATOCRIT 34.5 % (32.4-45.2); LYMPH % 17.8 % (8-40); MEAN PLT VOLUME 6.9 fl (7.5-11.1); MONO % 8.6 % (3.8-10.2); NEUT % 71.6 % (42.8-82.8); PLATELET COUNT 205 10^3/uL (134-434); RBC 4.15 M/mm3 (3.60-5.2); RDW 14.1 % (11.6-15.6); WHITE BLOOD COUNT 7.4 K/mm3 (4.0-10.0)
[2023-03-27 07:34] LABS: POTASSIUM 3.8 mmol/L (3.5-5.1)
[2023-03-27 07:38] LABS: BLOOD UREA NITROGEN 9.5 mg/dL (7-18)
[2023-03-27 07:41] LABS: CREATININE 0.8 mg/dL (0.55-1.3); PHOSPHOROUS 2.7 mg/dL (2.5-4.9)
[2023-03-27 07:42] LABS: TOT PROT 5.8 g/dl (6.4-8.2)
[2023-03-27 08:26] LABS: BILIRUBIN,TOTAL 1.1 mg/dL (0.2-1)
[2023-03-27] MEDS: LOSARTAN POTASSIUM 50 MG TABLET PO SCH ×2 (10:18→10:58)
[2023-03-27] MEDS: ENOXAPARIN NA (PORCINE) 40 MG/0.4 ML DISP.SYRIN SQ SCH (10:18)
[2023-03-27] MEDS: ATORVASTATIN CA 20 MG TABLET (FP) PO SCH (21:20)
[2023-03-28 01:22] VITALS: RESP 18
[2023-03-28] MEDS: PIPERACILLIN/TAZOB 3.375 GM 3.375 GM in DEXTROSE 5%-WATER - 50 ML IVPB SCH ×3 (01:23→17:43)
[2023-03-28] MEDS: LEVOTHYROXINE NA 100 MCG TABLET (FP) PO SCH (06:24)
[2023-03-28 08:15] LABS: BASO % 1.1 % (0-2.0); EOS % 2.1 % (0-4.5); HEMATOCRIT 33.5 % (32.4-45.2); HEMOGLOBIN 11.4 GM/dL (10.7-15.3); LYMPH % 20.7 % (8-40); MCH 28.8 pg (25.7-33.7); MCHC 33.9 g/dl (32.0-36.0); MEAN CELL VOLUME 84.7 fl (80-96); MEAN PLT VOLUME 7.1 fl (7.5-11.1); MONO % 9.5 % (3.8-10.2); NEUT % 66.6 % (42.8-82.8); PLATELET COUNT 185 10^3/uL (134-434); RBC 3.95 M/mm3 (3.60-5.2); RDW 14.3 % (11.6-15.6); WHITE BLOOD COUNT 7.8 K/mm3 (4.0-10.0)
[2023-03-28 08:39] LABS: BLOOD UREA NITROGEN 16.9 mg/dL (7-18); CALCIUM 9.8 mg/dL (8.5-10.1); MAGNESIUM 2.1 mg/dL (1.8-2.4)
[2023-03-28 08:41] LABS: ALBUMIN 2.8 g/dl (3.4-5.0)
[2023-03-28 08:42] LABS: PHOSPHOROUS 2.3 mg/dL (2.5-4.9)
[2023-03-28 08:43] LABS: CREATININE 0.9 mg/dL (0.55-1.3)
[2023-03-28 08:44] LABS: BILIRUBIN,TOTAL 0.9 mg/dL (0.2-1); TOT PROT 5.6 g/dl (6.4-8.2)
[2023-03-28] MEDS: ASPIRIN COATED 81 MG TABLET.EC PO SCH (09:25)
[2023-03-28] MEDS: LOSARTAN POTASSIUM 50 MG TABLET PO SCH (09:25)
[2023-03-28] MEDS: ENOXAPARIN NA (PORCINE) 40 MG/0.4 ML DISP.SYRIN SQ SCH (09:25)
[2023-03-28] MEDS ORDERED: NAPH,MB-DB/K PH,MBDB POWDER PACKET PO ONE (13:00)
[2023-03-28] MEDS ORDERED: ATORVASTATIN CA 20 MG TABLET (FP) PO SCH (15:57)
[2023-03-28] MEDS ORDERED: ATORVASTATIN CA 40 MG TABLET (FP) PO SCH (15:59)
[2023-03-28] MEDS: FUROSEMIDE 40 MG/4 ML INJECTABLE VIAL IVPUSH SCH (16:34)
[2023-03-28] MEDS: NAPH,MB-DB/K PH,MBDB POWDER PACKET PO SCH (21:51)
[2023-03-29] MEDS: PIPERACILLIN/TAZOB 3.375 GM 3.375 GM in DEXTROSE 5%-WATER - 50 ML IVPB SCH ×2 (02:19→09:47)
[2023-03-29] MEDS: LEVOTHYROXINE NA 100 MCG TABLET (FP) PO SCH (06:55)
[2023-03-29 07:41] LABS: POTASSIUM 3.8 mmol/L (3.5-5.1)
[2023-03-29 07:45] LABS: CALCIUM 10.1 mg/dL (8.5-10.1)
[2023-03-29 07:46] LABS: BLOOD UREA NITROGEN 20.3 mg/dL (7-18)
[2023-03-29 07:49] LABS: CREATININE 0.9 mg/dL (0.55-1.3); PHOSPHOROUS 3.3 mg/dL (2.5-4.9)
[2023-03-29 08:52] VITALS: BP 131/59; PULSE 71; TEMP 97.9
[2023-03-29] MEDS: LOSARTAN POTASSIUM 50 MG TABLET PO SCH (09:46)
[2023-03-29] MEDS: ASPIRIN COATED 81 MG TABLET.EC PO SCH (09:46)
[2023-03-29] MEDS: NAPH,MB-DB/K PH,MBDB POWDER PACKET PO SCH (09:46)
[2023-03-29] MEDS: ENOXAPARIN NA (PORCINE) 40 MG/0.4 ML DISP.SYRIN SQ SCH (09:46)
[2023-03-29] MEDS: FUROSEMIDE 40 MG/4 ML INJECTABLE VIAL IVPUSH SCH (09:47)
== END 2023-03-29 14:14 | disposition home health service (06) | DRG 193 ==
LOC: JER 04:26 → JERBED 07:46 → OBSVTOIN 10:44 → J4W 12:22
PROVIDERS: ADMIT Internal Medicine; ATTEND Internal Medicine
DX: J18.9 Pneumonia, unspecified organism (principal); I50.33 Acute on chronic diastolic (congestive) heart failure; E87.1 Hypo-osmolality and hyponatremia; I24.89 Other forms of acute ischemic heart disease; E87.20 Acidosis, unspecified; I11.0 Hypertensive heart disease with heart failure; I25.10 Atherosclerotic heart disease of native coronary artery without angina pectoris; E78.5 Hyperlipidemia, unspecified; E03.9 Hypothyroidism, unspecified; K76.0 Fatty (change of) liver, not elsewhere classified; D32.0 Benign neoplasm of cerebral meninges; K57.90 Diverticulosis of intestine, part unspecified, without perforation or abscess without bleeding; E83.39 Other disorders of phosphorus metabolism; Z95.0 Presence of cardiac pacemaker
CPT/HCPCS: 0241U-QW; 36415; 71045-TC-FY; 80048; 80053; 80061; 83036; 83605; 83735; 83880; 84100; 84443; 84484; 85025; 85610; 85730; 87899; 93005; 93010; 94761; 97116-GP; 97162-GP; 99285-25; G0378; J0131

== ENCOUNTER 2023-06-21 10:45 | Emergency (ER) | payer OTHER ==
[2023-06-21 11:00] VITALS: BP 124/54; PULSE 60; RESP 18; TEMP 97.9; BMI 18.7
[2023-06-21 11:33] LABS: HEMOGLOBIN 13.7 G/dL (10.7-15.3); MCH 28.7 pg (25.7-33.7); MCHC 33.5 g/dl (32.0-36.0); MEAN CELL VOLUME 85.6 fl (80-96); MEAN PLT VOLUME 8.1 fl (7.5-11.1); PLATELET COUNT 178.9 10^3/uL (134-434); RBC 4.79 10^6/uL (3.60-5.2); RDW 16.2 % (11.6-15.6); WHITE BLOOD COUNT 7.9 10^3/uL (4.0-10.8)
[2023-06-21 12:20] LABS: ALBUMIN 4.3 g/dl (3.4-5.0); BILIRUBIN,TOTAL 1.5 mg/dl (0.2-1); CALCIUM 10.8 mg/dl (8.5-10.1); CREATININE 0.9 mg/dl (0.6-1.3); POTASSIUM 3.8 mmol/L (3.5-5.1); TOT PROT 6.2 g/dl (6.4-8.2)
[2023-06-21 13:25] LABS: N-TERMINAL BNP 1936.9 pg/ml (5-450)
[2023-06-21 14:38] LABS: ANISOCYTOSIS 1+
[2023-06-21 14:39] LABS: OVALOCYTE FEW; PLATELET ESTIMATE ADEQUATE
== END 2023-06-21 13:59 | disposition home or self-care (01) ==
LOC: FER 10:45
DX: I50.32 Chronic diastolic (congestive) heart failure (principal)
CPT/HCPCS: 36415; 71045-TC-FY; 80053; 81003; 83880; 84484; 85027; 87086; 93005; 99285-25

== ENCOUNTER 2023-08-08 18:03 | Emergency (ER) | payer OTHER ==
[2023-08-08 18:15] VITALS: PULSE 82; RESP 18; TEMP 97.9; BMI 18.7
[2023-08-08 18:49] LABS: HEMATOCRIT 38.3 % (32.4-45.2); MCH 29.7 pg (25.7-33.7); MCHC 33.9 g/dl (32.0-36.0); MEAN CELL VOLUME 87.4 fl (80-96); MEAN PLT VOLUME 8.6 fl (7.5-11.1); PLATELET COUNT 152.4 10^3/uL (134-434); RBC 4.38 10^6/uL (3.60-5.2); RDW 15.4 % (11.6-15.6); WHITE BLOOD COUNT 7.8 10^3/uL (4.0-10.8)
[2023-08-08 19:35] LABS: ALBUMIN 4.3 g/dl (3.4-5.0); ALK PHOS 81 U/L (45-117); ANION GAP 8 mmol/L (4-13); BILIRUBIN,TOTAL 0.9 mg/dl (0.2-1); CALCIUM 10.9 mg/dl (8.5-10.1); CHLORIDE 103 mmol/L (98-107); CO2 28 mmol/L (21-32); CREATININE 1.1 mg/dl (0.6-1.3); GLUCOSE,RANDOM 90 mg/dl (74-106); POTASSIUM 3.7 mmol/L (3.5-5.1); SGOT/AST 18 U/L (15-37); SGPT/ALT 12 U/L (7-52); SODIUM 139 mmol/L (136-145); TOT PROT 6.6 g/dl (6.4-8.2)
[2023-08-08 20:52] LABS: N-TERMINAL BNP 1222.2 pg/ml (5-450)
[2023-08-08] MEDS ORDERED: FUROSEMIDE 40 MG/4 ML INJECTABLE VIAL ONE (21:06)
[2023-08-08] MEDS: FUROSEMIDE 40 MG/4 ML INJECTABLE VIAL IVPUSH ONE (21:14)
[2023-08-08 21:17] VITALS: BP 158/84
== END 2023-08-08 21:50 | disposition home or self-care (01) ==
LOC: FER 18:03
PROC: 3E033GC Introduction of Other Therapeutic Substance into Peripheral Vein, Percutaneous Approach (ICD-10-PCS; principal; 2023-08-08)
DX: R06.02 Shortness of breath (principal); R35.0 Frequency of micturition; Z20.822 Contact with and (suspected) exposure to COVID-19
CPT/HCPCS: 0241U-QW; 36415; 71045-TC-FY; 80053; 81003; 83880; 84443; 84484; 85025; 87086; 93005; 99285-25

== ENCOUNTER 2023-09-27 12:16 | Emergency (ER) | payer OTHER ==
[2023-09-27 12:27] VITALS: BP 158/68; PULSE 61; RESP 18; TEMP 97.7; BMI 19.5
[2023-09-27 14:15] LABS: BASO % 0.8 % (0-2.0); EOS % 0.6 % (0-4.5); HEMATOCRIT 38.3 % (32.4-45.2); HEMOGLOBIN 12.8 GM/dL (10.7-15.3); LYMPH % 12.8 % (8-40); MCH 29.1 pg (25.7-33.7); MCHC 33.3 g/dl (32.0-36.0); MEAN CELL VOLUME 87.3 fl (80-96); MONO % 6.3 % (3.8-10.2); NEUT % 79.5 % (42.8-82.8); PLATELET COUNT 212 10^3/uL (134-434); RBC 4.39 M/mm3 (3.60-5.2); RDW 15.5 % (11.6-15.6); WHITE BLOOD COUNT 8.1 K/mm3 (4.0-10.0)
[2023-09-27 14:44] LABS: ALBUMIN 3.7 g/dl (3.4-5.0); CALCIUM 10.8 mg/dL (8.5-10.1)
[2023-09-27 14:49] LABS: TOT PROT 6.6 g/dl (6.4-8.2)
== END 2023-09-27 16:58 | disposition left against medical advice (07) ==
LOC: JER 12:16
DX: R07.2 Precordial pain (principal)
CPT/HCPCS: 36415; 71045-TC-FY; 80053; 83880; 84484; 85025; 93005; 93010; 99285-25